=== PATIENT | male | born 1950 | race African-American/Black ===

== ENCOUNTER 2019-01-12 20:07 | Inpatient (IN) | payer OTHER ==
[~2019-01-12 20:07] MED LIST: ROCURONIUM BROMIDE 50 MG/5 ML VIAL IVPUSH ONE
[2019-01-12] MEDS ORDERED: EPINEPHrine 1:10,000 (P-F SYR) 1 MG/10 ML DISP.SYRIN ONE (20:30)
[2019-01-12] MEDS ORDERED: MIDAZOLAM HCL 2 MG/2 ML SINGLE DOSE VIAL ONE ×2 (20:56→22:11)
--- NOTE | 2019-01-12 21:19 | PDOC ---
History of Present Illness - General Chief Complaint: Cardiac Arrest Stated Complaint: CARDIAC ARREST - History of Present Illness Initial Comments: 01/12/19 23:06 68 year old man with a history of HTN, DM and CHF presents after v-fib cardiac arrest after being found down by family. The patient was intubated, defib 4 times, was given 5 of epi, bicarb, calcium, amio, atropine and lido prior to arrival. En route the patient lost pulses, but ROSC was obtained. In ER the lost pulses again, after compressions and epi the patient obtained ROSC. Patient was hypotensive to 40/50s 2L normal saline bolused through peripheral acess Crash femoral central line was placed Patient responded to fluids and with pressures 110s/ 80s Patient began gagging on tube 2 versed pushed repeat 2 versed dosed required after CT versed drip started Small ET tube of 6.5 was initially placed by EMS due to inability to pass a larger tube Tube was exchanged with 8 ET tube in the ER - significant findings for aspiration of food in the airway and through removed tube Patient lost pulses a total of 4 times since being found down. Patient has an 8ET tube, 24cm at the lip ROS - unable to obtain PE GENERAL: sedated, intubated HEAD: No signs of trauma, normocephalic, atraumatic EYES: dilated, fixed EOMI, sclera anicteric, conjunctiva clear ENT: intubated NECK: Normal ROM, supple LUNGS: clear to auscultation bilaterally HEART: Regular rate and rhythm, normal S1 and S2, no murmurs, rubs or gallops, peripheral pulses normal and equal bilaterally. ABDOMEN: Soft, nontender, No guarding, no rebound. No masses EXTREMITIES : Normal inspection, no edema. No clubbing or cyanosis. NEUROLOGICAL: unable to obtain 2/2 sedation/intubation SKIN: Warm, Dry, normal turgor, no rashes or lesions noted MDM ED Course: case discussed with ICU resident Dr. Cadena ekg: nsr 90bpm, incomplete lbbb, nonsepcific st and t wave changes central line placed in L femoral ET tube replaced with 8.0 CT head, cspine, c/a/p CTAP: atelectasis/infiltrate at R base CT head and C spine - negative labs with lactic acidosis and tropinemia case discussed with inpatient medicine who agrees to icu admission Elizabet Koppula, PGY2 Emergency Medicine Past History - Past Medical History Allergies/Adverse Reactions: Allergies Allergy/AdvReac Type Severity Reaction Status Date / Time No Known Allergies Allergy Verified 01/12/19 20:15 Home Medications: Ambulatory Orders Aspirin 81 mg PO DAILY 01/13/19 Atorvastatin Ca [Lipitor] 40 mg PO DAILY 01/13/19 Carvedilol [Coreg -] 25 mg PO BID 01/13/19 Losartan/Hydrochlorothiazide [Losartan-Hctz 100-25 mg Tab] 1 each PO DAILY 01/13 Mirabegron [Myrbetriq] 25 mg PO DAILY 01/13/19 Telmisartan/Hydrochlorothiazid [Telmisartan-Hctz 80-25 mg Tab] 1 tab PO DAILY COPD: No Diabetes: Yes HTN: Yes Thyroid Disease: No - Surgical History Abdominal Surgery: No GI Surgery: No Orthopedic Surgery: No - Immunization History Td Vaccination: Yes (11/17/11) Immunization Up to Date: No - Suicide/Smoking/Psychosocial Hx Smoking Status: Yes Smoking History: Unknown if ever smoked Have you smoked in the past 12 months: Yes Number of Cigarettes Smoked Daily: 2 'Breaking Loose' booklet given: 05/14/15 Hx Alcohol Use: No Drug/Substance Use Hx: No *Physical Exam - Vital Signs Last Vital Signs Temp Pulse Resp BP Pulse Ox 65 95/61 83 L 01/12/19 20:15 01/12/19 20:15 01/12/19 20:15 ED Treatment Course - LABORATORY CBC & Chemistry Diagram: 01/21/19 09:00 01/21/19 09:00 - ADDITIONAL ORDERS Additional order review: Laboratory Results 01/12/19 20:38 POC Glucometer 159 01/12/19 20:38 POC Glucometer 159 Medical Decision Making - Critical Care Time Total Critical Care Time (minutes): 90 Critical Care Statement: The care of this patient involved high complexity decision making to prevent further life threatening deterioration of the patient 's condition and/or to evaluate & treat vital organ system(s) failure or risk of failure. *DC/Admit/Observation/Transfer Diagnosis at time of Disposition: Cardiac arrest with successful resuscitation - Discharge Dispostion Condition at time of disposition: Stable - Referrals - Patient Instructions - Post Discharge Activity
--- NOTE | 2019-01-12 21:27 | PDOC ---
Attending Attestation - Resident Resident Name: Elizabet Chan - ED Attending Attestation I have performed the following: I have examined & evaluated the patient, The case was reviewed & discussed with the resident, I agree w/resident's findings & plan - HPI HPI: 01/12/19 22:12 see resident hpi - Physicial Exam PE: 01/12/19 22:13 agree with resident exam - Critical Care Time Total Critical Care Time: 90 Critical Care Statement: The care of this patient involved high complexity decision making to prevent further life threatening deterioration of the patient 's condition and/or to evaluate & treat vital organ system(s) failure or risk of failure. - Medical Decision Making 01/12/19 22:34 68-year-old male status post cardiac arrest Patient had return of pulses after ACLS protocol by paramedics in route Initial rhythm was V. fib Patient again lost pulses in route and returned spontaneous circulation just prior to arrival Patient was intubated in the field Central line access was obtained with a left femoral Patient's ET tube placement field became occluded with thick mucus secretions, line was changed to an 8.[address] scans obtained of the head cervical spine chest abdomen and pelvis Plan for admission to the ICU
[2019-01-12] MEDS ORDERED: ROCURONIUM BROMIDE 50 MG/5 ML VIAL IVPUSH ONE (22:00)
[2019-01-12] MEDS ORDERED: MIDAZOLAM IN 0.9 % SOD.CHLORID 1 MG/1 ML PLAST..BAG ONE (22:18)
[2019-01-12] MEDS ORDERED: RAPID SEQUENCE INTUBATION KIT NR ONE (22:24)
[2019-01-12] MEDS: MIDAZOLAM 100 MG in SODIUM CHLORIDE 100 ML IVPB SCH (22:33)
[2019-01-12] MEDS ORDERED: MIDAZOLAM HCL 2 MG/2 ML SINGLE DOSE VIAL IVPUSH ONE ×2 (22:37→22:38)
[2019-01-12] MEDS ORDERED: SODIUM CHLORIDE 2,000 ML IV SCH ×2 (22:45→23:07)
[2019-01-12 22:46] LABS: INR 1.08 (0.83-1.09); PROTHROMBIN TIME (PATIENT) 12.7 SEC (9.7-13.0)
[2019-01-12] MEDS ORDERED: VANCOMYCIN 1,000 MG in DEXTROSE 5%-WATER - 250 ML IVPB ONE (23:05)
[2019-01-12] MEDS ORDERED: PIPERACILLIN/TAZOB 3.375 GM 3.375 GM in DEXTROSE 5%-WATER - 50 ML IVPB ONE (23:05)
[2019-01-12 23:08] LABS: ALBUMIN 2.7 g/dl (3.4-5.0); BILIRUBIN,TOTAL 0.4 mg/dL (0.2-1); BLOOD UREA NITROGEN 14.3 mg/dL (7-18); CALCIUM 10.4 mg/dL (8.5-10.1); CREATININE 1.6 mg/dL (0.55-1.3); MAGNESIUM 3.7 mg/dL (1.8-2.4); N-TERMINAL BNP 1451.1 pg/ml (5-125); POTASSIUM 3.4 mmol/L (3.5-5.1); TOT PROT 5.8 g/dl (6.4-8.2)
[2019-01-12] MEDS ORDERED: SODIUM CHLORIDE 1,000 ML IV SCH (23:15)
--- NOTE | 2019-01-12 23:17 | CONSULT ---
Consultation: REQUESTING PROVIDER: CONSULT REQUEST: We have been asked to medically evaluate this patient for ICU care. HISTORY OF PRESENT ILLNESS: Patient is a 68M with history of HTN and CHF who presented in the field in cardiac arrest. Family reports that he visited his PCP and was in his usual state of health today. EMS reports they were called into the field for a possible stroke. After arrival pulses were lost. ACLS was initiated. Patient was shocked 4 times for vfib, given amiodarone 300 and 150. Pulses lost three times. Estimated down time 45 minutes in field. Patient had another episode of cardiac arrest in ED lasting 2 minutes. Post-ROSC EKG showed no STEMI. Large amount of vomitus reported in initial 6.5 tube that was exchanged for an 8.0 tube. Chart review notes that patient had CHF with severely reduced EF before being transferred to [facility]. Later echo report states mild to moderate CHF. Cardiomegaly noted on REVIEW OF SYSTEMS: Unable to obtain 2/2 intubation and clinical condition PHYSICAL EXAMINATION Vital Signs - 24 hr 01/12/19 01/12/19 01/12/19 20:15 20:21 20:25 Pulse Rate 65 Pulse Rate [ 57 L 89 Radial] Respiratory 14 21 H 21 H Rate Blood Pressure 95/61 Blood Pressure 58/25 L 69/44 L [Right Arm] O2 Sat by Pulse 83 L 95 100 Oximetry (%) 01/12/19 01/12/19 01/12/19 20:29 20:35 20:40 Pulse Rate Pulse Rate [ 126 H 90 90 Radial] Respiratory 21 H 17 14 Rate Blood Pressure Blood Pressure 41/30 L 189/111 H 129/92 [Right Arm] O2 Sat by Pulse 93 L 100 Oximetry (%) 01/12/19 01/12/19 01/12/19 20:45 20:50 22:44 Pulse Rate Pulse Rate [ 90 90 100 H Radial] Respiratory 14 Rate Blood Pressure Blood Pressure 133/88 137/66 122/78 [Right Arm] O2 Sat by Pulse 100 100 100 Oximetry (%) 01/12/19 23:10 Pulse Rate Pulse Rate [ 100 H Radial] Respiratory Rate Blood Pressure Blood Pressure 104/66 [Right Arm] O2 Sat by Pulse 100 Oximetry (%) GENERAL: Intubated, non-responsive HEAD: Normal with no signs of trauma. EYES: Pupils fixed and dilated, no response to challenge EARS, NOSE, THROAT: Ears normal, nares patent, oropharynx clear without exudates. Moist mucous membranes. NECK: Normal range of motion, supple without lymphadenopathy, JVD, or masses. LUNGS: Breath sounds equal, clear to auscultation bilaterally. HEART: Regular rate and rhythm, normal S1 and S2 without murmur, rub or gallop. ABDOMEN: Soft, nontender, not distended, no guarding, no rebound, no masses. MUSCULOSKELETAL: Normal range of motion at all joints. No bony deformities or tenderness. No CVA tenderness. UPPER EXTREMITIES: 2+ pulses, warm, well-perfused. No cyanosis. No clubbing. Cap refill <2 seconds. No peripheral edema. LOWER EXTREMITIES: 2+ pulses, warm, well-perfused. No calf tenderness. No peripheral edema. NEUROLOGICAL: Pupils fixed and dilated, no withdrawal to pain, no response to sternal rub SKIN: Warm, dry, normal turgor, no rashes or lesions noted. Laboratory Results - last 24 hr 01/12/19 01/12/19 01/12/19 20:38 20:48 20:48 PT with INR INR Carboxyhemoglobin Methemoglobin Sodium 146 H Potassium 3.4 L Chloride 104 Carbon Dioxide 24 Anion Gap 18 H BUN 14.3 Creatinine 1.6 H Est GFR (CKD-EPI)AfAm 51.27 Est GFR (CKD-EPI)NonAf 44.24 POC Glucometer 159 Random Glucose 236 H Lactic Acid 8.3 H* Calcium 10.4 H Magnesium 3.7 H Total Bilirubin 0.4 AST 123 H ALT 111 H Alkaline Phosphatase 101 Creatine Kinase 148 Troponin I 0.66 H* B-Natriuretic Peptide 1451.1 H Total Protein 5.8 L Albumin 2.7 L Lipase 123 TSH 9.52 H 01/12/19 01/12/19 20:48 21:10 PT with INR 12.70 INR 1.08 Carboxyhemoglobin Cancelled Methemoglobin Cancelled Sodium Potassium Chloride Carbon Dioxide Anion Gap BUN Creatinine Est GFR (CKD-EPI)AfAm Est GFR (CKD-EPI)NonAf POC Glucometer Random Glucose Lactic Acid Calcium Magnesium Total Bilirubin AST ALT Alkaline Phosphatase Creatine Kinase Troponin I B-Natriuretic Peptide Total Protein Albumin Lipase TSH Active Medications Generic Name Dose Route Start Last Admin Trade Name Freq PRN Reason Stop Dose Admin Midazolam HCl 100 mg/ Sodium 100 mls @ 1 mls/hr 01/12/19 21:30 01/12/19 22:33 Chloride IVPB 1 mg/hr TITR HALEIGH 1 mls/hr Administration Protocol 1 MG/HR Vancomycin HCl 1,000 mg/ 250 mls @ 166.667 mls/hr 01/12/19 23:05 Dextrose IVPB 01/13/19 00:34 ONCE ONE Piperacillin Sod/Tazobactam 50 mls @ 100 mls/hr 01/12/19 23:05 Sod 3.375 gm/ Dextrose IVPB 01/12/19 23:34 ONCE ONE Protocol Sodium Chloride 1,000 mls @ 125 mls/hr 01/12/19 23:15 Normal Saline - IV ASDIR HALEIGH Sodium Chloride 2,000 mls @ 0 mls/hr 01/12/19 23:07 01/12/19 23:14 Normal Saline - IV 2,000 mls/hr ASDIR HALEIGH Administration Wide Open ASSESSMENT/PLAN: Assessment: Patient is 68M with history of HTN and CHF here today s/p cardiac arrest. Suspect primary cause as cardiac arrhythmia 2/2 cardiomegaly due to vfib , CHF history and cardiomegaly on imaging. Neuro: - Currently on versed for sedation, hypothermic initially in ED to 35.2 C. Temp 101F upon arrival in ICU. - Tylenol for fever PRN - Cooling protocol with goal of 32 to 34 C - Versed for sedation, add vecuronium if needed for shivering. - Cooling blanket, ice packs as needed to reach goal - Patient likely to have poor outcome given prolonged down time in field - Head CT negative for bleed, shows ill defined hypodensity in bilateral temporal lobes - Upon arrival to ICU, has rhythmic movements around mouth concerning for possible seizure CV: - s/p vfib arrest, ~45 minutes down time, amio 300/150, multiple shocks - Post rosc EKG shows no STEMI - BPs now stable, HR stable. Maintaining BPs after 2L of fluid. - Will monitor for arrhythmias - Trop 0.66, will trend Resp: - s/p intubation in field during cardiac arrest, complicated by aspirate in small bore tube - 8.0 tube placed - Initially on 100% FiO2, RR 12, TV 500, PEEP 5. Titrating O2 down maintaining spO2 >92% - Bilateral rib fractures on CT consistent with CPR - Infiltrate vs atelectasis in RLL Endocrine: - TSH elevated in ED, thyroid labs sent, will follow. Low concern for myxedema coma given lack of refractory hypotension and vfib arrest ID: - Concern for aspiration given CT findings - Given vanc/zosyn in ED. Will continue zosyn. - Febrile now in ICU GI: - Air distention in stomach likely secondary to bagging in field - NPO Lines: - Crash TLC femoral line placed in ED Dispo: ICU care Visit type - Emergency Visit Emergency Visit: Yes ED Registration Date: 01/12/19 Care time: The patient presented to the Emergency Department on the above date and was hospitalized for further evaluation of their emergent condition. - New Patient This patient is new to me today: Yes Date on this admission: 01/13/19 - Critical Care Critical Care patient: Yes Total Critical Care Time (in minutes): 55 Critical Care Statement: The care of this patient involved high complexity decision making to prevent further life threatening deterioration of the patient 's condition and/or to evaluate & treat vital organ system(s) failure or risk of failure. ATTENDING PHYSICIAN STATEMENT I saw and evaluated the patient. I reviewed the resident's note and discussed the case with the resident. I agree with the resident's findings and plan as documented. SUBJECTIVE: OBJECTIVE: ASSESSMENT AND PLAN:
[2019-01-12 23:44] LABS: BASO % 0.3 % (0-2.0); EOS % 1.1 % (0-4.5); HEMATOCRIT 37.8 % (35.4-49); LYMPH % 43.7 % (8-40); MCH 29.5 pg (25.7-33.7); MCHC 31.7 g/dl (32.0-35.9); MEAN PLT VOLUME 9.2 fl (7.5-11.1); MONO % 5.7 % (3.8-10.2); NEUT % 49.2 % (42.8-82.8); RBC 4.07 M/mm3 (4.00-5.60); RDW 15.1 % (11.9-15.9); WHITE BLOOD COUNT 9.7 K/mm3 (4.0-10.0)
[2019-01-13] MEDS ORDERED: VANCOMYCIN 1 GRAM (PRE-DOCKED) 1,000 MG/250 ML BAG IVPB ONE (00:04)
--- NOTE | 2019-01-13 00:05 | PN ---
Teaching Attending Note Name of Resident: Myriam Penn ATTENDING PHYSICIAN STATEMENT I saw and evaluated the patient. I reviewed the resident's note and discussed the case with the resident. I agree with the resident's findings and plan as documented. SUBJECTIVE: Patient is a 68 year old man with a PMH of HTN, DM and CHF brought by EMS after V-fib cardiac arrest found down by family. En route, patient was intubated, shocked 4 times, was given 5 of epi, bicarb, calcium, amiodarone, atropine and lidocaine prior to arrival. En route the patient lost pulses, but ROSC was achieved. In the ER he lost pulses again, after compressions and epi the patient achieved ROSC. Patient was hypotensive to 40/50 systolic but responded to fluids and with pressures jessica to 110s/ 80s. Estimated down time 45 minutes in the field. Patient had another episode of cardiac arrest in ER lasting 2 minutes. Post-ROSC EKG showed no STEMI. Large amount of vomitus reported in initial 6.5 tube that was exchanged for an 8.0 tube. He got IV Versed in the ER after "seizure-like" movements were observed. Patient being admitted to the ICU and is getting hypothermia therapy. OBJECTIVE: Intubated and sedated Vital Signs Period Temp Pulse Resp BP Sys/Estrada Pulse Ox Last 24 Hr 95.4 F 57-126 14-21 41-189/25-111 83-100 HEENT: No Jaundice, eye redness or discharge, Dilated pupils. Normocephalic, atraumatic. External ears are normal; No nasal discharge. Neck: Supple, nontender. No palpable adenopathy or thyromegaly. No JVD Chest: Good effort. Clear to auscultation and percussion. Heart: Regular. No S3, rub or murmur Abdomen: Not distended, soft, nontender and no HSM. No rebound or guarding. Normal bowel sounds. Ext: Peripheral pulses intact. No leg edema. Skin: Warm and dry. No petechiae, rash or ecchymosis. Neuro: Sedated on the ventilator. No withdrawal to noxious stimuli. Psych: Unable to assess. Sedated and intubated. Current Medications Generic Name Dose Route Start Last Admin Trade Name Freq PRN Reason Stop Dose Admin Artificial Tears 1 applic 01/13/19 22:00 Artificial Tears Ointment - OU HS HALEIGH Artificial Tears 1 drop 01/13/19 10:00 Artificial Tears OU BID HALEIGH Chlorhexidine Gluconate 1 applic 01/13/19 22:00 Hibiclens For Decolonization - TP HS HALEIGH Midazolam HCl 100 mg/ Sodium 100 mls @ 1 mls/hr 01/12/19 21:30 01/12/19 22:33 Chloride IVPB 1 mg/hr TITR HALEIGH 1 mls/hr Administration Protocol 1 MG/HR Sodium Chloride 1,000 mls @ 125 mls/hr 01/12/19 23:15 01/12/19 23:37 Normal Saline - IV 125 mls/hr ASDIR HALEIGH Administration Sodium Chloride 2,000 mls @ 0 mls/hr 01/12/19 23:07 01/12/19 23:14 Normal Saline - IV 2,000 mls/hr ASDIR HALEIGH Administration Wide Open Piperacillin Sod/Tazobactam 100 mls @ 200 mls/hr 01/13/19 07:00 Sod 4.5 gm/ Dextrose IVPB Q8H-IV HALEIGH Protocol Fentanyl 500 mcg/ Dextrose 100 mls @ 5 mls/hr 01/13/19 01:45 IVPB TITR HALEIGH Protocol 25 MCG/HR Lactated Ringer's 1,000 ml in 1,000 mls @ 100 mls/hr 01/13/19 01:45 Lactated Ringers Solution IV ASDIR HALEIGH Mupirocin 1 applic 01/13/19 10:00 Bactroban Ointment (For Decolonization) - NS 01/18/19 09:59 BID [facility] Home Medications Medication Instructions Recorded Acetaminophen [Tylenol .Regular 650 mg PO Q4H PRN #0 tablet 09/03/13 Strength -] Cholecalciferol (Vitamin D3) 1,000 unit PO DAILY #0 tab 09/03/13 [Vitamin D3 -] Lisinopril [Prinivil] 2.5 mg PO DAILY #0 tablet 09/03/13 Cyclobenzaprine HCl [Flexeril -] 10 mg PO TID 05/13/15 Abnormal Lab Results 01/12/19 01/12/19 01/12/19 20:48 20:48 20:48 MCHC 31.7 L Lymphocytes % 43.7 H D ABG pH ABG pO2 at Pt Temp ABG HCO3 ABG O2 Sat (Measured) ABG Base Excess Sodium 146 H Potassium 3.4 L Anion Gap 18 H Creatinine 1.6 H Random Glucose 236 H Lactic Acid 8.3 H* Calcium 10.4 H Magnesium 3.7 H AST 123 H ALT 111 H Troponin I 0.66 H* B-Natriuretic Peptide 1451.1 H Total Protein 5.8 L Albumin 2.7 L TSH 9.52 H 01/13/19 00:23 MCHC Lymphocytes % ABG pH 7.33 L ABG pO2 at Pt Temp 227 H ABG HCO3 21.0 L ABG O2 Sat (Measured) 99.4 H ABG Base Excess -4.2 L Sodium Potassium Anion Gap Creatinine Random Glucose Lactic Acid Calcium Magnesium AST ALT Troponin I B-Natriuretic Peptide Total Protein Albumin TSH ASSESSMENT AND PLAN: 1. Cardiac arrest/Post ROSC - Sepsis workup done and patient being treated with IV vancomycin and zosyn. CT scan of head showed multiple hypodense lesions and post ROSC EKG showed NSR, incomplete LBBB, 1O AV block and nonspecific ST-T wave changes. No significant acute abnormality on C-spine, chest, abdomen/ pelvis CT. Will continue critical care according to post-ROSC protocol. Will correct electrolyte derangements, trend troponin to rule out ACS, repeat TSH ( high TSH unexplained) and trend lactic acid. Continue IV fluid support, monitor urine output, cooling protocol, pulmonary toilet and get ECHO. Will continue comprehensive care of all his comorbid conditions. 2. PRACHI - Likely a consequence of the cardiac arrest. Continue IVF and monitor urine output. Will consult nephrology and avoid nephrotoxic agents such as NSAIDS, aminoglycosides, contrast dyes and certain Alternative medicine products. 3. Obesity When patient clinically improves, will elder counselor on the risks associated with obesity. Will provide patient all the necessary assistance, counseling and positive reinforcement to facilitate weight loss. Consult ops manager. 4. DVT prophylaxis - Heparin 5000u sq tid. 5. Advance directives - Full code
[2019-01-13 00:37] LABS: ARTERIAL BLD GAS O2 SATURATION 99.4 % (95-98); ARTERIAL BLOOD GAS BASE EXCESS -4.2 meq/l (-2-2); ARTERIAL BLOOD GAS PCO2 41.2 mmHg (35-45); ARTERIAL BLOOD GAS pH 7.33 (7.35-7.45)
[2019-01-13 00:42] LABS: ALLENS TEST POSITIVE; ARTERIAL BLOOD GAS PO2 227 mmHg (80-100)
[2019-01-13] MEDS ORDERED: ACETAMINOPHEN 1000 MG/100 ML VIAL (NON FORMULARY) IVPB ONE (01:13)
--- NOTE | 2019-01-13 01:37 | HP ---
CHIEF COMPLAINT: cardiac arrest PCP: Dr. Walter Ivy HISTORY OF PRESENT ILLNESS: Lee Black is 68 year old male with a past medical history of hypertension , diabetes, congestive heart failure (EF 37% in 2016, noted improvement in 2018 ) who presented to the ED after having cardiac arrest in the field. The patient was at his regularly scheduled well-visit appointment with his primary care doctor with no acute complaints. The patient did not have any recent acute complaints as noted by the family before or after the appointment. After the appointment, at home, the family heard a gurgling noise and then found the patient down. EMS was called, arrived, and patient was found in ventricular fibrillation. ACLS protocol was initiated. Patient was defibrillated 4 times, given epinephrine, bicarbonate, calcium gluconate, amiodarone, lidocaine. ROSC achieved and lost again in transit, and the achieved again. In the ED, patient was found to be hypotensive in the 40/50s systolic, given fluids, and responded appropriately. A femoral line was placed. Patient was gagging on tube and given Versed and started on Versed drip. ET tube was exchanged for larger tube. ICU admitted patient for continued monitoring. No other history was obtained. ER course was notable for: As above. (1) lactic 8.9, CRE 1.6 (basleine 1.1), AST 123, ALT 111, Mg 3.7, trop 0.66, TSH 9.52 (2) head CT with hypodensities in the bilateral frontal lobes more extensive on the L with additional hypodensities in the left cerebellar hemispheres, no acute hemorrhage (3) CT chest/abd/pelvis with patch airspace opacities, tracheobroncomegaly, ET tube in place, ribs 3-7 fractures secondary to CPR, moderate stool in the colon (4) CT cervical spine with no acute trauma PAST MEDICAL HISTORY: as above PAST SURGICAL HISTORY: makoplasty Social History: Smoking: remote smoking history Alcohol: unknown Drugs: unknown Family History: Unable to obtain secondary to patient's condition Allergies No Known Allergies Allergy (Verified 01/12/19 20:15) HOME MEDICATIONS: Home Medications Medication Instructions Recorded Acetaminophen [Tylenol .Regular 650 mg PO Q4H PRN #0 tablet 09/03/13 Strength -] Cholecalciferol (Vitamin D3) 1,000 unit PO DAILY #0 tab 09/03/13 [Vitamin D3 -] Lisinopril [Prinivil] 2.5 mg PO DAILY #0 tablet 09/03/13 Cyclobenzaprine HCl [Flexeril -] 10 mg PO TID 05/13/15 REVIEW OF SYSTEMS Unable to obtain review of systems secondary to patient's condition. History as above PHYSICAL EXAMINATION Vital Signs - 24 hr 01/12/19 01/12/19 01/12/19 20:15 20:21 20:25 Temperature Pulse Rate 65 Pulse Rate [ 57 L 89 Radial] Respiratory 14 21 H 21 H Rate Blood Pressure 95/61 Blood Pressure 58/25 L 69/44 L [Right Arm] O2 Sat by Pulse 83 L 95 100 Oximetry (%) 01/12/19 01/12/19 01/12/19 20:29 20:30 20:35 Temperature Pulse Rate Pulse Rate [ 126 H 90 Radial] Respiratory 21 H 19 17 Rate Blood Pressure Blood Pressure 41/30 L 189/111 H [Right Arm] O2 Sat by Pulse 93 L Oximetry (%) 01/12/19 01/12/19 01/12/19 20:40 20:45 20:50 Temperature 95.4 F L Pulse Rate 100 H Pulse Rate [ 90 90 90 Radial] Respiratory 14 21 H Rate Blood Pressure Blood Pressure 129/92 133/88 137/66 [Right Arm] O2 Sat by Pulse 100 100 100 Oximetry (%) 01/12/19 01/12/19 01/13/19 22:44 23:10 00:42 Temperature Pulse Rate Pulse Rate [ 100 H 100 H Radial] Respiratory 15 Rate Blood Pressure Blood Pressure 122/78 104/66 [Right Arm] O2 Sat by Pulse 100 100 Oximetry (%) GENERAL: Intubated and sedated. HEAD: Normal with no signs of trauma. EYES: Pupils dilated 7mm and sluggish to light with mild corneal opacity, significant conjunctival injection, upward deviation. EARS, NOSE, THROAT: ET tube in place at 24cm, moist mucus membranes. LUNGS: Mechanical breath sounds, no coarse breath sounds, crackles, wheezes appreciated HEART: Regular rate and rhythm with occasional extra beats, normal S1 and S2 without murmur, rub. ABDOMEN: Soft, nontender, not distended, normoactive bowel sounds, no guarding, no rebound, no masses. MUSCULOSKELETAL: Normal range of motion at all joints. No bony deformities or tenderness. UPPER EXTREMITIES: 1+ pulses, cool, well-perfused. No cyanosis. No clubbing. No peripheral edema. LOWER EXTREMITIES: 1+ pulses, cool, well-perfused. No calf tenderness. No peripheral edema. NEUROLOGICAL: Pupils dilated and sluggish to light, positive oculocephalic reflex, no withdrawal to painful stimuli, 2+ reflexes on upper extremity, 1+/ minimal LE reflexes, Babinski non-reactive, sedated. Myclonic movements SKIN: Cool extremities, dry, no rashes or lesions noted, normal capillary refill. Laboratory Results - last 24 hr 01/12/19 01/12/19 01/12/19 20:38 20:48 20:48 WBC 9.7 RBC 4.07 Hgb 12.0 Hct 37.8 MCV 93.0 MCH 29.5 MCHC 31.7 L RDW 15.1 Plt Count No Result Required. MPV 9.2 Absolute Neuts (auto) 4.8 Neutrophils % 49.2 D Neutrophils % (Manual) 50.0 Band Neutrophils % 3.0 Lymphocytes % 43.7 H D Lymphocytes % (Manual) 40.0 Monocytes % 5.7 Monocytes % (Manual) 6 Eosinophils % 1.1 Basophils % 0.3 Nucleated RBC % 0 Platelet Comment Mod plt clumping PT with INR INR Anticoagulation Therapy Puncture Site ABG pH ABG pCO2 at Pt Temp ABG pO2 at Pt Temp ABG HCO3 ABG O2 Sat (Measured) ABG O2 Content ABG Base Excess Emory Test Carboxyhemoglobin Methemoglobin O2 Delivery Device Oxygen Flow Rate Vent Mode Vent Rate Mechanical Rate PEEP Pressure Support Vent Sodium 146 H Potassium 3.4 L Chloride 104 Carbon Dioxide 24 Anion Gap 18 H BUN 14.3 Creatinine 1.6 H Est GFR (CKD-EPI)AfAm 51.27 Est GFR (CKD-EPI)NonAf 44.24 POC Glucometer 159 Random Glucose 236 H Lactic Acid Calcium 10.4 H Magnesium 3.7 H Total Bilirubin 0.4 AST 123 H ALT 111 H Alkaline Phosphatase 101 Creatine Kinase 148 Troponin I 0.66 H* B-Natriuretic Peptide 1451.1 H Total Protein 5.8 L Albumin 2.7 L Lipase 123 TSH 9.52 H 01/12/19 01/12/19 01/12/19 20:48 20:48 21:10 WBC RBC Hgb Hct MCV MCH MCHC RDW Plt Count MPV Absolute Neuts (auto) Neutrophils % Neutrophils % (Manual) Band Neutrophils % Lymphocytes % Lymphocytes % (Manual) Monocytes % Monocytes % (Manual) Eosinophils % Basophils % Nucleated RBC % Platelet Comment PT with INR 12.70 INR 1.08 Anticoagulation Therapy Puncture Site ABG pH ABG pCO2 at Pt Temp ABG pO2 at Pt Temp ABG HCO3 ABG O2 Sat (Measured) ABG O2 Content ABG Base Excess Emory Test Carboxyhemoglobin Cancelled Methemoglobin Cancelled O2 Delivery Device Oxygen Flow Rate Vent Mode Vent Rate Mechanical Rate PEEP Pressure Support Vent Sodium Potassium Chloride Carbon Dioxide Anion Gap BUN Creatinine Est GFR (CKD-EPI)AfAm Est GFR (CKD-EPI)NonAf POC Glucometer Random Glucose Lactic Acid 8.3 H* Calcium Magnesium Total Bilirubin AST ALT Alkaline Phosphatase Creatine Kinase Troponin I B-Natriuretic Peptide Total Protein Albumin Lipase TSH 01/13/19 00:23 WBC RBC Hgb Hct MCV MCH MCHC RDW Plt Count MPV Absolute Neuts (auto) Neutrophils % Neutrophils % (Manual) Band Neutrophils % Lymphocytes % Lymphocytes % (Manual) Monocytes % Monocytes % (Manual) Eosinophils % Basophils % Nucleated RBC % Platelet Comment PT with INR INR Anticoagulation Therapy No Result Required. Puncture Site Right radial ABG pH 7.33 L ABG pCO2 at Pt Temp 41.2 ABG pO2 at Pt Temp 227 H ABG HCO3 21.0 L ABG O2 Sat (Measured) 99.4 H ABG O2 Content 99.4 ABG Base Excess -4.2 L Emory Test Positive Carboxyhemoglobin Methemoglobin O2 Delivery Device Mech vent Oxygen Flow Rate 100 Vent Mode No Result Required. Vent Rate 14 Mechanical Rate No Result Required. PEEP 5.0 Pressure Support Vent 500 Sodium Potassium Chloride Carbon Dioxide Anion Gap BUN Creatinine Est GFR (CKD-EPI)AfAm Est GFR (CKD-EPI)NonAf POC Glucometer Random Glucose Lactic Acid Calcium Magnesium Total Bilirubin AST ALT Alkaline Phosphatase Creatine Kinase Troponin I B-Natriuretic Peptide Total Protein Albumin Lipase TSH EKG--> 1st degree AV block, occasional premature complexes, non-specific T wave inversion in V6, Qtc 455 ASSESSMENT/PLAN: Lee Black is 68 year old male with a past medical history of hypertension , diabetes, congestive heart failure who is admitted after ROSC s/p cardiac arrest after V-fib. S/p cardiac arrest Elevated lactic acid PRACHI Elevated LFTs Elevated TSH S/P cardiac arrest - continuous cardiac monitoring - cooling protocol initiated - continue to trend troponin - repeat EKG - continue antibiotics in setting of elevated temperature for possible infectious cause - monitor and correct any electrolytes disturbances - cardiology consultation - on sedation with Versed and fentanyl - monitor for anoxic brain injury, CT suggestive of brain injury, exhibiting potential signs of post-hypoxic myoclonus Elevated lactic acid - likely in setting of hypoperfusion during cardiac arrest - continue IV fluids - repeat labs and trend PRACHI - likely in setting of hypoperfusion during cardiac arrest - baseline CRE 1.1 - continue IV fluids - repeat labs Elevated LFTs - likely in setting of hypoperfusion during cardiac arrest - continue IV fluids - repeat labs Elevated TSH - no history of thyroid disease - T3, T4 - repeat TSH FEN - LR at 100cc/hr, bolus as necessary - continue to monitor electrolytes and replete as necessary - NPO Prophylaxis - SCDs Code - full code, needs discussion of goals of care ADAM TSANG DO - PGY-1 Visit type - Emergency Visit Emergency Visit: Yes ED Registration Date: 01/12/19 Care time: The patient presented to the Emergency Department on the above date and was hospitalized for further evaluation of their emergent condition. - New Patient This patient is new to me today: Yes Date on this admission: 01/13/19 - Critical Care Critical Care patient: No
[2019-01-13] MEDS ORDERED: FENTANYL INJECTION 500 MCG in DEXTROSE 5%-WATER - 90 ML IVPB SCH (01:45)
[2019-01-13] MEDS: LACTATED RINGERS SOLUTION 1,000 ML/1,000 ML INFUS.BAG IV SCH (02:13)
[2019-01-13] MEDS ORDERED: DEXTROSE 5%-WATER 100 ML IVPB ONE ×2 (02:16→11:01)
[2019-01-13] MEDS ORDERED: PIPERACILLIN/TAZOBACTAM 4.5 GM VIAL IVPB ONE ×3 (02:16→11:01)
[2019-01-13] MEDS: PIPERACILLIN/TAZOB 4.5 GM 4.5 GM in DEXTROSE 5%-WATER 100 ML IVPB SCH ×2 (02:36→11:10)
[2019-01-13] MEDS ORDERED: levETIRAcetam 500 MG/5 ML INJECTION VIAL IVPB ONE (02:41)
[2019-01-13] MEDS: FENTANYL INJECTION 500 MCG in DEXTROSE 5%-WATER - 90 ML IVPB SCH (03:04)
[2019-01-13] MEDS ORDERED: NOREPINEPHRINE BITARTRATE 4 MG/4 ML ML IV ONE (04:00)
[2019-01-13] MEDS: NOREPINEPHRINE BITARTRATE 8,000 MCG in DEXTROSE 5%-WATER - 492 ML IV SCH ×2 (04:02→21:01)
[2019-01-13 05:11] LABS: EPI CELLS 10.6 /HPF (0-5/HPF); HYALINE CASTS 61 /lpf (0-8); URINE APPEARANCE TURBID; URINE BILIRUBIN NEGATIVE (NEGATIVE); URINE COLOR YELLOW; URINE GLUCOSE (UA) TRACE (NEGATIVE); URINE KETONE NEGATIVE (NEGATIVE); URINE LEUK ESTERASE TRACE (NEGATIVE); URINE NITRITE NEGATIVE (NEGATIVE); URINE PROTEIN 2+ (NEGATIVE); URINE UROBILINOGEN 0.2 mg/dL (0.2-1.0); URINE WBC 163 /hpf (0-5)
[2019-01-13 05:22] LABS: URINE RBC 40.9 /hpf (0-4)
[2019-01-13 05:23] LABS: URINE BACTERIA 4.9 /hpf (NEGATIVE)
[2019-01-13 06:00] LABS: BASO % 0.2 % (0-2.0); HEMATOCRIT 38.9 % (35.4-49); HEMOGLOBIN 12.8 GM/dL (11.7-16.9); LYMPH % 5.4 % (8-40); MCH 29.7 pg (25.7-33.7); MCHC 32.8 g/dl (32.0-35.9); MEAN CELL VOLUME 90.6 fl (80-96); MEAN PLT VOLUME 8.2 fl (7.5-11.1); MONO % 6.3 % (3.8-10.2); NEUT % 88.1 % (42.8-82.8); PLATELET COUNT 186 K/MM3 (134-434); RDW 15.4 % (11.9-15.9); WHITE BLOOD COUNT 14.5 K/mm3 (4.0-10.0)
[2019-01-13 06:15] LABS: INR 1.08 (0.83-1.09); PROTHROMBIN TIME (PATIENT) 12.8 SEC (9.7-13.0)
[2019-01-13 06:17] LABS: ACTIVATED PTT 29.7 SECONDS (25.2-36.5)
[2019-01-13 07:00] LABS: ALBUMIN 2.9 g/dl (3.4-5.0); CREATININE 2.4 mg/dL (0.55-1.3); MAGNESIUM 2.4 mg/dL (1.8-2.4); PHOSPHOROUS 2.8 mg/dL (2.5-4.9); POTASSIUM 4.3 mmol/L (3.5-5.1); TOT PROT 5.7 g/dl (6.4-8.2)
[2019-01-13] MEDS ORDERED: PIPERACILLIN/TAZOB 4.5 GM 4.5 GM in DEXTROSE 5%-WATER 100 ML IVPB SCH (07:00)
[2019-01-13] MEDS ORDERED: LEVOTHYROXINE SODIUM 100 MCG VIAL IVPUSH SCH (10:00)
[2019-01-13 10:59] LABS: ARTERIAL BLD GAS O2 SATURATION 99.1 % (95-98); ARTERIAL BLOOD GAS BASE EXCESS -3.5 meq/l (-2-2); ARTERIAL BLOOD GAS PCO2 34.8 mmHg (35-45); ARTERIAL BLOOD GAS PO2 150 mmHg (80-100); ARTERIAL BLOOD GAS pH 7.38 (7.35-7.45)
[2019-01-13] MEDS ORDERED: PT OWN MED DRAWER 7, Y5N ONE ×2 (11:00→21:20)
[2019-01-13] MEDS: ARTIFICIAL TEARS (POLYVINYL ALCOHOL) OPTH DROPS OU SCH ×2 (11:00→21:24)
[2019-01-13] MEDS: MUPIROCIN 2% TOPICAL OINTMENT FOR DECOLONIZATION NS SCH ×2 (11:00→21:25)
[2019-01-13 11:01] LABS: ALLENS TEST POSITIVE
[2019-01-13] MEDS ORDERED: LACTATED RINGERS SOLUTION 1000 ML INFUS.BAG IV ONE (11:09)
[2019-01-13] MEDS ORDERED: LACTATED RINGERS SOLUTION 1,000 ML IV ONE (11:15)
--- NOTE | 2019-01-13 11:17 | PN ---
Physical Exam: SUBJECTIVE: Patient seen and examined at bedside. Pt intubated and unresponsive on cooling protocol post arrest. Spoke with pt's mother (with whom he lives) at bedside. She states pt had a stroke and an MO (and received a stent) around 2013 and was back to his baseline apart from slightly slurred speech. She states that after rehab, he has been able to walk without difficulty and carry out his ADLs including driving with no problems. He did not complain to her of any chest discomfort or shortness of breath when walking or carrying groceries up stairs. He did not have any recent illness including fever, chills, cough, nausea, vomiting, diarrhea. Last night, she was in the kitchen making dinner, and the patient took his food into the living room. The pt's mother heard him making gurgling sounds and she describes something kelvin to gasping, though she is not sure he was gasping for air. He collapsed shortly thereafter, and the mother called ems who intiated cpr on arrival and gave bag mask ventilation. They apparently got ROSC and lost pulses several times at the house and en route to [facility]. Pt may have had VF per report. OBJECTIVE: Vital Signs Period Temp Pulse Resp BP Sys/Estrada Pulse Ox Last 24 Hr 95.4 F-102.0 F 57-126 14-25 41-189/25-111 83-100 Gen: Intubated unresponsive HEENT: NCAT Neck: no jvd Cardio: rrr, normal s1s2, no mrg noted Pulm: limited exam. clear b/l Abd: soft, nondistended Laboratory Results - last 24 hr 01/12/19 01/12/19 01/12/19 20:38 20:48 20:48 WBC 9.7 RBC 4.07 Hgb 12.0 Hct 37.8 MCV 93.0 MCH 29.5 MCHC 31.7 L RDW 15.1 Plt Count No Result Required. MPV 9.2 Absolute Neuts (auto) 4.8 Neutrophils % 49.2 D Neutrophils % (Manual) 50.0 Band Neutrophils % 3.0 Lymphocytes % 43.7 H D Lymphocytes % (Manual) 40.0 Monocytes % 5.7 Monocytes % (Manual) 6 Eosinophils % 1.1 Basophils % 0.3 Nucleated RBC % 0 Platelet Comment Mod plt clumping PT with INR INR PTT (Actin FS) Anticoagulation Therapy Puncture Site ABG pH ABG pCO2 at Pt Temp ABG pO2 at Pt Temp ABG HCO3 ABG O2 Sat (Measured) ABG O2 Content ABG Base Excess Emory Test Carboxyhemoglobin Methemoglobin O2 Delivery Device Oxygen Flow Rate Vent Mode Vent Rate Mechanical Rate PEEP Pressure Support Vent Sodium 146 H Potassium 3.4 L Chloride 104 Carbon Dioxide 24 Anion Gap 18 H BUN 14.3 Creatinine 1.6 H Est GFR (CKD-EPI)AfAm 51.27 Est GFR (CKD-EPI)NonAf 44.24 POC Glucometer 159 Random Glucose 236 H Lactic Acid Calcium 10.4 H Phosphorus Magnesium 3.7 H Total Bilirubin 0.4 AST 123 H ALT 111 H Alkaline Phosphatase 101 Creatine Kinase 148 Creatine Kinase Index CK-MB (CK-2) Troponin I 0.66 H* B-Natriuretic Peptide 1451.1 H Total Protein 5.8 L Albumin 2.7 L Lipase 123 TSH 9.52 H Free T4 Resin T3 Uptake Urine Color Urine Appearance Urine pH Ur Specific Caldwell Urine Protein Urine Glucose (UA) Urine Ketones Urine Blood Urine Nitrite Urine Bilirubin Urine Urobilinogen Ur Leukocyte Esterase Urine WBC (Auto) Urine RBC (Auto) Urine Casts (Auto) U Pathogenic Cast Auto U Epithel Cells (Auto) Urine Bacteria (Auto) Urine Yeast (Auto) 01/12/19 01/12/19 01/12/19 20:48 20:48 21:10 WBC RBC Hgb Hct MCV MCH MCHC RDW Plt Count MPV Absolute Neuts (auto) Neutrophils % Neutrophils % (Manual) Band Neutrophils % Lymphocytes % Lymphocytes % (Manual) Monocytes % Monocytes % (Manual) Eosinophils % Basophils % Nucleated RBC % Platelet Comment PT with INR 12.70 INR 1.08 PTT (Actin FS) Anticoagulation Therapy Puncture Site ABG pH ABG pCO2 at Pt Temp ABG pO2 at Pt Temp ABG HCO3 ABG O2 Sat (Measured) ABG O2 Content ABG Base Excess Emory Test Carboxyhemoglobin Cancelled Methemoglobin Cancelled O2 Delivery Device Oxygen Flow Rate Vent Mode Vent Rate Mechanical Rate PEEP Pressure Support Vent Sodium Potassium Chloride Carbon Dioxide Anion Gap BUN Creatinine Est GFR (CKD-EPI)AfAm Est GFR (CKD-EPI)NonAf POC Glucometer Random Glucose Lactic Acid 8.3 H* Calcium Phosphorus Magnesium Total Bilirubin AST ALT Alkaline Phosphatase Creatine Kinase Creatine Kinase Index CK-MB (CK-2) Troponin I B-Natriuretic Peptide Total Protein Albumin Lipase TSH Free T4 Resin T3 Uptake Urine Color Urine Appearance Urine pH Ur Specific Caldwell Urine Protein Urine Glucose (UA) Urine Ketones Urine Blood Urine Nitrite Urine Bilirubin Urine Urobilinogen Ur Leukocyte Esterase Urine WBC (Auto) Urine RBC (Auto) Urine Casts (Auto) U Pathogenic Cast Auto U Epithel Cells (Auto) Urine Bacteria (Auto) Urine Yeast (Auto) 01/13/19 01/13/19 01/13/19 00:23 01:50 01:50 WBC RBC Hgb Hct MCV MCH MCHC RDW Plt Count MPV Absolute Neuts (auto) Neutrophils % Neutrophils % (Manual) Band Neutrophils % Lymphocytes % Lymphocytes % (Manual) Monocytes % Monocytes % (Manual) Eosinophils % Basophils % Nucleated RBC % Platelet Comment PT with INR INR PTT (Actin FS) Anticoagulation Therapy No Result Required. Puncture Site Right radial ABG pH 7.33 L ABG pCO2 at Pt Temp 41.2 ABG pO2 at Pt Temp 227 H ABG HCO3 21.0 L ABG O2 Sat (Measured) 99.4 H ABG O2 Content 99.4 ABG Base Excess -4.2 L Emory Test Positive Carboxyhemoglobin Methemoglobin O2 Delivery Device Mech vent Oxygen Flow Rate 100 Vent Mode No Result Required. Vent Rate 14 Mechanical Rate No Result Required. PEEP 5.0 Pressure Support Vent 500 Sodium Potassium Chloride Carbon Dioxide Anion Gap BUN Creatinine Est GFR (CKD-EPI)AfAm Est GFR (CKD-EPI)NonAf POC Glucometer Random Glucose Lactic Acid 2.1 H Calcium Phosphorus Magnesium Total Bilirubin AST ALT Alkaline Phosphatase Creatine Kinase Creatine Kinase Index CK-MB (CK-2) Troponin I 22.70 H* B-Natriuretic Peptide Total Protein Albumin Lipase TSH Free T4 1.01 Resin T3 Uptake 38.7 Urine Color Urine Appearance Urine pH Ur Specific Caldwell Urine Protein Urine Glucose (UA) Urine Ketones Urine Blood Urine Nitrite Urine Bilirubin Urine Urobilinogen Ur Leukocyte Esterase Urine WBC (Auto) Urine RBC (Auto) Urine Casts (Auto) U Pathogenic Cast Auto U Epithel Cells (Auto) Urine Bacteria (Auto) Urine Yeast (Auto) 01/13/19 01/13/19 01/13/19 04:50 05:15 05:15 WBC 14.5 H RBC 4.30 Hgb 12.8 Hct 38.9 MCV 90.6 MCH 29.7 MCHC 32.8 RDW 15.4 Plt Count 186 MPV 8.2 D Absolute Neuts (auto) 12.7 H Neutrophils % 88.1 H D Neutrophils % (Manual) Band Neutrophils % Lymphocytes % 5.4 L D Lymphocytes % (Manual) Monocytes % 6.3 Monocytes % (Manual) Eosinophils % 0.0 D Basophils % 0.2 Nucleated RBC % 0 Platelet Comment PT with INR 12.80 INR 1.08 PTT (Actin FS) 29.7 Anticoagulation Therapy Puncture Site ABG pH ABG pCO2 at Pt Temp ABG pO2 at Pt Temp ABG HCO3 ABG O2 Sat (Measured) ABG O2 Content ABG Base Excess Emory Test Carboxyhemoglobin Methemoglobin O2 Delivery Device Oxygen Flow Rate Vent Mode Vent Rate Mechanical Rate PEEP Pressure Support Vent Sodium Potassium Chloride Carbon Dioxide Anion Gap BUN Creatinine Est GFR (CKD-EPI)AfAm Est GFR (CKD-EPI)NonAf POC Glucometer Random Glucose Lactic Acid Calcium Phosphorus Magnesium Total Bilirubin AST ALT Alkaline Phosphatase Creatine Kinase Creatine Kinase Index CK-MB (CK-2) Troponin I B-Natriuretic Peptide Total Protein Albumin Lipase TSH Free T4 Resin T3 Uptake Urine Color Yellow Urine Appearance Turbid Urine pH 5.0 D Ur Specific Caldwell 1.032 Urine Protein 2+ H Urine Glucose (UA) Trace Urine Ketones Negative Urine Blood 3+ H Urine Nitrite Negative Urine Bilirubin Negative Urine Urobilinogen 0.2 Ur Leukocyte Esterase Trace Urine WBC (Auto) 163 Urine RBC (Auto) 40.9 Urine Casts (Auto) 61 U Pathogenic Cast Auto none seen U Epithel Cells (Auto) 10.6 Urine Bacteria (Auto) 4.9 Urine Yeast (Auto) none seen 01/13/19 05:15 WBC RBC Hgb Hct MCV MCH MCHC RDW Plt Count MPV Absolute Neuts (auto) Neutrophils % Neutrophils % (Manual) Band Neutrophils % Lymphocytes % Lymphocytes % (Manual) Monocytes % Monocytes % (Manual) Eosinophils % Basophils % Nucleated RBC % Platelet Comment PT with INR INR PTT (Actin FS) Anticoagulation Therapy Puncture Site ABG pH ABG pCO2 at Pt Temp ABG pO2 at Pt Temp ABG HCO3 ABG O2 Sat (Measured) ABG O2 Content ABG Base Excess Emory Test Carboxyhemoglobin Methemoglobin O2 Delivery Device Oxygen Flow Rate Vent Mode Vent Rate Mechanical Rate PEEP Pressure Support Vent Sodium 139 Potassium 4.3 Chloride 106 Carbon Dioxide 23 Anion Gap 10 BUN 27.0 H Creatinine 2.4 H Est GFR (CKD-EPI)AfAm 31.40 Est GFR (CKD-EPI)NonAf 27.09 POC Glucometer Random Glucose 158 H Lactic Acid Calcium 9.0 Phosphorus 2.8 Magnesium 2.4 Total Bilirubin 1.0 AST 181 H ALT 108 H Alkaline Phosphatase 93 Creatine Kinase 1511 H Creatine Kinase Index 3.5 CK-MB (CK-2) 54.3 H Troponin I 32.20 H* B-Natriuretic Peptide Total Protein 5.7 L Albumin 2.9 L Lipase TSH 1.88 D Free T4 Resin T3 Uptake Urine Color Urine Appearance Urine pH Ur Specific Caldwell Urine Protein Urine Glucose (UA) Urine Ketones Urine Blood Urine Nitrite Urine Bilirubin Urine Urobilinogen Ur Leukocyte Esterase Urine WBC (Auto) Urine RBC (Auto) Urine Casts (Auto) U Pathogenic Cast Auto U Epithel Cells (Auto) Urine Bacteria (Auto) Urine Yeast (Auto) Active Medications Generic Name Dose Route Start Last Admin Trade Name Freq PRN Reason Stop Dose Admin Artificial Tears 1 applic 01/13/19 22:00 Artificial Tears Ointment - OU HS [facility] Artificial Tears 1 drop 01/13/19 10:00 Artificial Tears OU BID [facility] Chlorhexidine Gluconate 1 applic 01/13/19 22:00 Hibiclens For Decolonization - TP HS [facility] Midazolam HCl 100 mg/ Sodium 100 mls @ 1 mls/hr 01/12/19 21:30 01/13/19 01:04 Chloride IVPB 3 mg/hr TITR [facility] 3 mls/hr Titration Protocol 1 MG/HR Sodium Chloride 1,000 mls @ 125 mls/hr 01/12/19 23:15 01/12/19 23:37 Normal Saline - IV 125 mls/hr ASDIR [facility] Administration Sodium Chloride 2,000 mls @ 0 mls/hr 01/12/19 23:07 01/12/19 23:14 Normal Saline - IV 2,000 mls/hr ASDIR [facility] Administration Wide Open Piperacillin Sod/Tazobactam 100 mls @ 200 mls/hr 01/13/19 07:00 Sod 4.5 gm/ Dextrose IVPB Q8H-IV [facility] Protocol Lactated Ringer's 1,000 ml in 1,000 mls @ 100 mls/hr 01/13/19 01:45 01/13/19 02:13 Lactated Ringers Solution IV 100 mls/hr ASDIR [place] Administration Piperacillin Sod/Tazobactam 100 mls @ 100 mls/hr 01/13/19 02:00 01/13/19 02: 36 Sod 4.5 gm/ Dextrose IVPB 01/13/19 18:59 100 mls/hr Q8H-IV [facility] Administration Fentanyl 500 mcg/ Dextrose 100 mls @ 5 mls/hr 01/13/19 02:14 01/13/19 03:04 IVPB 25 mcg/hr TITR [facility] 5 mls/hr Administration Protocol 25 MCG/HR Norepinephrine Bitartrate 8, 500 mls @ 18.75 mls/hr 01/13/19 04:00 01/13/19 06:19 000 mcg/ Dextrose IV 4 mcg/min TITR [facility] 15 mls/hr Titration Protocol 5 MCG/MIN Mupirocin 1 applic 01/13/19 10:00 Bactroban Ointment (For Decolonization) - NS 01/18/19 09:59 BID [facility] ASSESSMENT/PLAN: 68 year old male with a past medical history of hypertension, diabetes, congestive heart failure (EF 37% in 2016, noted improvement in 2018) who presented to the ED after having cardiac arrest in the field. Lee Black is 68 year old male with a past medical history of hypertension , diabetes, congestive heart failure who is admitted after ROSC s/p cardiac arrest after V-fib. S/P cardiac arrest - continuous cardiac monitoring - cooling protocol initiated - continue to trend troponin - repeat EKG - continue antibiotics in setting of elevated temperature for possible infectious cause - monitor and correct any electrolytes disturbances - cardiology consultation: plan to cath if/when return of brain function is established - on sedation with Versed and fentanyl - monitor for anoxic brain injury, CT suggestive of brain injury, exhibiting potential signs of post-hypoxic myoclonus - Elevated lactic acid - likely in setting of hypoperfusion during cardiac arrest - continue IV fluids - repeat labs and trend PRACHI - likely in setting of hypoperfusion during cardiac arrest - baseline CRE 1.1 - continue IV fluids - repeat labs Elevated LFTs - likely in setting of hypoperfusion during cardiac arrest - continue IV fluids - repeat labs Elevated TSH - no history of thyroid disease - T3, T4 - repeat TSH Visit type - Emergency Visit Emergency Visit: No - New Patient This patient is new to me today: Yes Date on this admission: 01/13/19 - Critical Care Critical Care patient: Yes Total Critical Care Time (in minutes): 30 Critical Care Statement: The care of this patient involved high complexity decision making to prevent further life threatening deterioration of the patient 's condition and/or to evaluate & treat vital organ system(s) failure or risk of failure. - Discharge Referral Referred to [facility] No ATTENDING PHYSICIAN STATEMENT I saw and evaluated the patient. I reviewed the resident's note and discussed the case with the resident. I agree with the resident's findings and plan as documented. SUBJECTIVE: OBJECTIVE: ASSESSMENT AND PLAN:
--- NOTE | 2019-01-13 12:17 | PN ---
Teaching Attending Note Name of Resident: Carlos Enrique Olsen ATTENDING PHYSICIAN STATEMENT I saw and evaluated the patient. I reviewed the resident's note and discussed the case with the resident. I agree with the resident's findings and plan as documented with exceptions below. SUBJECTIVE: patient seen and examined, intubated and sedated. Myoclonic movements noted, OBJECTIVE: Vital Signs Period Temp Pulse Resp BP Sys/Estrada Pulse Ox Last 24 Hr 95.4 F-102.0 F 57-126 14-25 41-189/25-111 83-100 Intake & Output 01/10/19 01/11/19 01/12/19 01/13/19 23:59 23:59 23:59 23:59 Intake Total 499 Output Total 100 250 Balance -100 249 Weight 250 lb 207 lb General: intubated sedated Chest: limited exam, poor effort, CVS:S1S2 regular Abdomen:soft, obese, pos bowel sounds, no voluntary or involuntary guarding or rigidity Extremites: trace pedal edema Neuro: intubated sedated, pupil sluggish, no withdrawal to pain, babinski non reactive, DTR 2+ UE, 1+ LE, myoclonic movements Home Medications Medication Instructions Recorded Atorvastatin Ca [Lipitor] 40 mg PO DAILY 01/13/19 Carvedilol [Coreg -] 25 mg PO BID 01/13/19 Losartan/Hydrochlorothiazide 1 each PO DAILY 01/13/19 [Losartan-Hctz 100-25 mg Tab] Active Medications Artificial Tears (Artificial Tears Ointment -) 1 applic OU HS [place] Artificial Tears (Artificial Tears) 1 drop OU BID [place] Chlorhexidine Gluconate (Hibiclens For Decolonization -) 1 applic TP HS [place] Midazolam HCl 100 mg/ Sodium (Chloride) 100 mls @ 1 mls/hr IVPB TITR [place]; Protocol Last Titration: 01/13/19 01:04 Dose: 3 mg/hr, 3 mls/hr Sodium Chloride (Normal Saline -) 1,000 mls @ 125 mls/hr IV ASDIR [place] Last Admin: 01/12/19 23:37 Dose: 125 mls/hr Sodium Chloride (Normal Saline -) 2,000 mls @ 0 mls/hr IV ASDIR [place] Last Admin: 01/12/19 23:14 Dose: 2,000 mls/hr Piperacillin Sod/Tazobactam (Sod 4.5 gm/ Dextrose) 100 mls @ 200 mls/hr IVPB Q8H-IV [place]; Protocol Lactated Ringer's (Lactated Ringers Solution) 1,000 ml in 1,000 mls @ 100 mls/ hr IV ASDIR [place] Last Admin: 01/13/19 02:13 Dose: 100 mls/hr Piperacillin Sod/Tazobactam (Sod 4.5 gm/ Dextrose) 100 mls @ 100 mls/hr IVPB Q8H-IV [place] Stop: 01/13/19 18:59 Last Admin: 01/13/19 11:10 Dose: 100 mls/hr Fentanyl 500 mcg/ Dextrose 100 mls @ 5 mls/hr IVPB TITR [place]; Protocol Last Admin: 01/13/19 03:04 Dose: 25 mcg/hr, 5 mls/hr Norepinephrine Bitartrate 8, (000 mcg/ Dextrose) 500 mls @ 18.75 mls/hr IV TITR [place]; Protocol Last Titration: 01/13/19 06:19 Dose: 4 mcg/min, 15 mls/hr Lactated Ringer's (Lactated Ringers Solution) 1,000 mls @ 1,000 mls/hr IV ONCE ONE Stop: 01/13/19 12:14 Mupirocin (Bactroban Ointment (For Decolonization) -) 1 applic NS BID [place] Stop: 01/18/19 09:59 Laboratory Results - last 24 hr 01/12/19 01/12/19 01/12/19 20:38 20:48 20:48 WBC 9.7 RBC 4.07 Hgb 12.0 Hct 37.8 MCV 93.0 MCH 29.5 MCHC 31.7 L RDW 15.1 Plt Count No Result Required. MPV 9.2 Absolute Neuts (auto) 4.8 Neutrophils % 49.2 D Neutrophils % (Manual) 50.0 Band Neutrophils % 3.0 Lymphocytes % 43.7 H D Lymphocytes % (Manual) 40.0 Monocytes % 5.7 Monocytes % (Manual) 6 Eosinophils % 1.1 Basophils % 0.3 Nucleated RBC % 0 Platelet Comment Mod plt clumping PT with INR INR PTT (Actin FS) Anticoagulation Therapy Puncture Site ABG pH ABG pCO2 at Pt Temp ABG pO2 at Pt Temp ABG HCO3 ABG O2 Sat (Measured) ABG O2 Content ABG Base Excess Em[place] Test Carboxyhemoglobin Methemoglobin O2 Delivery Device Oxygen Flow Rate Vent Mode Vent Rate Mechanical Rate PEEP Pressure Support Vent Sodium 146 H Potassium 3.4 L Chloride 104 Carbon Dioxide 24 Anion Gap 18 H BUN 14.3 Creatinine 1.6 H Est GFR (CKD-EPI)AfAm 51.27 Est GFR (CKD-EPI)NonAf 44.24 POC Glucometer 159 Random Glucose 236 H Lactic Acid Calcium 10.4 H Phosphorus Magnesium 3.7 H Total Bilirubin 0.4 AST 123 H ALT 111 H Alkaline Phosphatase 101 Creatine Kinase 148 Creatine Kinase Index CK-MB (CK-2) Troponin I 0.66 H* B-Natriuretic Peptide 1451.1 H Total Protein 5.8 L Albumin 2.7 L Lipase 123 TSH 9.52 H Free T4 Resin T3 Uptake Urine Color Urine Appearance Urine pH Ur Specific [place] Urine Protein Urine Glucose (UA) Urine Ketones Urine Blood Urine Nitrite Urine Bilirubin Urine Urobilinogen Ur Leukocyte Esterase Urine WBC (Auto) Urine RBC (Auto) Urine Casts (Auto) U Pathogenic Cast Auto U Epithel Cells (Auto) Urine Bacteria (Auto) Urine Yeast (Auto) 01/12/19 01/12/19 01/12/19 20:48 20:48 21:10 WBC RBC Hgb Hct MCV MCH MCHC RDW Plt Count MPV Absolute Neuts (auto) Neutrophils % Neutrophils % (Manual) Band Neutrophils % Lymphocytes % Lymphocytes % (Manual) Monocytes % Monocytes % (Manual) Eosinophils % Basophils % Nucleated RBC % Platelet Comment PT with INR 12.70 INR 1.08 PTT (Actin FS) Anticoagulation Therapy Puncture Site ABG pH ABG pCO2 at Pt Temp ABG pO2 at Pt Temp ABG HCO3 ABG O2 Sat (Measured) ABG O2 Content ABG Base Excess Emory Test Carboxyhemoglobin Cancelled Methemoglobin Cancelled O2 Delivery Device Oxygen Flow Rate Vent Mode Vent Rate Mechanical Rate PEEP Pressure Support Vent Sodium Potassium Chloride Carbon Dioxide Anion Gap BUN Creatinine Est GFR (CKD-EPI)AfAm Est GFR (CKD-EPI)NonAf POC Glucometer Random Glucose Lactic Acid 8.3 H* Calcium Phosphorus Magnesium Total Bilirubin AST ALT Alkaline Phosphatase Creatine Kinase Creatine Kinase Index CK-MB (CK-2) Troponin I B-Natriuretic Peptide Total Protein Albumin Lipase TSH Free T4 Resin T3 Uptake Urine Color Urine Appearance Urine pH Ur Specific [place] Urine Protein Urine Glucose (UA) Urine Ketones Urine Blood Urine Nitrite Urine Bilirubin Urine Urobilinogen Ur Leukocyte Esterase Urine WBC (Auto) Urine RBC (Auto) Urine Casts (Auto) U Pathogenic Cast Auto U Epithel Cells (Auto) Urine Bacteria (Auto) Urine Yeast (Auto) 01/13/19 01/13/19 01/13/19 00:23 01:50 01:50 WBC RBC Hgb Hct MCV MCH MCHC RDW Plt Count MPV Absolute Neuts (auto) Neutrophils % Neutrophils % (Manual) Band Neutrophils % Lymphocytes % Lymphocytes % (Manual) Monocytes % Monocytes % (Manual) Eosinophils % Basophils % Nucleated RBC % Platelet Comment PT with INR INR PTT (Actin FS) Anticoagulation Therapy No Result Required. Puncture Site Right radial ABG pH 7.33 L ABG pCO2 at Pt Temp 41.2 ABG pO2 at Pt Temp 227 H ABG HCO3 21.0 L ABG O2 Sat (Measured) 99.4 H ABG O2 Content 99.4 ABG Base Excess -4.2 L [place] Test Positive Carboxyhemoglobin Methemoglobin O2 Delivery Device Mech vent Oxygen Flow Rate 100 Vent Mode No Result Required. Vent Rate 14 Mechanical Rate No Result Required. PEEP 5.0 Pressure Support Vent 500 Sodium Potassium Chloride Carbon Dioxide Anion Gap BUN Creatinine Est GFR (CKD-EPI)AfAm Est GFR (CKD-EPI)NonAf POC Glucometer Random Glucose Lactic Acid 2.1 H Calcium Phosphorus Magnesium Total Bilirubin AST ALT Alkaline Phosphatase Creatine Kinase Creatine Kinase Index CK-MB (CK-2) Troponin I 22.70 H* B-Natriuretic Peptide Total Protein Albumin Lipase TSH Free T4 1.01 Resin T3 Uptake 38.7 Urine Color Urine Appearance Urine pH Ur Specific [place] Urine Protein Urine Glucose (UA) Urine Ketones Urine Blood Urine Nitrite Urine Bilirubin Urine Urobilinogen Ur Leukocyte Esterase Urine WBC (Auto) Urine RBC (Auto) Urine Casts (Auto) U Pathogenic Cast Auto U Epithel Cells (Auto) Urine Bacteria (Auto) Urine Yeast (Auto) 01/13/19 01/13/19 01/13/19 04:50 05:15 05:15 WBC 14.5 H RBC 4.30 Hgb 12.8 Hct 38.9 MCV 90.6 MCH 29.7 MCHC 32.8 RDW 15.4 Plt Count 186 MPV 8.2 D Absolute Neuts (auto) 12.7 H Neutrophils % 88.1 H D Neutrophils % (Manual) Band Neutrophils % Lymphocytes % 5.4 L D Lymphocytes % (Manual) Monocytes % 6.3 Monocytes % (Manual) Eosinophils % 0.0 D Basophils % 0.2 Nucleated RBC % 0 Platelet Comment PT with INR 12.80 INR 1.08 PTT (Actin FS) 29.7 Anticoagulation Therapy Puncture Site ABG pH ABG pCO2 at Pt Temp ABG pO2 at Pt Temp ABG HCO3 ABG O2 Sat (Measured) ABG O2 Content ABG Base Excess Emory Test Carboxyhemoglobin Methemoglobin O2 Delivery Device Oxygen Flow Rate Vent Mode Vent Rate Mechanical Rate PEEP Pressure Support Vent Sodium Potassium Chloride Carbon Dioxide Anion Gap BUN Creatinine Est GFR (CKD-EPI)AfAm Est GFR (CKD-EPI)NonAf POC Glucometer Random Glucose Lactic Acid Calcium Phosphorus Magnesium Total Bilirubin AST ALT Alkaline Phosphatase Creatine Kinase Creatine Kinase Index CK-MB (CK-2) Troponin I B-Natriuretic Peptide Total Protein Albumin Lipase TSH Free T4 Resin T3 Uptake Urine Color Yellow Urine Appearance Turbid Urine pH 5.0 D Ur Specific [place] 1.032 Urine Protein 2+ H Urine Glucose (UA) Trace Urine Ketones Negative Urine Blood 3+ H Urine Nitrite Negative Urine Bilirubin Negative Urine Urobilinogen 0.2 Ur Leukocyte Esterase Trace Urine WBC (Auto) 163 Urine RBC (Auto) 40.9 Urine Casts (Auto) 61 U Pathogenic Cast Auto none seen U Epithel Cells (Auto) 10.6 Urine Bacteria (Auto) 4.9 Urine Yeast (Auto) none seen 01/13/19 01/13/19 05:15 10:50 WBC RBC Hgb Hct MCV MCH MCHC RDW Plt Count MPV Absolute Neuts (auto) Neutrophils % Neutrophils % (Manual) Band Neutrophils % Lymphocytes % Lymphocytes % (Manual) Monocytes % Monocytes % (Manual) Eosinophils % Basophils % Nucleated RBC % Platelet Comment PT with INR INR PTT (Actin FS) Anticoagulation Therapy Puncture Site Right radial ABG pH 7.38 ABG pCO2 at Pt Temp 34.8 L ABG pO2 at Pt Temp 150 H ABG HCO3 20.3 L ABG O2 Sat (Measured) 99.1 H ABG O2 Content 19.0 ABG Base Excess -3.5 L [place] Test Positive Carboxyhemoglobin Methemoglobin O2 Delivery Device Oxygen Flow Rate 35 Vent Mode A/c Vent Rate 14 Mechanical Rate PEEP 5.0 Pressure Support Vent 500 Sodium 139 Potassium 4.3 Chloride 106 Carbon Dioxide 23 Anion Gap 10 BUN 27.0 H Creatinine 2.4 H Est GFR (CKD-EPI)AfAm 31.40 Est GFR (CKD-EPI)NonAf 27.09 POC Glucometer Random Glucose 158 H Lactic Acid Calcium 9.0 Phosphorus 2.8 Magnesium 2.4 Total Bilirubin 1.0 AST 181 H ALT 108 H Alkaline Phosphatase 93 Creatine Kinase 1511 H Creatine Kinase Index 3.5 CK-MB (CK-2) 54.3 H Troponin I 32.20 H* B-Natriuretic Peptide Total Protein 5.7 L Albumin 2.9 L Lipase TSH 1.88 D Free T4 Resin T3 Uptake Urine Color Urine Appearance Urine pH Ur Specific [place] Urine Protein Urine Glucose (UA) Urine Ketones Urine Blood Urine Nitrite Urine Bilirubin Urine Urobilinogen Ur Leukocyte Esterase Urine WBC (Auto) Urine RBC (Auto) Urine Casts (Auto) U Pathogenic Cast Auto U Epithel Cells (Auto) Urine Bacteria (Auto) Urine Yeast (Auto) Microbiology 01/12/19 20:30 Blood - Peripheral Venous Blood Culture - Preliminary Pending Organism CT head/C-spine/Chest/Abdomen/Pelvis prelim results noted. ASSESSMENT AND PLAN: 68 yom with PMHx of HTN, HLD, cardiomyopathy, ?ischemia with WMA (improved EF on 2D echo in 2018), suspected CAD (transferred for cath from [facility] in 2016, ? results), CVA with residual slurred speech, admitted with cardiac arrest. -Cardiac arrest -Shock, ?Cardiogenic from NSTEMI/Vfib, r/o septic shock/?RLL aspiration PNA -NSTEMI, ACS vs from CPR -PRACHI, suspect from hypoperfusion/shock -Abnormal LFTs, suspect from hypoperfusion/shock -Bilateral anterior 3-7 rib fractures, likely from CPR -?Anoxic brain injury -Hypodensities on CT head, likely old CVA -HLD -h/o HTN Plan: Vent management/Sedation/Pressors per ICU. Hypothermia protocol. Cardiology consult. (Recommend holding off on heparin per ICU discussion with Dr. Pineda).Sees Dr. Stevens, follow up recs. Monitor for anoxic brain injury. Blood cx noted, ?contaminant. Broad spectum abx, ID input. CT chest noted. Renal consult. No obstructive concerns on CT A/p . Overall prognosis guarded Continue ICU level of care Discussed with nursing, care co-ordinated with ICU team. Critical Care Total Critical Care Time (in minutes): 38 Critical Care Statement: The care of this patient involved high complexity decision making to prevent further life threatening deterioration of the patient 's condition and/or to evaluate & treat vital organ system(s) failure or risk of failure.
--- NOTE | 2019-01-13 12:45 | PROC ---
Procedure Note Procedure: Right I.J Central Line R I.J Central line inserted via seldinger technique. Pt was prepped and draped in usual sterile fashion. A time out was called to confirm correct patient. Chest XRAY confirms placement of line. No pneumothorax. Central line supervised by Dr Maegan Benoit, PGY-3.
--- NOTE | 2019-01-13 12:46 | PN ---
Teaching Attending Note Name of Resident: Walter Vicente ATTENDING PHYSICIAN STATEMENT I saw and evaluated the patient. I reviewed the resident's note and discussed the case with the resident. I agree with the resident's findings and plan as documented. SUBJECTIVE: Patient seen and examined in the ICU. Intubated on AC Mode of vent. NE @ 5 mcq for hemodynamic support. Sedated on Versed and Fentanyl. ECHO being performed at the bedside. Intake & Output 01/10/19 01/11/19 01/12/19 01/13/19 23:59 23:59 23:59 23:59 Intake Total 499 Output Total 100 250 Balance -100 249 Weight 250 lb 207 lb Last Vital Signs Temp Pulse Resp BP Pulse Ox 99 F 90 22 H 96/66 100 01/13/19 10:00 01/13/19 11:59 01/13/19 11:59 01/13/19 11:59 01/13/19 09:00 Active Medications Artificial Tears (Artificial Tears Ointment -) 1 applic OU HS [place] Artificial Tears (Artificial Tears) 1 drop OU BID [place] Chlorhexidine Gluconate (Hibiclens For Decolonization -) 1 applic TP HS [place] Midazolam HCl 100 mg/ Sodium (Chloride) 100 mls @ 1 mls/hr IVPB TITR [place]; Protocol Last Titration: 01/13/19 01:04 Dose: 3 mg/hr, 3 mls/hr Sodium Chloride (Normal Saline -) 1,000 mls @ 125 mls/hr IV ASDIR [place] Last Admin: 01/12/19 23:37 Dose: 125 mls/hr Sodium Chloride (Normal Saline -) 2,000 mls @ 0 mls/hr IV ASDIR [place] Last Admin: 01/12/19 23:14 Dose: 2,000 mls/hr Piperacillin Sod/Tazobactam (Sod 4.5 gm/ Dextrose) 100 mls @ 200 mls/hr IVPB Q8H-IV [place]; Protocol Lactated Ringer's (Lactated Ringers Solution) 1,000 ml in 1,000 mls @ 100 mls/ hr IV ASDIR [place] Last Admin: 01/13/19 02:13 Dose: 100 mls/hr Piperacillin Sod/Tazobactam (Sod 4.5 gm/ Dextrose) 100 mls @ 100 mls/hr IVPB Q8H-IV [place] Stop: 01/13/19 18:59 Last Admin: 01/13/19 11:10 Dose: 100 mls/hr Fentanyl 500 mcg/ Dextrose 100 mls @ 5 mls/hr IVPB TITR [place]; Protocol Last Admin: 01/13/19 03:04 Dose: 25 mcg/hr, 5 mls/hr Norepinephrine Bitartrate 8, (000 mcg/ Dextrose) 500 mls @ 18.75 mls/hr IV TITR [place]; Protocol Last Titration: 01/13/19 06:19 Dose: 4 mcg/min, 15 mls/hr Lactated Ringer's (Lactated Ringers Solution) 1,000 mls @ 1,000 mls/hr IV ONCE ONE Stop: 01/13/19 12:14 Mupirocin (Bactroban Ointment (For Decolonization) -) 1 applic NS BID [place] Stop: 01/18/19 09:59 GENERAL: Intubated and sedated. HEAD: Normal with no signs of trauma. EYES: Pupils sluggish to light, corneal opacity, significant conjunctival injection. EARS, NOSE, THROAT: ET tube in place at 24cm, moist mucus membranes. LUNGS: Mechanical breath sounds, no coarse breath sounds, crackles, wheezes appreciated HEART: Regular rate and rhythm with occasional extra beats, normal S1 and S2 without murmur, rub. ABDOMEN: Soft, nontender, not distended, normoactive bowel sounds, no guarding, no rebound, no masses. MUSCULOSKELETAL: Normal range of motion at all joints. No bony deformities or tenderness. UPPER EXTREMITIES: 1+ pulses, cool, well-perfused. No cyanosis. No clubbing. No peripheral edema. LOWER EXTREMITIES: 1+ pulses, cool, well-perfused. No calf tenderness. No peripheral edema. NEUROLOGICAL: Pupils dilated and sluggish to light, no withdrawal to painful stimuli, (+) intermittent myclonic movements SKIN: Cool extremities, dry, no rashes or lesions noted, normal capillary refill. Laboratory Results - last 24 hr 01/12/19 01/12/19 01/12/19 20:38 20:48 20:48 WBC 9.7 RBC 4.07 Hgb 12.0 Hct 37.8 MCV 93.0 MCH 29.5 MCHC 31.7 L RDW 15.1 Plt Count No Result Required. MPV 9.2 Absolute Neuts (auto) 4.8 Neutrophils % 49.2 D Neutrophils % (Manual) 50.0 Band Neutrophils % 3.0 Lymphocytes % 43.7 H D Lymphocytes % (Manual) 40.0 Monocytes % 5.7 Monocytes % (Manual) 6 Eosinophils % 1.1 Basophils % 0.3 Nucleated RBC % 0 Platelet Comment Mod plt clumping PT with INR INR PTT (Actin FS) Anticoagulation Therapy Puncture Site ABG pH ABG pCO2 at Pt Temp ABG pO2 at Pt Temp ABG HCO3 ABG O2 Sat (Measured) ABG O2 Content ABG Base Excess Emory Test Carboxyhemoglobin Methemoglobin O2 Delivery Device Oxygen Flow Rate Vent Mode Vent Rate Mechanical Rate PEEP Pressure Support Vent Sodium 146 H Potassium 3.4 L Chloride 104 Carbon Dioxide 24 Anion Gap 18 H BUN 14.3 Creatinine 1.6 H Est GFR (CKD-EPI)AfAm 51.27 Est GFR (CKD-EPI)NonAf 44.24 POC Glucometer 159 Random Glucose 236 H Lactic Acid Calcium 10.4 H Phosphorus Magnesium 3.7 H Total Bilirubin 0.4 AST 123 H ALT 111 H Alkaline Phosphatase 101 Creatine Kinase 148 Creatine Kinase Index CK-MB (CK-2) Troponin I 0.66 H* B-Natriuretic Peptide 1451.1 H Total Protein 5.8 L Albumin 2.7 L Lipase 123 TSH 9.52 H Free T4 Resin T3 Uptake Urine Color Urine Appearance Urine pH Ur Specific [place] Urine Protein Urine Glucose (UA) Urine Ketones Urine Blood Urine Nitrite Urine Bilirubin Urine Urobilinogen Ur Leukocyte Esterase Urine WBC (Auto) Urine RBC (Auto) Urine Casts (Auto) U Pathogenic Cast Auto U Epithel Cells (Auto) Urine Bacteria (Auto) Urine Yeast (Auto) 01/12/19 01/12/19 01/12/19 20:48 20:48 21:10 WBC RBC Hgb Hct MCV MCH MCHC RDW Plt Count MPV Absolute Neuts (auto) Neutrophils % Neutrophils % (Manual) Band Neutrophils % Lymphocytes % Lymphocytes % (Manual) Monocytes % Monocytes % (Manual) Eosinophils % Basophils % Nucleated RBC % Platelet Comment PT with INR 12.70 INR 1.08 PTT (Actin FS) Anticoagulation Therapy Puncture Site ABG pH ABG pCO2 at Pt Temp ABG pO2 at Pt Temp ABG HCO3 ABG O2 Sat (Measured) ABG O2 Content ABG Base Excess Em[place] Test Carboxyhemoglobin Cancelled Methemoglobin Cancelled O2 Delivery Device Oxygen Flow Rate Vent Mode Vent Rate Mechanical Rate PEEP Pressure Support Vent Sodium Potassium Chloride Carbon Dioxide Anion Gap BUN Creatinine Est GFR (CKD-EPI)AfAm Est GFR (CKD-EPI)NonAf POC Glucometer Random Glucose Lactic Acid 8.3 H* Calcium Phosphorus Magnesium Total Bilirubin AST ALT Alkaline Phosphatase Creatine Kinase Creatine Kinase Index CK-MB (CK-2) Troponin I B-Natriuretic Peptide Total Protein Albumin Lipase TSH Free T4 Resin T3 Uptake Urine Color Urine Appearance Urine pH Ur Specific [place] Urine Protein Urine Glucose (UA) Urine Ketones Urine Blood Urine Nitrite Urine Bilirubin Urine Urobilinogen Ur Leukocyte Esterase Urine WBC (Auto) Urine RBC (Auto) Urine Casts (Auto) U Pathogenic Cast Auto U Epithel Cells (Auto) Urine Bacteria (Auto) Urine Yeast (Auto) 01/13/19 01/13/19 01/13/19 00:23 01:50 01:50 WBC RBC Hgb Hct MCV MCH MCHC RDW Plt Count MPV Absolute Neuts (auto) Neutrophils % Neutrophils % (Manual) Band Neutrophils % Lymphocytes % Lymphocytes % (Manual) Monocytes % Monocytes % (Manual) Eosinophils % Basophils % Nucleated RBC % Platelet Comment PT with INR INR PTT (Actin FS) Anticoagulation Therapy No Result Required. Puncture Site Right radial ABG pH 7.33 L ABG pCO2 at Pt Temp 41.2 ABG pO2 at Pt Temp 227 H ABG HCO3 21.0 L ABG O2 Sat (Measured) 99.4 H ABG O2 Content 99.4 ABG Base Excess -4.2 L [place] Test Positive Carboxyhemoglobin Methemoglobin O2 Delivery Device Mech vent Oxygen Flow Rate 100 Vent Mode No Result Required. Vent Rate 14 Mechanical Rate No Result Required. PEEP 5.0 Pressure Support Vent 500 Sodium Potassium Chloride Carbon Dioxide Anion Gap BUN Creatinine Est GFR (CKD-EPI)AfAm Est GFR (CKD-EPI)NonAf POC Glucometer Random Glucose Lactic Acid 2.1 H Calcium Phosphorus Magnesium Total Bilirubin AST ALT Alkaline Phosphatase Creatine Kinase Creatine Kinase Index CK-MB (CK-2) Troponin I 22.70 H* B-Natriuretic Peptide Total Protein Albumin Lipase TSH Free T4 1.01 Resin T3 Uptake 38.7 Urine Color Urine Appearance Urine pH Ur Specific [place] Urine Protein Urine Glucose (UA) Urine Ketones Urine Blood Urine Nitrite Urine Bilirubin Urine Urobilinogen Ur Leukocyte Esterase Urine WBC (Auto) Urine RBC (Auto) Urine Casts (Auto) U Pathogenic Cast Auto U Epithel Cells (Auto) Urine Bacteria (Auto) Urine Yeast (Auto) 01/13/19 01/13/19 01/13/19 04:50 05:15 05:15 WBC 14.5 H RBC 4.30 Hgb 12.8 Hct 38.9 MCV 90.6 MCH 29.7 MCHC 32.8 RDW 15.4 Plt Count 186 MPV 8.2 D Absolute Neuts (auto) 12.7 H Neutrophils % 88.1 H D Neutrophils % (Manual) Band Neutrophils % Lymphocytes % 5.4 L D Lymphocytes % (Manual) Monocytes % 6.3 Monocytes % (Manual) Eosinophils % 0.0 D Basophils % 0.2 Nucleated RBC % 0 Platelet Comment PT with INR 12.80 INR 1.08 PTT (Actin FS) 29.7 Anticoagulation Therapy Puncture Site ABG pH ABG pCO2 at Pt Temp ABG pO2 at Pt Temp ABG HCO3 ABG O2 Sat (Measured) ABG O2 Content ABG Base Excess Emory Test Carboxyhemoglobin Methemoglobin O2 Delivery Device Oxygen Flow Rate Vent Mode Vent Rate Mechanical Rate PEEP Pressure Support Vent Sodium Potassium Chloride Carbon Dioxide Anion Gap BUN Creatinine Est GFR (CKD-EPI)AfAm Est GFR (CKD-EPI)NonAf POC Glucometer Random Glucose Lactic Acid Calcium Phosphorus Magnesium Total Bilirubin AST ALT Alkaline Phosphatase Creatine Kinase Creatine Kinase Index CK-MB (CK-2) Troponin I B-Natriuretic Peptide Total Protein Albumin Lipase TSH Free T4 Resin T3 Uptake Urine Color Yellow Urine Appearance Turbid Urine pH 5.0 D Ur Specific [place] 1.032 Urine Protein 2+ H Urine Glucose (UA) Trace Urine Ketones Negative Urine Blood 3+ H Urine Nitrite Negative Urine Bilirubin Negative Urine Urobilinogen 0.2 Ur Leukocyte Esterase Trace Urine WBC (Auto) 163 Urine RBC (Auto) 40.9 Urine Casts (Auto) 61 U Pathogenic Cast Auto none seen U Epithel Cells (Auto) 10.6 Urine Bacteria (Auto) 4.9 Urine Yeast (Auto) none seen 01/13/19 01/13/19 05:15 10:50 WBC RBC Hgb Hct MCV MCH MCHC RDW Plt Count MPV Absolute Neuts (auto) Neutrophils % Neutrophils % (Manual) Band Neutrophils % Lymphocytes % Lymphocytes % (Manual) Monocytes % Monocytes % (Manual) Eosinophils % Basophils % Nucleated RBC % Platelet Comment PT with INR INR PTT (Actin FS) Anticoagulation Therapy Puncture Site Right radial ABG pH 7.38 ABG pCO2 at Pt Temp 34.8 L ABG pO2 at Pt Temp 150 H ABG HCO3 20.3 L ABG O2 Sat (Measured) 99.1 H ABG O2 Content 19.0 ABG Base Excess -3.5 L [place] Test Positive Carboxyhemoglobin Methemoglobin O2 Delivery Device Oxygen Flow Rate 35 Vent Mode A/c Vent Rate 14 Mechanical Rate PEEP 5.0 Pressure Support Vent 500 Sodium 139 Potassium 4.3 Chloride 106 Carbon Dioxide 23 Anion Gap 10 BUN 27.0 H Creatinine 2.4 H Est GFR (CKD-EPI)AfAm 31.40 Est GFR (CKD-EPI)NonAf 27.09 POC Glucometer Random Glucose 158 H Lactic Acid Calcium 9.0 Phosphorus 2.8 Magnesium 2.4 Total Bilirubin 1.0 AST 181 H ALT 108 H Alkaline Phosphatase 93 Creatine Kinase 1511 H Creatine Kinase Index 3.5 CK-MB (CK-2) 54.3 H Troponin I 32.20 H* B-Natriuretic Peptide Total Protein 5.7 L Albumin 2.9 L Lipase TSH 1.88 D Free T4 Resin T3 Uptake Urine Color Urine Appearance Urine pH Ur Specific [place] Urine Protein Urine Glucose (UA) Urine Ketones Urine Blood Urine Nitrite Urine Bilirubin Urine Urobilinogen Ur Leukocyte Esterase Urine WBC (Auto) Urine RBC (Auto) Urine Casts (Auto) U Pathogenic Cast Auto U Epithel Cells (Auto) Urine Bacteria (Auto) Urine Yeast (Auto) ASSESSMENT/PLAN: Lee Black is 68 year old male with a past medical history of hypertension , diabetes, congestive heart failure who is admitted after ROSC s/p cardiac arrest after V-fib. S/p cardiac arrest with Anoxic Brain Injury CHF CAD HTN DM Suspected Myoclonus Elevated lactic acid PRACHI Elevated LFTs Elevated TSH Suspected Asphyxiation Aspiration PNA AC Mode of vent ABX coverage DC sedation to assess mental status IVF boluses Strict I & O ECHO Change TLC position to IJ Wean pressors; maintain MAP > 65 TTM has been initiated, although the goal temperature has not been achieved ICU monitoring Dr Menjivar Critical care time spent in reviewing chart, evaluating patient and formulating plan - 36 minutes.
[2019-01-13] MEDS ORDERED: SODIUM CHLORIDE 0.9% 500 ML INFUS.BAG IV ONE (12:51)
--- NOTE | 2019-01-13 12:55 | PN ---
"Physical Exam: SUBJECTIVE: Patient seen and examined at bedside. Intubated, sedated, unable to participate in assessment. Pt admitted overnight. OBJECTIVE: GEN: intubated, sedated HEENT: NC/AT. Fixed, dilated pupils, eyes upwardly deviated b/l. Spontaneous opening and closing of eyes but not on command. CV: S1/S2, RRR, no mrg LUNG: mechanically ventilated. CTAB, no wheezes, crackles, rales, rhonchi. GI: soft, nd, +BS. EXTREMITIES: No LE edema. No obvious deformities of all extremities. SKIN: cool, dry, intact Vital Signs Period Temp Pulse Resp BP Sys/Estrada Pulse Ox Last 24 Hr 95.4 F-102.0 F 57-126 14-25 41-189/25-111 83-100 Laboratory Results - last 24 hr 01/12/19 01/12/19 01/12/19 20:38 20:48 20:48 WBC 9.7 RBC 4.07 Hgb 12.0 Hct 37.8 MCV 93.0 MCH 29.5 MCHC 31.7 L RDW 15.1 Plt Count No Result Required. MPV 9.2 Absolute Neuts (auto) 4.8 Neutrophils % 49.2 D Neutrophils % (Manual) 50.0 Band Neutrophils % 3.0 Lymphocytes % 43.7 H D Lymphocytes % (Manual) 40.0 Monocytes % 5.7 Monocytes % (Manual) 6 Eosinophils % 1.1 Basophils % 0.3 Nucleated RBC % 0 Platelet Comment Mod plt clumping PT with INR INR PTT (Actin FS) Anticoagulation Therapy Puncture Site ABG pH ABG pCO2 at Pt Temp ABG pO2 at Pt Temp ABG HCO3 ABG O2 Sat (Measured) ABG O2 Content ABG Base Excess [facility] Test Carboxyhemoglobin Methemoglobin O2 Delivery Device Oxygen Flow Rate Vent Mode Vent Rate Mechanical Rate PEEP Pressure Support Vent Sodium 146 H Potassium 3.4 L Chloride 104 Carbon Dioxide 24 Anion Gap 18 H BUN 14.3 Creatinine 1.6 H Est GFR (CKD-EPI)AfAm 51.27 Est GFR (CKD-EPI)NonAf 44.24 POC Glucometer 159 Random Glucose 236 H Lactic Acid Calcium 10.4 H Phosphorus Magnesium 3.7 H Total Bilirubin 0.4 AST 123 H ALT 111 H Alkaline Phosphatase 101 Creatine Kinase 148 Creatine Kinase Index CK-MB (CK-2) Troponin I 0.66 H* B-Natriuretic Peptide 1451.1 H Total Protein 5.8 L Albumin 2.7 L Lipase 123 TSH 9.52 H Free T4 Resin T3 Uptake Urine Color Urine Appearance Urine pH Ur Specific [place] Urine Protein Urine Glucose (UA) Urine Ketones Urine Blood Urine Nitrite Urine Bilirubin Urine Urobilinogen Ur Leukocyte Esterase Urine WBC (Auto) Urine RBC (Auto) Urine Casts (Auto) U Pathogenic Cast Auto U Epithel Cells (Auto) Urine Bacteria (Auto) Urine Yeast (Auto) 01/12/19 01/12/19 01/12/19 20:48 20:48 21:10 WBC RBC Hgb Hct MCV MCH MCHC RDW Plt Count MPV Absolute Neuts (auto) Neutrophils % Neutrophils % (Manual) Band Neutrophils % Lymphocytes % Lymphocytes % (Manual) Monocytes % Monocytes % (Manual) Eosinophils % Basophils % Nucleated RBC % Platelet Comment PT with INR 12.70 INR 1.08 PTT (Actin FS) Anticoagulation Therapy Puncture Site ABG pH ABG pCO2 at Pt Temp ABG pO2 at Pt Temp ABG HCO3 ABG O2 Sat (Measured) ABG O2 Content ABG Base Excess [facility] Test Carboxyhemoglobin Cancelled Methemoglobin Cancelled O2 Delivery Device Oxygen Flow Rate Vent Mode Vent Rate Mechanical Rate PEEP Pressure Support Vent Sodium Potassium Chloride Carbon Dioxide Anion Gap BUN Creatinine Est GFR (CKD-EPI)AfAm Est GFR (CKD-EPI)NonAf POC Glucometer Random Glucose Lactic Acid 8.3 H* Calcium Phosphorus Magnesium Total Bilirubin AST ALT Alkaline Phosphatase Creatine Kinase Creatine Kinase Index CK-MB (CK-2) Troponin I B-Natriuretic Peptide Total Protein Albumin Lipase TSH Free T4 Resin T3 Uptake Urine Color Urine Appearance Urine pH Ur Specific [place] Urine Protein Urine Glucose (UA) Urine Ketones Urine Blood Urine Nitrite Urine Bilirubin Urine Urobilinogen Ur Leukocyte Esterase Urine WBC (Auto) Urine RBC (Auto) Urine Casts (Auto) U Pathogenic Cast Auto U Epithel Cells (Auto) Urine Bacteria (Auto) Urine Yeast (Auto) 01/13/19 01/13/19 01/13/19 00:23 01:50 01:50 WBC RBC Hgb Hct MCV MCH MCHC RDW Plt Count MPV Absolute Neuts (auto) Neutrophils % Neutrophils % (Manual) Band Neutrophils % Lymphocytes % Lymphocytes % (Manual) Monocytes % Monocytes % (Manual) Eosinophils % Basophils % Nucleated RBC % Platelet Comment PT with INR INR PTT (Actin FS) Anticoagulation Therapy No Result Required. Puncture Site Right radial ABG pH 7.33 L ABG pCO2 at Pt Temp 41.2 ABG pO2 at Pt Temp 227 H ABG HCO3 21.0 L ABG O2 Sat (Measured) 99.4 H ABG O2 Content 99.4 ABG Base Excess -4.2 L [facility] Test Positive Carboxyhemoglobin Methemoglobin O2 Delivery Device Mech vent Oxygen Flow Rate 100 Vent Mode No Result Required. Vent Rate 14 Mechanical Rate No Result Required. PEEP 5.0 Pressure Support Vent 500 Sodium Potassium Chloride Carbon Dioxide Anion Gap BUN Creatinine Est GFR (CKD-EPI)AfAm Est GFR (CKD-EPI)NonAf POC Glucometer Random Glucose Lactic Acid 2.1 H Calcium Phosphorus Magnesium Total Bilirubin AST ALT Alkaline Phosphatase Creatine Kinase Creatine Kinase Index CK-MB (CK-2) Troponin I 22.70 H* B-Natriuretic Peptide Total Protein Albumin Lipase TSH Free T4 1.01 Resin T3 Uptake 38.7 Urine Color Urine Appearance Urine pH Ur Specific [place] Urine Protein Urine Glucose (UA) Urine Ketones Urine Blood Urine Nitrite Urine Bilirubin Urine Urobilinogen Ur Leukocyte Esterase Urine WBC (Auto) Urine RBC (Auto) Urine Casts (Auto) U Pathogenic Cast Auto U Epithel Cells (Auto) Urine Bacteria (Auto) Urine Yeast (Auto) 01/13/19 01/13/19 01/13/19 04:50 05:15 05:15 WBC 14.5 H RBC 4.30 Hgb 12.8 Hct 38.9 MCV 90.6 MCH 29.7 MCHC 32.8 RDW 15.4 Plt Count 186 MPV 8.2 D Absolute Neuts (auto) 12.7 H Neutrophils % 88.1 H D Neutrophils % (Manual) Band Neutrophils % Lymphocytes % 5.4 L D Lymphocytes % (Manual) Monocytes % 6.3 Monocytes % (Manual) Eosinophils % 0.0 D Basophils % 0.2 Nucleated RBC % 0 Platelet Comment PT with INR 12.80 INR 1.08 PTT (Actin FS) 29.7 Anticoagulation Therapy Puncture Site ABG pH ABG pCO2 at Pt Temp ABG pO2 at Pt Temp ABG HCO3 ABG O2 Sat (Measured) ABG O2 Content ABG Base Excess [facility] Test Carboxyhemoglobin Methemoglobin O2 Delivery Device Oxygen Flow Rate Vent Mode Vent Rate Mechanical Rate PEEP Pressure Support Vent Sodium Potassium Chloride Carbon Dioxide Anion Gap BUN Creatinine Est GFR (CKD-EPI)AfAm Est GFR (CKD-EPI)NonAf POC Glucometer Random Glucose Lactic Acid Calcium Phosphorus Magnesium Total Bilirubin AST ALT Alkaline Phosphatase Creatine Kinase Creatine Kinase Index CK-MB (CK-2) Troponin I B-Natriuretic Peptide Total Protein Albumin Lipase TSH Free T4 Resin T3 Uptake Urine Color Yellow Urine Appearance Turbid Urine pH 5.0 D Ur Specific [place] 1.032 Urine Protein 2+ H Urine Glucose (UA) Trace Urine Ketones Negative Urine Blood 3+ H Urine Nitrite Negative Urine Bilirubin Negative Urine Urobilinogen 0.2 Ur Leukocyte Esterase Trace Urine WBC (Auto) 163 Urine RBC (Auto) 40.9 Urine Casts (Auto) 61 U Pathogenic Cast Auto none seen U Epithel Cells (Auto) 10.6 Urine Bacteria (Auto) 4.9 Urine Yeast (Auto) none seen 01/13/19 01/13/19 01/13/19 05:15 10:50 11:20 WBC RBC Hgb Hct MCV MCH MCHC RDW Plt Count MPV Absolute Neuts (auto) Neutrophils % Neutrophils % (Manual) Band Neutrophils % Lymphocytes % Lymphocytes % (Manual) Monocytes % Monocytes % (Manual) Eosinophils % Basophils % Nucleated RBC % Platelet Comment PT with INR INR PTT (Actin FS) Anticoagulation Therapy Puncture Site Right radial ABG pH 7.38 ABG pCO2 at Pt Temp 34.8 L ABG pO2 at Pt Temp 150 H ABG HCO3 20.3 L ABG O2 Sat (Measured) 99.1 H ABG O2 Content 19.0 ABG Base Excess -3.5 L [facility] Test Positive Carboxyhemoglobin Methemoglobin O2 Delivery Device Oxygen Flow Rate 35 Vent Mode A/c Vent Rate 14 Mechanical Rate PEEP 5.0 Pressure Support Vent 500 Sodium 139 Potassium 4.3 Chloride 106 Carbon Dioxide 23 Anion Gap 10 BUN 27.0 H Creatinine 2.4 H Est GFR (CKD-EPI)AfAm 31.40 Est GFR (CKD-EPI)NonAf 27.09 POC Glucometer Random Glucose 158 H Lactic Acid Calcium 9.0 Phosphorus 2.8 Magnesium 2.4 Total Bilirubin 1.0 AST 181 H ALT 108 H Alkaline Phosphatase 93 Creatine Kinase 1511 H Creatine Kinase Index 3.5 CK-MB (CK-2) 54.3 H Troponin I 32.20 H* 22.00 H* B-Natriuretic Peptide Total Protein 5.7 L Albumin 2.9 L Lipase TSH 1.88 D Free T4 Resin T3 Uptake Urine Color Urine Appearance Urine pH Ur Specific [place] Urine Protein Urine Glucose (UA) Urine Ketones Urine Blood Urine Nitrite Urine Bilirubin Urine Urobilinogen Ur Leukocyte Esterase Urine WBC (Auto) Urine RBC (Auto) Urine Casts (Auto) U Pathogenic Cast Auto U Epithel Cells (Auto) Urine Bacteria (Auto) Urine Yeast (Auto) Active Medications Generic Name Dose Route Start Last Admin Trade Name Freq PRN Reason Stop Dose Admin Artificial Tears 1 applic 01/13/19 22:00 Artificial Tears Ointment - OU HS [facility] Artificial Tears 1 drop 01/13/19 10:00 01/13/19 11:00 Artificial Tears OU 1 drop BID [facility] Administration Chlorhexidine Gluconate 1 applic 01/13/19 22:00 Hibiclens For Decolonization - TP HS [place] Midazolam HCl 100 mg/ Sodium 100 mls @ 1 mls/hr 01/12/19 21:30 01/13/19 01:04 Chloride IVPB 3 mg/hr TITR [place] 3 mls/hr Titration Protocol 1 MG/HR Sodium Chloride 1,000 mls @ 125 mls/hr 01/12/19 23:15 01/12/19 23:37 Normal Saline - IV 125 mls/hr ASDIR [place] Administration Sodium Chloride 2,000 mls @ 0 mls/hr 01/12/19 23:07 01/12/19 23:14 Normal Saline - IV 2,000 mls/hr ASDIR [place] Administration Wide Open Piperacillin Sod/Tazobactam 100 mls @ 200 mls/hr 01/13/19 07:00 Sod 4.5 gm/ Dextrose IVPB Q8H-IV [facility] Protocol Lactated Ringer's 1,000 ml in 1,000 mls @ 100 mls/hr 01/13/19 01:45 01/13/19 02:13 Lactated Ringers Solution IV 100 mls/hr ASDIR [place] Administration Piperacillin Sod/Tazobactam 100 mls @ 100 mls/hr 01/13/19 02:00 01/13/19 11: 10 Sod 4.5 gm/ Dextrose IVPB 01/13/19 18:59 100 mls/hr Q8H-IV [facility] Administration Fentanyl 500 mcg/ Dextrose 100 mls @ 5 mls/hr 01/13/19 02:14 01/13/19 03:04 IVPB 25 mcg/hr TITR [facility] 5 mls/hr Administration Protocol 25 MCG/HR Norepinephrine Bitartrate 8, 500 mls @ 18.75 mls/hr 01/13/19 04:00 01/13/19 06:19 000 mcg/ Dextrose IV 4 mcg/min TITR [facility] 15 mls/hr Titration Protocol 5 MCG/MIN Mupirocin 1 applic 01/13/19 10:00 01/13/19 11:00 Bactroban Ointment (For Decolonization) - NS 01/18/19 09:59 1 applic BID [facility] Administration Sodium Chloride 500 ml 01/13/19 12:51 Normal Saline - IV 01/13/19 12:52 ONCE ONE ASSESSMENT/PLAN: 68M PMH HTN, CHF, CVA 2013, [place] s/p stent admitted to ICU s/p cardiac arrest w/ cardiac arrhythmia 2/2 cardiomegaly or asphyxiation event as likely causative event. Neuro - Intubated, likely anoxic brain injury, ROSC w/ est. total time down 45mins - Currently on versed for sedation, hypothermic initially in ED to 35.2 C. Temp 101F upon arrival in ICU. - Tylenol for fever PRN - Patient likely to have poor outcome given prolonged down time in field - Head CT negative for bleed, shows ill defined hypodensity in bilateral temporal lobes - Upon arrival to ICU, has rhythmic movements around mouth concerning for possible seizure - Cooling protocol with goal of 32 to 34 C; Cooling blanket, ice packs as needed to reach goal - Versed for sedation, add vecuronium if needed for shivering. - Will wean off sedation to assess mental status CV - HTN, CHF, s/p cardiac arrest w/ ROSC, NSTEMI - ECHO 2015 demonstrated EF 37% - s/p vfib arrest, ~45 minutes down time, amio 300/150, multiple shocks - Post ROSC EKG shows no STEMI - BPs now stable, HR stable. Maintaining BPs after 2L of fluid. - Will monitor for arrhythmias - Trop 0.66 > 22.7 > 32.2 > 22 - Norepinephrine drip titrate to maintain MAP >65 - ABG 01/13/19 00:23 7.33 | 41.2 | 227 01/13/19 10:50 7.38 | 34.8 | 150 - Cardiology recs appreciated - Hold BB - tele - needs ICD if meaninful neurologic recovery - ASA 81 - Aggressive repletion of K/Mag (to > 4/2) - f/u repeat ECHO Resp - intubated - s/p intubation in field during cardiac arrest, complicated by aspirate in small bore tube - 8.0 tube placed in ED - Bilateral rib fractures on CT consistent with CPR - Infiltrate vs atelectasis in RLL Endocrine: - TSH elevated in ED, thyroid labs sent, will follow. Low concern for myxedema coma given lack of refractory hypotension and vfib arrest ID: - Concern for aspiration given CT findings - Given vanc/zosyn in ED. Will continue zosyn. - Febrile now in ICU - BCx positive pending organism - f/u BCx organism, sputum cx, UC, Ur Antigen - ID recs appreciated: - continue vancomycin by level - adjust zosyn dosing for PRACHI - f/u cultures - send sputum culture - send urinary antigen for pneumococcus GI: - Air distention in stomach likely secondary to bagging in field - NPO Lines: - Crash TLC femoral line placed in ED Dispo: ICU care CODE STATUS: FULL CODE per family ICU Team placed TLC R IJV, see Dr. Cortés procedure note, consent obtained by family CXR demonstrates no gross PTX and right jugular line with tip in SVC Will d/c crash femoral TLC. Femoral TLC dc'd Tylenol IV q6h for temp control Visit type - Emergency Visit Emergency Visit: No - New Patient This patient is new to me today: Yes Date on this admission: 01/13/19 - Critical Care Critical Care patient: Yes Total Critical Care Time (in minutes): 45 Critical Care Statement: The care of this patient involved high complexity decision making to prevent further life threatening deterioration of the patient 's condition and/or to evaluate & treat vital organ system(s) failure or risk of failure."
--- NOTE | 2019-01-13 13:09 | EKG ---
Test Reason : Blood Pressure : / mmHG Vent. Rate : 090 BPM Atrial Rate : 090 BPM P-R Int : 220 ms QRS Dur : 112 ms QT Int : 372 ms P-R-T Axes : 077 025 186 degrees QTc Int : 455 ms POOR DATA QUALITY, INTERPRETATION MAY BE ADVERSELY AFFECTED SINUS RHYTHM WITH SINUS ARRHYTHMIA WITH 1ST DEGREE A-V BLOCK INCOMPLETE LEFT BUNDLE BRANCH BLOCK NONSPECIFIC ST AND T WAVE ABNORMALITY ABNORMAL ECG WHEN COMPARED WITH ECG OF 15-MAY-2015 09:29, PREMATURE VENTRICULAR COMPLEXES ARE NO LONGER PRESENT ST NOW DEPRESSED IN LATERAL LEADS NONSPECIFIC T WAVE ABNORMALITY HAS REPLACED INVERTED T WAVES IN INFERIOR LEADS Confirmed by MARY WILHELM, DAYANA ([id number]) on 01/13/2019 1:09:00 PM Referred By: Confirmed By:DAYANA HERNANDEZ MD
[2019-01-13] MEDS ORDERED: fentaNYL CITRATE 250 MCG/5 ML VIAL ONE ×2 (13:12→23:40)
--- NOTE | 2019-01-13 13:24 | ECHO ---
Name: BREANNE HERNÁNDEZ Exam:Adult Echocardiogram Study Date: 01/13/2019 09:18 AM Age: 68 yrs Reason For Study: EVALUATE HEART FUNCTION S/P CARDIAC ARREST Height: 73 in Weight: 250 lb BSA: 2.4 m2 BP: 106/82 mmHg MMode/2D Measurements & Calculations IVSd: 0.97 cm Ao root diam: 3.7 cm LVIDd: 5.7 cm LA dimension: 4.2 cm LVIDs: 4.8 cm LVPWd: 1.00 cm EDV(Teich): 159.8 ml LVOT diam: 2.3 cm ESV(Teich): 105.5 ml Doppler Measurements & Calculations MV E max harshil: 64.2 cm/sec Ao V2 max: 102.6 cm/sec MV A max harshil: 42.9 cm/sec Ao max P.2 mmHg MV E/A: 1.5 Ao V2 mean: 66.1 cm/sec MV dec time: 0.12 sec Ao mean P.2 mmHg Ao V2 VTI: 16.1 cm TIGRE(I,D): 3.4 cm2 TIGRE(V,D): 3.1 cm2 LV V1 max P.2 mmHg MR max harshil: 463.4 cm/sec LV V1 mean P.2 mmHg MR max P.2 mmHg LV V1 max: 74.3 cm/sec LV V1 mean: 49.3 cm/sec LV V1 VTI: 12.7 cm SV(LVOT): 54.5 ml TR max harshil: 268.4 cm/sec TR max P.8 mmHg PI end-d harshil: 93.7 cm/sec Med Peak E' Harshil: 6.3 cm/sec Med E/e': 10.1 Lat Peak E' Harshil: 5.6 cm/sec Lat E/e': 11.5 Procedure A complete two-dimensional transthoracic echocardiogram was performed (2D, M-mode, Doppler and color flow Doppler). Left Ventricle The left ventricle is normal in size. Left ventricular systolic function is severely reduced. Ejectio n Fraction = 25-30%. There is severe global hypokinesis of the left ventricle. Right Ventricle The right ventricle is normal in size and function. Atria The left atrium is mildly dilated. Right atrial size is normal. Mitral Valve There is moderate mitral regurgitation. Tricuspid Valve There is mild tricuspid regurgitation. Right ventricular systolic pressure is normal. Aortic Valve The aortic valve is trileaflet. No hemodynamically significant valvular aortic stenosis. No aortic regurgitation is present. Pulmonic Valve There is no pulmonic valvular regurgitation. Great Vessels The aortic root is normal size. Pericardium/Pleura There is no pericardial effusion. Interpretation Summary Left ventricular systolic function is severely reduced. There is severe global hypokinesis of the left ventricle. The right ventricle is normal in size and function. The left atrium is mildly dilated. There is moderate mitral regurgitation. There is mild tricuspid regurgitation. MD Junaid Stevens 01/13/2019 01:23 PM
--- NOTE | 2019-01-13 13:46 | PN ---
Progress Note (short form) - Note Progress Note: ID consult dictated imp/reccd 67 yo man admitted s/p arrest- found in vfib, defibrillated by EMS, intubated by EMS- required defibrillation again in ED down time estimated at 45 minutes now intubated in ICU on pressors, sedated fevers overnight blood cultures 2 of 4 bottles GPC chains has a femoral line placed in ED- now switched to IJ ct scan with chronic brain infarcts and right basilar infiltrate s/p cardiac arrest sepsis with gram positive bacteremia-source- ?lung, ?urine anoxia shock liver prachi continue vancomycin by level adjust zosyn dosing for PRACHI f/u cultures send sputum culture send urinary antigen for pneumococcus overall prognosis is poor over 40 minutes spent in the care of this critically ill ICU patient d/w turkey cleaner Problem List - Problems (1) Cardiac arrest with successful resuscitation Code(s): I46.9 - CARDIAC ARREST, CAUSE UNSPECIFIED (2) Brain anoxic injury Code(s): G93.1 - ANOXIC BRAIN DAMAGE, NOT ELSEWHERE CLASSIFIED (3) Sepsis Code(s): A41.9 - SEPSIS, UNSPECIFIED ORGANISM (4) Shock liver Code(s): K72.00 - ACUTE AND SUBACUTE HEPATIC FAILURE WITHOUT COMA
[2019-01-13] MEDS ORDERED: MIDAZOLAM IN 0.9 % SOD.CHLORID 1 MG/1 ML PLAST..BAG ONE (13:53)
--- NOTE | 2019-01-13 15:24 | CON.CARD ---
Consult Consult Specialty:: cardio - History of Present Illness Chief Complaint: VF arrest History of Present Illness: 68 yo M brought by EMS after found down by family. reported EMS rhythm was v-fib-- intubated, defib 4 times, was given 5 of epi, bicarb, calcium, amio, atropine and lido prior to arrival. En route the patient lost pulses, but ROSC was obtained. In ER the lost pulses again, after compressions and epi the patient obtained ROSC. febrile to 102, gram pos bacteremia--being treated with abx by ID. CT head here with old infarct, one acute requiring norepi pressor support in ICU. LFTs hi. trop 0.6 up to 32-->trending down suspected anoxic brain injury and aspiration with PNA. pt saw dr barbosa in office yesterday, with no complaints and appeared stable at that time currently intubated, not communicative PMH: nonisch CMP/chf HTN hx CVA - Past Medical History Cardio/Vascular: Yes: HTN - Alcohol/Substance Use Hx Alcohol Use: No History of Substance Use: reports: None - Smoking History Smoking history: Unknown if ever smoked Have you smoked in the past 12 months: Yes Aproximately how many cigarettes per day: 2 - Social History ADL: Independent History of Recent Travel: No Home Medications - Allergies Allergies/Adverse Reactions: Allergies Allergy/AdvReac Type Severity Reaction Status Date / Time No Known Allergies Allergy Verified 01/12/19 20:15 - Home Medications Home Medications: Ambulatory Orders Aspirin 81 mg PO DAILY 01/13/19 Atorvastatin Ca [Lipitor] 40 mg PO DAILY 01/13/19 Carvedilol [Coreg -] 25 mg PO BID 01/13/19 Losartan/Hydrochlorothiazide [Losartan-Hctz 100-25 mg Tab] 1 each PO DAILY 01/13 Mirabegron [Myrbetriq] 25 mg PO DAILY 01/13/19 Telmisartan/Hydrochlorothiazid [Telmisartan-Hctz 80-25 mg Tab] 1 tab PO DAILY Family Disease History - Family Disease History Family Disease History: Diabetes: Father Review of Systems Unable to obtain ROS, reason: not responsive Vital Signs: Vital Signs Temperature 96.4 F L 01/13/19 13:42 Pulse Rate 89 01/13/19 13:42 Respiratory Rate 14 01/13/19 14:52 Blood Pressure 99/71 01/13/19 13:42 O2 Sat by Pulse Oximetry (%) 100 01/13/19 14:52 Constitutional: Yes: Well Nourished, No Distress Eyes: No: Sclera Icterus HENT: No: Nasal Congestion Neck: No: Decreased ROM Respiratory: Yes: CTA Bilaterally. No: Accessory Muscle Use, Rales, Wheezes Gastrointestinal: Yes: Normal Bowel Sounds. No: Distention, Hepatomegaly, Palpable Mass, Tenderness Cardiovascular: Yes: Regular Rate and Rhythm JVD: No Carotid Bruit: No PMI: Non-Displaced Heart Sounds: Yes: S1, S2. No: Gallop Murmur: No: Systolic Murmur, Diastolic Murmur Musculoskeletal: Yes: Other (No kyphosis) Extremities: Yes: Cool. No: Cyanosis Edema: No Peripheral Pulses: 2+ Left Carotid, 2+ Right Carotid, 2+ Left Doralis Pedis, 2+ Right Dorsalis Pedis Integumentary: No: Jaundice Neurological: No: Alert, Oriented (x3) Psychiatric: No: Agitated - Other Data Labs, Other Data: CBC, BMP 01/13/19 05:15 01/13/19 05:15 INR, PTT INR 1.08 (0.83-1.09) 01/13/19 05:15 Troponin, BNP 01/12/19 01/13/19 01/13/19 20:48 01:50 05:15 Troponin I 0.66 H* 22.70 H* 32.20 H* B-Natriuretic Peptide 1451.1 H 01/13/19 11:20 Troponin I 22.00 H* B-Natriuretic Peptide Troponin, BNP 01/12/19 01/13/19 01/13/19 20:48 01:50 05:15 Troponin I 0.66 H* 22.70 H* 32.20 H* B-Natriuretic Peptide 1451.1 H 01/13/19 11:20 Troponin I 22.00 H* B-Natriuretic Peptide Laboratory Tests 05/13/15 05/13/15 05/13/15 22:30 22:30 23:00 WBC 8.1 Hgb 14.3 D Plt Count 221 Sodium Potassium Carbon Dioxide BUN Creatinine AST ALT Creatine Kinase 121 Troponin I 0.08 B-Natriuretic Peptide 5486.94 H 05/14/15 01/13/19 01/13/19 06:30 05:15 11:20 WBC Hgb Plt Count Sodium 146 H 139 Potassium 3.6 4.3 Carbon Dioxide 27 23 BUN 18 27.0 H Creatinine 1.1 2.4 H AST 23 181 H ALT 47 108 H Creatine Kinase 102 Troponin I 0.10 32.20 H* 22.00 H* B-Natriuretic Peptide Assessment/Plan echo 08/2016: low nl lvef, nl rv, mild lae, mod mr, mild tr, ao root 4.1 cm echo 12/2017: mild lvh, mild-mod dec lvef, inf wall hk, lat hk, antlat hk, rv nl size, mild dec rv fcn, mild mr, ao root 4 cm echo 01/20: severe global LV hypo EF 25-30%. nl RV. mild LAE. mod MR. nl RVSP. cath 07/2015: lhc: normal cors; rhc: mild phtn, pvri mod elevated, pcw/lvedp nl. ECG 01/12: NSR, LVH with nonsp ST-Ts ? sec to LVH--not signif changed vs 2016 prior ECG 01/13: no signif change, prolonged QT (similar to 2016) tele: NSR, NSVT x 5b ASSESSMENT VF arrest: -EF only mild-mod decreased on prior echo 1 yr ago, currently severe/global 25- 30%. -? arrest triggered by bacteremia (2 of 2 initial cultures positive) -cont tele monitoring -hold bb given hypotensive and ? septic vs cardiogenic shock -if makes meaningful recovery (suspected anoxic brain injury at present), will need ICD -doubt acute ischemic etiology given normal cor.s 3 yrs ago--if makes meaningful recover will need repeat isch eval NSTEMI: -trop to 32, trending down -normal cor.s 2016 -suspect sec to sepsis vs prolonged hypotension from recurrent VF arrest (with contribution from mult electrical defibs) -if makes meaningful recovery will need ischemia eval again -aspirin 81 -hold BB (risks of hypotension in septic shock) septic shock, gram pos bacteremia: -abx per ID -echo no vegetation seen -pressor support norepi, aim for MAP > 60 (try to avoid dopamine or dobutamine given risks of ventricular arrhythmia) prolonged QT: -? related to CMP/LVH--was close to 500 on prior ecg 2016 -similar at present -aggressive repletion of K/Mag (to > 4/2) -tele monitoring -avoid QT prolonging meds Congestive heart failure, nonischemic CMP -EF severely reduced at time of initial dx 2015--improved signif with med management -present EF severely reduced again -rpt echo here PRACHI: -sec to hypoperfusion -IVF as doing Hypertension -septic shock currently -hold home meds est time in data review, pt exam, formulating plan of potentially life- threatening problems =- 38 min
--- NOTE | 2019-01-13 15:27 | EKG ---
Test Reason : Blood Pressure : / mmHG Vent. Rate : 084 BPM Atrial Rate : 084 BPM P-R Int : 238 ms QRS Dur : 118 ms QT Int : 430 ms P-R-T Axes : 058 -02 003 degrees QTc Int : 508 ms SINUS RHYTHM WITH 1ST DEGREE A-V BLOCK WITH PREMATURE ATRIAL COMPLEXES LEFT VENTRICULAR HYPERTROPHY WITH QRS WIDENING AND REPOLARIZATION ABNORMALITY PROLONGED QT ABNORMAL ECG WHEN COMPARED WITH ECG OF 12-JAN-2019 20:35, PREMATURE ATRIAL COMPLEXES ARE NOW PRESENT Confirmed by DAYANA HERNANDEZ MD ([id number]) on 01/13/2019 3:26:38 PM Referred By: KIRA TATE Confirmed By:DAYANA HERNANDEZ MD
[2019-01-13] MEDS ORDERED: VANCOMYCIN 500 MG in DEXTROSE 5%-WATER - 100 ML IVPB ONE (15:57)
[2019-01-13] MEDS: MIDAZOLAM 100 MG in SODIUM CHLORIDE 100 ML IVPB SCH (16:00)
[2019-01-13] MEDS: ASPIRIN 300 MG SUPP.RECT PR SCH (17:39)
[2019-01-13] MEDS ORDERED: DEXTROSE 5%-WATER - 50 ML IVPB ONE (17:42)
[2019-01-13] MEDS ORDERED: PIPERACILLIN/TAZOBACTAM 3.375 GM VIAL IVPB ONE (17:42)
--- NOTE | 2019-01-13 18:10 | CONSULT ---
Consult Consult Specialty:: Nephrology Reason for Consultation:: PRACHI - History of Present Illness Chief Complaint: cardiac arrest History of Present Illness: Pt is a 68 year old male with pmhx of HTN, DM, and CHF who presents to the ER after a cardiac arrest. He was found down by his family. He did have v-fib. He was defibrillated 4 times, received epi, bicarb, calcium, amio and atropine. His pulse was recovered. He is now in the ICU. He is intubated. I was called to evaluate him for PRACHI. He is also not making much urine. He is unable to give history. His family are bedside and did assist. - History Source History Provided By: Medical Record - Past Medical History Cardio/Vascular: Yes: CHF, HTN, Hyperlipdemia - Alcohol/Substance Use Hx Alcohol Use: No History of Substance Use: reports: None - Smoking History Smoking history: Unknown if ever smoked Have you smoked in the past 12 months: Yes Aproximately how many cigarettes per day: 2 - Social History ADL: Independent History of Recent Travel: No Home Medications - Allergies Allergies/Adverse Reactions: Allergies Allergy/AdvReac Type Severity Reaction Status Date / Time No Known Allergies Allergy Verified 01/12/19 20:15 - Home Medications Home Medications: Ambulatory Orders Aspirin 81 mg PO DAILY 01/13/19 Atorvastatin Ca [Lipitor] 40 mg PO DAILY 01/13/19 Carvedilol [Coreg -] 25 mg PO BID 01/13/19 Losartan/Hydrochlorothiazide [Losartan-Hctz 100-25 mg Tab] 1 each PO DAILY 01/13 Mirabegron [Myrbetriq] 25 mg PO DAILY 01/13/19 Telmisartan/Hydrochlorothiazid [Telmisartan-Hctz 80-25 mg Tab] 1 tab PO DAILY Family Disease History - Family Disease History Family Disease History: Diabetes: Father Review of Systems Unable to obtain ROS, reason: pt intuabed Physical Exam Vital Signs: Vital Signs Temperature 96.2 F L 01/13/19 17:00 Pulse Rate 98 H 01/13/19 17:00 Respiratory Rate 25 H 01/13/19 17:04 Blood Pressure 104/69 01/13/19 17:00 O2 Sat by Pulse Oximetry (%) 100 01/13/19 14:52 Constitutional: Yes: Calm Eyes: Yes: Conjunctiva Clear HENT: Yes: Atraumatic Cardiovascular: Yes: S1, S2 Respiratory: Yes: Intubated, Mechanically Ventilated Gastrointestinal: Yes: Soft Renal/: Yes: Nguyen Present, Oliguria Musculoskeletal: Yes: Muscle Weakness Edema: No Neurological: Yes: Lethargy Labs: CBC, BMP 01/13/19 05:15 01/13/19 05:15 Laboratory Tests 01/12/19 01/13/19 01/13/19 20:48 05:15 05:15 WBC 9.7 14.5 H Hgb 12.8 Plt Count 186 Sodium 139 Creatinine 2.4 H Imaging - Results Chest X-ray: Report Reviewed Problem List - Problems (1) PRACHI (acute kidney injury) Code(s): N17.9 - ACUTE KIDNEY FAILURE, UNSPECIFIED (2) CHF (congestive heart failure) Code(s): I50.9 - HEART FAILURE, UNSPECIFIED Qualifiers: Qualified Code(s): I50.9 - Heart failure, unspecified (3) HTN (hypertension) Code(s): I10 - ESSENTIAL (PRIMARY) HYPERTENSION Assessment/Plan Current Medications Generic Name Dose Route Start Last Admin Trade Name Freq PRN Reason Stop Dose Admin Acetaminophen 1,000 mg 01/13/19 17:23 Ofirmev Injection - IVPB Q6H PRN FEVER Artificial Tears 1 applic 01/13/19 22:00 Artificial Tears Ointment - OU HS [facility] Artificial Tears 1 drop 01/13/19 10:00 01/13/19 11:00 Artificial Tears OU 1 drop BID [facility] Administration Aspirin 300 mg 01/13/19 15:45 01/13/19 17:39 Asa - [place] Not Given DAILY [facility] Chlorhexidine Gluconate 1 applic 01/13/19 22:00 Hibiclens For Decolonization - TP HS [facility] Midazolam HCl 100 mg/ Sodium 100 mls @ 1 mls/hr 01/12/19 21:30 01/13/19 01:04 Chloride IVPB 3 mg/hr TITR [facility] 3 mls/hr Titration Protocol 1 MG/HR Sodium Chloride 2,000 mls @ 0 mls/hr 01/12/19 23:07 01/12/19 23:14 Normal Saline - IV 2,000 mls/hr ASDIR [facility] Administration Wide Open Lactated Ringer's 1,000 ml in 1,000 mls @ 100 mls/hr 01/13/19 01:45 01/13/19 02:13 Lactated Ringers Solution IV 100 mls/hr ASDIR [facility] Administration Fentanyl 500 mcg/ Dextrose 100 mls @ 5 mls/hr 01/13/19 02:14 01/13/19 03:04 IVPB 25 mcg/hr TITR [facility] 5 mls/hr Administration Protocol 25 MCG/HR Norepinephrine Bitartrate 8, 500 mls @ 18.75 mls/hr 01/13/19 04:00 01/13/19 06:19 000 mcg/ Dextrose IV 4 mcg/min TITR [facility] 15 mls/hr Titration Protocol 5 MCG/MIN Piperacillin Sod/Tazobactam 50 mls @ 100 mls/hr 01/13/19 18:00 Sod 3.375 gm/ Dextrose IVPB Q8H-IV [facility] Protocol Mupirocin 1 applic 01/13/19 10:00 01/13/19 11:00 Bactroban Ointment (For Decolonization) - NS 01/18/19 09:59 1 applic BID [facility] Administration Impression 1. PRACHI 2. cardiac arrest 3. hx chf 4. hx htn 5. resp failure requiring intubation Plan - cont supportive care - maintain nguyen - monitor output - maintain map of 65 - discussed with ICU team -
[2019-01-13] MEDS: ACETAMINOPHEN 1000 MG/100 ML VIAL (NON FORMULARY) IVPB PRN (18:30)
[2019-01-13] MEDS: PIPERACILLIN/TAZOB 3.375 GM 3.375 GM in DEXTROSE 5%-WATER - 50 ML IVPB SCH (19:00)
--- NOTE | 2019-01-13 20:06 | CONS ---
DATE OF CONSULTATION: DATE OF DICTATION: 01/13/2019 INFECTIOUS DISEASE CONSULTATION Patient was seen and examined in the ICU. Case was discussed with the geropsychologist. HISTORY OF PRESENT ILLNESS: A 68-year-old man who has a past medical history of hypertension, diabetes. 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 He was found on the ground by his mother. He was gurgling in the living room. EMS was called. When they arrived, he was in ventricular fibrillation. ACLS was initiated. He was defibrillated. He was given medications. He was intubated by EMS in the field. He was on the way to the emergency room. He again lost his pulse. He was coded again. In the ER, he was found to be hypotensive. He was given fluids, femoral line was placed. He was started on pressors and sedation and transferred to the ICU. Overnight he was noted to have fever, blood cultures were drawn. 2 of 4 bottles are growing gram-positive cocci in chains. I am asked to see him. He is currently unresponsive. His down time is estimated by the geropsychologist to be 45 minutes. Of note, he had an elevated lactic acid. His LFTs are elevated as well with AST of 123, ALT of 111. He had a head CT that revealed chronic infarcts, no acute process, and a CT of chest, abdomen and pelvis with right basilar infiltrate, several rib fractures, and the C-spine showed no acute trauma. PAST MEDICAL HISTORY: Notable for hypertension, diabetes, heart failure. He is status post CVA, OK in 2013. PAST SURGICAL HISTORY: Notable for Makoplasty. SOCIAL HISTORY: No substance use history. FAMILY HISTORY: Not obtainable. ALLERGIES: No known drug allergies. MEDICATION: Medications at home include Prinivil, Flexeril, vitamin D. REVIEW OF SYSTEMS: Apparently he was well and had gone to see his primary care doctor earlier that day. PHYSICAL EXAMINATION: General: He is sedated, intubated. He is intubated Vital Signs: His temperature is 96.2, pulse of 98, blood pressure 104/69, respiratory rate 21. He is on FiO2 of 30%. HEENT: Normocephalic. Lungs: Diminished breath sounds at the bases. Heart: Regular rate and rhythm. Abdomen: Soft, nontender. He has a femoral line. He just had an IJ placed, and the femoral line has not been removed yet. He has a Chambers intact with clear urine. Extremities: Without edema. LABORATORY: White count is 14.5, hemoglobin 12.8, platelets 186, his white count was 9.7 on arrival to the ER. INR is normal. His chemistries are notable for BUN and creatinine of 27 and 2.4. His CPK is 1511, troponins elevated at 22. AST 181, ALT 108. His lactic acid which on admission was 8.3 is 2.1. Urinalysis has 163 white cells. Cultures are pending. He just had a chest x-ray done with line placement that is notable for a large heart and ET tube and prominent beverly in the right IJ. IMPRESSION: In summary, this is a 67-year-old man admitted status post arrest who has sepsis =gram positive bacteremia of unclear source, possibly lung, possibly urine. As well they were drawn for a femoral line placed in the ED that could be of concern as well. He most likely has anoxia with shock liver and acute kidney injury. Would continue vancomycin by level, adjust Zosyn dosing for acute kidney injury, follow up his cultures and his sputum culture. I think pneumonia less likely, as it is very easy to oxygenate him at this time. Would send urinary antigens for pneumococcus. Overall prognosis is extremely poor. Over 40 minutes spent in reviewing the chart and examining the patient in the care of this critical ICU patient. Patient was discussed with the geropsychologist. JACINTO JACKSON M.D. [id number]
[2019-01-13] MEDS: CHLORHEXIDINE GLUCONATE 4% CLEANSER FOR DECOLONIZATION TP SCH (21:25)
[2019-01-14] MEDS ORDERED: DEXTROSE 5%-WATER - 50 ML IVPB ONE ×3 (01:28→17:46)
[2019-01-14] MEDS ORDERED: PIPERACILLIN/TAZOBACTAM 3.375 GM VIAL IVPB ONE ×3 (01:28→17:46)
[2019-01-14] MEDS: MIDAZOLAM 100 MG in SODIUM CHLORIDE 100 ML IVPB SCH ×2 (01:31→21:46)
[2019-01-14] MEDS: MINERAL OIL/PETROLATUM,WHITE 3.5 GM TUBE OU SCH ×2 (01:31→21:49)
[2019-01-14] MEDS: PIPERACILLIN/TAZOB 3.375 GM 3.375 GM in DEXTROSE 5%-WATER - 50 ML IVPB SCH ×3 (01:32→17:51)
[2019-01-14] MEDS: FENTANYL INJECTION 500 MCG in DEXTROSE 5%-WATER - 90 ML IVPB SCH (02:06)
[2019-01-14] MEDS: LACTATED RINGERS SOLUTION 1,000 ML/1,000 ML INFUS.BAG IV SCH (03:00)
[2019-01-14] MEDS: NOREPINEPHRINE BITARTRATE 8,000 MCG in DEXTROSE 5%-WATER - 492 ML IV SCH ×3 (03:40→16:23)
[2019-01-14 06:32] LABS: ARTERIAL BLD GAS O2 SATURATION 98.7 % (95-98); ARTERIAL BLOOD GAS BASE EXCESS -1.9 meq/l (-2-2); ARTERIAL BLOOD GAS PO2 120 mmHg (80-100); ARTERIAL BLOOD GAS pH 7.37 (7.35-7.45)
[2019-01-14 06:37] LABS: ALLENS TEST POSITIVE
[2019-01-14 06:59] LABS: ALBUMIN 2.4 g/dl (3.4-5.0); BILIRUBIN,TOTAL 0.7 mg/dL (0.2-1); CALCIUM 8.3 mg/dL (8.5-10.1); CREATININE 3.6 mg/dL (0.55-1.3); MAGNESIUM 2.1 mg/dL (1.8-2.4); PHOSPHOROUS 4.3 mg/dL (2.5-4.9); POTASSIUM 4.2 mmol/L (3.5-5.1); TOT PROT 5.1 g/dl (6.4-8.2)
[2019-01-14 07:04] LABS: BASO % 0.6 % (0-2.0); EOS % 0.4 % (0-4.5); HEMATOCRIT 35.6 % (35.4-49); LYMPH % 6.5 % (8-40); MCHC 33.6 g/dl (32.0-35.9); MEAN CELL VOLUME 89.3 fl (80-96); MEAN PLT VOLUME 8.2 fl (7.5-11.1); NEUT % 85.5 % (42.8-82.8); PLATELET COUNT 144 K/MM3 (134-434); RBC 3.98 M/mm3 (4.00-5.60); RDW 15.6 % (11.9-15.9)
--- NOTE | 2019-01-14 08:39 | PN ---
Progress Note, Physician Chief Complaint: intubated on fentanyl and versed Requiring Levo AC vent, 30% FIO2 AFeb History of Present Illness: TELE: NSR, NSST, 11 beats NSVT - Current Medication List Current Medications: Active Medications Acetaminophen (Ofirmev Injection -) 1,000 mg IVPB Q6H PRN PRN Reason: FEVER Last Admin: 01/13/19 18:30 Dose: 1,000 mg Artificial Tears (Artificial Tears Ointment -) 1 applic OU HS [facility] Last Admin: 01/14/19 01:31 Dose: 1 applic Artificial Tears (Artificial Tears) 1 drop OU BID [facility] Last Admin: 01/13/19 21:24 Dose: 1 drop Aspirin (Asa -) 300 mg [place] DAILY [facility] Last Admin: 01/13/19 17:39 Dose: Not Given Chlorhexidine Gluconate (Hibiclens For Decolonization -) 1 applic TP HS [facility] Last Admin: 01/13/19 21:25 Dose: 1 applic Midazolam HCl 100 mg/ Sodium (Chloride) 100 mls @ 1 mls/hr IVPB TITR [facility]; Protocol Last Admin: 01/14/19 01:31 Dose: Not Given Lactated Ringer's (Lactated Ringers Solution) 1,000 ml in 1,000 mls @ 100 mls/ hr IV ASDIR [facility] Last Admin: 01/14/19 03:00 Dose: 100 mls/hr Fentanyl 500 mcg/ Dextrose 100 mls @ 5 mls/hr IVPB TITR [facility]; Protocol Last Admin: 01/14/19 02:06 Dose: 50 mcg/hr, 10 mls/hr Norepinephrine Bitartrate 8, (000 mcg/ Dextrose) 500 mls @ 18.75 mls/hr IV TITR [facility]; Protocol Last Admin: 01/14/19 03:40 Dose: 5 mcg/min, 18.75 mls/hr Piperacillin Sod/Tazobactam (Sod 3.375 gm/ Dextrose) 50 mls @ 100 mls/hr IVPB Q8H-IV [facility]; Protocol Last Admin: 01/14/19 01:32 Dose: 100 mls/hr Mupirocin (Bactroban Ointment (For Decolonization) -) 1 applic NS BID [facility] Stop: 01/18/19 09:59 Last Admin: 01/13/19 21:25 Dose: 1 applic - Objective Vital Signs: Vital Signs Temperature 98.6 F 09/13/19 06:00 Pulse Rate 94 H 01/14/19 06:00 Respiratory Rate 15 01/14/19 06:00 Blood Pressure 106/65 01/14/19 06:00 O2 Sat by Pulse Oximetry (%) 100 01/13/19 22:57 Constitutional: Yes: Other (+ ETT) Cardiovascular: Yes: Regular Rate and Rhythm Respiratory: Yes: Other (= breath sounds b/l) Gastrointestinal: Yes: Soft Edema: No (warm) Peripheral Pulses WNL: Yes Neurological: Yes: Other (sedated on vent) Labs: CBC, BMP 01/14/19 05:00 01/14/19 05:00 INR, PTT INR 1.08 (0.83-1.09) 01/13/19 05:15 Microbiology 01/12/19 20:30 Blood - Peripheral Venous Blood Culture - Preliminary Pending Organism Pending Organism#2 01/12/19 20:30 Blood - Peripheral Venous Blood Culture - Preliminary Pending Organism Laboratory Tests 01/13/19 01/13/19 01/14/19 05:15 11:20 05:00 WBC 13.0 H Hgb 12.0 Plt Count 144 D ABG pH ABG pCO2 at Pt Temp ABG pO2 at Pt Temp Oxygen Flow Rate Sodium Potassium BUN Creatinine AST ALT Troponin I 32.20 H* 22.00 H* 01/14/19 01/14/19 05:00 06:00 WBC Hgb Plt Count ABG pH 7.37 ABG pCO2 at Pt Temp 40.0 ABG pO2 at Pt Temp 120 H Oxygen Flow Rate 30 Sodium 141 Potassium 4.2 BUN 41.0 H Creatinine 3.6 H AST 129 H ALT 75 H Troponin I - ....Imaging Chest X-ray: Report Reviewed, Image Reviewed MRI: Image Reviewed Assessment/Plan DATA: echo 01/20: severe global LV hypo EF 25-30%. nl RV. mild LAE. mod MR. nl RVSP. cath 07/2015: lhc: normal cors; rhc: mild phtn, pvri mod elevated, pcw/lvedp nl. ECG 01/12: NSR, LVH with nonsp ST-Ts ? sec to LVH--not signif changed vs 2016 prior ECG 01/13: no signif change, prolonged QT (similar to 2016) tele: NSR, NSVT x 11beats IMP/PLAN: VF arrest:in setting of gram + bacteremia and septic shock -EF only mild-mod decreased on prior echo 1 yr ago, currently severe/global 25- 30%. -? arrest triggered by bacteremia (2 of 2 initial cultures positive) -cont tele monitoring -hold bb given hypotensive and likely septic shock -if makes meaningful recovery (suspected anoxic brain injury at present), will need ICD -doubt acute ischemic etiology given normal cor.s 3 yrs ago--if makes meaningful recover will need repeat isch eval NSTEMI: -trop to 32, trending down -normal cors 2016 -suspect sec to sepsis vs prolonged hypotension from recurrent VF arrest (with contribution from mult electrical defibs) -if makes meaningful recovery will need ischemia eval again -aspirin daily -hold BB (risks of hypotension in septic shock) SEPTIC SHOCK, gram pos bacteremia: -abx per ID -echo no vegetation seen -pressor support norepi, aim for MAP > 60 (try to avoid dopamine or dobutamine given risks of ventricular arrhythmia and NSVT) Prolonged QT: -? related to CMP/LVH--was close to 500 on prior ecg 2016 -similar at present -aggressive repletion of K/Mag (08/03) -tele monitoring -avoid QT prolonging meds Congestive heart failure, nonischemic CMP -EF severely reduced at time of initial dx 2016--improved signif with med management -present EF severely reduced again, likely in setting sepsis PRACHI: -sec to hypoperfusion -IVF as doing Hypotension: -septic shock currently -hold home meds, levo for MAP 60mmHG e
[2019-01-14] MEDS ORDERED: LACTATED RINGERS SOLUTION 1,000 ML/1,000 ML INFUS.BAG IV SCH (10:42)
--- NOTE | 2019-01-14 11:35 | PN ---
Teaching Attending Note Name of Resident: Brooke Astudillo ATTENDING PHYSICIAN STATEMENT I saw and evaluated the patient. I reviewed the resident's note and discussed the case with the resident. I agree with the resident's findings and plan as documented. SUBJECTIVE: Patient seen and examined in the ICU. Remains intubated on AC Mode of vent. Remains on NE @ 5 mcq for hemodynamic support. Sedated on Versed and Fentanyl. Intake & Output 01/11/19 01/12/19 01/13/19 01/14/19 23:59 23:59 23:59 23:59 Intake Total 1848 1560 Output Total 100 600 300 Balance -100 1248 1260 Weight 250 lb 207 lb 207 lb Last Vital Signs Temp Pulse Resp BP Pulse Ox 98.6 F 94 H 16 106/65 100 01/14/19 06:00 01/14/19 06:00 01/14/19 09:00 01/14/19 06:00 01/13/19 22:57 Active Medications Acetaminophen (Ofirmev Injection -) 1,000 mg IVPB Q6H PRN PRN Reason: FEVER Last Admin: 01/13/19 18:30 Dose: 1,000 mg Artificial Tears (Artificial Tears Ointment -) 1 applic OU HS [facility] Last Admin: 01/14/19 01:31 Dose: 1 applic Artificial Tears (Artificial Tears) 1 drop OU BID [facility] Last Admin: 01/13/19 21:24 Dose: 1 drop Aspirin (Asa -) 300 mg [place] DAILY [facility] Last Admin: 01/13/19 17:39 Dose: Not Given Chlorhexidine Gluconate (Hibiclens For Decolonization -) 1 applic TP HS [facility] Last Admin: 01/13/19 21:25 Dose: 1 applic Midazolam HCl 100 mg/ Sodium (Chloride) 100 mls @ 1 mls/hr IVPB TITR [facility]; Protocol Last Titration: 01/14/19 10:45 Dose: 0 mg/hr, 0 mls/hr Fentanyl 500 mcg/ Dextrose 100 mls @ 5 mls/hr IVPB TITR [facility]; Protocol Last Titration: 01/14/19 10:45 Dose: 0 mcg/hr, 0 mls/hr Norepinephrine Bitartrate 8, (000 mcg/ Dextrose) 500 mls @ 18.75 mls/hr IV TITR [facility]; Protocol Last Admin: 01/14/19 11:10 Dose: Not Given Piperacillin Sod/Tazobactam (Sod 3.375 gm/ Dextrose) 50 mls @ 100 mls/hr IVPB Q8H-IV [facility]; Protocol Last Admin: 01/14/19 01:32 Dose: 100 mls/hr Lactated Ringer's (Lactated Ringers Solution) 1,000 ml in 1,000 mls @ 125 mls/ hr IV ASDIR [facility] Mupirocin (Bactroban Ointment (For Decolonization) -) 1 applic NS BID [facility] Stop: 01/18/19 09:59 Last Admin: 01/13/19 21:25 Dose: 1 applic GENERAL: Intubated and sedated. HEAD: Normal with no signs of trauma. EYES: Pupils sluggish to light, corneal opacity, significant conjunctival injection. EARS, NOSE, THROAT: ET tube in place at 24cm, moist mucus membranes. LUNGS: Mechanical breath sounds, no coarse breath sounds, crackles, wheezes appreciated HEART: Regular rate and rhythm with occasional extra beats, normal S1 and S2 without murmur, rub. ABDOMEN: Soft, nontender, not distended, normoactive bowel sounds, no guarding, no rebound, no masses. MUSCULOSKELETAL: Normal range of motion at all joints. No bony deformities or tenderness. UPPER EXTREMITIES: 1+ pulses, cool, well-perfused. No cyanosis. No clubbing. No peripheral edema. LOWER EXTREMITIES: 1+ pulses, cool, well-perfused. No calf tenderness. No peripheral edema. NEUROLOGICAL: Pupils dilated and sluggish to light, no withdrawal to painful stimuli, (+) intermittent myclonic movements SKIN: Cool extremities, dry, no rashes or lesions noted, normal capillary refill. Laboratory Results - last 24 hr 01/13/19 01/13/19 01/13/19 11:20 14:17 21:15 WBC RBC Hgb Hct MCV MCH MCHC RDW Plt Count MPV Absolute Neuts (auto) Neutrophils % Lymphocytes % Monocytes % Eosinophils % Basophils % Nucleated RBC % Anticoagulation Therapy Puncture Site ABG pH ABG pCO2 at Pt Temp ABG pO2 at Pt Temp ABG HCO3 ABG O2 Sat (Measured) ABG O2 Content ABG Base Excess Emory Test O2 Delivery Device Oxygen Flow Rate Vent Mode Vent Rate Mechanical Rate PEEP Pressure Support Vent Sodium Potassium Chloride Carbon Dioxide Anion Gap BUN Creatinine Est GFR (CKD-EPI)AfAm Est GFR (CKD-EPI)NonAf POC Glucometer 107 77 Random Glucose Calcium Phosphorus Magnesium Total Bilirubin AST ALT Alkaline Phosphatase Troponin I 22.00 H* Total Protein Albumin Random Vancomycin 01/14/19 01/14/19 01/14/19 01:15 05:00 05:00 WBC 13.0 H RBC 3.98 L Hgb 12.0 Hct 35.6 MCV 89.3 MCH 30.0 MCHC 33.6 RDW 15.6 Plt Count 144 D MPV 8.2 Absolute Neuts (auto) 11.1 H Neutrophils % 85.5 H Lymphocytes % 6.5 L D Monocytes % 7.0 Eosinophils % 0.4 D Basophils % 0.6 Nucleated RBC % 0 Anticoagulation Therapy Puncture Site ABG pH ABG pCO2 at Pt Temp ABG pO2 at Pt Temp ABG HCO3 ABG O2 Sat (Measured) ABG O2 Content ABG Base Excess Emory Test O2 Delivery Device Oxygen Flow Rate Vent Mode Vent Rate Mechanical Rate PEEP Pressure Support Vent Sodium Potassium Chloride Carbon Dioxide Anion Gap BUN Creatinine Est GFR (CKD-EPI)AfAm Est GFR (CKD-EPI)NonAf POC Glucometer 79 Random Glucose Calcium Phosphorus Magnesium Total Bilirubin AST ALT Alkaline Phosphatase Troponin I Total Protein Albumin Random Vancomycin 13.7 L 01/14/19 01/14/19 05:00 06:00 WBC RBC Hgb Hct MCV MCH MCHC RDW Plt Count MPV Absolute Neuts (auto) Neutrophils % Lymphocytes % Monocytes % Eosinophils % Basophils % Nucleated RBC % Anticoagulation Therapy No Result Required. Puncture Site Right radial ABG pH 7.37 ABG pCO2 at Pt Temp 40.0 ABG pO2 at Pt Temp 120 H ABG HCO3 22.6 ABG O2 Sat (Measured) 98.7 H ABG O2 Content 17.0 ABG Base Excess -1.9 Emory Test Positive O2 Delivery Device Vent Oxygen Flow Rate 30 Vent Mode No Result Required. Vent Rate 14 Mechanical Rate No Result Required. PEEP 5.0 Pressure Support Vent 500 Sodium 141 Potassium 4.2 Chloride 108 H Carbon Dioxide 26 Anion Gap 8 BUN 41.0 H Creatinine 3.6 H Est GFR (CKD-EPI)AfAm 19.23 Est GFR (CKD-EPI)NonAf 16.60 POC Glucometer Random Glucose 88 Calcium 8.3 L Phosphorus 4.3 Magnesium 2.1 Total Bilirubin 0.7 AST 129 H ALT 75 H Alkaline Phosphatase 80 Troponin I 7.63 H* Total Protein 5.1 L Albumin 2.4 L Random Vancomycin ASSESSMENT/PLAN: S/P cardiac arrest with Anoxic Brain Injury CHF CAD HTN DM Suspected Myoclonus Elevated lactic acid PRACHI Elevated LFTs Elevated TSH Suspected Asphyxiation Aspiration PNA AC Mode of vent ABX coverage DC sedation to assess mental status IVF boluses Strict I & O Wean pressors; maintain MAP > 65 TTM Requires ICU monitoring Dr Menjivar Critical care time spent in reviewing chart, evaluating patient and formulating plan - 36 minutes.
[2019-01-14] MEDS: MUPIROCIN 2% TOPICAL OINTMENT FOR DECOLONIZATION NS SCH ×2 (11:55→21:48)
[2019-01-14] MEDS: ASPIRIN 300 MG SUPP.RECT PR SCH (11:55)
[2019-01-14] MEDS: ARTIFICIAL TEARS (POLYVINYL ALCOHOL) OPTH DROPS OU SCH ×2 (11:56→21:48)
[2019-01-14] MEDS: ACETAMINOPHEN 1000 MG/100 ML VIAL (NON FORMULARY) IVPB PRN ×2 (12:02→20:01)
--- NOTE | 2019-01-14 13:06 | PN ---
Progress Note, Physician History of Present Illness: Pt seen and examined at bedside. He remains in the ICU intubated. - Current Medication List Current Medications: Active Medications Acetaminophen (Ofirmev Injection -) 1,000 mg IVPB Q6H PRN PRN Reason: FEVER Last Admin: 01/14/19 12:02 Dose: 1,000 mg Artificial Tears (Artificial Tears Ointment -) 1 applic OU HS [facility] Last Admin: 01/14/19 01:31 Dose: 1 applic Artificial Tears (Artificial Tears) 1 drop OU BID [facility] Last Admin: 01/14/19 11:56 Dose: 1 drop Aspirin (Asa -) 300 mg [place] DAILY [facility] Last Admin: 01/14/19 11:55 Dose: 300 mg Chlorhexidine Gluconate (Hibiclens For Decolonization -) 1 applic TP HS [facility] Last Admin: 01/13/19 21:25 Dose: 1 applic Midazolam HCl 100 mg/ Sodium (Chloride) 100 mls @ 1 mls/hr IVPB TITR [facility]; Protocol Last Titration: 01/14/19 10:45 Dose: 0 mg/hr, 0 mls/hr Fentanyl 500 mcg/ Dextrose 100 mls @ 5 mls/hr IVPB TITR [facility]; Protocol Last Titration: 01/14/19 10:45 Dose: 0 mcg/hr, 0 mls/hr Norepinephrine Bitartrate 8, (000 mcg/ Dextrose) 500 mls @ 18.75 mls/hr IV TITR [facility]; Protocol Last Admin: 01/14/19 11:10 Dose: Not Given Piperacillin Sod/Tazobactam (Sod 3.375 gm/ Dextrose) 50 mls @ 100 mls/hr IVPB Q8H-IV [facility]; Protocol Last Admin: 01/14/19 11:54 Dose: 100 mls/hr Lactated Ringer's (Lactated Ringers Solution) 1,000 ml in 1,000 mls @ 125 mls/ hr IV ASDIR [facility] Last Admin: 01/14/19 12:48 Dose: 125 mls/hr Mupirocin (Bactroban Ointment (For Decolonization) -) 1 applic NS BID [facility] Stop: 01/18/19 09:59 Last Admin: 01/14/19 11:55 Dose: 1 applic - Objective Vital Signs: Vital Signs Temperature 98.6 F 01/14/19 06:00 Pulse Rate 94 H 01/14/19 06:00 Respiratory Rate 17 01/14/19 12:22 Blood Pressure 106/65 01/14/19 06:00 O2 Sat by Pulse Oximetry (%) 100 01/13/19 22:57 Constitutional: Yes: Calm HENT: Yes: Atraumatic Neck: Yes: Supple Cardiovascular: Yes: S1, S2 Respiratory: Yes: Intubated, Mechanically Ventilated Gastrointestinal: Yes: Soft Genitourinary: Yes: Nguyen Present, Oliguria Musculoskeletal: Yes: Muscle Weakness Edema: Yes Edema: LLE: Trace, RLE: Trace Neurological: Yes: Lethargy Labs: CBC, BMP 01/14/19 05:00 01/14/19 05:00 INR, PTT INR 1.08 (0.83-1.09) 01/13/19 05:15 Problem List - Problems (1) PRACHI (acute kidney injury) Code(s): N17.9 - ACUTE KIDNEY FAILURE, UNSPECIFIED (2) CHF (congestive heart failure) Code(s): I50.9 - HEART FAILURE, UNSPECIFIED Qualifiers: Qualified Code(s): I50.9 - Heart failure, unspecified (3) HTN (hypertension) Code(s): I10 - ESSENTIAL (PRIMARY) HYPERTENSION Assessment/Plan Current Medications Generic Name Dose Route Start Last Admin Trade Name Freq PRN Reason Stop Dose Admin Acetaminophen 1,000 mg 01/13/19 17:23 01/14/19 12:02 Ofirmev Injection - IVPB 1,000 mg Q6H PRN Administration FEVER Artificial Tears 1 applic 01/13/19 22:00 01/14/19 01:31 Artificial Tears Ointment - OU 1 applic HS [facility] Administration Artificial Tears 1 drop 01/13/19 10:00 01/14/19 11:56 Artificial Tears OU 1 drop BID [facility] Administration Aspirin 300 mg 01/13/19 15:45 01/14/19 11:55 Asa - MT 300 mg DAILY [facility] Administration Chlorhexidine Gluconate 1 applic 01/13/19 22:00 01/13/19 21:25 Hibiclens For Decolonization - TP 1 applic HS [facility] Administration Midazolam HCl 100 mg/ Sodium 100 mls @ 1 mls/hr 01/12/19 21:30 01/14/19 10:45 Chloride IVPB 0 mg/hr TITR [facility] 0 mls/hr Titration Protocol 1 MG/HR Fentanyl 500 mcg/ Dextrose 100 mls @ 5 mls/hr 01/13/19 02:14 01/14/19 10:45 IVPB 0 mcg/hr TITR [facility] 0 mls/hr Titration Protocol 25 MCG/HR Norepinephrine Bitartrate 8, 500 mls @ 18.75 mls/hr 01/13/19 04:00 01/14/19 11:10 000 mcg/ Dextrose IV Not Given TITR [facility] Protocol 5 MCG/MIN Piperacillin Sod/Tazobactam 50 mls @ 100 mls/hr 01/13/19 18:00 01/14/19 11:54 Sod 3.375 gm/ Dextrose IVPB 100 mls/hr Q8H-IV [facility] Administration Protocol Lactated Ringer's 1,000 ml in 1,000 mls @ 125 mls/hr 01/14/19 10:42 01/14/19 12:48 Lactated Ringers Solution IV 125 mls/hr ASDIR [facility] Administration Mupirocin 1 applic 01/13/19 10:00 01/14/19 11:55 Bactroban Ointment (For Decolonization) - NS 01/18/19 09:59 1 applic BID [facility] Administration Impression 1. PRACHI 2. cardiac arrest 3. hx chf 4. hx htn 5. resp failure requiring intubation Plan - renal function worsening - likely atn from hypotension during arrest - monitor urine output - cont supportive care - maintain nguyen - maintain map of 65 - discussed with ICU team -
--- NOTE | 2019-01-14 14:07 | PN ---
Progress Note (short form) - Note Progress Note: off sedation unresponsive remains on levophed Vital Signs Period Temp Pulse Resp BP Sys/Estrada Pulse Ox Last 24 Hr 96.2 F-98.6 F 85-98 13-26 79-110/44-69 98-100 cor-rrr lungs decreased bs at bases abd soft,nt ext no edema CBC, BMP 01/14/19 05:00 01/14/19 05:00 Microbiology 01/12/19 20:30 Blood - Peripheral Venous Blood Culture - Preliminary Staphylococcus Coagulase Neg 01/12/19 20:30 Blood - Peripheral Venous Blood Culture - Preliminary Strep Agalactiae Group B Pending Organism Pending Organism#2 01/13/19 04:50 Urine - Urine Clean Catch Urine Culture - Final NO GROWTH OBTAINED vanco 13.7 a/p s/p cardiac arrest polymicrobial bacteremia- ?contaminant repeat blood cultures continue vanco by level and zosyn for now anoxia shock liver raffi overall prognosis is poor d/w mother at bedside
[2019-01-14] MEDS ORDERED: VANCOMYCIN 1 GRAM (PRE-DOCKED) 1,000 MG/250 ML BAG IVPB ONE (14:08)
--- NOTE | 2019-01-14 14:26 | PN ---
Physical Exam: SUBJECTIVE: Patient seen and examined at bedside. pt is sedated and intubated. OBJECTIVE: Vital Signs Period Temp Pulse Resp BP Sys/Estrada Pulse Ox Last 24 Hr 96.2 F-101 F 85-100 13-94 77-110/44-82 98-100 GENERAL: The patient is sedated and intubated HEAD: Normal with no signs of trauma. EYES: pupils dilated and no accommodation to light. upward deviation of eyes. LUNGS: vent sounds equal b/l HEART: Regular rate and rhythm, S1, S2 without murmur, rub or gallop. ABDOMEN: Soft, nondistended, normoactive bowel sounds EXTREMITIES: 2+ pulses, warm, well-perfused, no edema. SKIN: Warm, dry, normal turgor, no rashes or lesions noted Laboratory Last Values WBC 13.0 K/mm3 (4.0-10.0) H 01/14/19 05:00 RBC 3.98 M/mm3 (4.00-5.60) L 01/14/19 05:00 Hgb 12.0 GM/dL (11.7-16.9) 01/14/19 05:00 Hct 35.6 % (35.4-49) 01/14/19 05:00 MCV 89.3 fl (80-96) 01/14/19 05:00 MCH 30.0 pg (25.7-33.7) 01/14/19 05:00 MCHC 33.6 g/dl (32.0-35.9) 01/14/19 05:00 RDW 15.6 % (11.9-15.9) 01/14/19 05:00 Plt Count 144 K/MM3 (134-434) D 01/14/19 05:00 MPV 8.2 fl (7.5-11.1) 01/14/19 05:00 Absolute Neuts (auto) 11.1 K/mm3 (1.5-8.0) H 01/14/19 05:00 Neutrophils % 85.5 % (42.8-82.8) H 01/14/19 05:00 Neutrophils % (Manual) 50.0 % (42.8-82.8) 01/12/19 20:48 Band Neutrophils % 3.0 % 01/12/19 20:48 Lymphocytes % 6.5 % (8-40) L D 01/14/19 05:00 Lymphocytes % (Manual) 40.0 % (8-40) 01/12/19 20:48 Monocytes % 7.0 % (3.8-10.2) 01/14/19 05:00 Monocytes % (Manual) 6 % (3.8-10.2) 01/12/19 20:48 Eosinophils % 0.4 % (0-4.5) D 01/14/19 05:00 Basophils % 0.6 % (0-2.0) 01/14/19 05:00 Nucleated RBC % 0 % (0-0) 01/14/19 05:00 Platelet Comment Mod plt clumping 01/12/19 20:48 PT with INR 12.80 SEC (9.7-13.0) 01/13/19 05:15 INR 1.08 (0.83-1.09) 01/13/19 05:15 PTT (Actin FS) 29.7 SECONDS (25.2-36.5) 01/13/19 05:15 Anticoagulation Therapy No Result Required. 01/14/19 06:00 Puncture Site Right radial 01/14/19 06:00 ABG pH 7.37 (7.35-7.45) 01/14/19 06:00 ABG pCO2 at Pt Temp 40.0 mmHg (35-45) 01/14/19 06:00 ABG pO2 at Pt Temp 120 mmHg (80-100) H 01/14/19 06:00 ABG HCO3 22.6 mmol/L (22-27) 01/14/19 06:00 ABG O2 Sat (Measured) 98.7 % (95-98) H 01/14/19 06:00 ABG O2 Content 17.0 % vol 01/14/19 06:00 ABG Base Excess -1.9 meq/l (-2-2) 01/14/19 06:00 Emory Test Positive 01/14/19 06:00 Carboxyhemoglobin Cancelled 01/12/19 21:10 Methemoglobin Cancelled 01/12/19 21:10 O2 Delivery Device Vent 01/14/19 06:00 Oxygen Flow Rate 30 01/14/19 06:00 Vent Mode No Result Required. 01/14/19 06:00 Vent Rate 14 01/14/19 06:00 Mechanical Rate No Result Required. 01/14/19 06:00 PEEP 5.0 cmH2O 01/14/19 06:00 Pressure Support Vent 500 01/14/19 06:00 Sodium 141 mmol/L (136-145) 01/14/19 05:00 Potassium 4.2 mmol/L (3.5-5.1) 01/14/19 05:00 Chloride 108 mmol/L (98-107) H 01/14/19 05:00 Carbon Dioxide 26 mmol/L (21-32) 01/14/19 05:00 Anion Gap 8 MMOL/L (8-16) 01/14/19 05:00 BUN 41.0 mg/dL (7-18) H 01/14/19 05:00 Creatinine 3.6 mg/dL (0.55-1.3) H 01/14/19 05:00 Est GFR (CKD-EPI)AfAm 19.23 01/14/19 05:00 Est GFR (CKD-EPI)NonAf 16.60 01/14/19 05:00 POC Glucometer 79 UNITS (80-120) 01/14/19 01:15 Random Glucose 88 mg/dL (74-106) 01/14/19 05:00 Lactic Acid 2.1 mmol/L (0.4-2.0) H 01/13/19 01:50 Calcium 8.3 mg/dL (8.5-10.1) L 01/14/19 05:00 Phosphorus 4.3 mg/dL (2.5-4.9) 01/14/19 05:00 Magnesium 2.1 mg/dL (1.8-2.4) 01/14/19 05:00 Total Bilirubin 0.7 mg/dL (0.2-1) 01/14/19 05:00 AST 129 U/L (15-37) H 01/14/19 05:00 ALT 75 U/L (13-61) H 01/14/19 05:00 Alkaline Phosphatase 80 U/L (45-117) 01/14/19 05:00 Creatine Kinase 1511 U/L (26-308) H 01/13/19 05:15 Creatine Kinase Index 3.5 % (0.0-5.0) 01/13/19 05:15 CK-MB (CK-2) 54.3 ng/mL (0.5-3.6) H 01/13/19 05:15 Troponin I 7.63 ng/ml (0.00-0.05) H* 01/14/19 05:00 B-Natriuretic Peptide 1451.1 pg/ml (5-125) H 01/12/19 20:48 Total Protein 5.1 g/dl (6.4-8.2) L 01/14/19 05:00 Albumin 2.4 g/dl (3.4-5.0) L 01/14/19 05:00 Lipase 123 U/L (73-393) 01/12/19 20:48 TSH 1.88 uIU/ml (0.358-3.74) D 01/13/19 05:15 Free T4 1.01 ng/dl (0.76-1.16) 01/13/19 01:50 Resin T3 Uptake 38.7 % (33-40) 01/13/19 01:50 Urine Color Yellow 01/13/19 04:50 Urine Appearance Turbid 01/13/19 04:50 Urine pH 5.0 (5.0-8.0) D 01/13/19 04:50 Ur Specific [place] 1.032 (1.010-1.035) 01/13/19 04:50 Urine Protein 2+ (NEGATIVE) H 01/13/19 04:50 Urine Glucose (UA) Trace (NEGATIVE) 01/13/19 04:50 Urine Ketones Negative (NEGATIVE) 01/13/19 04:50 Urine Blood 3+ (NEGATIVE) H 01/13/19 04:50 Urine Nitrite Negative (NEGATIVE) 01/13/19 04:50 Urine Bilirubin Negative (NEGATIVE) 01/13/19 04:50 Urine Urobilinogen 0.2 mg/dL (0.2-1.0) 01/13/19 04:50 Ur Leukocyte Esterase Trace (NEGATIVE) 01/13/19 04:50 Urine WBC (Auto) 163 /hpf (0-5) 01/13/19 04:50 Urine RBC (Auto) 40.9 /hpf (0-4) 01/13/19 04:50 Urine Casts (Auto) 61 /lpf (0-8) 01/13/19 04:50 U Pathogenic Cast Auto none seen /lpf (NEGATIVE) 01/13/19 04:50 U Epithel Cells (Auto) 10.6 /HPF (0-5/HPF) 01/13/19 04:50 Urine Bacteria (Auto) 4.9 /hpf (NEGATIVE) 01/13/19 04:50 Urine Yeast (Auto) none seen (NEGATIVE) 01/13/19 04:50 Random Vancomycin 13.7 ug/ml (18-26) L 01/14/19 05:00 Current Medications Acetaminophen (Ofirmev Injection -) 1,000 mg IVPB Q6H PRN PRN Reason: FEVER Last Admin: 01/14/19 12:02 Dose: 1,000 mg Artificial Tears (Artificial Tears Ointment -) 1 applic OU HS [facility] Last Admin: 01/14/19 01:31 Dose: 1 applic Artificial Tears (Artificial Tears) 1 drop OU BID [facility] Last Admin: 01/14/19 11:56 Dose: 1 drop Aspirin (Asa -) 300 mg LA DAILY [facility] Last Admin: 01/14/19 11:55 Dose: 300 mg Chlorhexidine Gluconate (Hibiclens For Decolonization -) 1 applic TP HS [facility] Last Admin: 01/13/19 21:25 Dose: 1 applic Midazolam HCl 100 mg/ Sodium (Chloride) 100 mls @ 1 mls/hr IVPB TITR [facility]; Protocol Last Titration: 01/14/19 10:45 Dose: 0 mg/hr, 0 mls/hr Fentanyl 500 mcg/ Dextrose 100 mls @ 5 mls/hr IVPB TITR [facility]; Protocol Last Titration: 01/14/19 10:45 Dose: 0 mcg/hr, 0 mls/hr Norepinephrine Bitartrate 8, (000 mcg/ Dextrose) 500 mls @ 18.75 mls/hr IV TITR [facility]; Protocol Last Admin: 01/14/19 11:10 Dose: Not Given Piperacillin Sod/Tazobactam (Sod 3.375 gm/ Dextrose) 50 mls @ 100 mls/hr IVPB Q8H-IV [facility]; Protocol Last Admin: 01/14/19 11:54 Dose: 100 mls/hr Lactated Ringer's (Lactated Ringers Solution) 1,000 ml in 1,000 mls @ 125 mls/ hr IV ASDIR [facility] Last Admin: 01/14/19 12:48 Dose: 125 mls/hr Vancomycin HCl (Vancomycin (Pre-Docked)) 1,000 mg in 250 mls @ 166.667 mls/hr IVPB ONCE ONE; Protocol Stop: 01/14/19 15:37 Mupirocin (Bactroban Ointment (For Decolonization) -) 1 applic NS BID [facility] Stop: 01/18/19 09:59 Last Admin: 01/14/19 11:55 Dose: 1 applic ASSESSMENT/PLAN: 68M PMH HTN, CHF, CVA 2013, [place] s/p stent admitted to ICU s/p cardiac arrest w/ cardiac arrhythmia 2/2 cardiomegaly vs asphyxiation. Pt s/p targeted temp management. Neuro - Intubated, anoxic brain injury -hold sedation to asses neuro function. response is poor. - Tylenol for fever PRN - Patient likely to have poor outcome given prolonged down time in field - Head CT reviewed - Upon arrival to ICU, has rhythmic movements around mouth concerning for possible seizure vs shivering CV - HTN, CHF, s/p cardiac arrest w/ ROSC, NSTEMI - ECHO 2015 demonstrated EF 37%, EF only mild-mod decreased on prior echo 1 yr ago, currently severe/global 25-30%. - s/p vfib arrest, ~45 minutes down time, amio 300/150, multiple shocks - Post ROSC EKG shows no STEMI - c/w tele monitoring - Trop 0.66 > 22.7 > 32.2 > 22 - Norepinephrine drip titrate to maintain MAP >65. titrate down as tolerated - Cardiology recs appreciated -continue to hold BB - ASA 81 - Aggressive repletion of K/Mag (to > 4/2) Resp - intubated - s/p intubation in field during cardiac arrest, complicated by aspirate in small bore tube - Bilateral rib fractures on CT consistent with CPR - Infiltrate vs atelectasis in RLL Endocrine: - TSH elevated in ED, thyroid labs sent, will follow. Low concern for myxedema coma given lack of refractory hypotension and vfib arrest ID: - Concern for aspiration given CT findings - s/p vanc/zosyn in ED. -c/w vanc and zosyn ( renal adjustment) - Febrile - BCx positive pending organism - f/u BCx organism, sputum cx, UC, Ur Antigen - ID recs appreciated GI: - Air distention in stomach likely secondary to bagging in field F/E/N -D5LR @ 125 mls / hr -NPO Lines: -R IJ central line Dispo: continue ICU monitoring CODE STATUS: FULL CODE per family discussed case with family by bedside. family states they dont want to transfer pt. family still wants all measures for pt. Visit type - Emergency Visit Emergency Visit: No - New Patient This patient is new to me today: No - Critical Care Critical Care patient: Yes Total Critical Care Time (in minutes): 37 Critical Care Statement: The care of this patient involved high complexity decision making to prevent further life threatening deterioration of the patient 's condition and/or to evaluate & treat vital organ system(s) failure or risk of failure. ATTENDING PHYSICIAN STATEMENT I saw and evaluated the patient. I reviewed the resident's note and discussed the case with the resident. I agree with the resident's findings and plan as documented. SUBJECTIVE: OBJECTIVE: ASSESSMENT AND PLAN:
[2019-01-14] MEDS: DEXTROSE 5%-LACTATED RINGERS 1,000 ML IV SCH (15:06)
--- NOTE | 2019-01-14 16:21 | PN ---
Teaching Attending Note Name of Resident: Carlos Enrique Olsen ATTENDING PHYSICIAN STATEMENT I saw and evaluated the patient. I reviewed the resident's note and discussed the case with the resident. I agree with the resident's findings and plan as documented with exceptions below. SUBJECTIVE: patient seen and examined, intubated and sedated, Unable to do ROS. OBJECTIVE: Vital Signs Period Temp Pulse Resp BP Sys/Estrada Pulse Ox Last 24 Hr 96.2 F-101 F 85-100 13-94 75-110/42-82 98-100 Intake & Output 01/11/19 01/12/19 01/13/19 01/14/19 23:59 23:59 23:59 23:59 Intake Total 1848 1560 Output Total 100 600 900 Balance -100 1248 660 Weight 250 lb 207 lb 207 lb General: intubated sedated Chest: limited exam, poor effort, CVS:S1S2 regular Abdomen:soft, obese, pos bowel sounds, no voluntary or involuntary guarding or rigidity Extremites: trace pedal edema Neuro: intubated sedated, pupil sluggish, no withdrawal to pain, babinski non reactive, DTR 2+ UE, 1+ LE, myoclonic movements Home Medications Medication Instructions Recorded Aspirin 81 mg PO DAILY 01/13/19 Atorvastatin Ca [Lipitor] 40 mg PO DAILY 01/13/19 Carvedilol [Coreg -] 25 mg PO BID 01/13/19 Losartan/Hydrochlorothiazide 1 each PO DAILY 01/13/19 [Losartan-Hctz 100-25 mg Tab] Mirabegron [Myrbetriq] 25 mg PO DAILY 01/13/19 Telmisartan/Hydrochlorothiazid 1 tab PO DAILY 01/13/19 [Telmisartan-Hctz 80-25 mg Tab] Active Medications Acetaminophen (Ofirmev Injection -) 1,000 mg IVPB Q6H PRN PRN Reason: FEVER Last Admin: 01/14/19 12:02 Dose: 1,000 mg Artificial Tears (Artificial Tears Ointment -) 1 applic OU HS [facility] Last Admin: 01/14/19 01:31 Dose: 1 applic Artificial Tears (Artificial Tears) 1 drop OU BID [facility] Last Admin: 01/14/19 11:56 Dose: 1 drop Aspirin (Asa -) 300 mg [place] DAILY [facility] Last Admin: 01/14/19 11:55 Dose: 300 mg Chlorhexidine Gluconate (Hibiclens For Decolonization -) 1 applic TP HS [facility] Last Admin: 01/13/19 21:25 Dose: 1 applic Chlorhexidine Gluconate (Peridex -) 15 ml MM BID [facility] Midazolam HCl 100 mg/ Sodium (Chloride) 100 mls @ 1 mls/hr IVPB TITR [facility]; Protocol Last Titration: 01/14/19 10:45 Dose: 0 mg/hr, 0 mls/hr Fentanyl 500 mcg/ Dextrose 100 mls @ 5 mls/hr IVPB TITR [facility]; Protocol Last Titration: 01/14/19 10:45 Dose: 0 mcg/hr, 0 mls/hr Norepinephrine Bitartrate 8, (000 mcg/ Dextrose) 500 mls @ 18.75 mls/hr IV TITR [facility]; Protocol Last Titration: 01/14/19 13:20 Dose: 10 mcg/min, 37.5 mls/hr Piperacillin Sod/Tazobactam (Sod 3.375 gm/ Dextrose) 50 mls @ 100 mls/hr IVPB Q8H-IV [facility]; Protocol Last Admin: 01/14/19 11:54 Dose: 100 mls/hr Dextrose/Lactated Ringer's (D5-Lr -) 1,000 mls @ 125 mls/hr IV ASDIR [facility] Last Admin: 01/14/19 15:06 Dose: 125 mls/hr Mupirocin (Bactroban Ointment (For Decolonization) -) 1 applic NS BID [facility] Stop: 01/18/19 09:59 Last Admin: 01/14/19 11:55 Dose: 1 applic Laboratory Results - last 24 hr 01/13/19 01/14/19 01/14/19 21:15 01:15 05:00 WBC RBC Hgb Hct MCV MCH MCHC RDW Plt Count MPV Absolute Neuts (auto) Neutrophils % Lymphocytes % Monocytes % Eosinophils % Basophils % Nucleated RBC % Anticoagulation Therapy Puncture Site ABG pH ABG pCO2 at Pt Temp ABG pO2 at Pt Temp ABG HCO3 ABG O2 Sat (Measured) ABG O2 Content ABG Base Excess Emory Test O2 Delivery Device Oxygen Flow Rate Vent Mode Vent Rate Mechanical Rate PEEP Pressure Support Vent Sodium Potassium Chloride Carbon Dioxide Anion Gap BUN Creatinine Est GFR (CKD-EPI)AfAm Est GFR (CKD-EPI)NonAf POC Glucometer 77 79 Random Glucose Calcium Phosphorus Magnesium Total Bilirubin AST ALT Alkaline Phosphatase Troponin I Total Protein Albumin Random Vancomycin 13.7 L 01/14/19 01/14/19 01/14/19 05:00 05:00 06:00 WBC 13.0 H RBC 3.98 L Hgb 12.0 Hct 35.6 MCV 89.3 MCH 30.0 MCHC 33.6 RDW 15.6 Plt Count 144 D MPV 8.2 Absolute Neuts (auto) 11.1 H Neutrophils % 85.5 H Lymphocytes % 6.5 L D Monocytes % 7.0 Eosinophils % 0.4 D Basophils % 0.6 Nucleated RBC % 0 Anticoagulation Therapy No Result Required. Puncture Site Right radial ABG pH 7.37 ABG pCO2 at Pt Temp 40.0 ABG pO2 at Pt Temp 120 H ABG HCO3 22.6 ABG O2 Sat (Measured) 98.7 H ABG O2 Content 17.0 ABG Base Excess -1.9 Em[facility] Test Positive O2 Delivery Device Vent Oxygen Flow Rate 30 Vent Mode No Result Required. Vent Rate 14 Mechanical Rate No Result Required. PEEP 5.0 Pressure Support Vent 500 Sodium 141 Potassium 4.2 Chloride 108 H Carbon Dioxide 26 Anion Gap 8 BUN 41.0 H Creatinine 3.6 H Est GFR (CKD-EPI)AfAm 19.23 Est GFR (CKD-EPI)NonAf 16.60 POC Glucometer Random Glucose 88 Calcium 8.3 L Phosphorus 4.3 Magnesium 2.1 Total Bilirubin 0.7 AST 129 H ALT 75 H Alkaline Phosphatase 80 Troponin I 7.63 H* Total Protein 5.1 L Albumin 2.4 L Random Vancomycin Microbiology 01/13/19 09:00 Urine For Antigen Detection Legionella Antigen - Final 01/13/19 09:00 Urine For Antigen Detection Streptococcus pneumoniae Antigen (M - Final 01/12/19 20:30 Blood - Peripheral Venous Blood Culture - Preliminary Staphylococcus Coagulase Neg 01/12/19 20:30 Blood - Peripheral Venous Blood Culture - Preliminary Strep Agalactiae Group B Pending Organism Pending Organism#2 01/13/19 04:50 Urine - Urine Clean Catch Urine Culture - Final NO GROWTH OBTAINED ASSESSMENT AND PLAN: 68 yom with PMHx of HTN, HLD, cardiomyopathy, ?ischemia with WMA (improved EF on 2D echo in 2018), suspected CAD (transferred for cath from [facility] in 2016, ? results), CVA with residual slurred speech, admitted with cardiac arrest. 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 Plan to assess mental status off sedation. Hypothermia protocol. ID/renal/cardiology input noted. Monitor for anoxic brain injury. Blood cx noted, ?contaminant. Broad spectum abx,CT chest noted. Renal consult. No obstructive concerns on CT A/p. Continue nguyen. Overall prognosis guarded, continue to address goals of care. Continue ICU level of care Critical Care Total Critical Care Time (in minutes): 36 Critical Care Statement: The care of this patient involved high complexity decision making to prevent further life threatening deterioration of the patient 's condition and/or to evaluate & treat vital organ system(s) failure or risk of failure.
--- NOTE | 2019-01-14 17:37 | PN ---
Physical Exam: SUBJECTIVE: Patient seen and examined at bedside. OBJECTIVE: Vital Signs Period Temp Pulse Resp BP Sys/Estrada Pulse Ox Last 24 Hr 97 F-101 F 85-100 13-94 75-108/42-82 98-100 Gen: Intubated unresponsive HEENT: NCAT, pupils unreactive on my exam Neck: no jvd Cardio: rrr, normal s1s2, no mrg noted Pulm: limited exam. clear b/l. Overbreathing the vent Abd: soft, nondistended Laboratory Results - last 24 hr 01/13/19 01/14/19 01/14/19 21:15 01:15 05:00 WBC RBC Hgb Hct MCV MCH MCHC RDW Plt Count MPV Absolute Neuts (auto) Neutrophils % Lymphocytes % Monocytes % Eosinophils % Basophils % Nucleated RBC % Anticoagulation Therapy Puncture Site ABG pH ABG pCO2 at Pt Temp ABG pO2 at Pt Temp ABG HCO3 ABG O2 Sat (Measured) ABG O2 Content ABG Base Excess Emory Test O2 Delivery Device Oxygen Flow Rate Vent Mode Vent Rate Mechanical Rate PEEP Pressure Support Vent Sodium Potassium Chloride Carbon Dioxide Anion Gap BUN Creatinine Est GFR (CKD-EPI)AfAm Est GFR (CKD-EPI)NonAf POC Glucometer 77 79 Random Glucose Calcium Phosphorus Magnesium Total Bilirubin AST ALT Alkaline Phosphatase Troponin I Total Protein Albumin Random Vancomycin 13.7 L 01/14/19 01/14/19 01/14/19 05:00 05:00 06:00 WBC 13.0 H RBC 3.98 L Hgb 12.0 Hct 35.6 MCV 89.3 MCH 30.0 MCHC 33.6 RDW 15.6 Plt Count 144 D MPV 8.2 Absolute Neuts (auto) 11.1 H Neutrophils % 85.5 H Lymphocytes % 6.5 L D Monocytes % 7.0 Eosinophils % 0.4 D Basophils % 0.6 Nucleated RBC % 0 Anticoagulation Therapy No Result Required. Puncture Site Right radial ABG pH 7.37 ABG pCO2 at Pt Temp 40.0 ABG pO2 at Pt Temp 120 H ABG HCO3 22.6 ABG O2 Sat (Measured) 98.7 H ABG O2 Content 17.0 ABG Base Excess -1.9 Emory Test Positive O2 Delivery Device Vent Oxygen Flow Rate 30 Vent Mode No Result Required. Vent Rate 14 Mechanical Rate No Result Required. PEEP 5.0 Pressure Support Vent 500 Sodium 141 Potassium 4.2 Chloride 108 H Carbon Dioxide 26 Anion Gap 8 BUN 41.0 H Creatinine 3.6 H Est GFR (CKD-EPI)AfAm 19.23 Est GFR (CKD-EPI)NonAf 16.60 POC Glucometer Random Glucose 88 Calcium 8.3 L Phosphorus 4.3 Magnesium 2.1 Total Bilirubin 0.7 AST 129 H ALT 75 H Alkaline Phosphatase 80 Troponin I 7.63 H* Total Protein 5.1 L Albumin 2.4 L Random Vancomycin Active Medications Generic Name Dose Route Start Last Admin Trade Name Freq PRN Reason Stop Dose Admin Acetaminophen 1,000 mg 01/13/19 17:23 01/14/19 12:02 Ofirmev Injection - IVPB 1,000 mg Q6H PRN Administration FEVER Artificial Tears 1 applic 01/13/19 22:00 01/14/19 01:31 Artificial Tears Ointment - OU 1 applic HS [facility] Administration Artificial Tears 1 drop 01/13/19 10:00 01/14/19 11:56 Artificial Tears OU 1 drop BID [facility] Administration Aspirin 300 mg 01/13/19 15:45 01/14/19 11:55 Asa - [place] 300 mg DAILY [facility] Administration Chlorhexidine Gluconate 1 applic 01/13/19 22:00 01/13/19 21:25 Hibiclens For Decolonization - TP 1 applic HS [facility] Administration Chlorhexidine Gluconate 15 ml 01/14/19 22:00 Peridex - MM BID [facility] Midazolam HCl 100 mg/ Sodium 100 mls @ 1 mls/hr 01/12/19 21:30 01/14/19 10:45 Chloride IVPB 0 mg/hr TITR [facility] 0 mls/hr Titration Protocol 1 MG/HR Fentanyl 500 mcg/ Dextrose 100 mls @ 5 mls/hr 01/13/19 02:14 01/14/19 10:45 IVPB 0 mcg/hr TITR [facility] 0 mls/hr Titration Protocol 25 MCG/HR Norepinephrine Bitartrate 8, 500 mls @ 18.75 mls/hr 01/13/19 04:00 01/14/19 16:23 000 mcg/ Dextrose IV 10 mcg/min TITR [facility] 37.5 mls/hr Administration Protocol 5 MCG/MIN Piperacillin Sod/Tazobactam 50 mls @ 100 mls/hr 01/13/19 18:00 01/14/19 11:54 Sod 3.375 gm/ Dextrose IVPB 100 mls/hr Q8H-IV [facility] Administration Protocol Dextrose/Lactated Ringer's 1,000 mls @ 125 mls/hr 01/14/19 14:30 01/14/19 15: 06 D5-Lr - IV 125 mls/hr ASDIR [facility] Administration Mupirocin 1 applic 01/13/19 10:00 01/14/19 11:55 Bactroban Ointment (For Decolonization) - NS 01/18/19 09:59 1 applic BID [facility] Administration ASSESSMENT/PLAN: 68 year old male with a past medical history of hypertension, diabetes, congestive heart failure (EF 37% in 2016, noted improvement in 2018) who presented to the ED after having cardiac arrest in the field. Lee Black is 68 year old male with a past medical history of hypertension , diabetes, congestive heart failure who is admitted after ROSC s/p cardiac arrest after V-fib. S/P cardiac arrest - continuous cardiac monitoring - cooling protocol completed - troponin peaked - continue antibiotics in setting of elevated temperature for possible infectious cause - monitor and correct any electrolytes disturbances - cardiology consultation: plan to cath if/when return of brain function is established - hold sedation - monitor for anoxic brain injury, CT suggestive of brain injury, exhibiting potential signs of post-hypoxic myoclonus Elevated lactic acid - likely in setting of hypoperfusion during cardiac arrest - continue IV fluids - improved PRACHI - likely in setting of hypoperfusion during cardiac arrest - baseline CRE 1.1 - continue IV fluids - worsening Elevated LFTs - likely in setting of hypoperfusion during cardiac arrest - continue IV fluids - repeat still elevated Elevated TSH - no history of thyroid disease - TSH wnl Visit type - Emergency Visit Emergency Visit: No - New Patient This patient is new to me today: No - Critical Care Critical Care patient: Yes Total Critical Care Time (in minutes): 25 ATTENDING PHYSICIAN STATEMENT I saw and evaluated the patient. I reviewed the resident's note and discussed the case with the resident. I agree with the resident's findings and plan as documented. SUBJECTIVE: OBJECTIVE: ASSESSMENT AND PLAN:
[2019-01-14] MEDS: CHLORHEXIDINE GLUCONATE 0.12% 15ML CUP MM SCH (21:48)
[2019-01-14] MEDS: CHLORHEXIDINE GLUCONATE 4% CLEANSER FOR DECOLONIZATION TP SCH (21:49)
[2019-01-15] MEDS ORDERED: DEXTROSE 5%-WATER - 50 ML IVPB ONE ×3 (01:06→17:08)
[2019-01-15] MEDS ORDERED: PIPERACILLIN/TAZOBACTAM 3.375 GM VIAL IVPB ONE ×3 (01:06→17:08)
[2019-01-15] MEDS: PIPERACILLIN/TAZOB 3.375 GM 3.375 GM in DEXTROSE 5%-WATER - 50 ML IVPB SCH ×3 (01:18→17:42)
[2019-01-15] MEDS: DEXTROSE 5%-LACTATED RINGERS 1,000 ML IV SCH ×2 (01:22→15:53)
[2019-01-15] MEDS: ACETAMINOPHEN 1000 MG/100 ML VIAL (NON FORMULARY) IVPB PRN ×3 (02:58→21:41)
[2019-01-15] MEDS: FENTANYL INJECTION 500 MCG in DEXTROSE 5%-WATER - 90 ML IVPB SCH (02:58)
[2019-01-15] MEDS: NOREPINEPHRINE BITARTRATE 8,000 MCG in DEXTROSE 5%-WATER - 492 ML IV SCH (04:15)
--- NOTE | 2019-01-15 07:25 | PN ---
Progress Note, Physician Chief Complaint: remain on AC, 30% FIO2 On pressors TELE: sinus w. rare PVCs History of Present Illness: remains febrile - Current Medication List Current Medications: Active Medications Artificial Tears (Artificial Tears Ointment -) 1 applic OU HS [facility] Last Admin: 01/14/19 21:49 Dose: 1 applic Artificial Tears (Artificial Tears) 1 drop OU BID [facility] Last Admin: 01/14/19 21:48 Dose: 1 drop Aspirin (Asa -) 300 mg FL DAILY [facility] Last Admin: 01/14/19 11:55 Dose: 300 mg Chlorhexidine Gluconate (Hibiclens For Decolonization -) 1 applic TP HS [facility] Last Admin: 01/14/19 21:49 Dose: 1 applic Chlorhexidine Gluconate (Peridex -) 15 ml MM BID [facility] Last Admin: 01/14/19 21:48 Dose: 15 ml Midazolam HCl 100 mg/ Sodium (Chloride) 100 mls @ 1 mls/hr IVPB TITR [facility]; Protocol Last Admin: 01/14/19 21:46 Dose: Not Given Fentanyl 500 mcg/ Dextrose 100 mls @ 5 mls/hr IVPB TITR [facility]; Protocol Last Admin: 01/15/19 02:58 Dose: Not Given Norepinephrine Bitartrate 8, (000 mcg/ Dextrose) 500 mls @ 18.75 mls/hr IV TITR [facility]; Protocol Last Admin: 01/15/19 04:15 Dose: Not Given Piperacillin Sod/Tazobactam (Sod 3.375 gm/ Dextrose) 50 mls @ 100 mls/hr IVPB Q8H-IV [facility]; Protocol Last Admin: 01/15/19 01:18 Dose: 100 mls/hr Dextrose/Lactated Ringer's (D5-Lr -) 1,000 mls @ 125 mls/hr IV ASDIR [facility] Last Admin: 01/15/19 01:22 Dose: 125 mls/hr Mupirocin (Bactroban Ointment (For Decolonization) -) 1 applic NS BID [facility] Stop: 01/18/19 09:59 Last Admin: 01/14/19 21:48 Dose: 1 applic - Objective Vital Signs: Vital Signs Temperature 100.1 F H 01/15/19 06:00 Pulse Rate 86 01/15/19 06:00 Respiratory Rate 17 01/15/19 06:00 Blood Pressure 115/80 01/15/19 06:00 O2 Sat by Pulse Oximetry (%) 97 01/14/19 21:00 Constitutional: Yes: No Distress, Calm Eyes: Yes: Conjunctiva Clear Cardiovascular: Yes: Regular Rate and Rhythm Respiratory: Yes: Other (= breath sounds bilaterally) Gastrointestinal: Yes: Soft Edema: No Neurological: Yes: Other (sedated on vent) Labs: CBC, BMP 01/14/19 05:00 01/14/19 05:00 INR, PTT INR 1.08 (0.83-1.09) 01/13/19 05:15 - ....Imaging EKG: Image Reviewed Assessment/Plan Assessment/Plan DATA: echo 01/20: severe global LV hypo EF 25-30%. nl RV. mild LAE. mod MR. nl RVSP. cath 07/2015: lhc: normal cors; rhc: mild phtn, pvri mod elevated, pcw/lvedp nl. ECG 01/12: NSR, LVH with nonsp ST-Ts ? sec to LVH--not signif changed vs 2016 prior ECG 01/13: no signif change, prolonged QT (similar to 2016) tele: NSR, NSVT x 11beats IMP/PLAN: VF arrest:in setting of gram + bacteremia and septic shock -EF only mild-mod decreased on prior echo 1 yr ago, currently severe/global 25- 30%. -? arrest triggered by bacteremia (2 of 2 initial cultures positive)/sepsis -cont tele monitoring -hold bb given hypotensive and likely septic shock -if makes meaningful recovery (suspected anoxic brain injury at present), will need ICD -doubt acute ischemic etiology given normal cor.s 3 yrs ago--if makes meaningful recover will need repeat isch eval NSTEMI: -trop to 32, trending down -normal cors 2016 -suspect sec to sepsis vs prolonged hypotension from recurrent VF arrest (with contribution from mult electrical defibs) -aspirin daily -hold BB (risks of hypotension in septic shock) SEPTIC SHOCK, gram pos bacteremia: -abx per ID -echo no vegetation seen -pressor support norepi, aim for MAP > 60 (try to avoid dopamine or dobutamine given risks of ventricular arrhythmia and NSVT) Prolonged QT: -? related to CMP/LVH--was close to 500 on prior ecg 2016 -similar at present -aggressive repletion of K/Mag (4/2) -tele monitoring -avoid QT prolonging meds Congestive heart failure, nonischemic CMP -EF severely reduced at time of initial dx 2016--improved signif with med management -present EF severely reduced again, likely in setting sepsis PRACHI: -sec to hypoperfusion -IVF as doing Hypotension: -septic shock currently -hold home meds, levo for MAP 60mmHG Prognosis guarded
[2019-01-15 07:44] LABS: BASO % 0.4 % (0-2.0); EOS % 0.3 % (0-4.5); HEMATOCRIT 33.3 % (35.4-49); HEMOGLOBIN 11.1 GM/dL (11.7-16.9); LYMPH % 5.5 % (8-40); MCH 29.7 pg (25.7-33.7); MCHC 33.2 g/dl (32.0-35.9); MEAN CELL VOLUME 89.4 fl (80-96); MEAN PLT VOLUME 8.4 fl (7.5-11.1); MONO % 8.7 % (3.8-10.2); NEUT % 85.1 % (42.8-82.8); PLATELET COUNT 133 K/MM3 (134-434); RBC 3.72 M/mm3 (4.00-5.60); RDW 14.9 % (11.9-15.9)
[2019-01-15 08:31] LABS: ALBUMIN 2.1 g/dl (3.4-5.0); BILIRUBIN,TOTAL 0.6 mg/dL (0.2-1); BLOOD UREA NITROGEN 47.5 mg/dL (7-18); CALCIUM 8.1 mg/dL (8.5-10.1); CREATININE 4.5 mg/dL (0.55-1.3); PHOSPHOROUS 4.1 mg/dL (2.5-4.9); POTASSIUM 4.1 mmol/L (3.5-5.1); TOT PROT 4.8 g/dl (6.4-8.2)
--- NOTE | 2019-01-15 08:53 | PN ---
Progress Note (short form) - Note Progress Note: Renal coverage for Dr. Taylor Seen and examined in the ICU on vent via ET Tube not responsive + Fever FiO2 is 30% CXR shows some congestion Vital Signs Temperature 100.2 F H 01/15/19 07:50 Pulse Rate 99 H 01/15/19 07:50 Respiratory Rate 01/15/19 07:50 Blood Pressure 107/64 01/15/19 07:50 O2 Sat by Pulse Oximetry (%) 99 01/15/19 07:50 Intake & Output 01/12/19 01/13/19 01/14/19 01/15/19 23:59 23:59 23:59 23:59 Intake Total 1848 3538 1015 Output Total 673 867 0447 800 Balance -100 1248 2438 215 Weight 113.398 kg 93.894 kg 93.894 kg 102.648 kg not responsive on vent ET tube in place RRR Dec BS trace LE edema CBC, BMP 01/15/19 06:30 01/15/19 06:30 Laboratory Tests 01/15/19 06:30 Calcium 8.1 L Phosphorus 4.1 Albumin 2.1 L Current Medications Artificial Tears (Artificial Tears Ointment -) 1 applic OU HS [facility] Last Admin: 01/14/19 21:49 Dose: 1 applic Artificial Tears (Artificial Tears) 1 drop OU BID [facility] Last Admin: 01/14/19 21:48 Dose: 1 drop Aspirin (Asa -) 300 mg [place] DAILY [facility] Last Admin: 01/14/19 11:55 Dose: 300 mg Chlorhexidine Gluconate (Hibiclens For Decolonization -) 1 applic TP HS [facility] Last Admin: 01/14/19 21:49 Dose: 1 applic Chlorhexidine Gluconate (Peridex -) 15 ml MM BID [facility] Last Admin: 01/14/19 21:48 Dose: 15 ml Midazolam HCl 100 mg/ Sodium (Chloride) 100 mls @ 1 mls/hr IVPB TITR [facility]; Protocol Last Admin: 01/14/19 21:46 Dose: Not Given Fentanyl 500 mcg/ Dextrose 100 mls @ 5 mls/hr IVPB TITR [facility]; Protocol Last Admin: 01/15/19 02:58 Dose: Not Given Norepinephrine Bitartrate 8, (000 mcg/ Dextrose) 500 mls @ 18.75 mls/hr IV TITR [facility]; Protocol Last Admin: 01/15/19 04:15 Dose: Not Given Piperacillin Sod/Tazobactam (Sod 3.375 gm/ Dextrose) 50 mls @ 100 mls/hr IVPB Q8H-IV [facility]; Protocol Last Admin: 01/15/19 01:18 Dose: 100 mls/hr Dextrose/Lactated Ringer's (D5-Lr -) 1,000 mls @ 125 mls/hr IV ASDIR [facility] Last Admin: 01/15/19 01:22 Dose: 125 mls/hr Mupirocin (Bactroban Ointment (For Decolonization) -) 1 applic NS BID [facility] Stop: 01/18/19 09:59 Last Admin: 01/14/19 21:48 Dose: 1 applic Impression 1. PRACHI likely due to ATN 2. cardiac arrest 3. hx chf 4. hx htn 5. resp failure requiring intubation Renal function continues to gradually worsen however no acute indication for ULTRASOUND SPECIALIST at this time. Pt remains non-oliguric and no overt electrolyte or acid/base disturbance noted Maintain MAP > 65. Monitor urine output. continue LR at present rate. continue vent support overall prognosis is poor. Preston Vargas DO
[2019-01-15] MEDS: CHLORHEXIDINE GLUCONATE 0.12% 15ML CUP MM SCH ×2 (09:18→21:45)
[2019-01-15] MEDS: ASPIRIN 300 MG SUPP.RECT PR SCH (09:18)
[2019-01-15] MEDS: MUPIROCIN 2% TOPICAL OINTMENT FOR DECOLONIZATION NS SCH ×2 (09:19→22:00)
[2019-01-15] MEDS: ARTIFICIAL TEARS (POLYVINYL ALCOHOL) OPTH DROPS OU SCH ×2 (09:19→22:00)
--- NOTE | 2019-01-15 09:55 | PN ---
Physical Exam: SUBJECTIVE: Patient seen and examined at bedside. pt is intubated. pt is unarousable OBJECTIVE: Vital Signs Period Temp Pulse Resp BP Sys/Estrada Pulse Ox Last 24 Hr 99.7 F-101 F 84-100 14-94 75-144/42-101 97-100 GENERAL: The patient is unarousable to stimulation. pt is intubated. minimal gag reflex. HEAD: Normal with no signs of trauma. EYES: Pupilsare dilated and do not respond to light. upward deviation of eyes LUNGS: vent sounds b/l HEART: Regular rate and rhythm, S1, S2 ABDOMEN: Soft, nondistended, normoactive bowel sounds Laboratory Last Values WBC 12.0 K/mm3 (4.0-10.0) H 01/15/19 06:30 RBC 3.72 M/mm3 (4.00-5.60) L 01/15/19 06:30 Hgb 11.1 GM/dL (11.7-16.9) L 01/15/19 06:30 Hct 33.3 % (35.4-49) L 01/15/19 06:30 MCV 89.4 fl (80-96) 01/15/19 06:30 MCH 29.7 pg (25.7-33.7) 01/15/19 06:30 MCHC 33.2 g/dl (32.0-35.9) 01/15/19 06:30 RDW 14.9 % (11.9-15.9) 01/15/19 06:30 Plt Count 133 K/MM3 (134-434) L 01/15/19 06:30 MPV 8.4 fl (7.5-11.1) 01/15/19 06:30 Absolute Neuts (auto) 10.2 K/mm3 (1.5-8.0) H 01/15/19 06:30 Neutrophils % 85.1 % (42.8-82.8) H 01/15/19 06:30 Neutrophils % (Manual) 50.0 % (42.8-82.8) 01/12/19 20:48 Band Neutrophils % 3.0 % 01/12/19 20:48 Lymphocytes % 5.5 % (8-40) L 01/15/19 06:30 Lymphocytes % (Manual) 40.0 % (8-40) 01/12/19 20:48 Monocytes % 8.7 % (3.8-10.2) 01/15/19 06:30 Monocytes % (Manual) 6 % (3.8-10.2) 01/12/19 20:48 Eosinophils % 0.3 % (0-4.5) 01/15/19 06:30 Basophils % 0.4 % (0-2.0) 01/15/19 06:30 Nucleated RBC % 0 % (0-0) 01/15/19 06:30 Platelet Comment Mod plt clumping 01/12/19 20:48 PT with INR 12.80 SEC (9.7-13.0) 01/13/19 05:15 INR 1.08 (0.83-1.09) 01/13/19 05:15 PTT (Actin FS) 29.7 SECONDS (25.2-36.5) 01/13/19 05:15 Anticoagulation Therapy No Result Required. 01/14/19 06:00 Puncture Site Right radial 01/14/19 06:00 ABG pH 7.37 (7.35-7.45) 01/14/19 06:00 ABG pCO2 at Pt Temp 40.0 mmHg (35-45) 01/14/19 06:00 ABG pO2 at Pt Temp 120 mmHg (80-100) H 01/14/19 06:00 ABG HCO3 22.6 mmol/L (22-27) 01/14/19 06:00 ABG O2 Sat (Measured) 98.7 % (95-98) H 01/14/19 06:00 ABG O2 Content 17.0 % vol 01/14/19 06:00 ABG Base Excess -1.9 meq/l (-2-2) 01/14/19 06:00 [facility] Test Positive 01/14/19 06:00 Carboxyhemoglobin Cancelled 01/12/19 21:10 Methemoglobin Cancelled 01/12/19 21:10 O2 Delivery Device Vent 01/14/19 06:00 Oxygen Flow Rate 30 01/14/19 06:00 Vent Mode No Result Required. 01/14/19 06:00 Vent Rate 14 01/14/19 06:00 Mechanical Rate No Result Required. 01/14/19 06:00 PEEP 5.0 cmH2O 01/14/19 06:00 Pressure Support Vent 500 01/14/19 06:00 Sodium 138 mmol/L (136-145) 01/15/19 06:30 Potassium 4.1 mmol/L (3.5-5.1) 01/15/19 06:30 Chloride 105 mmol/L (98-107) 01/15/19 06:30 Carbon Dioxide 24 mmol/L (21-32) 01/15/19 06:30 Anion Gap 9 MMOL/L (8-16) 01/15/19 06:30 BUN 47.5 mg/dL (7-18) H 01/15/19 06:30 Creatinine 4.5 mg/dL (0.55-1.3) H 01/15/19 06:30 Est GFR (CKD-EPI)AfAm 14.69 01/15/19 06:30 Est GFR (CKD-EPI)NonAf 12.67 01/15/19 06:30 POC Glucometer 104 UNITS (80-120) 01/15/19 06:30 Random Glucose 142 mg/dL (74-106) H 01/15/19 06:30 Lactic Acid 2.1 mmol/L (0.4-2.0) H 01/13/19 01:50 Calcium 8.1 mg/dL (8.5-10.1) L 01/15/19 06:30 Phosphorus 4.1 mg/dL (2.5-4.9) 01/15/19 06:30 Magnesium 2.0 mg/dL (1.8-2.4) 01/15/19 06:30 Total Bilirubin 0.6 mg/dL (0.2-1) 01/15/19 06:30 AST 99 U/L (15-37) H 01/15/19 06:30 ALT 53 U/L (13-61) 01/15/19 06:30 Alkaline Phosphatase 70 U/L (45-117) 01/15/19 06:30 Creatine Kinase 1511 U/L (26-308) H 01/13/19 05:15 Creatine Kinase Index 3.5 % (0.0-5.0) 01/13/19 05:15 CK-MB (CK-2) 54.3 ng/mL (0.5-3.6) H 01/13/19 05:15 Troponin I 7.63 ng/ml (0.00-0.05) H* 01/14/19 05:00 B-Natriuretic Peptide 1451.1 pg/ml (5-125) H 01/12/19 20:48 Total Protein 4.8 g/dl (6.4-8.2) L 01/15/19 06:30 Albumin 2.1 g/dl (3.4-5.0) L 01/15/19 06:30 Lipase 123 U/L (73-393) 01/12/19 20:48 TSH 1.88 uIU/ml (0.358-3.74) D 01/13/19 05:15 Free T4 1.01 ng/dl (0.76-1.16) 01/13/19 01:50 Total T3 54.00 ng/dl (71-180) L 01/13/19 01:50 Resin T3 Uptake 38.7 % (33-40) 01/13/19 01:50 Urine Color Yellow 01/13/19 04:50 Urine Appearance Turbid 01/13/19 04:50 Urine pH 5.0 (5.0-8.0) D 01/13/19 04:50 Ur Specific [place] 1.032 (1.010-1.035) 01/13/19 04:50 Urine Protein 2+ (NEGATIVE) H 01/13/19 04:50 Urine Glucose (UA) Trace (NEGATIVE) 01/13/19 04:50 Urine Ketones Negative (NEGATIVE) 01/13/19 04:50 Urine Blood 3+ (NEGATIVE) H 01/13/19 04:50 Urine Nitrite Negative (NEGATIVE) 01/13/19 04:50 Urine Bilirubin Negative (NEGATIVE) 01/13/19 04:50 Urine Urobilinogen 0.2 mg/dL (0.2-1.0) 01/13/19 04:50 Ur Leukocyte Esterase Trace (NEGATIVE) 01/13/19 04:50 Urine WBC (Auto) 163 /hpf (0-5) 01/13/19 04:50 Urine RBC (Auto) 40.9 /hpf (0-4) 01/13/19 04:50 Urine Casts (Auto) 61 /lpf (0-8) 01/13/19 04:50 U Pathogenic Cast Auto none seen /lpf (NEGATIVE) 01/13/19 04:50 U Epithel Cells (Auto) 10.6 /HPF (0-5/HPF) 01/13/19 04:50 Urine Bacteria (Auto) 4.9 /hpf (NEGATIVE) 01/13/19 04:50 Urine Yeast (Auto) none seen (NEGATIVE) 01/13/19 04:50 Random Vancomycin 16.8 ug/ml (18-26) L 01/15/19 06:30 Microbiology 01/12/19 20:30 Blood - Peripheral Venous Blood Culture - Preliminary Strep Agalactiae Group B Staphylococcus Coagulase Neg Group D Strep Or Entero Coccus 01/12/19 20:30 Blood - Peripheral Venous Blood Culture - Preliminary Staphylococcus Coagulase Neg Current Medications Acetaminophen (Ofirmev Injection -) 1,000 mg IVPB Q6H PRN PRN Reason: FEVER Artificial Tears (Artificial Tears Ointment -) 1 applic OU HS [facility] Last Admin: 01/14/19 21:49 Dose: 1 applic Artificial Tears (Artificial Tears) 1 drop OU BID [facility] Last Admin: 01/15/19 09:19 Dose: 1 drop Aspirin (Asa -) 300 mg [place] DAILY [facility] Last Admin: 01/15/19 09:18 Dose: 300 mg Chlorhexidine Gluconate (Hibiclens For Decolonization -) 1 applic TP HS [facility] Last Admin: 01/14/19 21:49 Dose: 1 applic Chlorhexidine Gluconate (Peridex -) 15 ml MM BID [facility] Last Admin: 01/15/19 09:18 Dose: 15 ml Midazolam HCl 100 mg/ Sodium (Chloride) 100 mls @ 1 mls/hr IVPB TITR [facility]; Protocol Last Admin: 01/14/19 21:46 Dose: Not Given Fentanyl 500 mcg/ Dextrose 100 mls @ 5 mls/hr IVPB TITR [facility]; Protocol Last Admin: 01/15/19 02:58 Dose: Not Given Norepinephrine Bitartrate 8, (000 mcg/ Dextrose) 500 mls @ 18.75 mls/hr IV TITR [facility]; Protocol Last Admin: 01/15/19 04:15 Dose: Not Given Piperacillin Sod/Tazobactam (Sod 3.375 gm/ Dextrose) 50 mls @ 100 mls/hr IVPB Q8H-IV [facility]; Protocol Last Admin: 01/15/19 09:18 Dose: 100 mls/hr Dextrose/Lactated Ringer's (D5-Lr -) 1,000 mls @ 125 mls/hr IV ASDIR [facility] Last Admin: 01/15/19 01:22 Dose: 125 mls/hr Mupirocin (Bactroban Ointment (For Decolonization) -) 1 applic NS BID [facility] Stop: 01/18/19 09:59 Last Admin: 01/15/19 09:19 Dose: [address]: IMPRESSION: Bilateral anterior frontal low-attenuation density, left larger than right likely representing chronic infarcts /encephalomalacia. Please correlate clinically. Otherwise, there is no CT evidence of gross acute intracranial pathology is identified. Chest/Abdomen/Pelvis CT: IMPRESSION: Rib fractures as described above likely secondary to resuscitation. No pneumothorax seen. Emphysematous changes with atelectasis/infiltration at the right base. Underlying nodules not excluded in this region. A nodule in the posterior costophrenic angle on the right as discussed above. Short-term follow-up is recommended. Malignancy not excluded. Central venous catheter as discussed above. Questionable pneumatosis versus fecal material and air. There is no evidence to suggest bowel wall thickening. The latter is suspected. C Spine CT: IMPRESSION: Straightening of the cervical spine without evidence of a fracture, dislocation or jumped facets. Multilevel degenerative disc disease with anterior and mild posterior spur formation as well as bilateral uncovertebral hypertrophy, as described above moderately narrowing the foramina at C5-C6 level ASSESSMENT/PLAN: 68M PMH HTN, CHF, CVA 2013, SD s/p stent admitted to ICU s/p cardiac arrest w/ cardiac arrhythmia 2/2 cardiomegaly vs asphyxiation. Pt s/p targeted temp management. Neuro - Intubated, anoxic brain injury -pt is off sedation. poor neurologic function - Tylenol for fever PRN - Patient likely to have poor outcome given prolonged down time in field - Head CT reviewed - Upon arrival to ICU, has rhythmic movements around mouth concerning for possible seizure vs shivering CV - HTN, CHF, s/p cardiac arrest w/ ROSC, NSTEMI - ECHO 2015 demonstrated EF 37%, EF only mild-mod decreased on prior echo 1 yr ago, currently severe/global 25-30%. - s/p vfib arrest, ~45 minutes down time, amio 300/150, multiple shocks - Post ROSC EKG shows no STEMI - c/w tele monitoring - Trop 0.66 > 22.7 > 32.2 > 22 - Norepinephrine drip titrate to maintain MAP >65. titrate down as tolerated. currently off drip. will continue to monitor - Cardiology recs appreciated -continue to hold BB - ASA 81 - Aggressive repletion of K/Mag (to > 4/2) Resp - intubated - s/p intubation in field during cardiac arrest, complicated by aspirate in small bore tube - Bilateral rib fractures on CT consistent with CPR - Infiltrate vs atelectasis in RLL Endocrine: - TSH elevated in ED, thyroid labs sent, will follow. Low concern for myxedema coma given lack of refractory hypotension and vfib arrest ID: - Concern for aspiration given CT findings -c/w vanc and zosyn ( renal adjustment) - pt still Febrile - BCx positive growing strep agalactaie - ID recs appreciated GI: - Air distention in stomach likely secondary to bagging in field Nephro: PRACHI 2/2 ATN -continue to monitor -Cr: 1.6->4.5 -no acute indication for ALTERNATIVE EDUCATION TEACHER at this time. - non-oliguric F/E/N -D5LR @ 125 mls / hr -NPO Lines: -R IJ central line (01/13) Dispo: continue ICU monitoring CODE STATUS: FULL CODE per family discussed case with family by bedside. family states they dont want to transfer pt. family still wants all measures for pt. Visit type - Emergency Visit Emergency Visit: No - New Patient This patient is new to me today: No - Critical Care Critical Care patient: Yes Total Critical Care Time (in minutes): 36 Critical Care Statement: The care of this patient involved high complexity decision making to prevent further life threatening deterioration of the patient 's condition and/or to evaluate & treat vital organ system(s) failure or risk of failure. ATTENDING PHYSICIAN STATEMENT I saw and evaluated the patient. I reviewed the resident's note and discussed the case with the resident. I agree with the resident's findings and plan as documented. SUBJECTIVE: OBJECTIVE: ASSESSMENT AND PLAN:
--- NOTE | 2019-01-15 10:21 | PN ---
Progress Note, Physician History of Present Illness: UNRESPONSIVE ON VENTILATOR REMAINS FEBRILE WITH ELEVATED WBC RENAL FUNCTION WORSENING - Current Medication List Current Medications: Active Medications Acetaminophen (Ofirmev Injection -) 1,000 mg IVPB Q6H PRN PRN Reason: FEVER Last Admin: 01/15/19 09:57 Dose: 1,000 mg Artificial Tears (Artificial Tears Ointment -) 1 applic OU HS [facility] Last Admin: 01/14/19 21:49 Dose: 1 applic Artificial Tears (Artificial Tears) 1 drop OU BID [facility] Last Admin: 01/15/19 09:19 Dose: 1 drop Aspirin (Asa -) 300 mg SD DAILY [facility] Last Admin: 01/15/19 09:18 Dose: 300 mg Chlorhexidine Gluconate (Hibiclens For Decolonization -) 1 applic TP HS [facility] Last Admin: 01/14/19 21:49 Dose: 1 applic Chlorhexidine Gluconate (Peridex -) 15 ml MM BID [facility] Last Admin: 01/15/19 09:18 Dose: 15 ml Midazolam HCl 100 mg/ Sodium (Chloride) 100 mls @ 1 mls/hr IVPB TITR [facility]; Protocol Last Admin: 01/14/19 21:46 Dose: Not Given Fentanyl 500 mcg/ Dextrose 100 mls @ 5 mls/hr IVPB TITR [facility]; Protocol Last Admin: 01/15/19 02:58 Dose: Not Given Norepinephrine Bitartrate 8, (000 mcg/ Dextrose) 500 mls @ 18.75 mls/hr IV TITR [facility]; Protocol Last Admin: 01/15/19 04:15 Dose: Not Given Piperacillin Sod/Tazobactam (Sod 3.375 gm/ Dextrose) 50 mls @ 100 mls/hr IVPB Q8H-IV [facility]; Protocol Last Admin: 01/15/19 09:18 Dose: 100 mls/hr Dextrose/Lactated Ringer's (D5-Lr -) 1,000 mls @ 125 mls/hr IV ASDIR [facility] Last Admin: 01/15/19 01:22 Dose: 125 mls/hr Mupirocin (Bactroban Ointment (For Decolonization) -) 1 applic NS BID [facility] Stop: 01/18/19 09:59 Last Admin: 01/15/19 09:19 Dose: 1 applic - Objective Vital Signs: Vital Signs Temperature 100.6 F H 09/14/19 09:00 Pulse Rate 91 H 01/15/19 09:00 Respiratory Rate 17 01/15/19 09:00 Blood Pressure 133/73 01/15/19 09:00 O2 Sat by Pulse Oximetry (%) 99 01/15/19 07:50 Constitutional: Yes: No Distress Cardiovascular: Yes: Regular Rate and Rhythm, S1, S2 Respiratory: Yes: Mechanically Ventilated Gastrointestinal: Yes: Normal Bowel Sounds, Soft. No: Tenderness Labs: CBC, BMP 01/15/19 06:30 01/15/19 06:30 INR, PTT INR 1.08 (0.83-1.09) 01/13/19 05:15 Assessment/Plan S/P ARREST RESP FAILURE/ MECHANICAL VENTILATION MULTIORGAN FAILURE POLYMICROBIAL BACTEREMIA FEVER/ LEUKOCYTOSIS WORSENING AZOTEMIA CONTINUE ZOSYN VANCOMYCIN THERAPUTIC REPEAT LEVEL AM PROGNOSIS POOR
--- NOTE | 2019-01-15 11:07 | PN ---
Teaching Attending Note Name of Resident: Brooke Astudillo ATTENDING PHYSICIAN STATEMENT I saw and evaluated the patient. I reviewed the resident's note and discussed the case with the resident. I agree with the resident's findings and plan as documented. SUBJECTIVE: Patient seen and examined in the ICU. Remains intubated on AC Mode of vent. Off sedation but minimally responsive to noxious stimuli. Intake & Output 01/12/19 01/13/19 01/14/19 01/15/19 23:59 23:59 23:59 23:59 Intake Total 1848 3538 1015 Output Total 255 278 8411 800 Balance -100 1248 2438 215 Weight 250 lb 207 lb 207 lb 226 lb 4.8 oz Last Vital Signs Temp Pulse Resp BP Pulse Ox 100.6 F H 91 H 17 133/73 99 01/15/19 09:00 01/15/19 09:00 01/15/19 09:00 01/15/19 09:00 01/15/19 07:50 Active Medications Acetaminophen (Ofirmev Injection -) 1,000 mg IVPB Q6H PRN PRN Reason: FEVER Last Admin: 01/15/19 09:57 Dose: 1,000 mg Artificial Tears (Artificial Tears Ointment -) 1 applic OU HS [facility] Last Admin: 01/14/19 21:49 Dose: 1 applic Artificial Tears (Artificial Tears) 1 drop OU BID [facility] Last Admin: 01/15/19 09:19 Dose: 1 drop Aspirin (Asa -) 300 mg [place] DAILY [facility] Last Admin: 01/15/19 09:18 Dose: 300 mg Chlorhexidine Gluconate (Hibiclens For Decolonization -) 1 applic TP HS [facility] Last Admin: 01/14/19 21:49 Dose: 1 applic Chlorhexidine Gluconate (Peridex -) 15 ml MM BID [facility] Last Admin: 01/15/19 09:18 Dose: 15 ml Midazolam HCl 100 mg/ Sodium (Chloride) 100 mls @ 1 mls/hr IVPB TITR [facility]; Protocol Last Admin: 01/14/19 21:46 Dose: Not Given Fentanyl 500 mcg/ Dextrose 100 mls @ 5 mls/hr IVPB TITR [facility]; Protocol Last Admin: 01/15/19 02:58 Dose: Not Given Norepinephrine Bitartrate 8, (000 mcg/ Dextrose) 500 mls @ 18.75 mls/hr IV TITR [facility]; Protocol Last Admin: 01/15/19 04:15 Dose: Not Given Piperacillin Sod/Tazobactam (Sod 3.375 gm/ Dextrose) 50 mls @ 100 mls/hr IVPB Q8H-IV [facility]; Protocol Last Admin: 01/15/19 09:18 Dose: 100 mls/hr Dextrose/Lactated Ringer's (D5-Lr -) 1,000 mls @ 125 mls/hr IV ASDIR [facility] Last Admin: 01/15/19 01:22 Dose: 125 mls/hr Mupirocin (Bactroban Ointment (For Decolonization) -) 1 applic NS BID [facility] Stop: 01/18/19 09:59 Last Admin: 01/15/19 09:19 Dose: 1 applic GENERAL: Intubated, minimally responsive off sedation HEAD: Normal with no signs of trauma. EYES: Pupils sluggish to light, corneal opacity, significant conjunctival injection. EARS, NOSE, THROAT: ET tube in place at 24cm, moist mucus membranes. LUNGS: Mechanical breath sounds, no coarse breath sounds, crackles, wheezes appreciated HEART: Regular rate and rhythm with occasional extra beats, normal S1 and S2 without murmur, rub. ABDOMEN: Soft, nontender, not distended, normoactive bowel sounds, no guarding, no rebound, no masses. MUSCULOSKELETAL: Normal range of motion at all joints. No bony deformities or tenderness. UPPER EXTREMITIES: 1+ pulses, cool, well-perfused. No cyanosis. No clubbing. No peripheral edema. LOWER EXTREMITIES: 1+ pulses, cool, well-perfused. No calf tenderness. No peripheral edema. NEUROLOGICAL: Pupils dilated and sluggish to light, no withdrawal to painful stimuli SKIN: Cool extremities, dry, no rashes or lesions noted, normal capillary refill. Laboratory Results - last 24 hr 01/13/19 01/14/19 01/14/19 01:50 07:06 14:24 WBC RBC Hgb Hct MCV MCH MCHC RDW Plt Count MPV Absolute Neuts (auto) Neutrophils % Lymphocytes % Monocytes % Eosinophils % Basophils % Nucleated RBC % Sodium Potassium Chloride Carbon Dioxide Anion Gap BUN Creatinine Est GFR (CKD-EPI)AfAm Est GFR (CKD-EPI)NonAf POC Glucometer 70 87 Random Glucose Calcium Phosphorus Magnesium Total Bilirubin AST ALT Alkaline Phosphatase Total Protein Albumin Total T3 54.00 L Random Vancomycin 01/14/19 01/14/19 01/15/19 18:04 23:08 06:30 WBC RBC Hgb Hct MCV MCH MCHC RDW Plt Count MPV Absolute Neuts (auto) Neutrophils % Lymphocytes % Monocytes % Eosinophils % Basophils % Nucleated RBC % Sodium Potassium Chloride Carbon Dioxide Anion Gap BUN Creatinine Est GFR (CKD-EPI)AfAm Est GFR (CKD-EPI)NonAf POC Glucometer 122 131 Random Glucose Calcium Phosphorus Magnesium Total Bilirubin AST ALT Alkaline Phosphatase Total Protein Albumin Total T3 Random Vancomycin 16.8 L 01/15/19 01/15/19 01/15/19 06:30 06:30 06:30 WBC 12.0 H RBC 3.72 L Hgb 11.1 L Hct 33.3 L MCV 89.4 MCH 29.7 MCHC 33.2 RDW 14.9 Plt Count 133 L MPV 8.4 Absolute Neuts (auto) 10.2 H Neutrophils % 85.1 H Lymphocytes % 5.5 L Monocytes % 8.7 Eosinophils % 0.3 Basophils % 0.4 Nucleated RBC % 0 Sodium 138 Potassium 4.1 Chloride 105 Carbon Dioxide 24 Anion Gap 9 BUN 47.5 H Creatinine 4.5 H Est GFR (CKD-EPI)AfAm 14.69 Est GFR (CKD-EPI)NonAf 12.67 POC Glucometer 104 Random Glucose 142 H Calcium 8.1 L Phosphorus 4.1 Magnesium 2.0 Total Bilirubin 0.6 AST 99 H ALT 53 Alkaline Phosphatase 70 Total Protein 4.8 L Albumin 2.1 L Total T3 Random Vancomycin ASSESSMENT/PLAN: S/P cardiac arrest with Anoxic Brain Injury CHF CAD HTN DM Suspected Myoclonus Elevated lactic acid PRACHI Elevated LFTs Elevated TSH Suspected Asphyxiation Aspiration PNA AC Mode of vent ABX coverage Monitor off sedation to assess mental status IVF boluses as needed Strict I & O Maintain MAP > 65 S/P TTM Requires ICU monitoring Dr Menjivar Critical care time spent in reviewing chart, evaluating patient and formulating plan - 36 minutes.
--- NOTE | 2019-01-15 13:43 | PN ---
Physical Exam: SUBJECTIVE: Patient seen and examined, intubated, off sedation. OBJECTIVE: Vital Signs Period Temp Pulse Resp BP Sys/Estrada Pulse Ox Last 24 Hr 99.0 F-100.6 F 84-99 15-94 77-144/47-101 97-100 Intake & Output 01/12/19 01/13/19 01/14/19 01/15/19 23:59 23:59 23:59 23:59 Intake Total 1848 3538 1015 Output Total 743 539 9062 800 Balance -100 1248 2438 215 Weight 250 lb 207 lb 207 lb 226 lb 4.8 oz General: intubated sedated Chest: limited exam, poor effort, HEENT: Pupil sluggish, minimally reactive CVS:S1S2 regular Abdomen:soft, obese, pos bowel sounds, no voluntary or involuntary guarding or rigidity Extremites: trace pedal edema Neuro: intubated sedated, pupil sluggish, no withdrawal to pain, babinski non reactive, DTR 2+ UE, 1+ LE, myoclonic movements Laboratory Results - last 24 hr 01/13/19 01/14/19 01/14/19 01:50 07:06 14:24 WBC RBC Hgb Hct MCV MCH MCHC RDW Plt Count MPV Absolute Neuts (auto) Neutrophils % Lymphocytes % Monocytes % Eosinophils % Basophils % Nucleated RBC % Sodium Potassium Chloride Carbon Dioxide Anion Gap BUN Creatinine Est GFR (CKD-EPI)AfAm Est GFR (CKD-EPI)NonAf POC Glucometer 70 87 Random Glucose Calcium Phosphorus Magnesium Total Bilirubin AST ALT Alkaline Phosphatase Total Protein Albumin Total T3 54.00 L Random Vancomycin 01/14/19 01/14/19 01/15/19 18:04 23:08 06:30 WBC RBC Hgb Hct MCV MCH MCHC RDW Plt Count MPV Absolute Neuts (auto) Neutrophils % Lymphocytes % Monocytes % Eosinophils % Basophils % Nucleated RBC % Sodium Potassium Chloride Carbon Dioxide Anion Gap BUN Creatinine Est GFR (CKD-EPI)AfAm Est GFR (CKD-EPI)NonAf POC Glucometer 122 131 Random Glucose Calcium Phosphorus Magnesium Total Bilirubin AST ALT Alkaline Phosphatase Total Protein Albumin Total T3 Random Vancomycin 16.8 L 01/15/19 01/15/19 01/15/19 06:30 06:30 06:30 WBC 12.0 H RBC 3.72 L Hgb 11.1 L Hct 33.3 L MCV 89.4 MCH 29.7 MCHC 33.2 RDW 14.9 Plt Count 133 L MPV 8.4 Absolute Neuts (auto) 10.2 H Neutrophils % 85.1 H Lymphocytes % 5.5 L Monocytes % 8.7 Eosinophils % 0.3 Basophils % 0.4 Nucleated RBC % 0 Sodium 138 Potassium 4.1 Chloride 105 Carbon Dioxide 24 Anion Gap 9 BUN 47.5 H Creatinine 4.5 H Est GFR (CKD-EPI)AfAm 14.69 Est GFR (CKD-EPI)NonAf 12.67 POC Glucometer 104 Random Glucose 142 H Calcium 8.1 L Phosphorus 4.1 Magnesium 2.0 Total Bilirubin 0.6 AST 99 H ALT 53 Alkaline Phosphatase 70 Total Protein 4.8 L Albumin 2.1 L Total T3 Random Vancomycin 01/15/19 13:07 WBC RBC Hgb Hct MCV MCH MCHC RDW Plt Count MPV Absolute Neuts (auto) Neutrophils % Lymphocytes % Monocytes % Eosinophils % Basophils % Nucleated RBC % Sodium Potassium Chloride Carbon Dioxide Anion Gap BUN Creatinine Est GFR (CKD-EPI)AfAm Est GFR (CKD-EPI)NonAf POC Glucometer 120 Random Glucose Calcium Phosphorus Magnesium Total Bilirubin AST ALT Alkaline Phosphatase Total Protein Albumin Total T3 Random Vancomycin Active Medications Generic Name Dose Route Start Last Admin Trade Name Freq PRN Reason Stop Dose Admin Acetaminophen 1,000 mg 01/15/19 09:43 01/15/19 09:57 Ofirmev Injection - IVPB 1,000 mg Q6H PRN Administration FEVER Artificial Tears 1 applic 01/13/19 22:00 01/14/19 21:49 Artificial Tears Ointment - OU 1 applic HS [facility] Administration Artificial Tears 1 drop 01/13/19 10:00 01/15/19 09:19 Artificial Tears OU 1 drop BID [facility] Administration Aspirin 300 mg 01/13/19 15:45 01/15/19 09:18 Asa - UT 300 mg DAILY [facility] Administration Chlorhexidine Gluconate 1 applic 01/13/19 22:00 01/14/19 21:49 Hibiclens For Decolonization - TP 1 applic HS [place] Administration Chlorhexidine Gluconate 15 ml 01/14/19 22:00 01/15/19 09:18 Peridex - MM 15 ml BID [facility] Administration Midazolam HCl 100 mg/ Sodium 100 mls @ 1 mls/hr 01/12/19 21:30 01/14/19 21:46 Chloride IVPB Not Given TITR [facility] Protocol 1 MG/HR Fentanyl 500 mcg/ Dextrose 100 mls @ 5 mls/hr 01/13/19 02:14 01/15/19 02:58 IVPB Not Given TITR [facility] Protocol 25 MCG/HR Norepinephrine Bitartrate 8, 500 mls @ 18.75 mls/hr 01/13/19 04:00 01/15/19 04:15 000 mcg/ Dextrose IV Not Given TITR [facility] Protocol 5 MCG/MIN Piperacillin Sod/Tazobactam 50 mls @ 100 mls/hr 01/13/19 18:00 01/15/19 09:18 Sod 3.375 gm/ Dextrose IVPB 100 mls/hr Q8H-IV [facility] Administration Protocol Dextrose/Lactated Ringer's 1,000 mls @ 125 mls/hr 01/14/19 14:30 01/15/19 01: 22 D5-Lr - IV 125 mls/hr ASDIR [facility] Administration Mupirocin 1 applic 01/13/19 10:00 01/15/19 09:19 Bactroban Ointment (For Decolonization) - NS 01/18/19 09:59 1 applic BID [facility] Administration Microbiology 01/12/19 20:30 Blood - Peripheral Venous Blood Culture - Preliminary Strep Agalactiae Group B Staphylococcus Coagulase Neg Group D Strep Or Entero Coccus 01/13/19 09:00 Urine For Antigen Detection Legionella Antigen - Final 01/13/19 09:00 Urine For Antigen Detection Streptococcus pneumoniae Antigen (M - Final 01/12/19 20:30 Blood - Peripheral Venous Blood Culture - Preliminary Staphylococcus Coagulase Neg 01/13/19 04:50 Urine - Urine Clean Catch Urine Culture - Final NO GROWTH OBTAINED ASSESSMENT/PLAN: 68 yom with PMHx of HTN, HLD, cardiomyopathy, ?ischemia with WMA (improved EF on 2D echo in 2018), suspected CAD (transferred for cath from [facility] in 2016, ? results), CVA with residual slurred speech, admitted with cardiac arrest. 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 Plan to assess mental status off sedation. s/p Hypothermia protocol. ID/renal/cardiology input noted. Monitor for anoxic brain injury. Blood cx noted, ?contaminant. Broad spectum abx,CT chest noted. Renal input noted. No obstructive concerns on CT A/p. Continue nguyen. Family request neurology input, consult placed. Overall prognosis poor, continue to address goals of care. Continue ICU level of care Visit type - Emergency Visit Emergency Visit: Yes ED Registration Date: 01/12/19 Care time: The patient presented to the Emergency Department on the above date and was hospitalized for further evaluation of their emergent condition. - New Patient This patient is new to me today: No - Critical Care Critical Care patient: Yes Total Critical Care Time (in minutes): 36 Critical Care Statement: The care of this patient involved high complexity decision making to prevent further life threatening deterioration of the patient 's condition and/or to evaluate & treat vital organ system(s) failure or risk of failure.
--- NOTE | 2019-01-15 14:59 | CONSULT ---
Consult - text type - Consultation Consultation Note: NEUROLOGY CONSULTATION is greatly appreciated: This 68 yo man with ASHD is s/p UT and stent and CVA. S/P Cardiorespiratory arrest with 40 mins of downtime documented and Vfib. EXAM: Intubated with shallow spontaneous respirations. Opens eyes to sternal pressure but also has some spontaneous eye opening and closing. Min corneal on the left Flacid areflexic dtetraplegia. Plantars silent. No withdrawal to pain. IMP: Severe. B/L cerebral dysfunction with minimal brainstem function intact. 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 SUGGEST: Supportive care Prognosis grave. Thank you very much, Walter Spencer MD
[2019-01-15] MEDS: MINERAL OIL/PETROLATUM,WHITE 3.5 GM TUBE OU SCH (22:00)
[2019-01-16] MEDS ORDERED: PIPERACILLIN/TAZOBACTAM 3.375 GM VIAL IVPB ONE ×3 (00:38→17:18)
[2019-01-16] MEDS ORDERED: DEXTROSE 5%-WATER - 50 ML IVPB ONE ×3 (00:38→17:18)
[2019-01-16] MEDS: MIDAZOLAM 100 MG in SODIUM CHLORIDE 100 ML IVPB SCH (01:15)
[2019-01-16] MEDS: CHLORHEXIDINE GLUCONATE 4% CLEANSER FOR DECOLONIZATION TP SCH ×2 (01:18→22:32)
[2019-01-16] MEDS: PIPERACILLIN/TAZOB 3.375 GM 3.375 GM in DEXTROSE 5%-WATER - 50 ML IVPB SCH ×3 (01:20→17:40)
[2019-01-16] MEDS: DEXTROSE 5%-LACTATED RINGERS 1,000 ML IV SCH (01:21)
[2019-01-16] MEDS: FENTANYL INJECTION 500 MCG in DEXTROSE 5%-WATER - 90 ML IVPB SCH (02:16)
[2019-01-16] MEDS: NOREPINEPHRINE BITARTRATE 8,000 MCG in DEXTROSE 5%-WATER - 492 ML IV SCH (06:34)
[2019-01-16 07:38] LABS: BASO % 0.4 % (0-2.0); EOS % 1.3 % (0-4.5); HEMATOCRIT 33.3 % (35.4-49); HEMOGLOBIN 11.2 GM/dL (11.7-16.9); MCHC 33.6 g/dl (32.0-35.9); MEAN CELL VOLUME 89.3 fl (80-96); MEAN PLT VOLUME 8.6 fl (7.5-11.1); MONO % 9.3 % (3.8-10.2); PLATELET COUNT 124 K/MM3 (134-434); RBC 3.73 M/mm3 (4.00-5.60)
[2019-01-16 08:02] LABS: BILIRUBIN,TOTAL 1.3 mg/dL (0.2-1); BLOOD UREA NITROGEN 45.8 mg/dL (7-18); CALCIUM 8.2 mg/dL (8.5-10.1); CREATININE 4.6 mg/dL (0.55-1.3); MAGNESIUM 2.2 mg/dL (1.8-2.4); PHOSPHOROUS 3.6 mg/dL (2.5-4.9); TOT PROT 4.9 g/dl (6.4-8.2)
--- NOTE | 2019-01-16 08:27 | PN ---
Progress Note, Physician Chief Complaint: appreciate neuro input TELE: ST, APCs Remains intubated, off pressors - Current Medication List Current Medications: Active Medications Acetaminophen (Ofirmev Injection -) 1,000 mg IVPB Q6H PRN PRN Reason: FEVER Last Admin: 01/15/19 21:41 Dose: 1,000 mg Artificial Tears (Artificial Tears Ointment -) 1 applic OU HS [facility] Last Admin: 01/15/19 22:00 Dose: 1 applic Artificial Tears (Artificial Tears) 1 drop OU BID [facility] Last Admin: 01/15/19 22:00 Dose: 1 drop Aspirin (Asa -) 300 mg [place] DAILY [place] Last Admin: 01/15/19 09:18 Dose: 300 mg Chlorhexidine Gluconate (Hibiclens For Decolonization -) 1 applic TP HS [place] Last Admin: 01/16/19 01:18 Dose: 1 applic Chlorhexidine Gluconate (Peridex -) 15 ml MM BID [facility] Last Admin: 01/15/19 21:45 Dose: 15 ml Midazolam HCl 100 mg/ Sodium (Chloride) 100 mls @ 1 mls/hr IVPB TITR [facility]; Protocol Last Admin: 01/16/19 01:15 Dose: Not Given Fentanyl 500 mcg/ Dextrose 100 mls @ 5 mls/hr IVPB TITR [facility]; Protocol Last Admin: 01/16/19 02:16 Dose: Not Given Norepinephrine Bitartrate 8, (000 mcg/ Dextrose) 500 mls @ 18.75 mls/hr IV TITR [facility]; Protocol Last Admin: 01/16/19 06:34 Dose: Not Given Piperacillin Sod/Tazobactam (Sod 3.375 gm/ Dextrose) 50 mls @ 100 mls/hr IVPB Q8H-IV [facility]; Protocol Last Admin: 01/16/19 01:20 Dose: 100 mls/hr Dextrose/Lactated Ringer's (D5-Lr -) 1,000 mls @ 125 mls/hr IV ASDIR [facility] Last Admin: 01/16/19 01:21 Dose: 125 mls/hr Mupirocin (Bactroban Ointment (For Decolonization) -) 1 applic NS BID [place] Stop: 01/18/19 09:59 Last Admin: 01/15/19 22:00 Dose: 1 applic - Objective Vital Signs: Vital Signs Temperature 100.1 F H 01/16/19 07:00 Pulse Rate 86 01/16/19 07:00 Respiratory Rate 01/16/19 07:00 Blood Pressure 120/67 01/16/19 07:00 O2 Sat by Pulse Oximetry (%) 99 01/15/19 07:50 HENT: Yes: Other (+ ETT) Cardiovascular: Yes: Regular Rate and Rhythm Respiratory: Yes: Other (= breath sounds b /l) Gastrointestinal: Yes: Soft Edema: No Labs: CBC, BMP 01/16/19 06:00 01/16/19 06:00 INR, PTT INR 1.08 (0.83-1.09) 01/13/19 05:15 Microbiology 01/12/19 20:30 Blood - Peripheral Venous Blood Culture - Final Staphylococcus Haemolyticus 01/14/19 16:00 Blood - Peripheral Venous Blood Culture - Preliminary NO GROWTH OBTAINED AFTER 24 HOURS, INCUBATION TO CONTINUE FOR 4 DAYS. 01/14/19 14:30 Blood - Peripheral Venous Blood Culture - Preliminary NO GROWTH OBTAINED AFTER 24 HOURS, INCUBATION TO CONTINUE FOR 4 DAYS. 01/12/19 20:30 Blood - Peripheral Venous Blood Culture - Preliminary Strep Agalactiae Group B Staphylococcus Coagulase Neg Group D Strep Or Entero Coccus Selected Entries 01/15/19 06:00 Temperature 100.1 F H Laboratory Tests 01/16/19 01/16/19 06:00 06:00 WBC 11.0 H Hgb 11.2 L Plt Count 124 L Sodium 140 Potassium 4.0 Creatinine 4.6 H Assessment/Plan Assessment/Plan DATA: echo 01/20: severe global LV hypo EF 25-30%. nl RV. mild LAE. mod MR. nl RVSP. cath 07/2015: lhc: normal cors; rhc: mild phtn, pvri mod elevated, pcw/lvedp nl. ECG 01/12: NSR, LVH with nonsp ST-Ts ? sec to LVH--not signif changed vs 2016 prior ECG 01/13: no signif change, prolonged QT (similar to 2016) tele: NSR, NSVT x 11beats IMP/PLAN: VF arrest:in setting of gram + bacteremia and septic shock, anoxic encephalopathy -EF only mild-mod decreased on prior echo 1 yr ago, currently severe/global 25- 30%. -? arrest triggered by bacteremia (2 of 2 initial cultures positive)/sepsis -cont tele monitoring -hold bb given hypotensive and likely septic shock -doubt acute ischemic etiology given normal cor.s 3 yrs ago--if makes meaningful recover will need repeat isch eval NSTEMI: -trop to 32, trending down -normal cors 2016 -suspect sec to sepsis vs prolonged hypotension from recurrent VF arrest (with contribution from mult electrical defibs) -aspirin daily -hold BB (risks of hypotension in septic shock) SEPTIC SHOCK, gram pos bacteremia: -abx per ID -echo no vegetation seen -pressor support norepi, aim for MAP > 60 (try to avoid dopamine or dobutamine given risks of ventricular arrhythmia and NSVT) Prolonged QT: -? related to CMP/LVH--was close to 500 on prior ecg 2016 -similar at present -aggressive repletion of K/Mag (08/03) -tele monitoring -avoid QT prolonging meds Congestive heart failure, nonischemic CMP -EF severely reduced at time of initial dx 2016--improved signif with med management -present EF severely reduced again, likely in setting sepsis PRACHI: -sec to hypoperfusion -as per Critical Care Hypotension: -septic shock currently -hold home meds, off pressors Prognosis poor
--- NOTE | 2019-01-16 09:15 | PN ---
Progress Note (short form) - Note Progress Note: Renal coverage for Dr. Taylor Seen and examined in the ICU on vent via ET Tube not responsive has low grade fever FiO2 is 30% making urine via nguyen Vital Signs Temperature 100.1 F H 01/16/19 07:00 Pulse Rate 86 01/16/19 07:00 Respiratory Rate 01/16/19 08:00 Blood Pressure 120/67 01/16/19 07:00 O2 Sat by Pulse Oximetry (%) 100 01/16/19 08:00 Intake & Output 01/13/19 01/14/19 01/15/19 01/16/19 23:59 23:59 23:59 23:59 Intake Total 1848 3538 3090 875 Output Total 600 1100 1600 900 Balance 1248 2438 1490 -25 Weight 93.894 kg 93.894 kg 102.648 kg 103.192 kg not responsive on vent ET tube in place RRR Dec BS trace LE edema CBC, BMP 01/16/19 06:00 01/16/19 06:00 Current Medications Acetaminophen (Ofirmev Injection -) 1,000 mg IVPB Q6H PRN PRN Reason: FEVER Last Admin: 01/15/19 21:41 Dose: 1,000 mg Artificial Tears (Artificial Tears Ointment -) 1 applic OU HS [place] Last Admin: 01/15/19 22:00 Dose: 1 applic Artificial Tears (Artificial Tears) 1 drop OU BID [place] Last Admin: 01/15/19 22:00 Dose: 1 drop Aspirin (Asa -) 300 mg [place] DAILY [place] Last Admin: 01/15/19 09:18 Dose: 300 mg Chlorhexidine Gluconate (Hibiclens For Decolonization -) 1 applic TP HS [place] Last Admin: 01/16/19 01:18 Dose: 1 applic Chlorhexidine Gluconate (Peridex -) 15 ml MM BID [facility] Last Admin: 01/15/19 21:45 Dose: 15 ml Midazolam HCl 100 mg/ Sodium (Chloride) 100 mls @ 1 mls/hr IVPB TITR [facility]; Protocol Last Admin: 01/16/19 01:15 Dose: Not Given Fentanyl 500 mcg/ Dextrose 100 mls @ 5 mls/hr IVPB TITR [facility]; Protocol Last Admin: 01/16/19 02:16 Dose: Not Given Norepinephrine Bitartrate 8, (000 mcg/ Dextrose) 500 mls @ 18.75 mls/hr IV TITR [facility]; Protocol Last Admin: 01/16/19 06:34 Dose: Not Given Piperacillin Sod/Tazobactam (Sod 3.375 gm/ Dextrose) 50 mls @ 100 mls/hr IVPB Q8H-IV [facility]; Protocol Last Admin: 01/16/19 01:20 Dose: 100 mls/hr Dextrose/Lactated Ringer's (D5-Lr -) 1,000 mls @ 125 mls/hr IV ASDIR [facility] Last Admin: 01/16/19 01:21 Dose: 125 mls/hr Mupirocin (Bactroban Ointment (For Decolonization) -) 1 applic NS BID [facility] Stop: 01/18/19 09:59 Last Admin: 01/15/19 22:00 Dose: 1 applic Impression 1. PRACHI likely due to ATN 2. cardiac arrest 3. hx chf 4. hx htn 5. resp failure requiring intubation Cr stable over he past 24 hours and urine output is good no overt electrolyte or acid/base disturbance noted no emergent indication for dialysis at this time. Maintain MAP > 65. Monitor urine output. Continue isotonic saline, change to NS from LR continue vent support overall prognosis is poor. Preston Vargas DO
[2019-01-16] MEDS: DEXTROSE 5%-NORMAL SALINE 1,000 ML IV SCH ×2 (09:38→22:34)
[2019-01-16] MEDS: MUPIROCIN 2% TOPICAL OINTMENT FOR DECOLONIZATION NS SCH ×2 (09:40→22:33)
[2019-01-16] MEDS: ARTIFICIAL TEARS (POLYVINYL ALCOHOL) OPTH DROPS OU SCH ×2 (09:40→22:31)
--- NOTE | 2019-01-16 09:46 | PN ---
Physical Exam: SUBJECTIVE: Patient seen and examined at bedside. Temp 101.3 yesterday evening. Mother at bedside. OBJECTIVE: Vital Signs Period Temp Pulse Resp BP Sys/Estrada Pulse Ox Last 24 Hr 99 F-101.3 F 83-95 14-19 91-138/51-96 100-100 GENERAL: Intubated and Sedated HEAD: AT/NC EYES: Pupils sluggish to light LUNGS: Mechanical BS HEART: RRR S1S2 ABDOMEN: Soft, NDNT EXTREMITIES: 1+ edema lower extremities. NEUROLOGICAL: No withdrawal to painful stimuli. SKIN: Warm, dry, normal turgor, no rashes or lesions noted Laboratory Results - last 24 hr 01/15/19 01/15/19 01/15/19 13:07 22:17 22:23 WBC RBC Hgb Hct MCV MCH MCHC RDW Plt Count MPV Absolute Neuts (auto) Neutrophils % Lymphocytes % Monocytes % Eosinophils % Basophils % Nucleated RBC % Sodium Potassium Chloride Carbon Dioxide Anion Gap BUN Creatinine Est GFR (CKD-EPI)AfAm Est GFR (CKD-EPI)NonAf POC Glucometer 120 78 71 Random Glucose Calcium Phosphorus Magnesium Total Bilirubin AST ALT Alkaline Phosphatase Total Protein Albumin Random Vancomycin 01/16/19 01/16/19 01/16/19 02:43 06:00 06:00 WBC 11.0 H RBC 3.73 L Hgb 11.2 L Hct 33.3 L MCV 89.3 MCH 30.0 MCHC 33.6 RDW 15.0 Plt Count 124 L MPV 8.6 Absolute Neuts (auto) 9.0 H Neutrophils % 82.0 Lymphocytes % 7.0 L D Monocytes % 9.3 Eosinophils % 1.3 D Basophils % 0.4 Nucleated RBC % 0 Sodium Potassium Chloride Carbon Dioxide Anion Gap BUN Creatinine Est GFR (CKD-EPI)AfAm Est GFR (CKD-EPI)NonAf POC Glucometer 98 Random Glucose Calcium Phosphorus Magnesium Total Bilirubin AST ALT Alkaline Phosphatase Total Protein Albumin Random Vancomycin 13.4 L 01/16/19 01/16/19 06:00 06:38 WBC RBC Hgb Hct MCV MCH MCHC RDW Plt Count MPV Absolute Neuts (auto) Neutrophils % Lymphocytes % Monocytes % Eosinophils % Basophils % Nucleated RBC % Sodium 140 Potassium 4.0 Chloride 107 Carbon Dioxide 25 Anion Gap 8 BUN 45.8 H Creatinine 4.6 H Est GFR (CKD-EPI)AfAm 14.30 Est GFR (CKD-EPI)NonAf 12.34 POC Glucometer 101 Random Glucose 103 Calcium 8.2 L Phosphorus 3.6 Magnesium 2.2 Total Bilirubin 1.3 H AST 90 H ALT 40 Alkaline Phosphatase 66 Total Protein 4.9 L Albumin 2.0 L Random Vancomycin Active Medications Generic Name Dose Route Start Last Admin Trade Name Freq PRN Reason Stop Dose Admin Acetaminophen 1,000 mg 01/15/19 09:43 01/15/19 21:41 Ofirmev Injection - IVPB 1,000 mg Q6H PRN Administration FEVER Artificial Tears 1 applic 01/13/19 22:00 01/15/19 22:00 Artificial Tears Ointment - OU 1 applic HS [facility] Administration Artificial Tears 1 drop 01/13/19 10:00 01/16/19 09:40 Artificial Tears OU 1 drop BID [facility] Administration Aspirin 300 mg 01/13/19 15:45 01/15/19 09:18 Asa - ND 300 mg DAILY [facility] Administration Chlorhexidine Gluconate 1 applic 01/13/19 22:00 01/16/19 01:18 Hibiclens For Decolonization - TP 1 applic HS [facility] Administration Chlorhexidine Gluconate 15 ml 01/14/19 22:00 01/15/19 21:45 Peridex - MM 15 ml BID [facility] Administration Midazolam HCl 100 mg/ Sodium 100 mls @ 1 mls/hr 01/12/19 21:30 01/16/19 01:15 Chloride IVPB Not Given TITR [facility] Protocol 1 MG/HR Fentanyl 500 mcg/ Dextrose 100 mls @ 5 mls/hr 01/13/19 02:14 01/16/19 02:16 IVPB Not Given TITR [facility] Protocol 25 MCG/HR Norepinephrine Bitartrate 8, 500 mls @ 18.75 mls/hr 01/13/19 04:00 01/16/19 06:34 000 mcg/ Dextrose IV Not Given TITR [facility] Protocol 5 MCG/MIN Piperacillin Sod/Tazobactam 50 mls @ 100 mls/hr 01/13/19 18:00 01/16/19 01:20 Sod 3.375 gm/ Dextrose IVPB 100 mls/hr Q8H-IV [facility] Administration Protocol Dextrose/Sodium Chloride 1,000 mls @ 125 mls/hr 01/16/19 09:30 01/16/19 09:38 D5-Ns - IV 125 mls/hr ASDIR [facility] Administration Mupirocin 1 applic 01/13/19 10:00 01/16/19 09:40 Bactroban Ointment (For Decolonization) - NS 01/18/19 09:59 1 applic BID [facility] Administration ASSESSMENT/PLAN: 68 M PMH HTN, CHF, CVA 2013, [place] s/p stent admitted to ICU s/p cardiac arrest w/ cardiac arrhythmia 2/2 cardiomegaly vs asphyxiation. Pt s/p targeted temp management. Neuro - Intubated, anoxic brain injury -pt is off sedation. poor neurologic function - Tylenol for fever PRN - Patient likely to have poor outcome given prolonged down time in field - Head CT --> Chronic infarcts/Encephalomalacia. No acute intracranial pathology. - Upon arrival to ICU, has rhythmic movements around mouth concerning for possible seizure vs shivering -Neurology on board- Dr Spencer--> " Severe. B/L cerebral dysfunction with minimal brainstem function intact. This is c/w Severe anoxic encephalopathy and Persistent vegetative state. " CV - HTN, CHF, s/p cardiac arrest w/ ROSC, NSTEMI - ECHO 2016 demonstrated EF 37%, EF only mild-mod decreased on prior echo 1 yr ago, currently severe/global 25-30%. - s/p vfib arrest, ~45 minutes down time, amio 300/150, multiple shocks - Post ROSC EKG shows no STEMI - c/w tele monitoring - Trop 0.66 > 22.7 > 32.2 > 22--> 7.63 - Norepinephrine drip off. - Cardiology on board Dr Copeland---> -continue to hold BB - ASA 81 Resp - intubated - s/p intubation in field during cardiac arrest, complicated by aspirate in small bore tube - Bilateral rib fractures on CT consistent with CPR - Infiltrate vs atelectasis in RLL ID: - Concern for aspiration given CT findings -c/w vanc and zosyn ( renal adjustment) - BCx + - ID on board Nephro: PRACHI 2/2 ATN -continue to monitor -Cr: 1.6->4.6 (01/16/19) -no acute indication for PRODUCT DEVELOPMENT ENGINEER at this time. - non-oliguric F/E/N -D5LR @ 125 mls / hr -NPO Lines: -R IJ central line (01/13) placed by Coating Machine Operator Dispo: continue ICU monitoring CODE STATUS: FULL CODE. Plan to have family meeting tomorrow, 01/17/19, to discuss GOC. Visit type - Emergency Visit Emergency Visit: Yes ED Registration Date: 01/12/19 Care time: The patient presented to the Emergency Department on the above date and was hospitalized for further evaluation of their emergent condition. - New Patient This patient is new to me today: No - Critical Care Critical Care patient: Yes Total Critical Care Time (in minutes): 35 Critical Care Statement: The care of this patient involved high complexity decision making to prevent further life threatening deterioration of the patient 's condition and/or to evaluate & treat vital organ system(s) failure or risk of failure. - Discharge Referral Referred to [facility] No ATTENDING PHYSICIAN STATEMENT I saw and evaluated the patient. I reviewed the resident's note and discussed the case with the resident. I agree with the resident's findings and plan as documented. SUBJECTIVE: OBJECTIVE: ASSESSMENT AND PLAN:
[2019-01-16] MEDS: CHLORHEXIDINE GLUCONATE 0.12% 15ML CUP MM SCH ×2 (09:50→22:33)
[2019-01-16] MEDS: ASPIRIN 300 MG SUPP.RECT PR SCH (09:50)
--- NOTE | 2019-01-16 10:04 | PN ---
Progress Note, Physician History of Present Illness: UNRESPONSIVE ON VENTILATOR OFF SEDATION TWITCHING MOVEMENTS NOTED REMAINS FEBRILE WITH ELEVATED WBC VANCO T 13.4 - Current Medication List Current Medications: Active Medications Acetaminophen (Ofirmev Injection -) 1,000 mg IVPB Q6H PRN PRN Reason: FEVER Last Admin: 01/15/19 21:41 Dose: 1,000 mg Artificial Tears (Artificial Tears Ointment -) 1 applic OU HS [facility] Last Admin: 01/15/19 22:00 Dose: 1 applic Artificial Tears (Artificial Tears) 1 drop OU BID [facility] Last Admin: 01/16/19 09:40 Dose: 1 drop Aspirin (Asa -) 300 mg [place] DAILY [place] Last Admin: 01/16/19 09:50 Dose: 300 mg Chlorhexidine Gluconate (Hibiclens For Decolonization -) 1 applic TP HS [facility] Last Admin: 01/16/19 01:18 Dose: 1 applic Chlorhexidine Gluconate (Peridex -) 15 ml MM BID [facility] Last Admin: 01/16/19 09:50 Dose: 15 ml Midazolam HCl 100 mg/ Sodium (Chloride) 100 mls @ 1 mls/hr IVPB TITR [facility]; Protocol Last Admin: 01/16/19 01:15 Dose: Not Given Fentanyl 500 mcg/ Dextrose 100 mls @ 5 mls/hr IVPB TITR [facility]; Protocol Last Admin: 01/16/19 02:16 Dose: Not Given Norepinephrine Bitartrate 8, (000 mcg/ Dextrose) 500 mls @ 18.75 mls/hr IV TITR [facility]; Protocol Last Admin: 01/16/19 06:34 Dose: Not Given Piperacillin Sod/Tazobactam (Sod 3.375 gm/ Dextrose) 50 mls @ 100 mls/hr IVPB Q8H-IV [facility]; Protocol Last Admin: 01/16/19 09:50 Dose: 100 mls/hr Dextrose/Sodium Chloride (D5-Ns -) 1,000 mls @ 125 mls/hr IV ASDIR [facility] Last Admin: 01/16/19 09:38 Dose: 125 mls/hr Mupirocin (Bactroban Ointment (For Decolonization) -) 1 applic NS BID [facility] Stop: 01/18/19 09:59 Last Admin: 01/16/19 09:40 Dose: 1 applic - Objective Vital Signs: Vital Signs Temperature 100.1 F H 01/16/19 08:00 Pulse Rate 85 01/16/19 08:00 Respiratory Rate 19 01/16/19 08:00 Blood Pressure 134/67 01/16/19 08:00 O2 Sat by Pulse Oximetry (%) 100 01/16/19 08:00 Constitutional: Yes: No Distress Cardiovascular: Yes: Regular Rate and Rhythm, S1, S2 Respiratory: Yes: Mechanically Ventilated Gastrointestinal: Yes: Normal Bowel Sounds, Soft. No: Tenderness Edema: Yes Edema: LLE: 1+, RLE: 1+ Labs: CBC, BMP 01/16/19 06:00 01/16/19 06:00 INR, PTT INR 1.08 (0.83-1.09) 01/13/19 05:15 Assessment/Plan S/P ARREST RESP FAILURE/ MECHANICAL VENTILATION MULTIORGAN FAILURE POLYMICROBIAL BACTEREMIA FEVER/ LEUKOCYTOSIS AZOTEMIA CONTINUE ZOSYN VANCOMYCIN LEVEL NOTED REDOSE PROGNOSIS POOR
--- NOTE | 2019-01-16 10:18 | PN ---
Teaching Attending Note Name of Resident: Carlos Enrique Cortés ATTENDING PHYSICIAN STATEMENT I saw and evaluated the patient. I reviewed the resident's note and discussed the case with the resident. I agree with the resident's findings and plan as documented. SUBJECTIVE: Patient seen and examined in the ICU. Remains intubated on AC Mode of vent. Off sedation but remains minimally responsive to noxious stimuli. Intake & Output 01/13/19 01/14/19 01/15/19 01/16/19 23:59 23:59 23:59 23:59 Intake Total 1848 3538 3090 1237.5 Output Total 600 1100 1600 1450 Balance 1248 2438 1490 -212.5 Weight 207 lb 207 lb 226 lb 4.8 oz 227 lb 8 oz Last Vital Signs Temp Pulse Resp BP Pulse Ox 100.1 F H 86 15 125/78 100 01/16/19 10:00 01/16/19 10:00 01/16/19 10:00 01/16/19 10:00 01/16/19 08:00 Active Medications Acetaminophen (Ofirmev Injection -) 1,000 mg IVPB Q6H PRN PRN Reason: FEVER Last Admin: 01/15/19 21:41 Dose: 1,000 mg Artificial Tears (Artificial Tears Ointment -) 1 applic OU HS [facility] Last Admin: 01/15/19 22:00 Dose: 1 applic Artificial Tears (Artificial Tears) 1 drop OU BID [facility] Last Admin: 01/16/19 09:40 Dose: 1 drop Aspirin (Asa -) 300 mg [place] DAILY [facility] Last Admin: 01/16/19 09:50 Dose: 300 mg Chlorhexidine Gluconate (Hibiclens For Decolonization -) 1 applic TP HS [facility] Last Admin: 01/16/19 01:18 Dose: 1 applic Chlorhexidine Gluconate (Peridex -) 15 ml MM BID [facility] Last Admin: 01/16/19 09:50 Dose: 15 ml Midazolam HCl 100 mg/ Sodium (Chloride) 100 mls @ 1 mls/hr IVPB TITR [facility]; Protocol Last Admin: 01/16/19 01:15 Dose: Not Given Fentanyl 500 mcg/ Dextrose 100 mls @ 5 mls/hr IVPB TITR [facility]; Protocol Last Admin: 01/16/19 02:16 Dose: Not Given Norepinephrine Bitartrate 8, (000 mcg/ Dextrose) 500 mls @ 18.75 mls/hr IV TITR [facility]; Protocol Last Admin: 01/16/19 06:34 Dose: Not Given Piperacillin Sod/Tazobactam (Sod 3.375 gm/ Dextrose) 50 mls @ 100 mls/hr IVPB Q8H-IV [facility]; Protocol Last Admin: 01/16/19 09:50 Dose: 100 mls/hr Dextrose/Sodium Chloride (D5-Ns -) 1,000 mls @ 125 mls/hr IV ASDIR [facility] Last Admin: 01/16/19 09:38 Dose: 125 mls/hr Vancomycin HCl (Vancomycin (Pre-Docked)) 1,000 mg in 250 mls @ 166.667 mls/hr IVPB ONCE ONE; Protocol Stop: 01/16/19 12:14 Mupirocin (Bactroban Ointment (For Decolonization) -) 1 applic NS BID [facility] Stop: 01/18/19 09:59 Last Admin: 01/16/19 09:40 Dose: 1 applic GENERAL: Intubated, minimally responsive off sedation HEAD: Normal with no signs of trauma. EYES: Pupils sluggish to light, corneal opacity, significant conjunctival injection. EARS, NOSE, THROAT: ET tube in place at 24cm, moist mucus membranes. LUNGS: Mechanical breath sounds, no coarse breath sounds, crackles, wheezes appreciated HEART: Regular rate and rhythm with occasional extra beats, normal S1 and S2 without murmur, rub. ABDOMEN: Soft, nontender, not distended, normoactive bowel sounds, no guarding, no rebound, no masses. MUSCULOSKELETAL: Normal range of motion at all joints. No bony deformities or tenderness. UPPER EXTREMITIES: 1+ pulses, cool, well-perfused. No cyanosis. No clubbing. No peripheral edema. LOWER EXTREMITIES: 1+ pulses, cool, well-perfused. No calf tenderness. No peripheral edema. NEUROLOGICAL: Pupils dilated and sluggish to light, no withdrawal to painful stimuli SKIN: Cool extremities, dry, no rashes or lesions noted, normal capillary refill. Laboratory Results - last 24 hr 01/15/19 01/15/19 01/15/19 13:07 22:17 22:23 WBC RBC Hgb Hct MCV MCH MCHC RDW Plt Count MPV Absolute Neuts (auto) Neutrophils % Lymphocytes % Monocytes % Eosinophils % Basophils % Nucleated RBC % Sodium Potassium Chloride Carbon Dioxide Anion Gap BUN Creatinine Est GFR (CKD-EPI)AfAm Est GFR (CKD-EPI)NonAf POC Glucometer 120 78 71 Random Glucose Calcium Phosphorus Magnesium Total Bilirubin AST ALT Alkaline Phosphatase Total Protein Albumin Random Vancomycin 01/16/19 01/16/19 01/16/19 02:43 06:00 06:00 WBC 11.0 H RBC 3.73 L Hgb 11.2 L Hct 33.3 L MCV 89.3 MCH 30.0 MCHC 33.6 RDW 15.0 Plt Count 124 L MPV 8.6 Absolute Neuts (auto) 9.0 H Neutrophils % 82.0 Lymphocytes % 7.0 L D Monocytes % 9.3 Eosinophils % 1.3 D Basophils % 0.4 Nucleated RBC % 0 Sodium Potassium Chloride Carbon Dioxide Anion Gap BUN Creatinine Est GFR (CKD-EPI)AfAm Est GFR (CKD-EPI)NonAf POC Glucometer 98 Random Glucose Calcium Phosphorus Magnesium Total Bilirubin AST ALT Alkaline Phosphatase Total Protein Albumin Random Vancomycin 13.4 L 01/16/19 01/16/19 06:00 06:38 WBC RBC Hgb Hct MCV MCH MCHC RDW Plt Count MPV Absolute Neuts (auto) Neutrophils % Lymphocytes % Monocytes % Eosinophils % Basophils % Nucleated RBC % Sodium 140 Potassium 4.0 Chloride 107 Carbon Dioxide 25 Anion Gap 8 BUN 45.8 H Creatinine 4.6 H Est GFR (CKD-EPI)AfAm 14.30 Est GFR (CKD-EPI)NonAf 12.34 POC Glucometer 101 Random Glucose 103 Calcium 8.2 L Phosphorus 3.6 Magnesium 2.2 Total Bilirubin 1.3 H AST 90 H ALT 40 Alkaline Phosphatase 66 Total Protein 4.9 L Albumin 2.0 L Random Vancomycin ASSESSMENT/PLAN: S/P cardiac arrest with Anoxic Brain Injury CHF CAD HTN DM Suspected Myoclonus Elevated lactic acid PRACHI Elevated LFTs Elevated TSH Suspected Asphyxiation Aspiration PNA AC Mode of vent ABX coverage Monitor off sedation to assess mental status IVF boluses as needed Strict I & O Maintain MAP > 65 S/P TTM Will attempt to schedule family meeting tomorrow to discuss GOC Requires ICU monitoring Dr Menjivar Critical care time spent in reviewing chart, evaluating patient and formulating plan - 36 minutes.
[2019-01-16] MEDS ORDERED: VANCOMYCIN 1 GRAM (PRE-DOCKED) 1,000 MG/250 ML BAG IVPB ONE (10:45)
--- NOTE | 2019-01-16 16:21 | PN ---
Physical Exam: SUBJECTIVE: Patient seen and examined, intubated, off sedation, non responsive. OBJECTIVE: Vital Signs Period Temp Pulse Resp BP Sys/Estrada Pulse Ox Last 24 Hr 99.5 F-101.3 F 83-95 14- 105-138/67-96 100-100 Intake & Output 01/13/19 01/14/19 01/15/19 01/16/19 23:59 23:59 23:59 23:59 Intake Total 1848 3538 3090 1487.5 Output Total 600 1100 1600 1450 Balance 1248 2438 1490 37.5 Weight 207 lb 207 lb 226 lb 4.8 oz 227 lb 8 oz General: intubated sedated Chest: limited exam, poor effort, HEENT: Pupil sluggish, minimally reactive CVS:S1S2 regular Abdomen:soft, obese, pos bowel sounds, no voluntary or involuntary guarding or rigidity Extremites: trace pedal edema Neuro: intubated sedated, pupil sluggish, no withdrawal to pain, babinski non reactive, DTR 2+ UE, 1+ LE, myoclonic movements Laboratory Results - last 24 hr 01/15/19 01/15/19 01/16/19 22:17 22:23 02:43 WBC RBC Hgb Hct MCV MCH MCHC RDW Plt Count MPV Absolute Neuts (auto) Neutrophils % Lymphocytes % Monocytes % Eosinophils % Basophils % Nucleated RBC % Sodium Potassium Chloride Carbon Dioxide Anion Gap BUN Creatinine Est GFR (CKD-EPI)AfAm Est GFR (CKD-EPI)NonAf POC Glucometer 78 71 98 Random Glucose Calcium Phosphorus Magnesium Total Bilirubin AST ALT Alkaline Phosphatase Total Protein Albumin Random Vancomycin 01/16/19 01/16/19 01/16/19 06:00 06:00 06:00 WBC 11.0 H RBC 3.73 L Hgb 11.2 L Hct 33.3 L MCV 89.3 MCH 30.0 MCHC 33.6 RDW 15.0 Plt Count 124 L MPV 8.6 Absolute Neuts (auto) 9.0 H Neutrophils % 82.0 Lymphocytes % 7.0 L D Monocytes % 9.3 Eosinophils % 1.3 D Basophils % 0.4 Nucleated RBC % 0 Sodium 140 Potassium 4.0 Chloride 107 Carbon Dioxide 25 Anion Gap 8 BUN 45.8 H Creatinine 4.6 H Est GFR (CKD-EPI)AfAm 14.30 Est GFR (CKD-EPI)NonAf 12.34 POC Glucometer Random Glucose 103 Calcium 8.2 L Phosphorus 3.6 Magnesium 2.2 Total Bilirubin 1.3 H AST 90 H ALT 40 Alkaline Phosphatase 66 Total Protein 4.9 L Albumin 2.0 L Random Vancomycin 13.4 L 01/16/19 01/16/19 06:38 11:26 WBC RBC Hgb Hct MCV MCH MCHC RDW Plt Count MPV Absolute Neuts (auto) Neutrophils % Lymphocytes % Monocytes % Eosinophils % Basophils % Nucleated RBC % Sodium Potassium Chloride Carbon Dioxide Anion Gap BUN Creatinine Est GFR (CKD-EPI)AfAm Est GFR (CKD-EPI)NonAf POC Glucometer 101 101 Random Glucose Calcium Phosphorus Magnesium Total Bilirubin AST ALT Alkaline Phosphatase Total Protein Albumin Random Vancomycin Active Medications Generic Name Dose Route Start Last Admin Trade Name Freq PRN Reason Stop Dose Admin Acetaminophen 1,000 mg 01/15/19 09:43 01/15/19 21:41 Ofirmev Injection - IVPB 1,000 mg Q6H PRN Administration FEVER Artificial Tears 1 applic 01/13/19 22:00 01/15/19 22:00 Artificial Tears Ointment - OU 1 applic HS [facility] Administration Artificial Tears 1 drop 01/13/19 10:00 01/16/19 09:40 Artificial Tears OU 1 drop BID [facility] Administration Aspirin 300 mg 01/13/19 15:45 01/16/19 09:50 Asa - [place] 300 mg DAILY [facility] Administration Chlorhexidine Gluconate 1 applic 01/13/19 22:00 01/16/19 01:18 Hibiclens For Decolonization - TP 1 applic HS [facility] Administration Chlorhexidine Gluconate 15 ml 01/14/19 22:00 01/16/19 09:50 Peridex - MM 15 ml BID [facility] Administration Midazolam HCl 100 mg/ Sodium 100 mls @ 1 mls/hr 01/12/19 21:30 01/16/19 01:15 Chloride IVPB Not Given TITR [facility] Protocol 1 MG/HR Fentanyl 500 mcg/ Dextrose 100 mls @ 5 mls/hr 01/13/19 02:14 01/16/19 02:16 IVPB Not Given TITR [facility] Protocol 25 MCG/HR Norepinephrine Bitartrate 8, 500 mls @ 18.75 mls/hr 01/13/19 04:00 01/16/19 06:34 000 mcg/ Dextrose IV Not Given TITR [facility] Protocol 5 MCG/MIN Piperacillin Sod/Tazobactam 50 mls @ 100 mls/hr 01/13/19 18:00 01/16/19 09:50 Sod 3.375 gm/ Dextrose IVPB 100 mls/hr Q8H-IV [facility] Administration Protocol Dextrose/Sodium Chloride 1,000 mls @ 125 mls/hr 01/16/19 09:30 01/16/19 09:38 D5-Ns - IV 125 mls/hr ASDIR [facility] Administration Mupirocin 1 applic 01/13/19 10:00 01/16/19 09:40 Bactroban Ointment (For Decolonization) - NS 01/18/19 09:59 1 applic BID [facility] Administration ASSESSMENT/PLAN: 68 yom with PMHx of HTN, HLD, cardiomyopathy, ?ischemia with WMA (improved EF on 2D echo in 2018), suspected CAD (transferred for cath from [facility] in 2015, ? results), CVA with residual slurred speech, admitted with cardiac arrest. 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 Off sedation, unchanged mental status, Neurology input noted. s/p Hypothermia protocol. ID/renal/cardiology input noted. Monitor for anoxic brain injury. Blood cx noted, ?contaminant. Broad spectum abx,CT chest noted. Renal input noted. No obstructive concerns on CT A/p. Continue nguyen. Overall prognosis poor, continue to address goals of care. plan for family meeting tomorrow. Continue ICU level of care Visit type - Emergency Visit Emergency Visit: Yes ED Registration Date: 01/12/19 Care time: The patient presented to the Emergency Department on the above date and was hospitalized for further evaluation of their emergent condition. - New Patient This patient is new to me today: No - Critical Care Critical Care patient: Yes Total Critical Care Time (in minutes): 36 Critical Care Statement: The care of this patient involved high complexity decision making to prevent further life threatening deterioration of the patient 's condition and/or to evaluate & treat vital organ system(s) failure or risk of failure.
[2019-01-16] MEDS ORDERED: LORazepam 2 MG/ML SDV VIAL IVPUSH ONE (20:04)
[2019-01-16] MEDS: ACETAMINOPHEN 1000 MG/100 ML VIAL (NON FORMULARY) IVPB PRN (20:32)
[2019-01-16] MEDS: MINERAL OIL/PETROLATUM,WHITE 3.5 GM TUBE OU SCH (22:31)
[2019-01-17] MEDS ORDERED: PIPERACILLIN/TAZOBACTAM 3.375 GM VIAL IVPB ONE ×2 (03:01→11:14)
[2019-01-17] MEDS ORDERED: DEXTROSE 5%-WATER - 50 ML IVPB ONE ×3 (03:01→21:00)
[2019-01-17] MEDS: DEXTROSE 5%-NORMAL SALINE 1,000 ML IV SCH ×2 (03:09→11:21)
[2019-01-17] MEDS: PIPERACILLIN/TAZOB 3.375 GM 3.375 GM in DEXTROSE 5%-WATER - 50 ML IVPB SCH ×2 (03:12→11:19)
[2019-01-17 05:56] LABS: BASO % 0.3 % (0-2.0); EOS % 2.5 % (0-4.5); HEMATOCRIT 33.6 % (35.4-49); HEMOGLOBIN 11.4 GM/dL (11.7-16.9); LYMPH % 6.7 % (8-40); MCH 30.2 pg (25.7-33.7); MCHC 33.9 g/dl (32.0-35.9); MEAN CELL VOLUME 89.1 fl (80-96); MEAN PLT VOLUME 8.3 fl (7.5-11.1); MONO % 11.7 % (3.8-10.2); NEUT % 78.8 % (42.8-82.8); PLATELET COUNT 143 K/MM3 (134-434); RBC 3.77 M/mm3 (4.00-5.60); RDW 15.2 % (11.9-15.9); WHITE BLOOD COUNT 9.7 K/mm3 (4.0-10.0)
[2019-01-17 06:15] LABS: BLOOD UREA NITROGEN 47.1 mg/dL (7-18); CALCIUM 8.1 mg/dL (8.5-10.1); CREATININE 4.7 mg/dL (0.55-1.3); MAGNESIUM 2.1 mg/dL (1.8-2.4); PHOSPHOROUS 3.5 mg/dL (2.5-4.9)
[2019-01-17] MEDS: ACETAMINOPHEN 1000 MG/100 ML VIAL (NON FORMULARY) IVPB PRN ×2 (08:25→21:04)
[2019-01-17] MEDS ORDERED: BENZOIN/ALOE VERA/STORAX/TOLU 58 ML BOTTLE ONE (10:05)
--- NOTE | 2019-01-17 10:36 | PN ---
Physical Exam: SUBJECTIVE: Patient seen and examined at bedside. No acute events. OBJECTIVE: Vital Signs Period Temp Pulse Resp BP Sys/Estrada Pulse Ox Last 24 Hr 99.9 F-100.7 F 87-99 17-28 116-144/52-100 100 Gen: Intubated unresponsive. Twitching movements noted. some vent dyssynchrony HEENT: NCAT Neck: no jvd Cardio: rrr, normal s1s2, no mrg noted Pulm: limited exam. clear b/l Abd: soft, nondistended Laboratory Results - last 24 hr 01/16/19 01/16/19 01/17/19 11:26 18:40 02:55 WBC RBC Hgb Hct MCV MCH MCHC RDW Plt Count MPV Absolute Neuts (auto) Neutrophils % Lymphocytes % Monocytes % Eosinophils % Basophils % Nucleated RBC % Sodium Potassium Chloride Carbon Dioxide Anion Gap BUN Creatinine Est GFR (CKD-EPI)AfAm Est GFR (CKD-EPI)NonAf POC Glucometer 101 109 122 Random Glucose Calcium Phosphorus Magnesium Random Vancomycin 01/17/19 01/17/19 01/17/19 05:25 05:25 05:25 WBC 9.7 RBC 3.77 L Hgb 11.4 L Hct 33.6 L MCV 89.1 MCH 30.2 MCHC 33.9 RDW 15.2 Plt Count 143 MPV 8.3 Absolute Neuts (auto) 7.7 Neutrophils % 78.8 Lymphocytes % 6.7 L Monocytes % 11.7 H Eosinophils % 2.5 D Basophils % 0.3 Nucleated RBC % 0 Sodium 144 Potassium 4.0 Chloride 113 H Carbon Dioxide 25 Anion Gap 6 L BUN 47.1 H Creatinine 4.7 H Est GFR (CKD-EPI)AfAm 13.93 Est GFR (CKD-EPI)NonAf 12.02 POC Glucometer Random Glucose 113 H Calcium 8.1 L Phosphorus 3.5 Magnesium 2.1 Random Vancomycin 18.5 01/17/19 05:32 WBC RBC Hgb Hct MCV MCH MCHC RDW Plt Count MPV Absolute Neuts (auto) Neutrophils % Lymphocytes % Monocytes % Eosinophils % Basophils % Nucleated RBC % Sodium Potassium Chloride Carbon Dioxide Anion Gap BUN Creatinine Est GFR (CKD-EPI)AfAm Est GFR (CKD-EPI)NonAf POC Glucometer 112 Random Glucose Calcium Phosphorus Magnesium Random Vancomycin Active Medications Generic Name Dose Route Start Last Admin Trade Name Freq PRN Reason Stop Dose Admin Artificial Tears 1 applic 01/13/19 22:00 01/16/19 22:31 Artificial Tears Ointment - OU 1 applic HS [facility] Administration Artificial Tears 1 drop 01/13/19 10:00 01/16/19 22:31 Artificial Tears OU 1 drop BID [facility] Administration Aspirin 300 mg 01/13/19 15:45 01/16/19 09:50 Asa - NC 300 mg DAILY [facility] Administration Chlorhexidine Gluconate 1 applic 01/13/19 22:00 01/16/19 22:32 Hibiclens For Decolonization - TP 1 applic HS [facility] Administration Chlorhexidine Gluconate 15 ml 01/14/19 22:00 01/16/19 22:33 Peridex - MM 15 ml BID [facility] Administration Piperacillin Sod/Tazobactam 50 mls @ 100 mls/hr 01/13/19 18:00 01/17/19 03:12 Sod 3.375 gm/ Dextrose IVPB 100 mls/hr Q8H-IV [facility] Administration Protocol Dextrose/Sodium Chloride 1,000 mls @ 125 mls/hr 01/16/19 09:30 01/17/19 03:09 D5-Ns - IV 125 mls/hr ASDIR [facility] Administration Mupirocin 1 applic 01/13/19 10:00 01/16/19 22:33 Bactroban Ointment (For Decolonization) - NS 01/18/19 09:59 1 applic BID [facility] Administration ASSESSMENT/PLAN: 68 year old male with a past medical history of hypertension, diabetes, congestive heart failure (EF 37% in 2016, noted improvement in 2018) who presented to the ED after having cardiac arrest in the field. Lee Black is 68 year old male with a past medical history of hypertension , diabetes, congestive heart failure who is admitted after ROSC s/p cardiac arrest after V-fib. #S/P cardiac arrest - continuous cardiac monitoring - cooling protocol completed - troponin peaked - continue antibiotics in setting of elevated temperature for possible infectious cause: BCx and Sputum Cx positive multiple organisms - cardiology consultation: plan to cath if/when return of brain function is established - holding sedation: Pt does not appear to be waking up - monitor for anoxic brain injury, CT suggestive of brain injury, exhibiting potential signs of post-hypoxic myoclonus -Will need to discuss goals of care with family #Elevated lactic acid: resolved - likely in setting of hypoperfusion during cardiac arrest - continue IV fluids - improved #PRACHI - likely in setting of hypoperfusion during cardiac arrest - baseline CRE 1.1 - continue IV fluids - worsening. Continues to climb #Elevated LFTs - likely in setting of hypoperfusion during cardiac arrest - continue IV fluids - resolving at this time #Elevated TSH - no history of thyroid disease - TSH wnl at this time Visit type - Emergency Visit Emergency Visit: No - New Patient This patient is new to me today: No - Critical Care Critical Care patient: No ATTENDING PHYSICIAN STATEMENT I saw and evaluated the patient. I reviewed the resident's note and discussed the case with the resident. I agree with the resident's findings and plan as documented. SUBJECTIVE: OBJECTIVE: ASSESSMENT AND PLAN:
[2019-01-17] MEDS: ASPIRIN 300 MG SUPP.RECT PR SCH (11:21)
[2019-01-17] MEDS: CHLORHEXIDINE GLUCONATE 0.12% 15ML CUP MM SCH ×2 (11:21→21:05)
[2019-01-17] MEDS: ARTIFICIAL TEARS (POLYVINYL ALCOHOL) OPTH DROPS OU SCH ×2 (11:44→22:18)
[2019-01-17] MEDS: MUPIROCIN 2% TOPICAL OINTMENT FOR DECOLONIZATION NS SCH ×2 (11:44→22:19)
--- NOTE | 2019-01-17 12:54 | PN ---
Teaching Attending Note Name of Resident: Brooke Astudillo ATTENDING PHYSICIAN STATEMENT I saw and evaluated the patient. I reviewed the resident's note and discussed the case with the resident. I agree with the resident's findings and plan as documented. SUBJECTIVE: Pt seen and examined in the ICU. Remains intubated, unresponsive off sedation. + myoclonic jerks. OBJECTIVE: Vital Signs Period Temp Pulse Resp BP Sys/Estrada Pulse Ox Last 24 Hr 100.0 F-101.0 F 88-99 15-28 119-144/52-100 100 Intake & Output 01/14/19 01/15/19 01/16/19 01/17/19 23:59 23:59 23:59 23:59 Intake Total 3538 3090 3225.5 925 Output Total 1100 1600 1950 900 Balance 2438 1490 1275.5 25 Weight 93.894 kg 102.648 kg 103.192 kg 102.6 kg Gen: intubated, unresponsive Heart: RRR Lung: decreased breath sounds at the bases Abd: soft, nontender Ext: no edema CBC, BMP 01/17/19 05:25 01/17/19 05:25 Active Medications Artificial Tears (Artificial Tears Ointment -) 1 applic OU HS [facility] Last Admin: 01/16/19 22:31 Dose: 1 applic Artificial Tears (Artificial Tears) 1 drop OU BID [facility] Last Admin: 01/17/19 11:44 Dose: 1 drop Aspirin (Asa -) 300 mg [place] DAILY [facility] Last Admin: 01/17/19 11:21 Dose: 300 mg Chlorhexidine Gluconate (Hibiclens For Decolonization -) 1 applic TP HS [facility] Last Admin: 01/16/19 22:32 Dose: 1 applic Chlorhexidine Gluconate (Peridex -) 15 ml MM BID [facility] Last Admin: 01/17/19 11:21 Dose: 15 ml Piperacillin Sod/Tazobactam (Sod 3.375 gm/ Dextrose) 50 mls @ 100 mls/hr IVPB Q8H-IV [facility]; Protocol Last Admin: 01/17/19 11:19 Dose: 100 mls/hr Dextrose/Sodium Chloride (D5-Ns -) 1,000 mls @ 125 mls/hr IV ASDIR [facility] Last Admin: 01/17/19 11:21 Dose: 125 mls/hr Mupirocin (Bactroban Ointment (For Decolonization) -) 1 applic NS BID [facility] Stop: 01/18/19 09:59 Last Admin: 01/17/19 11:44 Dose: 1 applic ASSESSMENT AND PLAN: s/p Cardiopulmonary Arrest Ventricular Fibrillation Anoxic Brain Injury CAD/+Troponins/Acute NSTEMI LV Systolic Dysfunction Lactic Acidosis Acute Kidney Injury Elevated LFTs likely Ischemic Injury HTN Hyperlipidemia - continue empiric antibiotics - f/u cultures - IVF - monitor urine output, creatinine - hold sedatives to assess mental status - neuro checks - not a candidate for weaning at this time due to mental status - palliative care eval - continue discussions regarding goals of care, advanced directives - DVT/GI prophylaxis - poor overall prognosis for meaningful recovery critical care time spent in reviewing chart, evaluating patient and formulating plan 35 min
--- NOTE | 2019-01-17 13:00 | PN ---
Progress Note, Physician History of Present Illness: Pt seen and examined at bedside. He remains in the ICU. He remains intubated. - Current Medication List Current Medications: Active Medications Artificial Tears (Artificial Tears Ointment -) 1 applic OU HS [facility] Last Admin: 01/16/19 22:31 Dose: 1 applic Artificial Tears (Artificial Tears) 1 drop OU BID [facility] Last Admin: 01/17/19 11:44 Dose: 1 drop Aspirin (Asa -) 300 mg [place] DAILY [facility] Last Admin: 01/17/19 11:21 Dose: 300 mg Chlorhexidine Gluconate (Hibiclens For Decolonization -) 1 applic TP HS [facility] Last Admin: 01/16/19 22:32 Dose: 1 applic Chlorhexidine Gluconate (Peridex -) 15 ml MM BID [facility] Last Admin: 01/17/19 11:21 Dose: 15 ml Piperacillin Sod/Tazobactam (Sod 3.375 gm/ Dextrose) 50 mls @ 100 mls/hr IVPB Q8H-IV [facility]; Protocol Last Admin: 01/17/19 11:19 Dose: 100 mls/hr Dextrose/Sodium Chloride (D5-Ns -) 1,000 mls @ 125 mls/hr IV ASDIR [facility] Last Admin: 01/17/19 11:21 Dose: 125 mls/hr Mupirocin (Bactroban Ointment (For Decolonization) -) 1 applic NS BID [facility] Stop: 01/18/19 09:59 Last Admin: 01/17/19 11:44 Dose: 1 applic - Objective Vital Signs: Vital Signs Temperature 100.3 F H 01/17/19 12:00 Pulse Rate 90 01/17/19 12:00 Respiratory Rate 20 01/17/19 12:09 Blood Pressure 130/70 01/17/19 12:00 O2 Sat by Pulse Oximetry (%) 100 01/17/19 07:57 Constitutional: Yes: Calm Cardiovascular: Yes: S1, S2 Respiratory: Yes: CTA Bilaterally Gastrointestinal: Yes: Normal Bowel Sounds, Soft Genitourinary: Yes: Nguyen Present Musculoskeletal: Yes: Muscle Weakness Edema: Yes Edema: LUE: Trace, RUE: Trace, LLE: 1+, RLE: 1+ Integumentary: Yes: Venous Stasis Changes Neurological: Yes: Lethargy Labs: CBC, BMP 01/17/19 05:25 01/17/19 05:25 INR, PTT INR 1.08 (0.83-1.09) 01/13/19 05:15 - ....Imaging Chest X-ray: Report Reviewed Problem List - Problems (1) PRACHI (acute kidney injury) Code(s): N17.9 - ACUTE KIDNEY FAILURE, UNSPECIFIED (2) CHF (congestive heart failure) Code(s): I50.9 - HEART FAILURE, UNSPECIFIED Qualifiers: Qualified Code(s): I50.9 - Heart failure, unspecified (3) HTN (hypertension) Code(s): I10 - ESSENTIAL (PRIMARY) HYPERTENSION Assessment/Plan Current Medications Generic Name Dose Route Start Last Admin Trade Name Freq PRN Reason Stop Dose Admin Artificial Tears 1 applic 01/13/19 22:00 01/16/19 22:31 Artificial Tears Ointment - OU 1 applic HS [facility] Administration Artificial Tears 1 drop 01/13/19 10:00 01/17/19 11:44 Artificial Tears OU 1 drop BID [facility] Administration Aspirin 300 mg 01/13/19 15:45 01/17/19 11:21 Asa - [place] 300 mg DAILY [facility] Administration Chlorhexidine Gluconate 1 applic 01/13/19 22:00 01/16/19 22:32 Hibiclens For Decolonization - TP 1 applic HS [facility] Administration Chlorhexidine Gluconate 15 ml 01/14/19 22:00 01/17/19 11:21 Peridex - MM 15 ml BID [facility] Administration Piperacillin Sod/Tazobactam 50 mls @ 100 mls/hr 01/13/19 18:00 01/17/19 11:19 Sod 3.375 gm/ Dextrose IVPB 100 mls/hr Q8H-IV [facility] Administration Protocol Dextrose/Sodium Chloride 1,000 mls @ 125 mls/hr 01/16/19 09:30 01/17/19 11:21 D5-Ns - IV 125 mls/hr ASDIR [facility] Administration Mupirocin 1 applic 01/13/19 10:00 01/17/19 11:44 Bactroban Ointment (For Decolonization) - NS 01/18/19 09:59 1 applic BID [facility] Administration Impression 1. PRACHI 2. cardiac arrest 3. hx chf 4. hx htn 5. resp failure requiring intubation Plan - maintain map of 65 - monitor urine output - monitor lytes - consider decreasing rate of fluids and changing to 1/2 ns - renal function worsening - likely atn from hypotension during arrest - cont supportive care - maintain nguyen - discussed with ICU team -
--- NOTE | 2019-01-17 14:26 | PN ---
Teaching Attending Note Name of Resident: Carlos Enrique Olsen ATTENDING PHYSICIAN STATEMENT I saw and evaluated the patient. I reviewed the resident's note and discussed the case with the resident. I agree with the resident's findings and plan as documented with exceptions below. SUBJECTIVE: Patient seen and examined, intubated, off sedation, non responsive. OBJECTIVE: Vital Signs Period Temp Pulse Resp BP Sys/Estrada Pulse Ox Last 24 Hr 100.3 F-101.0 F 88-99 15-28 119-144/52-100 100 Intake & Output 01/14/19 01/15/19 01/16/19 01/17/19 23:59 23:59 23:59 23:59 Intake Total 3538 3090 3225.5 925 Output Total 1100 1600 1950 900 Balance 2438 1490 1275.5 25 Weight 207 lb 226 lb 4.8 oz 227 lb 8 oz 226 lb 3.108 oz General: intubated sedated Chest: limited exam, poor effort, HEENT: Pupil sluggish, minimally reactive CVS:S1S2 regular Abdomen:soft, obese, pos bowel sounds, no voluntary or involuntary guarding or rigidity Extremites: trace pedal edema Neuro: intubated sedated, pupil sluggish, no withdrawal to pain, babinski non reactive, DTR 2+ UE, 1+ LE, myoclonic movements Home Medications Medication Instructions Recorded Aspirin 81 mg PO DAILY 01/13/19 Atorvastatin Ca [Lipitor] 40 mg PO DAILY 01/13/19 Carvedilol [Coreg -] 25 mg PO BID 01/13/19 Losartan/Hydrochlorothiazide 1 each PO DAILY 01/13/19 [Losartan-Hctz 100-25 mg Tab] Mirabegron [Myrbetriq] 25 mg PO DAILY 01/13/19 Telmisartan/Hydrochlorothiazid 1 tab PO DAILY 01/13/19 [Telmisartan-Hctz 80-25 mg Tab] Active Medications Artificial Tears (Artificial Tears Ointment -) 1 applic OU HS [facility] Last Admin: 01/16/19 22:31 Dose: 1 applic Artificial Tears (Artificial Tears) 1 drop OU BID [facility] Last Admin: 01/17/19 11:44 Dose: 1 drop Aspirin (Asa -) 300 mg [place] DAILY [facility] Last Admin: 01/17/19 11:21 Dose: 300 mg Chlorhexidine Gluconate (Hibiclens For Decolonization -) 1 applic TP HS [facility] Last Admin: 01/16/19 22:32 Dose: 1 applic Chlorhexidine Gluconate (Peridex -) 15 ml MM BID [facility] Last Admin: 01/17/19 11:21 Dose: 15 ml Piperacillin Sod/Tazobactam (Sod 3.375 gm/ Dextrose) 50 mls @ 100 mls/hr IVPB Q8H-IV [facility]; Protocol Last Admin: 01/17/19 11:19 Dose: 100 mls/hr Dextrose/Sodium Chloride (D5-1/2ns -) 1,000 mls @ 75 mls/hr IV ASDIR [facility] Mupirocin (Bactroban Ointment (For Decolonization) -) 1 applic NS BID [facility] Stop: 01/18/19 09:59 Last Admin: 01/17/19 11:44 Dose: 1 applic Laboratory Results - last 24 hr 01/16/19 01/17/19 01/17/19 18:40 02:55 05:25 WBC RBC Hgb Hct MCV MCH MCHC RDW Plt Count MPV Absolute Neuts (auto) Neutrophils % Lymphocytes % Monocytes % Eosinophils % Basophils % Nucleated RBC % Sodium Potassium Chloride Carbon Dioxide Anion Gap BUN Creatinine Est GFR (CKD-EPI)AfAm Est GFR (CKD-EPI)NonAf POC Glucometer 109 122 Random Glucose Calcium Phosphorus Magnesium Random Vancomycin 18.5 01/17/19 01/17/19 01/17/19 05:25 05:25 05:32 WBC 9.7 RBC 3.77 L Hgb 11.4 L Hct 33.6 L MCV 89.1 MCH 30.2 MCHC 33.9 RDW 15.2 Plt Count 143 MPV 8.3 Absolute Neuts (auto) 7.7 Neutrophils % 78.8 Lymphocytes % 6.7 L Monocytes % 11.7 H Eosinophils % 2.5 D Basophils % 0.3 Nucleated RBC % 0 Sodium 144 Potassium 4.0 Chloride 113 H Carbon Dioxide 25 Anion Gap 6 L BUN 47.1 H Creatinine 4.7 H Est GFR (CKD-EPI)AfAm 13.93 Est GFR (CKD-EPI)NonAf 12.02 POC Glucometer 112 Random Glucose 113 H Calcium 8.1 L Phosphorus 3.5 Magnesium 2.1 Random Vancomycin Microbiology 01/14/19 14:30 Sputum - Endotrachea Suction/Ventilator Gram Stain - Final 01/14/19 14:30 Sputum - Endotrachea Suction/Ventilator Sputum Culture - Final Klebsiella Pneumoniae Stenotrophomon.(X.)Maltophilia 01/14/19 16:00 Blood - Peripheral Venous Blood Culture - Preliminary NO GROWTH OBTAINED AFTER 48 HOURS, INCUBATION TO CONTINUE FOR 3 DAYS. 01/12/19 20:30 Blood - Peripheral Venous Blood Culture - Final Strep Agalactiae Group B Staphylococcus Haemolyticus Enterococcus Faecalis 01/14/19 14:30 Blood - Peripheral Venous Blood Culture - Preliminary NO GROWTH OBTAINED AFTER 48 HOURS, INCUBATION TO CONTINUE FOR 3 DAYS. 01/12/19 20:30 Blood - Peripheral Venous Blood Culture - Final Staphylococcus Haemolyticus 01/13/19 09:00 Urine For Antigen Detection Legionella Antigen - Final 01/13/19 09:00 Urine For Antigen Detection Streptococcus pneumoniae Antigen (M - Final 01/13/19 04:50 Urine - Urine Clean Catch Urine Culture - Final NO GROWTH OBTAINED ASSESSMENT AND PLAN: 68 yom with PMHx of HTN, HLD, cardiomyopathy, ?ischemia with WMA (improved EF on 2D echo in 2018), suspected CAD (transferred for cath from [facility] in 2016, ? results), CVA with residual slurred speech, admitted with cardiac arrest. 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 Off sedation, unchanged mental status, Neurology input noted. s/p Hypothermia protocol. ID/renal/cardiology input noted. Monitor for anoxic brain injury. Blood cx noted, ?contaminant. Broad spectum abx,CT chest noted. Renal input noted. No obstructive concerns on CT A/P. Continue Chambers. Overall prognosis poor, continue to address goals of care. plan for family meeting today. Continue ICU level of care Total critical care time 36 min
--- NOTE | 2019-01-17 15:17 | PN ---
Progress Note (short form) - Note Progress Note: off sedation off levophed unresponsive Vital Signs Period Temp Pulse Resp BP Sys/Estrada Pulse Ox Last 24 Hr 100.3 F-101.0 F 88-99 15-28 119-144/52-100 100 trach to vent cor-rrr lungs decreased bs at bases abd soft,no distention ext no edema nguyen CBC, BMP 01/17/19 05:25 01/17/19 05:25 vanco 18.5 today Microbiology 01/14/19 14:30 Blood - Peripheral Venous Blood Culture - Preliminary NO GROWTH OBTAINED AFTER 72 HOURS, INCUBATION TO CONTINUE FOR 2 DAYS. 01/14/19 14:30 Sputum - Endotrachea Suction/Ventilator Gram Stain - Final 01/14/19 14:30 Sputum - Endotrachea Suction/Ventilator Sputum Culture - Final Klebsiella Pneumoniae Stenotrophomon.(X.)Maltophilia 01/14/19 16:00 Blood - Peripheral Venous Blood Culture - Preliminary NO GROWTH OBTAINED AFTER 48 HOURS, INCUBATION TO CONTINUE FOR 3 DAYS. 01/12/19 20:30 Blood - Peripheral Venous Blood Culture - Final Strep Agalactiae Group B Staphylococcus Haemolyticus Enterococcus Faecalis 01/12/19 20:30 Blood - Peripheral Venous Blood Culture - Final Staphylococcus Haemolyticus 01/13/19 09:00 Urine For Antigen Detection Legionella Antigen - Final 01/13/19 09:00 Urine For Antigen Detection Streptococcus pneumoniae Antigen (M - Final 01/13/19 04:50 Urine - Urine Clean Catch Urine Culture - Final NO GROWTH OBTAINED a/p s/p cardiac arrest persistent fevers- ?central polymicrobial bacteremia- ?contaminant repeat blood cultures are negative continue vanco by level and zosyn for now-dose adjsut for worsening renal function anoxia shock liver PRACHI overall prognosis is poor
--- NOTE | 2019-01-17 15:43 | PN ---
Physical Exam: SUBJECTIVE: Patient seen and examined OBJECTIVE: Vital Signs Period Temp Pulse Resp BP Sys/Estrada Pulse Ox Last 24 Hr 100.3 F-101.0 F 88-99 15-28 119-144/52-100 100 GENERAL: The patient is awake, alert, and fully oriented, in no acute distress. HEAD: Normal with no signs of trauma. EYES: PERRL, extraocular movements intact, sclera anicteric, conjunctiva clear. No ptosis. ENT: Ears normal, nares patent, oropharynx clear without exudates, moist mucous membranes. NECK: Trachea midline, full range of motion, supple. LUNGS: Breath sounds equal, clear to auscultation bilaterally, no wheezes, no crackles, no accessory muscle use. HEART: Regular rate and rhythm, S1, S2 without murmur, rub or gallop. ABDOMEN: Soft, nontender, nondistended, normoactive bowel sounds, no guarding, no rebound, no hepatosplenomegaly, no masses. EXTREMITIES: 2+ pulses, warm, well-perfused, no edema. NEUROLOGICAL: Cranial nerves II through XII grossly intact. Normal speech, gait not observed. PSYCH: Normal mood, normal affect. SKIN: Warm, dry, normal turgor, no rashes or lesions noted Laboratory Results - last 24 hr 01/17/19 01/17/19 01/17/19 05:25 05:25 05:32 WBC 9.7 RBC 3.77 L Hgb 11.4 L Hct 33.6 L MCV 89.1 MCH 30.2 MCHC 33.9 RDW 15.2 Plt Count 143 MPV 8.3 Absolute Neuts (auto) 7.7 Neutrophils % 78.8 Lymphocytes % 6.7 L Monocytes % 11.7 H Eosinophils % 2.5 D Basophils % 0.3 Nucleated RBC % 0 Sodium 144 Potassium 4.0 Chloride 113 H Carbon Dioxide 25 Anion Gap 6 L BUN 47.1 H Creatinine 4.7 H Est GFR (CKD-EPI)AfAm 13.93 Est GFR (CKD-EPI)NonAf 12.02 POC Glucometer 112 Random Glucose 113 H Calcium 8.1 L Phosphorus 3.5 Magnesium 2.1 Random Vancomycin Current Medications Artificial Tears (Artificial Tears Ointment -) 1 applic OU HS [facility] Last Admin: 01/16/19 22:31 Dose: 1 applic Artificial Tears (Artificial Tears) 1 drop OU BID [facility] Last Admin: 01/17/19 11:44 Dose: 1 drop Aspirin (Asa -) 300 mg [place] DAILY [facility] Last Admin: 01/17/19 11:21 Dose: 300 mg Chlorhexidine Gluconate (Hibiclens For Decolonization -) 1 applic TP HS [facility] Last Admin: 01/16/19 22:32 Dose: 1 applic Chlorhexidine Gluconate (Peridex -) 15 ml MM BID [facility] Last Admin: 01/17/19 11:21 Dose: 15 ml Dextrose/Sodium Chloride (D5-1/2ns -) 1,000 mls @ 75 mls/hr IV ASDIR [facility] Piperacillin Sod/Tazobactam (Sod 2.25 gm/ Dextrose) 50 mls @ 100 mls/hr IVPB Q6H-IV [facility]; Protocol Mupirocin (Bactroban Ointment (For Decolonization) -) 1 applic NS BID [facility] Stop: 01/18/19 09:59 Last Admin: 01/17/19 11:44 Dose: [address]: IMPRESSION: Bilateral anterior frontal low-attenuation density, left larger than right likely representing chronic infarcts /encephalomalacia. Please correlate clinically. Otherwise, there is no CT evidence of gross acute intracranial pathology is identified. Chest/Abdomen/Pelvis CT: IMPRESSION: Rib fractures as described above likely secondary to resuscitation. No pneumothorax seen. Emphysematous changes with atelectasis/infiltration at the right base. Underlying nodules not excluded in this region. A nodule in the posterior costophrenic angle on the right as discussed above. Short-term follow-up is recommended. Malignancy not excluded. Central venous catheter as discussed above. Questionable pneumatosis versus fecal material and air. There is no evidence to suggest bowel wall thickening. The latter is suspected. C Spine CT: IMPRESSION: Straightening of the cervical spine without evidence of a fracture, dislocation or jumped facets. Multilevel degenerative disc disease with anterior and mild posterior spur formation as well as bilateral uncovertebral hypertrophy, as described above moderately narrowing the foramina at C5-C6 level ASSESSMENT/PLAN: 68M PMH HTN, CHF, CVA 2013, [place] s/p stent admitted to ICU s/p cardiac arrest w/ cardiac arrhythmia 2/2 cardiomegaly vs asphyxiation. Pt s/p targeted temp management. Neuro - Intubated, anoxic brain injury, persistent vegatative state -pt is off sedation. poor neurologic function - Tylenol for fever PRN - Patient likely to have poor outcome given prolonged down time in field - Head CT reviewed - Upon arrival to ICU, has rhythmic movements around mouth concerning for possible seizure vs shivering -severe. B/L cerebral dysfunction with minimal brainstem function intact. 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 CV - HTN, CHF, s/p cardiac arrest w/ ROSC, NSTEMI - ECHO 2016 demonstrated EF 37%, EF only mild-mod decreased on prior echo 1 yr ago, currently severe/global 25-30%. - s/p vfib arrest, ~45 minutes down time, amio 300/150, multiple shocks - Post ROSC EKG shows no STEMI - c/w tele monitoring - Trop 0.66 > 22.7 > 32.2 > 22 - stable off pressors - Cardiology recs appreciated -continue to hold BB - ASA 81 - Aggressive repletion of K/Mag (to > 4/2) Resp - intubated - s/p intubation in field during cardiac arrest, complicated by aspirate in small bore tube - Bilateral rib fractures on CT consistent with CPR - Infiltrate vs atelectasis in RLL Endocrine: - TSH elevated in ED, thyroid labs sent, will follow. Low concern for myxedema coma given lack of refractory hypotension and vfib arrest ID: - Concern for aspiration given CT findings -c/w vanc and zosyn ( renal adjustment) - pt still Febrile - BCx positive growing strep agalactaie - ID recs appreciated GI: - Air distention in stomach likely secondary to bagging in field Nephro: PRACHI 2/2 ATN -continue to monitor -Cr: 1.6->4.5 -no acute indication for [employer]IANCES at this time. - non-oliguric F/E/N -D5LR @ 125 mls / hr -NPO Lines: -R IJ central line (01/13) Dispo: continue ICU monitoring CODE STATUS: FULL CODE per family discussed case with family by bedside. family states they want to transfer pt to [facility] if [facility]. family still wants all measures for pt. Visit type - Emergency Visit Emergency Visit: No - New Patient This patient is new to me today: No - Critical Care Critical Care patient: Yes Total Critical Care Time (in minutes): 36 Critical Care Statement: The care of this patient involved high complexity decision making to prevent further life threatening deterioration of the patient 's condition and/or to evaluate & treat vital organ system(s) failure or risk of failure. ATTENDING PHYSICIAN STATEMENT I saw and evaluated the patient. I reviewed the resident's note and discussed the case with the resident. I agree with the resident's findings and plan as documented. SUBJECTIVE: OBJECTIVE: ASSESSMENT AND PLAN:
--- NOTE | 2019-01-17 15:48 | PN ---
Progress Note (short form) - Note Progress Note: s: intubated, not on sedation, unresponsive Current Medications Artificial Tears (Artificial Tears Ointment -) 1 applic OU HS [facility] Last Admin: 01/16/19 22:31 Dose: 1 applic Artificial Tears (Artificial Tears) 1 drop OU BID [facility] Last Admin: 01/17/19 11:44 Dose: 1 drop Aspirin (Asa -) 300 mg [place] DAILY [facility] Last Admin: 01/17/19 11:21 Dose: 300 mg Chlorhexidine Gluconate (Hibiclens For Decolonization -) 1 applic TP HS [facility] Last Admin: 01/16/19 22:32 Dose: 1 applic Chlorhexidine Gluconate (Peridex -) 15 ml MM BID [facility] Last Admin: 01/17/19 11:21 Dose: 15 ml Dextrose/Sodium Chloride (D5-1/2ns -) 1,000 mls @ 75 mls/hr IV ASDIR [facility] Piperacillin Sod/Tazobactam (Sod 2.25 gm/ Dextrose) 50 mls @ 100 mls/hr IVPB Q6H-IV [facility]; Protocol Mupirocin (Bactroban Ointment (For Decolonization) -) 1 applic NS BID [facility] Stop: 01/18/19 09:59 Last Admin: 01/17/19 11:44 Dose: 1 applic Vital Signs Period Temp Pulse Resp BP Sys/Estrada Pulse Ox Last 24 Hr 100.3 F-101.0 F 88-99 15-28 119-144/52-100 100 HENT: Yes: Other (+ ETT) Cardiovascular: Yes: Regular Rate and Rhythm Respiratory: Yes: Other (= breath sounds b /l) Gastrointestinal: Yes: Soft Edema: No no jaundice, diaphoresis not agitated Assessment/Plan DATA: echo 01/20: severe global LV hypo EF 25-30%. nl RV. mild LAE. mod MR. nl RVSP. cath 07/2015: lhc: normal cors; rhc: mild phtn, pvri mod elevated, pcw/lvedp nl. ECG 01/12: NSR, LVH with nonsp ST-Ts ? sec to LVH--not signif changed vs 2016 prior ECG 01/13: no signif change, prolonged QT (similar to 2016) tele: sinus, PVCs IMP/PLAN: VF arrest:in setting of gram + bacteremia and septic shock, anoxic encephalopathy -EF only mild-mod decreased on prior echo 1 yr ago, currently severe/global 25- 30%. -? arrest triggered by bacteremia (2 of 2 initial cultures positive)/sepsis -cont tele monitoring -holding bb given hypotensive and likely septic shock -doubt acute ischemic etiology given normal cor.s 3 yrs ago--if makes meaningful recover will need repeat isch eval NSTEMI: -trop peaked at 32 -normal cors 2016 -suspect sec to sepsis vs prolonged hypotension from recurrent VF arrest (with contribution from mult electrical defibs) -aspirin daily -hold BB (risks of hypotension in septic shock) SEPTIC SHOCK, gram pos bacteremia: -abx per ID -echo no vegetation seen -now bp stable off pressors Prolonged QT: -? related to CMP/LVH--was close to 500 on prior ecg 2016 -similar at present -aggressive repletion of K/Mag (/) -tele monitoring -avoid QT prolonging meds Congestive heart failure, nonischemic CMP -EF severely reduced at time of initial dx 2016--improved signif with med management -present EF severely reduced again, likely in setting sepsis, post arrest PRACHI: -sec to hypoperfusion -as per Critical Care Hypotension: -septic shock currently -hold home meds, off pressors
[2019-01-17] MEDS: DEXTROSE 5%-0.45% SALINE 1,000 ML IV SCH (19:05)
[2019-01-17] MEDS ORDERED: PIPERACILLIN/TAZOBACTAM 2.25 GM VIAL IVPB ONE (21:00)
[2019-01-17] MEDS: PIPERACILLIN/TAZOB 2.25 GM 2.25 GM in DEXTROSE 5%-WATER - 50 ML IVPB SCH (21:05)
[2019-01-17] MEDS: MINERAL OIL/PETROLATUM,WHITE 3.5 GM TUBE OU SCH (22:19)
[2019-01-17] MEDS: CHLORHEXIDINE GLUCONATE 4% CLEANSER FOR DECOLONIZATION TP SCH (22:20)
[2019-01-18] MEDS ORDERED: DEXTROSE 5%-WATER - 50 ML IVPB ONE ×2 (02:22→09:47)
[2019-01-18] MEDS ORDERED: PIPERACILLIN/TAZOBACTAM 2.25 GM VIAL IVPB ONE ×2 (02:22→09:47)
[2019-01-18] MEDS: PIPERACILLIN/TAZOB 2.25 GM 2.25 GM in DEXTROSE 5%-WATER - 50 ML IVPB SCH ×2 (02:29→10:10)
[2019-01-18] MEDS: ACETAMINOPHEN 1000 MG/100 ML VIAL (NON FORMULARY) IVPB PRN ×2 (05:07→19:13)
[2019-01-18 06:47] LABS: BLOOD UREA NITROGEN 45.3 mg/dL (7-18); CALCIUM 8.1 mg/dL (8.5-10.1); CREATININE 4.6 mg/dL (0.55-1.3); MAGNESIUM 2.1 mg/dL (1.8-2.4); PHOSPHOROUS 3.8 mg/dL (2.5-4.9); POTASSIUM 3.9 mmol/L (3.5-5.1)
[2019-01-18 06:50] LABS: BASO % 0.3 % (0-2.0); EOS % 1.3 % (0-4.5); HEMATOCRIT 33.3 % (35.4-49); HEMOGLOBIN 11.2 GM/dL (11.7-16.9); LYMPH % 7.6 % (8-40); MCH 30.1 pg (25.7-33.7); MCHC 33.6 g/dl (32.0-35.9); MEAN CELL VOLUME 89.6 fl (80-96); MEAN PLT VOLUME 8.7 fl (7.5-11.1); MONO % 10.9 % (3.8-10.2); NEUT % 79.9 % (42.8-82.8); PLATELET COUNT 154 K/MM3 (134-434); RBC 3.71 M/mm3 (4.00-5.60); RDW 14.9 % (11.9-15.9); WHITE BLOOD COUNT 10.2 K/mm3 (4.0-10.0)
[2019-01-18] MEDS: CHLORHEXIDINE GLUCONATE 0.12% 15ML CUP MM SCH ×2 (10:12→22:00)
[2019-01-18] MEDS: ARTIFICIAL TEARS (POLYVINYL ALCOHOL) OPTH DROPS OU SCH ×2 (10:12→22:00)
[2019-01-18] MEDS: ASPIRIN 300 MG SUPP.RECT PR SCH (10:13)
[2019-01-18] MEDS: DEXTROSE 5%-0.45% SALINE 1,000 ML IV SCH ×2 (10:16→19:11)
--- NOTE | 2019-01-18 11:19 | PN ---
Progress Note (short form) - Note Progress Note: s: intubated, not on sedation, unresponsive Current Medications Acetaminophen (Ofirmev Injection -) 1,000 mg IVPB Q6H PRN PRN Reason: FEVER Last Admin: 01/18/19 05:07 Dose: 1,000 mg Artificial Tears (Artificial Tears Ointment -) 1 applic OU HS [facility] Last Admin: 01/17/19 22:19 Dose: 1 applic Artificial Tears (Artificial Tears) 1 drop OU BID [facility] Last Admin: 01/18/19 10:12 Dose: 1 drop Aspirin (Asa -) 300 mg [place] DAILY [facility] Last Admin: 01/18/19 10:13 Dose: 300 mg Chlorhexidine Gluconate (Hibiclens For Decolonization -) 1 applic TP HS [facility] Last Admin: 01/17/19 22:20 Dose: 1 applic Chlorhexidine Gluconate (Peridex -) 15 ml MM BID [facility] Last Admin: 01/18/19 10:12 Dose: 15 ml Dextrose/Sodium Chloride (D5-1/2ns -) 1,000 mls @ 75 mls/hr IV ASDIR [facility] Last Admin: 01/18/19 10:16 Dose: 75 mls/hr Piperacillin Sod/Tazobactam (Sod 2.25 gm/ Dextrose) 50 mls @ 100 mls/hr IVPB Q6H-IV [facility]; Protocol Last Admin: 01/18/19 10:10 Dose: 100 mls/hr Vital Signs Period Temp Pulse Resp BP Sys/Estrada Pulse Ox Last 24 Hr 99.6 F-110.4 F 78-95 14-29 130-164/68-119 95-98 HENT: Yes: Other (+ ETT) Cardiovascular: Yes: Regular Rate and Rhythm Respiratory: Yes: Other (= breath sounds b /l) Gastrointestinal: Yes: Soft Edema: No no jaundice, diaphoresis not agitated Assessment/Plan DATA: echo 01/20: severe global LV hypo EF 25-30%. nl RV. mild LAE. mod MR. nl RVSP. cath 07/2015: lhc: normal cors; rhc: mild phtn, pvri mod elevated, pcw/lvedp nl. ECG 01/12: NSR, LVH with nonsp ST-Ts ? sec to LVH--not signif changed vs 2016 prior ECG 01/13: no signif change, prolonged QT (similar to 2016) tele: sinus, PVCs IMP/PLAN: VF arrest:in setting of gram + bacteremia and septic shock, anoxic encephalopathy -EF only mild-mod decreased on prior echo 1 yr ago, currently severe/global 25- 30%. -? arrest triggered by bacteremia (2 of 2 initial cultures positive)/sepsis -cont tele monitoring -holding bb given hypotensive and likely septic shock -doubt acute ischemic etiology given normal cor.s 3 yrs ago--if makes meaningful recover will need repeat isch eval NSTEMI: -trop peaked at 32 -normal cors 2016 -suspect sec to sepsis vs prolonged hypotension from recurrent VF arrest (with contribution from mult electrical defibs) -aspirin daily -hold BB (risks of hypotension in septic shock) SEPTIC SHOCK, gram pos bacteremia: -abx per ID -echo no vegetation seen -now bp stable off pressors Prolonged QT: -? related to CMP/LVH--was close to 500 on prior ecg 2016 -similar at present -aggressive repletion of K/Mag (/) -tele monitoring -avoid QT prolonging meds Congestive heart failure, nonischemic CMP -EF severely reduced at time of initial dx 2016--improved signif with med management -present EF severely reduced again, likely in setting sepsis, post arrest PRACHI: -sec to hypoperfusion -as per Critical Care Hypotension: -septic shock currently -hold home meds, off pressors
--- NOTE | 2019-01-18 13:09 | PN ---
Teaching Attending Note Name of Resident: Brooke Astudillo ATTENDING PHYSICIAN STATEMENT I saw and evaluated the patient. I reviewed the resident's note and discussed the case with the resident. I agree with the resident's findings and plan as documented. SUBJECTIVE: Pt seen and examined in the ICU. Remains intubated, unresponsive off sedation. No change in neuro exam. +spontaneous breaths. OBJECTIVE: Vital Signs Period Temp Pulse Resp BP Sys/Estrada Pulse Ox Last 24 Hr 99.6 F-110.4 F 78-95 14-29 127-164/66-119 95-98 Intake & Output 01/15/19 01/16/19 01/17/19 01/18/19 23:59 23:59 23:59 23:59 Intake Total 3090 3225.5 3059 675 Output Total 1600 1950 2700 600 Balance 1490 1275.5 359 75 Weight 102.648 kg 103.192 kg 102.6 kg 101.741 kg Gen: intubated, unresponsive Heart: RRR Lung: scattered rhonchi Abd: soft, nontender Ext: no edema CBC, BMP 01/18/19 05:45 01/18/19 05:45 Active Medications Acetaminophen (Ofirmev Injection -) 1,000 mg IVPB Q6H PRN PRN Reason: FEVER Last Admin: 01/18/19 05:07 Dose: 1,000 mg Artificial Tears (Artificial Tears Ointment -) 1 applic OU HS [facility] Last Admin: 01/17/19 22:19 Dose: 1 applic Artificial Tears (Artificial Tears) 1 drop OU BID [facility] Last Admin: 01/18/19 10:12 Dose: 1 drop Aspirin (Asa -) 300 mg [place] DAILY [facility] Last Admin: 01/18/19 10:13 Dose: 300 mg Chlorhexidine Gluconate (Hibiclens For Decolonization -) 1 applic TP HS [facility] Last Admin: 01/17/19 22:20 Dose: 1 applic Chlorhexidine Gluconate (Peridex -) 15 ml MM BID [facility] Last Admin: 01/18/19 10:12 Dose: 15 ml Dextrose/Sodium Chloride (D5-1/2ns -) 1,000 mls @ 75 mls/hr IV ASDIR [facility] Last Admin: 01/18/19 10:16 Dose: 75 mls/hr Piperacillin Sod/Tazobactam (Sod 2.25 gm/ Dextrose) 50 mls @ 100 mls/hr IVPB Q6H-IV [facility]; Protocol Last Admin: 01/18/19 10:10 Dose: 100 mls/hr ASSESSMENT AND PLAN: s/p Cardiopulmonary Arrest Ventricular Fibrillation Anoxic Brain Injury CAD/+Troponins/Acute NSTEMI LV Systolic Dysfunction Lactic Acidosis Acute Kidney Injury Elevated LFTs likely Ischemic Injury HTN Hyperlipidemia - continue empiric antibiotics - f/u cultures - IVF - monitor urine output, creatinine - hold sedatives to assess mental status - neuro checks - not a candidate for weaning at this time due to mental status - palliative care f/u - continue discussions regarding goals of care, advanced directives - DVT/GI prophylaxis - poor overall prognosis for meaningful recovery critical care time spent in reviewing chart, evaluating patient and formulating plan 35 min
--- NOTE | 2019-01-18 14:18 | PN ---
Physical Exam: SUBJECTIVE: Patient seen and examined, intubated, non responsive. OBJECTIVE: Vital Signs Period Temp Pulse Resp BP Sys/Estrada Pulse Ox Last 24 Hr 100.1 F-110.4 F 78-95 14-29 127-164/66-119 95-98 Intake & Output 01/15/19 01/16/19 01/17/19 01/18/19 23:59 23:59 23:59 23:59 Intake Total 3090 3225.5 3059 675 Output Total 1600 1950 2700 600 Balance 1490 1275.5 359 75 Weight 226 lb 4.8 oz 227 lb 8 oz 226 lb 3.108 oz 224 lb 4.8 oz General: intubated sedated Chest: limited exam, poor effort, HEENT: Pupil sluggish, minimally reactive CVS:S1S2 regular Abdomen:soft, obese, pos bowel sounds, no voluntary or involuntary guarding or rigidity Extremites: trace pedal edema Neuro: intubated sedated, pupil sluggish, no withdrawal to pain, babinski non reactive, DTR 2+ UE, 1+ LE, myoclonic movements Laboratory Results - last 24 hr 01/17/19 01/18/19 01/18/19 17:29 05:45 05:45 WBC 10.2 H RBC 3.71 L Hgb 11.2 L Hct 33.3 L MCV 89.6 MCH 30.1 MCHC 33.6 RDW 14.9 Plt Count 154 MPV 8.7 Absolute Neuts (auto) 8.2 H Neutrophils % 79.9 Lymphocytes % 7.6 L Monocytes % 10.9 H Eosinophils % 1.3 Basophils % 0.3 Nucleated RBC % 0 Sodium 146 H Potassium 3.9 Chloride 115 H Carbon Dioxide 24 Anion Gap 7 L BUN 45.3 H Creatinine 4.6 H Est GFR (CKD-EPI)AfAm 14.30 Est GFR (CKD-EPI)NonAf 12.34 POC Glucometer 115 Random Glucose 111 H Calcium 8.1 L Phosphorus 3.8 Magnesium 2.1 01/18/19 05:49 WBC RBC Hgb Hct MCV MCH MCHC RDW Plt Count MPV Absolute Neuts (auto) Neutrophils % Lymphocytes % Monocytes % Eosinophils % Basophils % Nucleated RBC % Sodium Potassium Chloride Carbon Dioxide Anion Gap BUN Creatinine Est GFR (CKD-EPI)AfAm Est GFR (CKD-EPI)NonAf POC Glucometer 106 Random Glucose Calcium Phosphorus Magnesium Active Medications Generic Name Dose Route Start Last Admin Trade Name Freq PRN Reason Stop Dose Admin Acetaminophen 1,000 mg 01/17/19 20:49 01/18/19 05:07 Ofirmev Injection - IVPB 1,000 mg Q6H PRN Administration FEVER Artificial Tears 1 applic 01/13/19 22:00 01/17/19 22:19 Artificial Tears Ointment - OU 1 applic HS [facility] Administration Artificial Tears 1 drop 01/13/19 10:00 01/18/19 10:12 Artificial Tears OU 1 drop BID [facility] Administration Aspirin 300 mg 01/13/19 15:45 01/18/19 10:13 Asa - [place] 300 mg DAILY [facility] Administration Chlorhexidine Gluconate 1 applic 01/13/19 22:00 01/17/19 22:20 Hibiclens For Decolonization - TP 1 applic HS [facility] Administration Chlorhexidine Gluconate 15 ml 01/14/19 22:00 01/18/19 10:12 Peridex - MM 15 ml BID [facility] Administration Dextrose/Sodium Chloride 1,000 mls @ 75 mls/hr 01/17/19 13:00 01/18/19 10:16 D5-1/2ns - IV 75 mls/hr ASDIR [facility] Administration Piperacillin Sod/Tazobactam 50 mls @ 100 mls/hr 01/17/19 21:00 01/18/19 10:10 Sod 2.25 gm/ Dextrose IVPB 100 mls/hr Q6H-IV [facility] Administration Protocol ASSESSMENT/PLAN: 68 yom with PMHx of HTN, HLD, cardiomyopathy, ?ischemia with WMA (improved EF on 2D echo in 2018), suspected CAD (transferred for cath from [facility] in 2016, ? results), CVA with residual slurred speech, admitted with cardiac arrest. 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 Off sedation, unchanged mental status, Neurology input noted. s/p Hypothermia protocol. ID/renal/cardiology input noted. Monitor for anoxic brain injury. Blood cx noted, ?contaminant. Broad spectum abx,CT chest noted. Renal input noted. No obstructive concerns on CT A/P. Continue Chambers. Overall prognosis poor, continue to address goals of care. plan for family meeting Continue ICU level of care Total critical care time 36 min Visit type - Emergency Visit Emergency Visit: Yes ED Registration Date: 01/12/19 Care time: The patient presented to the Emergency Department on the above date and was hospitalized for further evaluation of their emergent condition. - New Patient This patient is new to me today: No - Critical Care Critical Care patient: Yes Total Critical Care Time (in minutes): 36 Critical Care Statement: The care of this patient involved high complexity decision making to prevent further life threatening deterioration of the patient 's condition and/or to evaluate & treat vital organ system(s) failure or risk of failure.
--- NOTE | 2019-01-18 14:48 | PN ---
Physical Exam: SUBJECTIVE: Patient seen and examined at bedside. pt is unarousable. pt is off sedation. OBJECTIVE: Vital Signs Period Temp Pulse Resp BP Sys/Estrada Pulse Ox Last 24 Hr 100.1 F-110.4 F 78-95 14-29 127-164/66-119 95-98 GENERAL: The patient is unarousable. EYES: Pupils fixed and non reactive to light LUNGS: vent sounds equal b/l HEART: Regular rate and rhythm, S1, S2 without murmur, rub or gallop. ABDOMEN: Soft, nondistended, normoactive bowel sounds EXTREMITIES: 2+ pulses, warm, well-perfused, no edema. SKIN: Warm, dry, normal turgor, no rashes or lesions noted Laboratory Results - last 24 hr 01/17/19 01/18/19 01/18/19 17:29 05:45 05:45 WBC 10.2 H RBC 3.71 L Hgb 11.2 L Hct 33.3 L MCV 89.6 MCH 30.1 MCHC 33.6 RDW 14.9 Plt Count 154 MPV 8.7 Absolute Neuts (auto) 8.2 H Neutrophils % 79.9 Lymphocytes % 7.6 L Monocytes % 10.9 H Eosinophils % 1.3 Basophils % 0.3 Nucleated RBC % 0 Sodium 146 H Potassium 3.9 Chloride 115 H Carbon Dioxide 24 Anion Gap 7 L BUN 45.3 H Creatinine 4.6 H Est GFR (CKD-EPI)AfAm 14.30 Est GFR (CKD-EPI)NonAf 12.34 POC Glucometer 115 Random Glucose 111 H Calcium 8.1 L Phosphorus 3.8 Magnesium 2.1 Current Medications Acetaminophen (Ofirmev Injection -) 1,000 mg IVPB Q6H PRN PRN Reason: FEVER Last Admin: 01/18/19 05:07 Dose: 1,000 mg Artificial Tears (Artificial Tears Ointment -) 1 applic OU HS [facility] Last Admin: 01/17/19 22:19 Dose: 1 applic Artificial Tears (Artificial Tears) 1 drop OU BID [facility] Last Admin: 01/18/19 10:12 Dose: 1 drop Aspirin (Asa -) 300 mg [place] DAILY [facility] Last Admin: 01/18/19 10:13 Dose: 300 mg Chlorhexidine Gluconate (Hibiclens For Decolonization -) 1 applic TP HS [facility] Last Admin: 09/16/19 22:20 Dose: 1 applic Chlorhexidine Gluconate (Peridex -) 15 ml MM BID [facility] Last Admin: 01/18/19 10:12 Dose: 15 ml Dextrose/Sodium Chloride (D5-1/2ns -) 1,000 mls @ 75 mls/hr IV ASDIR [facility] Last Admin: 01/18/19 10:16 Dose: 75 mls/hr Piperacillin Sod/Tazobactam (Sod 2.25 gm/ Dextrose) 50 mls @ 100 mls/hr IVPB Q6H-IV [facility]; Protocol Last Admin: 01/18/19 10:10 Dose: 100 mls/hr Head CT: IMPRESSION: Bilateral anterior frontal low-attenuation density, left larger than right likely representing chronic infarcts /encephalomalacia. Please correlate clinically. Otherwise, there is no CT evidence of gross acute intracranial pathology is identified. Chest/Abdomen/Pelvis CT: IMPRESSION: Rib fractures as described above likely secondary to resuscitation. No pneumothorax seen. Emphysematous changes with atelectasis/infiltration at the right base. Underlying nodules not excluded in this region. A nodule in the posterior costophrenic angle on the right as discussed above. Short-term follow-up is recommended. Malignancy not excluded. Central venous catheter as discussed above. Questionable pneumatosis versus fecal material and air. There is no evidence to suggest bowel wall thickening. The latter is suspected. C Spine CT: IMPRESSION: Straightening of the cervical spine without evidence of a fracture, dislocation or jumped facets. Multilevel degenerative disc disease with anterior and mild posterior spur formation as well as bilateral uncovertebral hypertrophy, as described above moderately narrowing the foramina at C5-C6 level ASSESSMENT/PLAN: 68M PMH HTN, CHF, CVA 2013, [place] s/p stent admitted to ICU s/p cardiac arrest w/ cardiac arrhythmia 2/2 cardiomegaly vs asphyxiation. Pt s/p targeted temp management. Neuro - Intubated, anoxic brain injury, persistent vegatative state -pt is off sedation. poor neurologic function - Tylenol for fever PRN - Patient likely to have poor outcome given prolonged down time in field - Head CT reviewed - Upon arrival to ICU, has rhythmic movements around mouth concerning for possible seizure vs shivering -severe B/L cerebral dysfunction with minimal brainstem function intact. CV - HTN, CHF, s/p cardiac arrest w/ ROSC, NSTEMI - ECHO 2016 demonstrated EF 37%, EF only mild-mod decreased on prior echo 1 yr ago, currently severe/global 25-30%. - s/p vfib arrest, ~45 minutes down time, amio 300/150, multiple shocks - Post ROSC EKG shows no STEMI - c/w tele monitoring - Trop 0.66 > 22.7 > 32.2 > 22 - stable off pressors - Cardiology recs appreciated -continue to hold BB - ASA 81 - Aggressive repletion of K/Mag (to > 4/2) Resp - intubated - s/p intubation in field during cardiac arrest, complicated by aspirate in small bore tube - Bilateral rib fractures on CT consistent with CPR - Infiltrate vs atelectasis in RLL Endocrine: - TSH elevated in ED, thyroid labs sent, will follow. Low concern for myxedema coma given lack of refractory hypotension and vfib arrest ID: - Concern for aspiration given CT findings -c/w vanc and zosyn ( renal adjustment) - pt still Febrile - BCx positive growing strep agalactaie - ID recs appreciated GI: - Air distention in stomach likely secondary to bagging in field Nephro: PRACHI 2/2 ATN -continue to monitor -Cr: 1.6->4.5 -no acute indication for LOG CHIPPER at this time. - non-oliguric F/E/N -tube feeds as per [facility] torch recs Lines: -R IJ central line (01/13) Dispo: continue ICU monitoring CODE STATUS: FULL CODE per family discussed case with family by bedside about extermination supervisor goals , Trach, and peg. Visit type - Emergency Visit Emergency Visit: No - New Patient This patient is new to me today: No - Critical Care Critical Care patient: Yes Total Critical Care Time (in minutes): 36 Critical Care Statement: The care of this patient involved high complexity decision making to prevent further life threatening deterioration of the patient 's condition and/or to evaluate & treat vital organ system(s) failure or risk of failure. ATTENDING PHYSICIAN STATEMENT I saw and evaluated the patient. I reviewed the resident's note and discussed the case with the resident. I agree with the resident's findings and plan as documented. SUBJECTIVE: OBJECTIVE: ASSESSMENT AND PLAN:
--- NOTE | 2019-01-18 16:58 | PN ---
Progress Note, Physician History of Present Illness: Pt seen and examined at bedside. He remains in the ICU. He remains intubated. - Current Medication List Current Medications: Active Medications Acetaminophen (Ofirmev Injection -) 1,000 mg IVPB Q6H PRN PRN Reason: FEVER Last Admin: 01/18/19 05:07 Dose: 1,000 mg Artificial Tears (Artificial Tears Ointment -) 1 applic OU HS [facility] Last Admin: 01/17/19 22:19 Dose: 1 applic Artificial Tears (Artificial Tears) 1 drop OU BID [facility] Last Admin: 01/18/19 10:12 Dose: 1 drop Aspirin (Asa -) 300 mg [place] DAILY [facility] Last Admin: 01/18/19 10:13 Dose: 300 mg Chlorhexidine Gluconate (Hibiclens For Decolonization -) 1 applic TP HS [facility] Last Admin: 01/17/19 22:20 Dose: 1 applic Chlorhexidine Gluconate (Peridex -) 15 ml MM BID [facility] Last Admin: 01/18/19 10:12 Dose: 15 ml Dextrose/Sodium Chloride (D5-1/2ns -) 1,000 mls @ 75 mls/hr IV ASDIR [facility] Last Admin: 01/18/19 10:16 Dose: 75 mls/hr Piperacillin Sod/Tazobactam (Sod 2.25 gm/ Dextrose) 50 mls @ 100 mls/hr IVPB Q6H-IV [facility]; Protocol Last Admin: 01/18/19 10:10 Dose: 100 mls/hr - Objective Vital Signs: Vital Signs Temperature 100.5 F H 01/18/19 14:00 Pulse Rate 98 H 01/18/19 14:00 Respiratory Rate 23 H 01/18/19 15:59 Blood Pressure 159/76 01/18/19 14:00 O2 Sat by Pulse Oximetry (%) 97 01/18/19 10:20 Constitutional: Yes: Calm HENT: Yes: Atraumatic Neck: Yes: Supple Cardiovascular: Yes: S1, S2 Respiratory: Yes: Intubated, Mechanically Ventilated Gastrointestinal: Yes: Soft Genitourinary: Yes: Nguyen Present Musculoskeletal: Yes: Muscle Weakness Edema: Yes Edema: LLE: Trace, RLE: Trace Integumentary: Yes: WNL Neurological: Yes: Lethargy Labs: CBC, BMP 01/18/19 05:45 01/18/19 05:45 INR, PTT INR 1.08 (0.83-1.09) 01/13/19 05:15 Problem List - Problems (1) PRACHI (acute kidney injury) Code(s): N17.9 - ACUTE KIDNEY FAILURE, UNSPECIFIED (2) CHF (congestive heart failure) Code(s): I50.9 - HEART FAILURE, UNSPECIFIED Qualifiers: Qualified Code(s): I50.9 - Heart failure, unspecified (3) HTN (hypertension) Code(s): I10 - ESSENTIAL (PRIMARY) HYPERTENSION Assessment/Plan Current Medications Generic Name Dose Route Start Last Admin Trade Name Freq PRN Reason Stop Dose Admin Acetaminophen 1,000 mg 01/17/19 20:49 01/18/19 05:07 Ofirmev Injection - IVPB 1,000 mg Q6H PRN Administration FEVER Artificial Tears 1 applic 01/13/19 22:00 01/17/19 22:19 Artificial Tears Ointment - OU 1 applic HS [facility] Administration Artificial Tears 1 drop 01/13/19 10:00 01/18/19 10:12 Artificial Tears OU 1 drop BID [facility] Administration Aspirin 300 mg 01/13/19 15:45 01/18/19 10:13 Asa - DC 300 mg DAILY [facility] Administration Chlorhexidine Gluconate 1 applic 01/13/19 22:00 01/17/19 22:20 Hibiclens For Decolonization - TP 1 applic HS [facility] Administration Chlorhexidine Gluconate 15 ml 01/14/19 22:00 01/18/19 10:12 Peridex - MM 15 ml BID [facility] Administration Dextrose/Sodium Chloride 1,000 mls @ 75 mls/hr 01/17/19 13:00 01/18/19 10:16 D5-1/2ns - IV 75 mls/hr ASDIR [facility] Administration Piperacillin Sod/Tazobactam 50 mls @ 100 mls/hr 01/17/19 21:00 01/18/19 10:10 Sod 2.25 gm/ Dextrose IVPB 100 mls/hr Q6H-IV [facility] Administration Protocol Impression 1. PRACHI 2. cardiac arrest 3. hx chf 4. hx htn 5. resp failure requiring intubation 6. hypernatremia Plan - monitor renal function - monitor urine output - no indication for [employer] - family meeting today to discuss GOC - avoid nephrotoxins - cont hypotonic fluids - cont supportive care - maintain nguyen -
--- NOTE | 2019-01-18 17:24 | PN ---
Progress Note (short form) - Note Progress Note: off sedation off levophed unresponsive continues to have fevers\ Vital Signs Period Temp Pulse Resp BP Sys/Estrada Pulse Ox Last 24 Hr 100.1 F-110.4 F 78-98 16-29 127-164/66-119 95-98 cor-rrr lungs decreased bs at bases abd soft +scrotal edema +nguyen ext no edema CBC, BMP 01/18/19 05:45 01/18/19 05:45 vanco 18.5 today Microbiology 01/14/19 16:00 Blood - Peripheral Venous Blood Culture - Preliminary NO GROWTH OBTAINED AFTER 96 HOURS, INCUBATION TO CONTINUE FOR 1 DAYS. 01/14/19 14:30 Blood - Peripheral Venous Blood Culture - Preliminary NO GROWTH OBTAINED AFTER 96 HOURS, INCUBATION TO CONTINUE FOR 1 DAYS. 01/14/19 14:30 Sputum - Endotrachea Suction/Ventilator Gram Stain - Final 01/14/19 14:30 Sputum - Endotrachea Suction/Ventilator Sputum Culture - Final Klebsiella Pneumoniae Stenotrophomon.(X.)Maltophilia 01/12/19 20:30 Blood - Peripheral Venous Blood Culture - Final Strep Agalactiae Group B Staphylococcus Haemolyticus Enterococcus Faecalis 01/12/19 20:30 Blood - Peripheral Venous Blood Culture - Final Staphylococcus Haemolyticus 01/13/19 09:00 Urine For Antigen Detection Legionella Antigen - Final 01/13/19 09:00 Urine For Antigen Detection Streptococcus pneumoniae Antigen (M - Final 01/13/19 04:50 Urine - Urine Clean Catch Urine Culture - Final NO GROWTH OBTAINED a/p s/p cardiac arrest persistent fevers- suspect central, had ct scan chest/abd/pelvis on admission polymicrobial bacteremia- ?contaminant repeat blood cultures are negative continue vanco by level and switch to unasyn for group b strep and enterococcus doubt pneumonia anoxia PRACHI-persists overall prognosis is poor
[2019-01-18] MEDS: AMPICILLIN NA/SULBACTAM NA 3 GM in SODIUM CHLORIDE 100 ML IVPB SCH (21:09)
[2019-01-18] MEDS: MINERAL OIL/PETROLATUM,WHITE 3.5 GM TUBE OU SCH (21:10)
[2019-01-19] MEDS: CHLORHEXIDINE GLUCONATE 4% CLEANSER FOR DECOLONIZATION TP SCH ×2 (01:55→21:29)
[2019-01-19 06:08] LABS: BASO % 0.2 % (0-2.0); MEAN CELL VOLUME 90.3 fl (80-96)
[2019-01-19 06:30] LABS: EOS % 0.3 % (0-4.5); HEMATOCRIT 33.3 % (35.4-49); HEMOGLOBIN 10.9 GM/dL (11.7-16.9); LYMPH % 5.9 % (8-40); MCH 29.7 pg (25.7-33.7); MCHC 32.9 g/dl (32.0-35.9); MEAN PLT VOLUME 8.6 fl (7.5-11.1); MONO % 9.4 % (3.8-10.2); NEUT % 84.2 % (42.8-82.8); PLATELET COUNT 185 K/MM3 (134-434); RBC 3.69 M/mm3 (4.00-5.60); RDW 15.5 % (11.9-15.9); WHITE BLOOD COUNT 12.3 K/mm3 (4.0-10.0)
[2019-01-19] MEDS: ACETAMINOPHEN 1000 MG/100 ML VIAL (NON FORMULARY) IVPB PRN ×3 (06:37→21:28)
[2019-01-19 06:43] LABS: ALBUMIN 2.1 g/dl (3.4-5.0); BILIRUBIN,TOTAL 0.5 mg/dL (0.2-1); BLOOD UREA NITROGEN 46.5 mg/dL (7-18); CALCIUM 8.6 mg/dL (8.5-10.1); CREATININE 4.5 mg/dL (0.55-1.3); MAGNESIUM 2.4 mg/dL (1.8-2.4); PHOSPHOROUS 3.3 mg/dL (2.5-4.9); POTASSIUM 3.9 mmol/L (3.5-5.1); TOT PROT 5.6 g/dl (6.4-8.2)
[2019-01-19] MEDS ORDERED: VANCOMYCIN 500 MG in DEXTROSE 5%-WATER 100 ML IVPB ONE (08:00)
[2019-01-19] MEDS ORDERED: PT OWN MED DRAWER 7, Y5N ONE ×2 (09:01→21:03)
[2019-01-19] MEDS: ASPIRIN 300 MG SUPP.RECT PR SCH (09:07)
[2019-01-19] MEDS: CHLORHEXIDINE GLUCONATE 0.12% 15ML CUP MM SCH ×2 (09:07→21:29)
[2019-01-19] MEDS: ARTIFICIAL TEARS (POLYVINYL ALCOHOL) OPTH DROPS OU SCH ×2 (09:07→21:29)
--- NOTE | 2019-01-19 10:13 | PN ---
Progress Note (short form) - Note Progress Note: off sedation off levophed unresponsive remains febrile Vital Signs Period Temp Pulse Resp BP Sys/Estrada Pulse Ox Last 24 Hr 100.5 F-101.2 F 78-116 17-26 91-178/52-105 96-99 right cvp no erythema or drainage cor-rrr lungs decreased bs at bases abd soft ext no edema +nguyen CBC, BMP 01/19/19 05:10 01/19/19 05:10 Microbiology 01/14/19 16:00 Blood - Peripheral Venous Blood Culture - Preliminary NO GROWTH OBTAINED AFTER 96 HOURS, INCUBATION TO CONTINUE FOR 1 DAYS. 01/14/19 14:30 Blood - Peripheral Venous Blood Culture - Preliminary NO GROWTH OBTAINED AFTER 96 HOURS, INCUBATION TO CONTINUE FOR 1 DAYS. 01/14/19 14:30 Sputum - Endotrachea Suction/Ventilator Gram Stain - Final 01/14/19 14:30 Sputum - Endotrachea Suction/Ventilator Sputum Culture - Final Klebsiella Pneumoniae Stenotrophomon.(X.)Maltophilia 01/12/19 20:30 Blood - Peripheral Venous Blood Culture - Final Strep Agalactiae Group B Staphylococcus Haemolyticus Enterococcus Faecalis 01/12/19 20:30 Blood - Peripheral Venous Blood Culture - Final Staphylococcus Haemolyticus 01/13/19 09:00 Urine For Antigen Detection Legionella Antigen - Final 01/13/19 09:00 Urine For Antigen Detection Streptococcus pneumoniae Antigen (M - Final 01/13/19 04:50 Urine - Urine Clean Catch Urine Culture - Final NO GROWTH OBTAINED cxray dense retrocardiac density vanco 11.4 today Microbiology 01/14/19 16:00 Blood - Peripheral Venous Blood Culture - Preliminary NO GROWTH OBTAINED AFTER 96 HOURS, INCUBATION TO CONTINUE FOR 1 DAYS. 01/14/19 14:30 Blood - Peripheral Venous Blood Culture - Preliminary NO GROWTH OBTAINED AFTER 96 HOURS, INCUBATION TO CONTINUE FOR 1 DAYS. 01/14/19 14:30 Sputum - Endotrachea Suction/Ventilator Gram Stain - Final 01/14/19 14:30 Sputum - Endotrachea Suction/Ventilator Sputum Culture - Final Klebsiella Pneumoniae Stenotrophomon.(X.)Maltophilia 01/12/19 20:30 Blood - Peripheral Venous Blood Culture - Final Strep Agalactiae Group B Staphylococcus Haemolyticus Enterococcus Faecalis 01/12/19 20:30 Blood - Peripheral Venous Blood Culture - Final Staphylococcus Haemolyticus 01/13/19 09:00 Urine For Antigen Detection Legionella Antigen - Final 01/13/19 09:00 Urine For Antigen Detection Streptococcus pneumoniae Antigen (M - Final 01/13/19 04:50 Urine - Urine Clean Catch Urine Culture - Final NO GROWTH OBTAINED a/p s/p cardiac arrest persistent fevers- suspect central, had ct scan chest/abd/pelvis on admission- will get duplex of the legs r/o dvt, consider US of chest r/o pleural effusion - left polymicrobial bacteremia- ?contaminant repeat blood cultures are negative continue vanco by level and unasyn repeat blood cultures anoxia PRACHI-persists overall prognosis is poor
[2019-01-19] MEDS ORDERED: VANCOMYCIN 1,000 MG in DEXTROSE 5%-WATER - 250 ML IVPB ONE (10:15)
[2019-01-19] MEDS: AMPICILLIN NA/SULBACTAM NA 3 GM in SODIUM CHLORIDE 100 ML IVPB SCH ×2 (11:00→21:29)
--- NOTE | 2019-01-19 11:48 | PN ---
Progress Note (short form) - Note Progress Note: s: intubated, not on sedation, unresponsive Current Medications Artificial Tears (Artificial Tears Ointment -) 1 applic OU HS [facility] Last Admin: 01/18/19 21:10 Dose: 1 applic Artificial Tears (Artificial Tears) 1 drop OU BID [facility] Last Admin: 01/19/19 09:07 Dose: 1 drop Aspirin (Asa -) [address] DAILY [facility] Last Admin: 01/19/19 09:07 Dose: 300 mg Chlorhexidine Gluconate (Hibiclens For Decolonization -) 1 applic TP HS [facility] Last Admin: 01/19/19 01:55 Dose: 1 applic Chlorhexidine Gluconate (Peridex -) 15 ml MM BID [facility] Last Admin: 01/19/19 09:07 Dose: 15 ml Dextrose/Sodium Chloride (D5-1/2ns -) 1,000 mls @ 75 mls/hr IV ASDIR [facility] Last Admin: 01/18/19 19:11 Dose: Not Given Ampicillin Sodium/Sulbactam (Sodium 3 gm/ Sodium Chloride) 100 mls @ 200 mls/ hr IVPB BID [facility] Last Admin: 01/19/19 11:00 Dose: 200 mls/hr Vital Signs Period Temp Pulse Resp BP Sys/Estrada Pulse Ox Last 24 Hr 100.5 F-101.2 F 78-116 17-26 91-178/52-105 96-99 HENT: Yes: Other (+ ETT) Cardiovascular: Yes: Regular Rate and Rhythm Respiratory: Yes: Other (= breath sounds b /l) Gastrointestinal: Yes: Soft Edema: No no jaundice, diaphoresis not agitated Assessment/Plan echo 01/20: severe global LV hypo EF 25-30%. nl RV. mild LAE. mod MR. nl RVSP. cath 07/2015: lhc: normal cors; rhc: mild phtn, pvri mod elevated, pcw/lvedp nl. ECG 01/12: NSR, LVH with nonsp ST-Ts ? sec to LVH--not signif changed vs 2016 prior ECG 01/13: no signif change, prolonged QT (similar to 2016) tele: sinus, PVCs IMP/PLAN: VF arrest:in setting of gram + bacteremia and septic shock, anoxic encephalopathy -EF only mild-mod decreased on prior echo 1 yr ago, currently severe/global 25- 30%. -? arrest triggered by bacteremia (2 of 2 initial cultures positive)/sepsis -cont tele monitoring -holding bb given hypotensive and likely septic shock -doubt acute ischemic etiology given normal cor.s 3 yrs ago--if makes meaningful recover will need repeat isch eval - goals of care discussions per critical care NSTEMI: -trop peaked at 32 -normal cors 2016 -suspect sec to sepsis vs prolonged hypotension from recurrent VF arrest (with contribution from mult electrical defibs) -aspirin daily -hold BB (risks of hypotension in septic shock) SEPTIC SHOCK, gram pos bacteremia: -abx per ID -echo no vegetation seen -now bp stable off pressors Prolonged QT: -? related to CMP/LVH--was close to 500 on prior ecg 2016 -similar at present -aggressive repletion of K/Mag (08/03) -tele monitoring -avoid QT prolonging meds Congestive heart failure, nonischemic CMP -EF severely reduced at time of initial dx 2016--improved signif with med management -present EF severely reduced again, likely in setting sepsis, post arrest PRACHI: -sec to hypoperfusion -as per Critical Care Hypotension: -septic shock currently -hold home meds, off pressors
--- NOTE | 2019-01-19 12:45 | PN ---
Progress Note, Physician History of Present Illness: Pt seen and examined at bedside. He remains in the ICU. He remain on vent. - Current Medication List Current Medications: Active Medications Artificial Tears (Artificial Tears Ointment -) 1 applic OU HS [facility] Last Admin: 01/18/19 21:10 Dose: 1 applic Artificial Tears (Artificial Tears) 1 drop OU BID [facility] Last Admin: 01/19/19 09:07 Dose: 1 drop Aspirin (Asa -) 300 mg [place] DAILY [facility] Last Admin: 01/19/19 09:07 Dose: 300 mg Chlorhexidine Gluconate (Hibiclens For Decolonization -) 1 applic TP HS [facility] Last Admin: 01/19/19 01:55 Dose: 1 applic Chlorhexidine Gluconate (Peridex -) 15 ml MM BID [facility] Last Admin: 01/19/19 09:07 Dose: 15 ml Dextrose/Sodium Chloride (D5-1/2ns -) 1,000 mls @ 75 mls/hr IV ASDIR [facility] Last Admin: 01/18/19 19:11 Dose: Not Given Ampicillin Sodium/Sulbactam (Sodium 3 gm/ Sodium Chloride) 100 mls @ 200 mls/ hr IVPB BID [facility] Last Admin: 01/19/19 11:00 Dose: 200 mls/hr Potassium Chloride (Potassium Chloride 20 Meq Premix Ivpb -) 20 meq IVPB Q60M [facility] Stop: 01/19/19 14:01 - Objective Vital Signs: Vital Signs Temperature 101.2 F H 01/19/19 11:00 Pulse Rate 105 H 01/19/19 11:00 Respiratory Rate 20 01/19/19 12:20 Blood Pressure 167/52 L 01/19/19 11:00 O2 Sat by Pulse Oximetry (%) 96 01/19/19 08:30 Constitutional: Yes: Calm HENT: Yes: Atraumatic Cardiovascular: Yes: S1, S2 Respiratory: Yes: Intubated, Mechanically Ventilated Gastrointestinal: Yes: Soft Genitourinary: Yes: Chambers Present Musculoskeletal: Yes: Muscle Weakness Edema: Yes Edema: LUE: Trace, RUE: Trace Neurological: Yes: Lethargy Labs: CBC, BMP 01/19/19 05:10 01/19/19 05:10 INR, PTT INR 1.08 (0.83-1.09) 01/13/19 05:15 - ....Imaging Chest X-ray: Report Reviewed Problem List - Problems (1) PRACHI (acute kidney injury) Code(s): N17.9 - ACUTE KIDNEY FAILURE, UNSPECIFIED (2) CHF (congestive heart failure) Code(s): I50.9 - HEART FAILURE, UNSPECIFIED Qualifiers: Qualified Code(s): I50.9 - Heart failure, unspecified (3) HTN (hypertension) Code(s): I10 - ESSENTIAL (PRIMARY) HYPERTENSION Assessment/Plan Current Medications Generic Name Dose Route Start Last Admin Trade Name Freq PRN Reason Stop Dose Admin Artificial Tears 1 applic 01/13/19 22:00 01/18/19 21:10 Artificial Tears Ointment - OU 1 applic HS [facility] Administration Artificial Tears 1 drop 01/13/19 10:00 01/19/19 09:07 Artificial Tears OU 1 drop BID [facility] Administration Aspirin 300 mg 01/13/19 15:45 01/19/19 09:07 Asa - AR 300 mg DAILY [facility] Administration Chlorhexidine Gluconate 1 applic 01/13/19 22:00 01/19/19 01:55 Hibiclens For Decolonization - TP 1 applic HS [facility] Administration Chlorhexidine Gluconate 15 ml 01/14/19 22:00 01/19/19 09:07 Peridex - MM 15 ml BID [facility] Administration Dextrose/Sodium Chloride 1,000 mls @ 75 mls/hr 01/17/19 13:00 01/18/19 19:11 D5-1/2ns - IV Not Given ASDIR [facility] Ampicillin Sodium/Sulbactam 100 mls @ 200 mls/hr 01/18/19 22:00 01/19/19 11: 00 Sodium 3 gm/ Sodium Chloride IVPB 200 mls/hr BID [facility] Administration Potassium Chloride 20 meq 01/19/19 13:00 Potassium Chloride 20 Meq Premix Ivpb - IVPB 01/19/19 14:01 Q60M [facility] Impression 1. PRACHI 2. cardiac arrest 3. hx chf 4. hx htn 5. resp failure requiring intubation 6. hypernatremia Plan - can stop fluids - add free water to feeds - monitor renal function and lytes - monitor urine output - behaviorist is starting to improve - PRACHI likely from ATN - cont supportive care -
--- NOTE | 2019-01-19 13:22 | PN ---
Teaching Attending Note Name of Resident: Walter Vicente ATTENDING PHYSICIAN STATEMENT I saw and evaluated the patient. I reviewed the resident's note and discussed the case with the resident. I agree with the resident's findings and plan as documented. SUBJECTIVE: Pt seen and examined in the ICU. Family wishes for extended care. No improvement in neuro exam. OBJECTIVE: Vital Signs Period Temp Pulse Resp BP Sys/Estrada Pulse Ox Last 24 Hr 100.5 F-101.2 F 78-116 17-26 91-178/52-105 96-99 Intake & Output 01/16/19 01/17/19 01/18/19 01/19/19 23:59 23:59 23:59 23:59 Intake Total 3225.5 3059 2360 625 Output Total 1950 2700 1400 400 Balance 1275.5 359 960 225 Weight 103.192 kg 102.6 kg 101.741 kg 100.924 kg Gen: intubated, unresponsive Heart: RRR Lung: scattered rhonchi Abd: soft, nontender Ext: no edema CBC, BMP 01/19/19 05:10 01/19/19 05:10 Active Medications Artificial Tears (Artificial Tears Ointment -) 1 applic OU HS [facility] Last Admin: 01/18/19 21:10 Dose: 1 applic Artificial Tears (Artificial Tears) 1 drop OU BID [facility] Last Admin: 01/19/19 09:07 Dose: 1 drop Aspirin (Asa -) 300 mg [place] DAILY [facility] Last Admin: 01/19/19 09:07 Dose: 300 mg Chlorhexidine Gluconate (Hibiclens For Decolonization -) 1 applic TP HS [facility] Last Admin: 01/19/19 01:55 Dose: 1 applic Chlorhexidine Gluconate (Peridex -) 15 ml MM BID [facility] Last Admin: 01/19/19 09:07 Dose: 15 ml Ampicillin Sodium/Sulbactam (Sodium 3 gm/ Sodium Chloride) 100 mls @ 200 mls/ hr IVPB BID [facility] Last Admin: 01/19/19 11:00 Dose: 200 mls/hr Potassium Chloride (Potassium Chloride 20 Meq Premix Ivpb -) 20 meq IVPB Q60M [facility] Stop: 01/19/19 14:01 ASSESSMENT AND PLAN: s/p Cardiopulmonary Arrest Ventricular Fibrillation Anoxic Brain Injury CAD/+Troponins/Acute NSTEMI LV Systolic Dysfunction Lactic Acidosis Acute Kidney Injury Elevated LFTs likely Ischemic Injury HTN Hyperlipidemia - continue antibiotics - f/u cultures - monitor urine output, creatinine - hold sedatives to assess mental status - neuro checks - not a candidate for weaning at this time due to mental status - for trach tomorrow - will need PEG placement - continue discussions regarding goals of care, advanced directives - DVT/GI prophylaxis - poor overall prognosis for meaningful recovery critical care time spent in reviewing chart, evaluating patient and formulating plan 35 min
[2019-01-19] MEDS: POTASSIUM CHLORIDE 20 MEQ PREMIX IVPB 100 ML IVPB SCH ×2 (13:42→14:56)
[2019-01-19] MEDS: HEPARIN NA (PORCINE) 5,000 UNITS/ML 1ML VIAL SQ SCH ×2 (13:43→21:29)
--- NOTE | 2019-01-19 14:21 | SPA.PREOP ---
- PRE-OP NOTE Dx: s/p Cardiopulmonary Arrest with Anoxic Brain Injury. Currently intubated on vent. Planned Procedure: Bedside tracheostomy Surgeon: Britta Last Vital Signs Temp Pulse Resp BP Pulse Ox 101.2 F H 105 H 20 167/52 L 96 01/19/19 11:00 01/19/19 11:00 01/19/19 12:20 01/19/19 11:00 01/19/19 08:30 Lab Results WBC 12.3 K/mm3 (4.0-10.0) H 01/19/19 05:10 RBC 3.69 M/mm3 (4.00-5.60) L 01/19/19 05:10 Hgb 10.9 GM/dL (11.7-16.9) L 01/19/19 05:10 Hct 33.3 % (35.4-49) L 01/19/19 05:10 MCV 90.3 fl (80-96) 01/19/19 05:10 MCHC 32.9 g/dl (32.0-35.9) 01/19/19 05:10 RDW 15.5 % (11.9-15.9) 01/19/19 05:10 Plt Count 185 K/MM3 (134-434) D 01/19/19 05:10 Sodium 147 mmol/L (136-145) H 01/19/19 05:10 Potassium 3.9 mmol/L (3.5-5.1) 01/19/19 05:10 Chloride 116 mmol/L (98-107) H 01/19/19 05:10 Carbon Dioxide 24 mmol/L (21-32) 01/19/19 05:10 Anion Gap 7 MMOL/L (8-16) L 01/19/19 05:10 BUN 46.5 mg/dL (7-18) H 01/19/19 05:10 Creatinine 4.5 mg/dL (0.55-1.3) H 01/19/19 05:10 Random Glucose 126 mg/dL (74-106) H 01/19/19 05:10 Calcium 8.6 mg/dL (8.5-10.1) 01/19/19 05:10 INR 1.08 (0.83-1.09) 01/13/19 05:15 Problem List - Problems (1) Brain anoxic injury Assessment/Plan: Evaluation and plan including snf patient goals were discussed with Dr Callejas and ICU attending. Plan for bedside trach tomorrow afternoon in ICU. 1. Make NPO after midnight 2. GI/DVT PPX 3. Medical optimization / clearance 4. Consent to be obtained by ICU attending after risks, benefits and alternatives discussed with patient and or Health Care Proxy. Code(s): G93.1 - ANOXIC BRAIN DAMAGE, NOT ELSEWHERE CLASSIFIED
--- NOTE | 2019-01-19 14:46 | PN ---
Physical Exam: SUBJECTIVE: Patient seen and examined at bedside. Patient intubated. OBJECTIVE: GEN: INTUBATED CARD: S1/S2, RRR, NO MRG RESP: CTAB ABD: SOFT Vital Signs Period Temp Pulse Resp BP Sys/Estrada Pulse Ox Last 24 Hr 100.6 F-101.2 F 78-116 18-26 91-178/52-105 96-99 Laboratory Results - last 24 hr 01/18/19 01/19/19 01/19/19 17:00 05:10 05:10 WBC 12.3 H RBC 3.69 L Hgb 10.9 L Hct 33.3 L MCV 90.3 MCH 29.7 MCHC 32.9 RDW 15.5 Plt Count 185 D MPV 8.6 Absolute Neuts (auto) 10.3 H Neutrophils % 84.2 H Lymphocytes % 5.9 L D Monocytes % 9.4 Eosinophils % 0.3 Basophils % 0.2 Nucleated RBC % 0 Sodium Potassium Chloride Carbon Dioxide Anion Gap BUN Creatinine Est GFR (CKD-EPI)AfAm Est GFR (CKD-EPI)NonAf POC Glucometer 107 Random Glucose Calcium Phosphorus Magnesium Total Bilirubin AST ALT Alkaline Phosphatase Total Protein Albumin Random Vancomycin 11.4 L 01/19/19 01/19/19 05:10 05:42 WBC RBC Hgb Hct MCV MCH MCHC RDW Plt Count MPV Absolute Neuts (auto) Neutrophils % Lymphocytes % Monocytes % Eosinophils % Basophils % Nucleated RBC % Sodium 147 H Potassium 3.9 Chloride 116 H Carbon Dioxide 24 Anion Gap 7 L BUN 46.5 H Creatinine 4.5 H Est GFR (CKD-EPI)AfAm 14.69 Est GFR (CKD-EPI)NonAf 12.67 POC Glucometer 123 Random Glucose 126 H Calcium 8.6 Phosphorus 3.3 Magnesium 2.4 Total Bilirubin 0.5 AST 72 H ALT 49 Alkaline Phosphatase 79 Total Protein 5.6 L Albumin 2.1 L Random Vancomycin Active Medications Generic Name Dose Route Start Last Admin Trade Name Freq PRN Reason Stop Dose Admin Artificial Tears 1 applic 01/13/19 22:00 01/18/19 21:10 Artificial Tears Ointment - OU 1 applic HS HALEIGH Administration Artificial Tears 1 drop 01/13/19 10:00 01/19/19 09:07 Artificial Tears OU 1 drop BID HALEIGH Administration Aspirin 300 mg 01/13/19 15:45 01/19/19 09:07 Asa - ID 300 mg DAILY HALEIGH Administration Chlorhexidine Gluconate 1 applic 01/13/19 22:00 01/19/19 01:55 Hibiclens For Decolonization - TP 1 applic HS HALEIGH Administration Chlorhexidine Gluconate 15 ml 01/14/19 22:00 01/19/19 09:07 Peridex - MM 15 ml BID HALEIGH Administration Heparin Sodium (Porcine) 5,000 unit 01/19/19 13:30 01/19/19 13:43 Heparin - SQ 5,000 unit BID HALEIGH Administration Ampicillin Sodium/Sulbactam 100 mls @ 200 mls/hr 01/18/19 22:00 01/19/19 11: 00 Sodium 3 gm/ Sodium Chloride IVPB 200 mls/hr BID HALEIGH Administration ASSESSMENT/PLAN: 68M PMH HTN, CHF, CVA 2013, [place] s/p stent admitted to ICU s/p cardiac arrest w/ cardiac arrhythmia 2/2 cardiomegaly vs asphyxiation. Pt s/p targeted temp management. Neuro - Intubated, anoxic brain injury, persistent vegatative state - pt is off sedation. poor neurologic function - Tylenol for fever PRN - Patient likely to have poor outcome given prolonged down time in field - Upon arrival to ICU, has rhythmic movements around mouth concerning for possible seizure vs shivering - severe B/L cerebral dysfunction with minimal brainstem function intact. CV - HTN, CHF, s/p cardiac arrest w/ ROSC, NSTEMI - ECHO 2016 demonstrated EF 37%, EF only mild-mod decreased on prior echo 1 yr ago, currently severe/global 25-30%. - s/p vfib arrest, ~45 minutes down time, amio 300/150, multiple shocks - Post ROSC EKG shows no STEMI - c/w tele monitoring - Trop 0.66 > 22.7 > 32.2 > 22 - stable off pressors - continue to hold BB - Aggressive repletion of K/Mag (to > 4/2) - card recs appreciated - avoid QT prolonging meds - HOLD ASA for 7 days for IR PEG Resp - intubated - s/p intubation in field during cardiac arrest, complicated by aspirate in small bore tube - Bilateral rib fractures on CT consistent with CPR - Infiltrate vs atelectasis in RLL - For bronchoscopy and tracheostomy in afternoon 01/20/19 - NPO after midnight - Hold AM heparin - consent obtained and in chart Endocrine: - TSH elevated in ED, thyroid labs sent, will follow. Low concern for myxedema coma given lack of refractory hypotension and vfib arrest ID: - Concern for aspiration given CT findings - c/w vanc and zosyn ( renal adjustment) - pt still Febrile - BCx positive growing strep agalactaie - ID recs appreciated polymicrobial bacteremia- ?contaminant repeat blood cultures are negative continue vanco by level and unasyn repeat blood cultures GI: - Air distention in stomach likely secondary to bagging in field Nephro: PRACHI 2/2 ATN -continue to monitor -Cr: 1.6->4.5 -no acute indication for TELEPHONE CLERK at this time. - non-oliguric - renal recs appreciated F/E/N - tube feeds as per enrollment services dean recs - free H2O to feeds - DC standing fluids - Monitor lytes, UrO, Cr Lines: -RIJ central line (01/13) Dispo: continue ICU monitoring. LTAC facility set up in progress per primary team. CODE STATUS: Primary team spoke w/ HCP and Family who decided on DNR. HCP would still like trach and peg. discussed case with family by bedside about terminal supervisor goals , Trach, and peg. Visit type - Emergency Visit Emergency Visit: Yes ED Registration Date: 01/12/19 Care time: The patient presented to the Emergency Department on the above date and was hospitalized for further evaluation of their emergent condition. - New Patient This patient is new to me today: No - Critical Care Critical Care patient: Yes Total Critical Care Time (in minutes): 35 Critical Care Statement: The care of this patient involved high complexity decision making to prevent further life threatening deterioration of the patient 's condition and/or to evaluate & treat vital organ system(s) failure or risk of failure.
--- NOTE | 2019-01-19 15:23 | PN ---
<Carlos Enrique Olsen - Last Filed: 01/19/19 15:16> Physical Exam: SUBJECTIVE: Patient seen and examined at bedside. No change. Family reports they have decided that they want the patient to be DNR. Requested paperwork to fill. OBJECTIVE: Vital Signs Period Temp Pulse Resp BP Sys/Estrada Pulse Ox Last 24 Hr 100.6 F-101.2 F 78-116 18-26 91-178/52-105 96-99 Gen: Intubated unresponsive. Twitching movements noted. some vent dyssynchrony HEENT: NCAT Neck: no jvd Cardio: rrr, normal s1s2, no mrg noted Pulm: limited exam. clear b/l Abd: soft, nondistended Laboratory Results - last 24 hr 01/18/19 01/19/19 01/19/19 17:00 05:10 05:10 WBC 12.3 H RBC 3.69 L Hgb 10.9 L Hct 33.3 L MCV 90.3 MCH 29.7 MCHC 32.9 RDW 15.5 Plt Count 185 D MPV 8.6 Absolute Neuts (auto) 10.3 H Neutrophils % 84.2 H Lymphocytes % 5.9 L D Monocytes % 9.4 Eosinophils % 0.3 Basophils % 0.2 Nucleated RBC % 0 Sodium Potassium Chloride Carbon Dioxide Anion Gap BUN Creatinine Est GFR (CKD-EPI)AfAm Est GFR (CKD-EPI)NonAf POC Glucometer 107 Random Glucose Calcium Phosphorus Magnesium Total Bilirubin AST ALT Alkaline Phosphatase Total Protein Albumin Random Vancomycin 11.4 L 01/19/19 01/19/19 05:10 05:42 WBC RBC Hgb Hct MCV MCH MCHC RDW Plt Count MPV Absolute Neuts (auto) Neutrophils % Lymphocytes % Monocytes % Eosinophils % Basophils % Nucleated RBC % Sodium 147 H Potassium 3.9 Chloride 116 H Carbon Dioxide 24 Anion Gap 7 L BUN 46.5 H Creatinine 4.5 H Est GFR (CKD-EPI)AfAm 14.69 Est GFR (CKD-EPI)NonAf 12.67 POC Glucometer 123 Random Glucose 126 H Calcium 8.6 Phosphorus 3.3 Magnesium 2.4 Total Bilirubin 0.5 AST 72 H ALT 49 Alkaline Phosphatase 79 Total Protein 5.6 L Albumin 2.1 L Random Vancomycin Active Medications Generic Name Dose Route Start Last Admin Trade Name Freq PRN Reason Stop Dose Admin Acetaminophen 1,000 mg 01/19/19 14:58 Ofirmev Injection - IVPB 01/21/19 23:59 Q6H PRN FEVER Artificial Tears 1 applic 01/13/19 22:00 01/18/19 21:10 Artificial Tears Ointment - OU 1 applic HS HALEIGH Administration Artificial Tears 1 drop 01/13/19 10:00 01/19/19 09:07 Artificial Tears OU 1 drop BID [facility]IGH Administration Aspirin 300 mg 01/13/19 15:45 01/19/19 09:07 Asa - [place] 300 mg DAILY HALEIGH Administration Chlorhexidine Gluconate 1 applic 01/13/19 22:00 01/19/19 01:55 Hibiclens For Decolonization - TP 1 applic HS HALEIGH Administration Chlorhexidine Gluconate 15 ml 01/14/19 22:00 01/19/19 09:07 Peridex - MM 15 ml BID HALEIGH Administration Heparin Sodium (Porcine) 5,000 unit 01/19/19 13:30 01/19/19 13:43 Heparin - SQ 5,000 unit BID HALEIGH Administration Ampicillin Sodium/Sulbactam 100 mls @ 200 mls/hr 01/18/19 22:00 01/19/19 11: 00 Sodium 3 gm/ Sodium Chloride IVPB 200 mls/hr BID HALEIGH Administration ASSESSMENT/PLAN: 68 year old male with a past medical history of hypertension, diabetes, congestive heart failure (EF 37% in 2016, noted improvement in 2018) who presented to the ED after having cardiac arrest in the field. #S/P cardiac arrest - continuous cardiac monitoring - cooling protocol completed - troponin peaked - continue antibiotics in setting of elevated temperature for possible infectious cause: BCx and Sputum Cx positive multiple organisms - cardiology consultation: no plan to cath at this time - holding sedation: Pt does not appear to be waking up - monitor for anoxic brain injury, CT suggestive of brain injury, exhibiting potential signs of post-hypoxic myoclonus -Will need to discuss goals of care with family: current plan is for DNR and transfer to LTAC with trach tube (for tomorrow) and PEG later this week -No indication for AC at this time -d/w ICU team and cario #Elevated lactic acid: resolved - likely in setting of hypoperfusion during cardiac arrest - continue IV fluids - improved #PRACHI - likely in setting of hypoperfusion during cardiac arrest - baseline CRE 1.1 - continue IV fluids - stabilized #Elevated LFTs - likely in setting of hypoperfusion during cardiac arrest - continue IV fluids - resolving at this time #Elevated TSH - no history of thyroid disease - TSH wnl at this time Visit type - Emergency Visit Emergency Visit: No - New Patient This patient is new to me today: No - Critical Care Critical Care patient: Yes Total Critical Care Time (in minutes): 30 Critical Care Statement: The care of this patient involved high complexity decision making to prevent further life threatening deterioration of the patient 's condition and/or to evaluate & treat vital organ system(s) failure or risk of failure. ATTENDING PHYSICIAN STATEMENT I saw and evaluated the patient. I reviewed the resident's note and discussed the case with the resident. I agree with the resident's findings and plan as documented. SUBJECTIVE: OBJECTIVE: ASSESSMENT AND PLAN: <Spencer Solano - Last Filed: 01/22/19 11:04> Physical Exam: Seen and examined; verified all mendez components of history and physical exam. Please see my documentation for further discussion of this case; agree with above aside from as supplemented by myself. ATTENDING PHYSICIAN STATEMENT I saw and evaluated the patient. I reviewed the resident's note and discussed the case with the resident. I agree with the resident's findings and plan as documented. SUBJECTIVE: OBJECTIVE: ASSESSMENT AND PLAN:
[2019-01-19] MEDS ORDERED: LORazepam 2 MG/ML SDV VIAL IVPUSH ONE (16:37)
[2019-01-19] MEDS ORDERED: LORazepam 2 MG/ML SDV VIAL ONE (16:38)
--- NOTE | 2019-01-19 17:24 | PN ---
Teaching Attending Note Name of Resident: Carlos Enrique Olsen ATTENDING PHYSICIAN STATEMENT I saw and evaluated the patient. I reviewed the resident's note and discussed the case with the resident. I agree with the resident's findings and plan as documented. Seen and examined; agree with resident note aside from as documented. Verified all mendez historical and exam features. OBJECTIVE: VS, labs, imaging reviewed NAD, no change in underlying anoxic features, resting in bed RRR s1/2 NT ND +BS NC AT EOMI Not moving ext meaningful, low tone No new ulcers, rashes, etc. Diagnostics reviewed ASSESSMENT AND PLAN: Reviewed problem list-agree with resident documentation. Plan to continue to monitor and elucidate PEG placement He will need his family to decide on the AC for the DVT (would at any rate now also apply to afib). I explained it was a reasonable therapy if there were plans to continue full support. Other option would be IVC filter; will discuss with family and ICU team. Discussed with consulting services Continue to monitor in ICU Defer additional care to pulmonary and critical care team; appreciate the wonderful management of this complex patient. Code status noted
[2019-01-19] MEDS: MINERAL OIL/PETROLATUM,WHITE 3.5 GM TUBE OU SCH (21:29)
[2019-01-19] MEDS: LORazepam 2 MG/ML SDV VIAL IVPUSH PRN (22:58)
[2019-01-19] MEDS ORDERED: LORazepam 2 MG/ML SDV VIAL IVPUSH PRN (23:00)
[2019-01-19] MEDS ORDERED: hydrALAZINE HCL 20 MG/ML VIAL IVPUSH PRN (23:09)
[2019-01-20] MEDS: ACETAMINOPHEN 1000 MG/100 ML VIAL (NON FORMULARY) IVPB PRN (03:23)
[2019-01-20] MEDS: LORazepam 2 MG/ML SDV VIAL IVPUSH PRN ×2 (04:46→10:56)
[2019-01-20] MEDS: ACETAMINOPHEN 1000 MG/100 ML VIAL (NON FORMULARY) IVPB SCH ×4 (05:46→20:54)
[2019-01-20] MEDS ORDERED: PT OWN MED DRAWER 7, Y5N ONE ×3 (09:04→20:45)
[2019-01-20 09:21] LABS: HEMATOCRIT 33.8 % (35.4-49); MCH 29.7 pg (25.7-33.7); MCHC 32.7 g/dl (32.0-35.9); MEAN CELL VOLUME 90.8 fl (80-96); MEAN PLT VOLUME 8.3 fl (7.5-11.1); PLATELET COUNT 240 K/MM3 (134-434); RBC 3.72 M/mm3 (4.00-5.60); RDW 15.8 % (11.9-15.9); WHITE BLOOD COUNT 13.6 K/mm3 (4.0-10.0)
[2019-01-20] MEDS: CHLORHEXIDINE GLUCONATE 0.12% 15ML CUP MM SCH ×2 (09:23→20:59)
[2019-01-20] MEDS: ARTIFICIAL TEARS (POLYVINYL ALCOHOL) OPTH DROPS OU SCH ×2 (09:23→20:59)
[2019-01-20] MEDS: AMPICILLIN NA/SULBACTAM NA 3 GM in SODIUM CHLORIDE 100 ML IVPB SCH ×3 (09:33→21:00)
[2019-01-20 09:52] LABS: CALCIUM 8.7 mg/dL (8.5-10.1); CREATININE 4.5 mg/dL (0.55-1.3); MAGNESIUM 2.5 mg/dL (1.8-2.4); PHOSPHOROUS 3.7 mg/dL (2.5-4.9); POTASSIUM 4.1 mmol/L (3.5-5.1)
[2019-01-20] MEDS ORDERED: DEXTROSE 5%-0.45% SALINE 1,000 ML IV SCH (11:15)
--- NOTE | 2019-01-20 11:38 | PN ---
Progress Note (short form) - Note Progress Note: s: intubated, not on sedation, unresponsive Current Medications Generic Name Dose Route Start Last Admin Trade Name Freq PRN Reason Stop Dose Admin Acetaminophen 1,000 mg 01/20/19 05:30 01/20/19 09:32 Ofirmev Injection - IVPB 01/21/19 05:29 1,000 mg Q6H-IV HALEIGH Administration Artificial Tears 1 applic 01/13/19 22:00 01/19/19 21:29 Artificial Tears Ointment - OU 1 applic HS HALEIGH Administration Artificial Tears 1 drop 01/13/19 10:00 01/20/19 09:23 Artificial Tears OU 1 drop BID H[facility]IGH Administration Aspirin 300 mg 01/13/19 15:45 01/19/19 09:07 Asa - [place] 300 mg DAILY HALEIGH Administration Chlorhexidine Gluconate 1 applic 01/13/19 22:00 01/19/19 21:29 Hibiclens For Decolonization - TP 1 applic HS HALEIGH Administration Chlorhexidine Gluconate 15 ml 01/14/19 22:00 01/20/19 09:23 Peridex - MM 15 ml BID HALEIGH Administration Heparin Sodium (Porcine) 5,000 unit 01/19/19 13:30 01/19/19 21:29 Heparin - SQ 5,000 unit BID HALEIGH Administration Hydralazine HCl 10 mg 01/19/19 23:09 01/19/19 23:15 Apresoline Injection - IVPUSH 10 mg Q6H PRN Administration HYPERTENSION Ampicillin Sodium/Sulbactam 100 mls @ 200 mls/hr 01/18/19 22:00 01/19/19 21: 29 Sodium 3 gm/ Sodium Chloride IVPB 200 mls/hr BID HALEIGH Administration Dextrose/Sodium Chloride 1,000 mls @ 75 mls/hr 01/20/19 11:15 D5-1/2ns - IV ASDIR HALEIGH Levetiracetam 500 mg 01/20/19 11:20 Keppra Injection - IVPB 01/20/19 11:21 ONCE ONE Lorazepam 2 mg 01/19/19 23:07 01/20/19 10:56 Ativan Injection - IVPUSH 2 mg Q6H PRN Administration ANXIETY Vital Signs Temp 99.9 F H 01/20/19 10:00 Pulse 115 H 01/20/19 10:00 Resp 16 01/20/19 10:00 BP 174/83 H 01/20/19 10:00 Pulse Ox 100 01/20/19 08:28 Intake & Output 01/19/19 01/19/19 01/20/19 11:59 23:59 11:59 Intake Total 1359 1350 120 Output Total 1400 1250 100 Balance -41 100 20 Weight 222 lb 8 oz 219 lb 6.4 oz Intake: IV 545 450 20 D5-1/2Ns - 1,000 ml @ 75 525 450 mls/hr IV ASDIR HALEIGH Rx#: [id number] SALINE LOCK 1 10 10 SALINE LOCK 2 10 10 IVPB 400 300 100 Oral 0 0 Tube Feeding 164 440 0 Tube Irrigant 250 160 0 Output: Urine 1400 1250 100 External Catheter 1000 100 Chambers 400 1250 Other: Voiding Method Indwelling Catheter Indwelling Catheter Indwelling Catheter Bowel Movement Yes Yes No # Bowel Movements 1 2 Weight Measurement Method Built in [facility] HENT: Yes: Other (+ ETT) Cardiovascular: Yes: Regular Rate and Rhythm Respiratory: Yes: Other (coarse breath sounds b /l) Gastrointestinal: Yes: Soft Edema: No no jaundice, diaphoresis not agitated Laboratory Last Values WBC 13.6 K/mm3 (4.0-10.0) H 01/20/19 08:58 RBC 3.72 M/mm3 (4.00-5.60) L 01/20/19 08:58 Hgb 11.0 GM/dL (11.7-16.9) L 01/20/19 08:58 Hct 33.8 % (35.4-49) L 01/20/19 08:58 MCV 90.8 fl (80-96) 01/20/19 08:58 MCH 29.7 pg (25.7-33.7) 01/20/19 08:58 MCHC 32.7 g/dl (32.0-35.9) 01/20/19 08:58 RDW 15.8 % (11.9-15.9) 01/20/19 08:58 Plt Count 240 K/MM3 (134-434) D 01/20/19 08:58 MPV 8.3 fl (7.5-11.1) 01/20/19 08:58 Absolute Neuts (auto) 10.3 K/mm3 (1.5-8.0) H 01/19/19 05:10 Neutrophils % 84.2 % (42.8-82.8) H 01/19/19 05:10 Neutrophils % (Manual) 50.0 % (42.8-82.8) 01/12/19 20:48 Band Neutrophils % 3.0 % 01/12/19 20:48 Lymphocytes % 5.9 % (8-40) L D 01/19/19 05:10 Lymphocytes % (Manual) 40.0 % (8-40) 01/12/19 20:48 Monocytes % 9.4 % (3.8-10.2) 01/19/19 05:10 Monocytes % (Manual) 6 % (3.8-10.2) 01/12/19 20:48 Eosinophils % 0.3 % (0-4.5) 01/19/19 05:10 Basophils % 0.2 % (0-2.0) 01/19/19 05:10 Nucleated RBC % 0 % (0-0) 01/19/19 05:10 Platelet Comment Mod plt clumping 01/12/19 20:48 PT with INR 12.80 SEC (9.7-13.0) 01/13/19 05:15 INR 1.08 (0.83-1.09) 01/13/19 05:15 PTT (Actin FS) 29.7 SECONDS (25.2-36.5) 01/13/19 05:15 Anticoagulation Therapy No Result Required. 01/14/19 06:00 Puncture Site Right radial 01/14/19 06:00 ABG pH 7.37 (7.35-7.45) 01/14/19 06:00 ABG pCO2 at Pt Temp 40.0 mmHg (35-45) 01/14/19 06:00 ABG pO2 at Pt Temp 120 mmHg (80-100) H 01/14/19 06:00 ABG HCO3 22.6 mmol/L (22-27) 01/14/19 06:00 ABG O2 Sat (Measured) 98.7 % (95-98) H 01/14/19 06:00 ABG O2 Content 17.0 % vol 01/14/19 06:00 ABG Base Excess -1.9 meq/l (-2-2) 01/14/19 06:00 [facility] Test Positive 01/14/19 06:00 Carboxyhemoglobin Cancelled 01/12/19 21:10 Methemoglobin Cancelled 01/12/19 21:10 O2 Delivery Device Vent 01/14/19 06:00 Oxygen Flow Rate 30 01/14/19 06:00 Vent Mode No Result Required. 01/14/19 06:00 Vent Rate 14 01/14/19 06:00 Mechanical Rate No Result Required. 01/14/19 06:00 PEEP 5.0 cmH2O 01/14/19 06:00 Pressure Support Vent 500 01/14/19 06:00 Sodium 150 mmol/L (136-145) H 01/20/19 08:58 Potassium 4.1 mmol/L (3.5-5.1) 01/20/19 08:58 Chloride 118 mmol/L (98-107) H 01/20/19 08:58 Carbon Dioxide 25 mmol/L (21-32) 01/20/19 08:58 Anion Gap 7 MMOL/L (8-16) L 01/20/19 08:58 BUN 57.0 mg/dL (7-18) H 01/20/19 08:58 Creatinine 4.5 mg/dL (0.55-1.3) H 01/20/19 08:58 Est GFR (CKD-EPI)AfAm 14.69 01/20/19 08:58 Est GFR (CKD-EPI)NonAf 12.67 01/20/19 08:58 POC Glucometer 119 UNITS (80-120) 01/19/19 18:18 Random Glucose 91 mg/dL (74-106) 01/20/19 08:58 Lactic Acid 2.1 mmol/L (0.4-2.0) H 01/13/19 01:50 Calcium 8.7 mg/dL (8.5-10.1) 01/20/19 08:58 Phosphorus 3.7 mg/dL (2.5-4.9) 01/20/19 08:58 Magnesium 2.5 mg/dL (1.8-2.4) H 01/20/19 08:58 Total Bilirubin 0.5 mg/dL (0.2-1) 01/19/19 05:10 AST 72 U/L (15-37) H 01/19/19 05:10 ALT 49 U/L (13-61) 01/19/19 05:10 Alkaline Phosphatase 79 U/L (45-117) 01/19/19 05:10 Creatine Kinase 1511 U/L (26-308) H 01/13/19 05:15 Creatine Kinase Index 3.5 % (0.0-5.0) 01/13/19 05:15 CK-MB (CK-2) 54.3 ng/mL (0.5-3.6) H 01/13/19 05:15 Troponin I 7.63 ng/ml (0.00-0.05) H* 01/14/19 05:00 C-Reactive Protein 7.5 MG/DL (0.00-0.3) H 01/20/19 08:58 B-Natriuretic Peptide 1451.1 pg/ml (5-125) H 01/12/19 20:48 Total Protein 5.6 g/dl (6.4-8.2) L 01/19/19 05:10 Albumin 2.1 g/dl (3.4-5.0) L 01/19/19 05:10 Lipase 123 U/L (73-393) 01/12/19 20:48 TSH 1.88 uIU/ml (0.358-3.74) D 01/13/19 05:15 Free T4 1.01 ng/dl (0.76-1.16) 01/13/19 01:50 Total T3 54.00 ng/dl (71-180) L 01/13/19 01:50 Resin T3 Uptake 38.7 % (33-40) 01/13/19 01:50 Urine Color Yellow 01/13/19 04:50 Urine Appearance Turbid 01/13/19 04:50 Urine pH 5.0 (5.0-8.0) D 01/13/19 04:50 Ur Specific [place] 1.032 (1.010-1.035) 01/13/19 04:50 Urine Protein 2+ (NEGATIVE) H 01/13/19 04:50 Urine Glucose (UA) Trace (NEGATIVE) 01/13/19 04:50 Urine Ketones Negative (NEGATIVE) 01/13/19 04:50 Urine Blood 3+ (NEGATIVE) H 01/13/19 04:50 Urine Nitrite Negative (NEGATIVE) 01/13/19 04:50 Urine Bilirubin Negative (NEGATIVE) 01/13/19 04:50 Urine Urobilinogen 0.2 mg/dL (0.2-1.0) 01/13/19 04:50 Ur Leukocyte Esterase Trace (NEGATIVE) 01/13/19 04:50 Urine WBC (Auto) 163 /hpf (0-5) 01/13/19 04:50 Urine RBC (Auto) 40.9 /hpf (0-4) 01/13/19 04:50 Urine Casts (Auto) 61 /lpf (0-8) 01/13/19 04:50 U Pathogenic Cast Auto none seen /lpf (NEGATIVE) 01/13/19 04:50 U Epithel Cells (Auto) 10.6 /HPF (0-5/HPF) 01/13/19 04:50 Urine Bacteria (Auto) 4.9 /hpf (NEGATIVE) 01/13/19 04:50 Urine Yeast (Auto) none seen (NEGATIVE) 01/13/19 04:50 Random Vancomycin 11.3 ug/ml (18-26) L 01/20/19 08:58 Blood Type A POSITIVE 01/20/19 06:30 Antibody Screen Negative 01/20/19 06:30 Assessment/Plan echo 01/20: severe global LV hypo EF 25-30%. nl RV. mild LAE. mod MR. nl RVSP. cath 07/2015: lhc: normal cors; rhc: mild phtn, pvri mod elevated, pcw/lvedp nl. ECG 01/12: NSR, LVH with nonsp ST-Ts ? sec to LVH--not signif changed vs 2016 prior ECG 01/13: no signif change, prolonged QT (similar to 2016) tele: sinus, PVCs, brief nsvt est cct 35 mins IMP/PLAN: VF arrest:in setting of gram + bacteremia and septic shock, anoxic encephalopathy -EF only mild-mod decreased on prior echo 1 yr ago, currently severe/global 25- 30%. -? arrest triggered by bacteremia (2 of 2 initial cultures positive)/sepsis -cont tele monitoring -holding bb given hypotensive and likely septic shock -doubt acute ischemic etiology given normal cor.s 3 yrs ago--if makes meaningful recover will need repeat isch eval -goals of care discussions per critical care NSTEMI: -trop peaked at 32 -normal cors 2016 -suspect sec to sepsis vs prolonged hypotension from recurrent VF arrest (with contribution from mult electrical defibs) -aspirin daily -hold BB (risks of hypotension in septic shock) SEPTIC SHOCK, gram pos bacteremia: -abx per ID -echo no vegetation seen -now bp remains stable off pressors Prolonged QT: -? related to CMP/LVH--was close to 500 on prior ecg 2016 -similar at present -aggressive repletion of K/Mag (/) -tele monitoring -avoid QT prolonging meds Congestive heart failure, nonischemic CMP -EF severely reduced at time of initial dx 2016--improved signif with med management -present EF severely reduced again, likely in setting sepsis, post arrest PRACHI: -sec to hypoperfusion -as per Critical Care Hypotension: -septic shock currently -hold home meds, off pressors
[2019-01-20] MEDS ORDERED: levETIRAcetam 500 MG/5 ML INJECTION VIAL IVPB ONE ×2 (11:44→11:45)
--- NOTE | 2019-01-20 12:39 | OPR ---
Patient Name: Lee Black MR#: [id number] Procedure Date: 01/20/2019 Preoperative Diagnosis: Respiratory failure. Postoperative Diagnosis: same. Procedure: 1. Bronchoscopy (performed by Dr. Menjivar); 2. Tracheostomy percutaneously placed (Eulalialey #8). Indication: Respiratory failure; Surgeon(s): Joon Callejas MD Cosurgeon: Dr. Menjivar. Director Of Pediatric Rehabilitation Surgeon: meli. Anesthesia: General endotracheal; Findings: Abundant secretions; Specimens Sent: 1. na; Complications: none Drains / Tubes / Catheters: na Hardware / Implants: na Blood / Fluid Losses: minimal Post-Operative Condition: Stable. Indications: This patient is a 68 year-old male s/p cardiac arrest with respiratory failure referred for tracheostomy by Dr. Henriquez and the ICU team. Consent was obtained from the family by the ICU team. Details of Procedure: The procedure was done at the bedside. We began with bronchoscopy to clear the airway for the procedure. This was done by Dr. Menjivar. After this, the neck was prepared and draped in standard fashion. We then made a transverse incision below the cricoid cartilage. We withdrew the endotracheal airway until we were close to the vocal cords. With the incision in place, we inserted the needle from the percutaneous bronchoscopy kit under direct bronchoscopic vision identifying approximately the 2nd to 3rd ring. We then passed a wire under vision. We then dilated up and inserted the tracheostomy. We put the cuff up and connected the ventilator. We placed the bronchoscope through the tracheostomy and then above. There was no active bleeding and the placement was good.
[2019-01-20] MEDS ORDERED: RAPID SEQUENCE INTUBATION KIT NR ONE (13:13)
[2019-01-20] MEDS ORDERED: MIDAZOLAM HCL 5 MG/1 ML Single Dose Vial ONE (13:14)
--- NOTE | 2019-01-20 13:29 | PN ---
Teaching Attending Note Name of Resident: Brooke Astudillo ATTENDING PHYSICIAN STATEMENT I saw and evaluated the patient. I reviewed the resident's note and discussed the case with the resident. I agree with the resident's findings and plan as documented. SUBJECTIVE: Pt seen and examined in the ICU. Remains intubated, unresponsive off sedation. + symmetric eye twitching on exam. OBJECTIVE: Vital Signs Period Temp Pulse Resp BP Sys/Estrada Pulse Ox Last 24 Hr 99.7 F-101.9 F 97-122 15-24 120-180/61-108 94-100 Intake & Output 01/17/19 01/18/19 01/19/19 01/20/19 23:59 23:59 23:59 23:59 Intake Total 3059 2360 2709 120 Output Total 2700 1400 2650 100 Balance 359 960 59 20 Weight 102.6 kg 101.741 kg 100.924 kg 99.518 kg Gen: intubated, unresponsive Heart: RRR Lung: decreased breath sounds at the bases Abd: soft, nontender Ext: no edema CBC, BMP 01/20/19 08:58 01/20/19 08:58 Active Medications Acetaminophen (Ofirmev Injection -) 1,000 mg IVPB Q6H-IV [facility] Stop: 01/21/19 05:29 Last Admin: 01/20/19 09:32 Dose: 1,000 mg Artificial Tears (Artificial Tears Ointment -) 1 applic OU HS [facility] Last Admin: 01/19/19 21:29 Dose: 1 applic Artificial Tears (Artificial Tears) 1 drop OU BID [facility] Last Admin: 01/20/19 09:23 Dose: 1 drop Aspirin (Asa -) 300 mg [place] DAILY [facility] Last Admin: 01/19/19 09:07 Dose: 300 mg Chlorhexidine Gluconate (Hibiclens For Decolonization -) 1 applic TP HS [facility] Last Admin: 01/19/19 21:29 Dose: 1 applic Chlorhexidine Gluconate (Peridex -) 15 ml MM BID [facility] Last Admin: 01/20/19 09:23 Dose: 15 ml Heparin Sodium (Porcine) (Heparin -) 5,000 unit SQ BID [facility] Last Admin: 01/19/19 21:29 Dose: 5,000 unit Hydralazine HCl (Apresoline Injection -) 10 mg IVPUSH Q6H PRN PRN Reason: HYPERTENSION Last Admin: 01/19/19 23:15 Dose: 10 mg Ampicillin Sodium/Sulbactam (Sodium 3 gm/ Sodium Chloride) 100 mls @ 200 mls/ hr IVPB BID [facility] Last Admin: 01/20/19 11:58 Dose: 200 mls/hr Dextrose/Sodium Chloride (D5-1/2ns -) 1,000 mls @ 75 mls/hr IV ASDIR [facility] Last Admin: 01/20/19 11:59 Dose: 75 mls/hr Levetiracetam (Keppra Injection -) 500 mg IVPB BID [facility] Lorazepam (Ativan Injection -) 2 mg IVPUSH Q6H PRN PRN Reason: ANXIETY Last Admin: 01/20/19 10:56 Dose: 2 mg ASSESSMENT AND PLAN: s/p Cardiopulmonary Arrest Ventricular Fibrillation Anoxic Brain Injury CAD/+Troponins/Acute NSTEMI LV Systolic Dysfunction Lactic Acidosis Acute Kidney Injury Elevated LFTs likely Ischemic Injury HTN Hyperlipidemia - continue antibiotics - monitor urine output, creatinine - hold sedatives to assess mental status - neuro checks - start antiepileptics - not a candidate for weaning at this time due to mental status - for trach today - will need PEG placement - continue discussions regarding goals of care, advanced directives - DVT/GI prophylaxis - poor overall prognosis for meaningful recovery critical care time spent in reviewing chart, evaluating patient and formulating plan 35 min
[2019-01-20] MEDS ORDERED: LIDOCAINE HCL 1%, 10 MG/ML (20ML VIAL) ONE (13:31)
[2019-01-20] MEDS ORDERED: LIDOCAINE HCL 1% EPINEPHRINE 1:200,000 30 ML VIAL (PF) ONE (13:31)
[2019-01-20] MEDS ORDERED: MIDAZOLAM HCL 5 MG/1 ML Single Dose Vial IVPUSH ONE (13:33)
[2019-01-20] MEDS ORDERED: ROCURONIUM BROMIDE 50 MG/5 ML VIAL IVPUSH ONE (13:34)
[2019-01-20] MEDS ORDERED: PROPOFOL 200 MG/20 ML VIAL IVPUSH ONE (13:45)
[2019-01-20] MEDS ORDERED: LIDOCAINE 1%/EPI 1:100000 (50 ML MULTI DOSE VIAL) INF ONE (14:49)
[2019-01-20] MEDS ORDERED: VANCOMYCIN 500 MG in DEXTROSE 5%-WATER - 100 ML IVPB ONE (14:57)
--- NOTE | 2019-01-20 14:57 | PROC ---
Procedure Note Procedure: Bronchoscopy Procedure Note Under informed consent and general anesthesia, a bilateral FOB was performed prior to a Percutaneous Trach placement. Bronchoscope inserted via ETT. Copious secretions were aspirated. The ivelisse appeared sharp. The airways were inspected. Copious secretions throughout. No endobronchial lesions or masses. Bronchoscope withdrawan into ETT and remained in position while a Perc Trach was inserted by CTS. No complications noted. Trach seated very well between tracheal rings 3 to 4. STAT CXR ordered. Dr Menjivar
--- NOTE | 2019-01-20 14:59 | PN ---
Progress Note (short form) - Note Progress Note: s/p trach unresponsive remains febrile Vital Signs Period Temp Pulse Resp BP Sys/Estrada Pulse Ox Last 24 Hr 99.7 F-101.9 F 97-115 16-24 120-180/61-96 94-100 cor-rrr lungs decreased bs at bases abd soft,nt +scrotal edema ext no edema CBC, BMP 01/20/19 08:58 01/20/19 08:58 Microbiology 01/19/19 13:00 Blood - Peripheral Venous Blood Culture - Preliminary NO GROWTH OBTAINED AFTER 24 HOURS, INCUBATION TO CONTINUE FOR 4 DAYS. 01/19/19 12:51 Blood - Peripheral Venous Blood Culture - Preliminary NO GROWTH OBTAINED AFTER 24 HOURS, INCUBATION TO CONTINUE FOR 4 DAYS. 01/14/19 16:00 Blood - Peripheral Venous Blood Culture - Final NO GROWTH AFTER 5 DAYS INCUBATION 01/14/19 14:30 Blood - Peripheral Venous Blood Culture - Final NO GROWTH AFTER 5 DAYS INCUBATION 01/14/19 14:30 Sputum - Endotrachea Suction/Ventilator Gram Stain - Final 01/14/19 14:30 Sputum - Endotrachea Suction/Ventilator Sputum Culture - Final Klebsiella Pneumoniae Stenotrophomon.(X.)Maltophilia 01/12/19 20:30 Blood - Peripheral Venous Blood Culture - Final Strep Agalactiae Group B Staphylococcus Haemolyticus Enterococcus Faecalis 01/12/19 20:30 Blood - Peripheral Venous Blood Culture - Final Staphylococcus Haemolyticus 01/13/19 09:00 Urine For Antigen Detection Legionella Antigen - Final 01/13/19 09:00 Urine For Antigen Detection Streptococcus pneumoniae Antigen (M - Final 01/13/19 04:50 Urine - Urine Clean Catch Urine Culture - Final NO GROWTH OBTAINED cxray dense retrocardiac density vanco 11.4 today Microbiology 01/14/19 16:00 Blood - Peripheral Venous Blood Culture - Preliminary NO GROWTH OBTAINED AFTER 96 HOURS, INCUBATION TO CONTINUE FOR 1 DAYS. 01/14/19 14:30 Blood - Peripheral Venous Blood Culture - Preliminary NO GROWTH OBTAINED AFTER 96 HOURS, INCUBATION TO CONTINUE FOR 1 DAYS. 01/14/19 14:30 Sputum - Endotrachea Suction/Ventilator Gram Stain - Final 01/14/19 14:30 Sputum - Endotrachea Suction/Ventilator Sputum Culture - Final Klebsiella Pneumoniae Stenotrophomon.(X.)Maltophilia 01/12/19 20:30 Blood - Peripheral Venous Blood Culture - Final Strep Agalactiae Group B Staphylococcus Haemolyticus Enterococcus Faecalis 01/12/19 20:30 Blood - Peripheral Venous Blood Culture - Final Staphylococcus Haemolyticus 01/13/19 09:00 Urine For Antigen Detection Legionella Antigen - Final 01/13/19 09:00 Urine For Antigen Detection Streptococcus pneumoniae Antigen (M - Final 01/13/19 04:50 Urine - Urine Clean Catch Urine Culture - Final NO GROWTH OBTAINED duplex LLE DVT a/p s/p cardiac arrest persistent fevers- LLE DVT-AC per primary team polymicrobial bacteremia- ?contaminant repeat blood cultures are negative continue vanco by level and unasyn repeat blood cultures anoxia PRACHI-persists overall prognosis is poor
--- NOTE | 2019-01-20 15:49 | PN ---
Physical Exam: SUBJECTIVE: Patient seen and examined at bedside. pt is on vent. pt is unresponsive OBJECTIVE: Vital Signs Period Temp Pulse Resp BP Sys/Estrada Pulse Ox Last 24 Hr 99.7 F-101.9 F 97-115 16-24 120-180/61-96 94-100 GENERAL: The patient is unresponsive LUNGS:vent sounds b/l HEART: Regular rate and rhythm, S1, S2 without murmur, rub or gallop. ABDOMEN: Soft, nontender, nondistended, normoactive bowel sounds, no guarding, no rebound, no hepatosplenomegaly, no masses. EXTREMITIES: 2+ pulses, warm, well-perfused, no edema. SKIN: Warm, dry, normal turgor, no rashes or lesions noted Laboratory Results 01/20/19 01/20/19 01/20/19 08:58 08:58 08:58 WBC 13.6 H RBC 3.72 L Hgb 11.0 L Hct 33.8 L MCV 90.8 MCH 29.7 MCHC 32.7 RDW 15.8 Plt Count 240 D MPV 8.3 ESR 81 H Sodium 150 H Potassium 4.1 Chloride 118 H Carbon Dioxide 25 Anion Gap 7 L BUN 57.0 H Creatinine 4.5 H Est GFR (CKD-EPI)AfAm 14.69 Est GFR (CKD-EPI)NonAf 12.67 POC Glucometer Random Glucose 91 Calcium 8.7 Phosphorus 3.7 Magnesium 2.5 H C-Reactive Protein 7.5 H Random Vancomycin Blood Type Antibody Screen Current Medications Acetaminophen (Ofirmev Injection -) 1,000 mg IVPB Q6H-IV [facility] Stop: 01/21/19 05:29 Last Admin: 01/20/19 15:22 Dose: 1,000 mg Artificial Tears (Artificial Tears Ointment -) 1 applic OU HS [facility] Last Admin: 01/19/19 21:29 Dose: 1 applic Artificial Tears (Artificial Tears) 1 drop OU BID [facility] Last Admin: 01/20/19 09:23 Dose: 1 drop Aspirin (Asa -) 300 mg [place] DAILY [facility] Last Admin: 01/19/19 09:07 Dose: 300 mg Chlorhexidine Gluconate (Hibiclens For Decolonization -) 1 applic TP HS [facility] Last Admin: 01/19/19 21:29 Dose: 1 applic Chlorhexidine Gluconate (Peridex -) 15 ml MM BID [facility] Last Admin: 01/20/19 09:23 Dose: 15 ml Heparin Sodium (Porcine) (Heparin -) 5,000 unit SQ BID [facility] Last Admin: 01/19/19 21:29 Dose: 5,000 unit Hydralazine HCl (Apresoline Injection -) 10 mg IVPUSH Q6H PRN PRN Reason: HYPERTENSION Last Admin: 01/19/19 23:15 Dose: 10 mg Ampicillin Sodium/Sulbactam (Sodium 3 gm/ Sodium Chloride) 100 mls @ 200 mls/ hr IVPB BID [facility] Last Admin: 01/20/19 11:58 Dose: 200 mls/hr Dextrose/Sodium Chloride (D5-1/2ns -) 1,000 mls @ 75 mls/hr IV ASDIR [facility] Last Admin: 01/20/19 11:59 Dose: 75 mls/hr Vancomycin HCl 500 mg/ (Dextrose) 100 mls @ 100 mls/hr IVPB ONCE ONE; Protocol Stop: 01/20/19 15:56 Levetiracetam (Keppra Injection -) 500 mg IVPB BID [facility] Lorazepam (Ativan Injection -) 2 mg IVPUSH Q6H PRN PRN Reason: ANXIETY Last Admin: 01/20/19 10:56 Dose: 2 mg ASSESSMENT/PLAN: 68M PMH HTN, CHF, CVA 2013, [place] s/p stent admitted to ICU s/p cardiac arrest w/ cardiac arrhythmia 2/2 cardiomegaly vs asphyxiation. Pt s/p targeted temp management. Neuro - Intubated, anoxic brain injury, persistent vegatative state - pt is off sedation. poor neurologic function - Tylenol for fever PRN - Patient likely to have poor outcome given prolonged down time in field - Upon arrival to ICU, has rhythmic movements around mouth concerning for possible seizure vs shivering - severe B/L cerebral dysfunction with minimal brainstem function intact. CV - HTN, CHF, s/p cardiac arrest w/ ROSC, NSTEMI - ECHO 2015 demonstrated EF 37%, EF only mild-mod decreased on prior echo 1 yr ago, currently severe/global 25-30%. - s/p vfib arrest, ~45 minutes down time, amio 300/150, multiple shocks - Post ROSC EKG shows no STEMI - c/w tele monitoring - Trop 0.66 > 22.7 > 32.2 > 22 - stable off pressors - continue to hold BB - Aggressive repletion of K/Mag (to > 4/2) - card recs appreciated - avoid QT prolonging meds - HOLD ASA for 7 days for IR PEG -LE Doppler:There is no evidence of deep venous on boluses in the right lower extremity. Left lower extremity deep venous thromboses involving the common femoral vein. There is also thromboses involving the left lesser saphenous vein. --risks and benefits of A/C discussed with family. Resp: trach to vent - Bilateral rib fractures on CT consistent with CPR - bronchoscopy and tracheostomy today. Endocrine: - TSH elevated in ED, thyroid labs sent, will follow. Low concern for myxedema coma given lack of refractory hypotension and vfib arrest ID: - Concern for aspiration given CT findings - pt still Febrile--> DVT is possible source - BCx positive growing strep agalactaie - ID recs appreciated -polymicrobial bacteremia- ?contaminant -repeat blood cultures are negative -continue vanco by level and unasyn Nephro: PRACHI 2/2 ATN -continue to monitor -Cr: 1.6->4.5 -no acute indication for CORPORATE RECEPTIONIST at this time. - non-oliguric - renal recs appreciated F/E/N - tube feeds as per inspector material disposition recs - free H2O to feeds - Monitor lytes, UrO, Cr Dispo: continue ICU monitoring. LTAC facility set up in progress per primary team. CODE STATUS: Primary team spoke w/ HCP and Family who decided on DNR. HCP would still like trach and peg. Visit type - Emergency Visit Emergency Visit: No - New Patient This patient is new to me today: No - Critical Care Critical Care patient: Yes Total Critical Care Time (in minutes): 36 Critical Care Statement: The care of this patient involved high complexity decision making to prevent further life threatening deterioration of the patient 's condition and/or to evaluate & treat vital organ system(s) failure or risk of failure. ATTENDING PHYSICIAN STATEMENT I saw and evaluated the patient. I reviewed the resident's note and discussed the case with the resident. I agree with the resident's findings and plan as documented. SUBJECTIVE: OBJECTIVE: ASSESSMENT AND PLAN:
--- NOTE | 2019-01-20 16:36 | PN ---
Progress Note, Physician History of Present Illness: Pt seen and examined at bedside. He had a tracheostomy today. - Current Medication List Current Medications: Active Medications Acetaminophen (Ofirmev Injection -) 1,000 mg IVPB Q6H-IV [facility] Stop: 01/21/19 05:29 Last Admin: 01/20/19 15:22 Dose: 1,000 mg Artificial Tears (Artificial Tears Ointment -) 1 applic OU HS [facility] Last Admin: 01/19/19 21:29 Dose: 1 applic Artificial Tears (Artificial Tears) 1 drop OU BID [facility] Last Admin: 01/20/19 09:23 Dose: 1 drop Aspirin (Asa -) 300 mg [place] DAILY [facility] Last Admin: 01/19/19 09:07 Dose: 300 mg Chlorhexidine Gluconate (Hibiclens For Decolonization -) 1 applic TP HS [facility] Last Admin: 01/19/19 21:29 Dose: 1 applic Chlorhexidine Gluconate (Peridex -) 15 ml MM BID [facility] Last Admin: 01/20/19 09:23 Dose: 15 ml Heparin Sodium (Porcine) (Heparin -) 5,000 unit SQ BID [facility] Last Admin: 01/19/19 21:29 Dose: 5,000 unit Hydralazine HCl (Apresoline Injection -) 10 mg IVPUSH Q6H PRN PRN Reason: HYPERTENSION Last Admin: 01/19/19 23:15 Dose: 10 mg Ampicillin Sodium/Sulbactam (Sodium 3 gm/ Sodium Chloride) 100 mls @ 200 mls/ hr IVPB BID [facility] Last Admin: 01/20/19 11:58 Dose: 200 mls/hr Dextrose/Sodium Chloride (D5-1/2ns -) 1,000 mls @ 75 mls/hr IV ASDIR [facility] Last Admin: 01/20/19 11:59 Dose: 75 mls/hr Levetiracetam (Keppra Injection -) 500 mg IVPB BID [facility] Lorazepam (Ativan Injection -) 2 mg IVPUSH Q6H PRN PRN Reason: ANXIETY Last Admin: 01/20/19 10:56 Dose: 2 mg - Objective Vital Signs: Vital Signs Temperature 100 F H 01/20/19 13:37 Pulse Rate 112 H 01/20/19 13:37 Respiratory Rate 17 01/20/19 12:17 Blood Pressure 151/70 01/20/19 13:37 O2 Sat by Pulse Oximetry (%) 100 01/20/19 08:28 Constitutional: Yes: Calm Eyes: Yes: Conjunctiva Clear HENT: Yes: Atraumatic Neck: Yes: Other (trache) Cardiovascular: Yes: S1, S2 Respiratory: Yes: Mechanically Ventilated Gastrointestinal: Yes: Soft Genitourinary: Yes: Chambers Present Musculoskeletal: Yes: Muscle Weakness Edema: Yes Edema: LUE: Trace, RUE: Trace Neurological: Yes: Lethargy Labs: CBC, BMP 01/20/19 08:58 01/20/19 08:58 INR, PTT INR 1.08 (0.83-1.09) 01/13/19 05:15 - ....Imaging Chest X-ray: Report Reviewed Problem List - Problems (1) PRACHI (acute kidney injury) Code(s): N17.9 - ACUTE KIDNEY FAILURE, UNSPECIFIED (2) CHF (congestive heart failure) Code(s): I50.9 - HEART FAILURE, UNSPECIFIED Qualifiers: Qualified Code(s): I50.9 - Heart failure, unspecified (3) HTN (hypertension) Code(s): I10 - ESSENTIAL (PRIMARY) HYPERTENSION Assessment/Plan Current Medications Generic Name Dose Route Start Last Admin Trade Name Freq PRN Reason Stop Dose Admin Acetaminophen 1,000 mg 01/20/19 05:30 01/20/19 15:22 Ofirmev Injection - IVPB 01/21/19 05:29 1,000 mg Q6H-IV [facility] Administration Artificial Tears 1 applic 01/13/19 22:00 01/19/19 21:29 Artificial Tears Ointment - OU 1 applic HS [facility] Administration Artificial Tears 1 drop 01/13/19 10:00 01/20/19 09:23 Artificial Tears OU 1 drop BID [facility] Administration Aspirin 300 mg 01/13/19 15:45 01/19/19 09:07 Asa - GA 300 mg DAILY [facility] Administration Chlorhexidine Gluconate 1 applic 01/13/19 22:00 01/19/19 21:29 Hibiclens For Decolonization - TP 1 applic HS [facility] Administration Chlorhexidine Gluconate 15 ml 01/14/19 22:00 01/20/19 09:23 Peridex - MM 15 ml BID [facility] Administration Heparin Sodium (Porcine) 5,000 unit 01/19/19 13:30 01/19/19 21:29 Heparin - SQ 5,000 unit BID [facility] Administration Hydralazine HCl 10 mg 01/19/19 23:09 01/19/19 23:15 Apresoline Injection - IVPUSH 10 mg Q6H PRN Administration HYPERTENSION Ampicillin Sodium/Sulbactam 100 mls @ 200 mls/hr 01/18/19 22:00 01/20/19 11: 58 Sodium 3 gm/ Sodium Chloride IVPB 200 mls/hr BID [facility] Administration Dextrose/Sodium Chloride 1,000 mls @ 75 mls/hr 01/20/19 11:15 01/20/19 11:59 D5-1/2ns - IV 75 mls/hr ASDIR [facility] Administration Levetiracetam 500 mg 01/20/19 22:00 Keppra Injection - IVPB BID [facility] Lorazepam 2 mg 01/19/19 23:07 01/20/19 10:56 Ativan Injection - IVPUSH 2 mg Q6H PRN Administration ANXIETY Impression 1. PRACHI 2. cardiac arrest 3. hx chf 4. hx htn 5. resp failure requiring intubation 6. 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
[2019-01-20] MEDS ORDERED: DEXTROSE 5%-WATER - 1,000 ML IV SCH (16:45)
[2019-01-20] MEDS ORDERED: HEPARIN NA (PORCINE) 5,000 UNITS/ML 1ML VIAL IVPUSH PRN ×2 (16:52→16:57)
--- NOTE | 2019-01-20 17:00 | PN ---
Teaching Attending Note Name of Resident: Carlos Enrique Olsen ATTENDING PHYSICIAN STATEMENT I saw and evaluated the patient. I reviewed the resident's note and discussed the case with the resident. I agree with the resident's findings and plan as documented. Seen and examined; spoke with ID regarding overall care. Reviewed LE US which shows a DVT of the femoral vein. He is getting trach today. Discussed with family and they are considering the risks vs. benefits of anticoagulation in such a circumstance given the upcoming procedures and overall clinical scenario. Yesterday per discussion with consulting services AC for the underlying afib was not indicated. He remains afebrile and hemodynaically stable. Pending PEG tube. As he was on ASA there is a delay with having the procedure done. Couldn't obtain ROS due to underlying clinical condition. VS, labs, imaging reviewed NAD, AAO, resting in bed on vent being prepped for tracheostomy Vent assoc. breath sounds NT ND +BS Trachea midline, no goiters, etc. ASSESSMENT AND PLAN: Plan to continue to monitor in ICU and elucidate PEG placement He will need his family to decide on the AC for the DVT (would at any rate now also apply to afib). I explained it was a reasonable therapy if there were plans to continue full support. Other option would be IVC filter; will discuss with family and ICU team. Discussed with consulting services Continue to monitor in ICU Defer additional care to pulmonary and critical care team; appreciate the wonderful management of this complex patient.
[2019-01-20] MEDS: HEPARIN INFUSION - 25,000 UNITS/500 ML INFUS.BAG IVPB SCH (18:00)
--- NOTE | 2019-01-20 18:20 | PN ---
<Carlos Enrique Olsen - Last Filed: 01/20/19 18:17> Physical Exam: SUBJECTIVE: Patient seen and examined at bedside. OBJECTIVE: Vital Signs Period Temp Pulse Resp BP Sys/Estrada Pulse Ox Last 24 Hr 99.7 F-101.9 F 97-115 14-24 120-180/61-96 94-100 Gen: Intubated unresponsive. Twitching movements noted. HEENT: NCAT Neck: no jvd Cardio: rrr, normal s1s2, no mrg noted Pulm: limited exam. clear b/l Abd: soft, nondistended Laboratory Results - last 24 hr 01/19/19 01/20/19 01/20/19 18:18 06:30 08:58 WBC RBC Hgb Hct MCV MCH MCHC RDW Plt Count MPV ESR Sodium Potassium Chloride Carbon Dioxide Anion Gap BUN Creatinine Est GFR (CKD-EPI)AfAm Est GFR (CKD-EPI)NonAf POC Glucometer 119 Random Glucose Calcium Phosphorus Magnesium C-Reactive Protein Random Vancomycin 11.3 L Blood Type A POSITIVE Antibody Screen Negative 01/20/19 01/20/19 01/20/19 08:58 08:58 08:58 WBC 13.6 H RBC 3.72 L Hgb 11.0 L Hct 33.8 L MCV 90.8 MCH 29.7 MCHC 32.7 RDW 15.8 Plt Count 240 D MPV 8.3 ESR 81 H Sodium 150 H Potassium 4.1 Chloride 118 H Carbon Dioxide 25 Anion Gap 7 L BUN 57.0 H Creatinine 4.5 H Est GFR (CKD-EPI)AfAm 14.69 Est GFR (CKD-EPI)NonAf 12.67 POC Glucometer Random Glucose 91 Calcium 8.7 Phosphorus 3.7 Magnesium 2.5 H C-Reactive Protein 7.5 H Random Vancomycin Blood Type Antibody Screen Active Medications Generic Name Dose Route Start Last Admin Trade Name Freq PRN Reason Stop Dose Admin Acetaminophen 1,000 mg 01/20/19 05:30 01/20/19 15:22 Ofirmev Injection - IVPB 01/21/19 05:29 1,000 mg Q6H-IV [facility] Administration Artificial Tears 1 applic 01/13/19 22:00 01/19/19 21:29 Artificial Tears Ointment - OU 1 applic HS [facility] Administration Artificial Tears 1 drop 01/13/19 10:00 09/19/19 09:23 Artificial Tears OU 1 drop BID [facility] Administration Aspirin 300 mg 01/13/19 15:45 01/19/19 09:07 Asa - SC 300 mg DAILY [facility] Administration Chlorhexidine Gluconate 1 applic 01/13/19 22:00 01/19/19 21:29 Hibiclens For Decolonization - TP 1 applic HS [facility] Administration Chlorhexidine Gluconate 15 ml 01/14/19 22:00 01/20/19 09:23 Peridex - MM 15 ml BID [facility] Administration Heparin Sodium (Porcine) 1,000 unit 01/20/19 16:52 Heparin - IVPUSH PRN PRN Heparin Heparin Sodium (Porcine) 5,000 unit 01/20/19 16:57 Heparin - IVPUSH PRN PRN Heparin Hydralazine HCl 10 mg 01/19/19 23:09 01/19/19 23:15 Apresoline Injection - IVPUSH 10 mg Q6H PRN Administration HYPERTENSION Ampicillin Sodium/Sulbactam 100 mls @ 200 mls/hr 01/18/19 22:00 01/20/19 11: 58 Sodium 3 gm/ Sodium Chloride IVPB 200 mls/hr BID [facility] Administration Dextrose 1,000 mls @ 83 mls/hr 01/20/19 16:45 01/20/19 17:27 D5w - IV 83 mls/hr ASDIR [facility] Administration Heparin Sodium/Dextrose 25,000 units in 500 mls @ 20 mls/hr 01/20/19 17:00 Heparin Infusion - IVPB TITR [facility] Protocol 1,000 UNITS/HR Levetiracetam 500 mg 01/20/19 22:00 Keppra Injection - IVPB BID [facility] Lorazepam 2 mg 01/19/19 23:07 01/20/19 10:56 Ativan Injection - IVPUSH 2 mg Q6H PRN Administration ANXIETY ASSESSMENT/PLAN: 68 year old male with a past medical history of hypertension, diabetes, congestive heart failure (EF 37% in 2016, noted improvement in 2018) who presented to the ED after having cardiac arrest in the field. #S/P cardiac arrest - continuous cardiac monitoring - cooling protocol completed - troponin peaked - continue antibiotics in setting of elevated temperature for possible infectious cause: BCx and Sputum Cx positive multiple organisms - cardiology consultation: no plan to cath at this time - holding sedation: Pt does not appear to be waking up - monitor for anoxic brain injury, CT suggestive of brain injury, exhibiting potential signs of post-hypoxic myoclonus -Will need to discuss goals of care with family: current plan is for DNR and transfer to LTAC with trach tube (for tomorrow) and PEG later this week -No indication for AC at this time -d/w ICU team and caro #DVT -noted on U/S -discussed possibility of AC with family at length. They deliberated and decided to proceed with AC. Will start Hep ggt and hold for GI procedure. #Elevated lactic acid: resolved - likely in setting of hypoperfusion during cardiac arrest - continue IV fluids - improved #PRACHI - likely in setting of hypoperfusion during cardiac arrest - baseline CRE 1.1 - continue IV fluids - stabilized #Elevated LFTs - likely in setting of hypoperfusion during cardiac arrest - continue IV fluids - resolving at this time #Elevated TSH - no history of thyroid disease - TSH wnl at this time Visit type - Emergency Visit Emergency Visit: No - New Patient This patient is new to me today: No - Critical Care Critical Care patient: No ATTENDING PHYSICIAN STATEMENT I saw and evaluated the patient. I reviewed the resident's note and discussed the case with the resident. I agree with the resident's findings and plan as documented. SUBJECTIVE: OBJECTIVE: ASSESSMENT AND PLAN: <Spencer Solano - Last Filed: 01/22/19 11:04> Physical Exam: Seen and examined; verified all mendez components of history and physical exam. Please see my documentation for further discussion of this case; agree with above aside from as supplemented by myself. ATTENDING PHYSICIAN STATEMENT I saw and evaluated the patient. I reviewed the resident's note and discussed the case with the resident. I agree with the resident's findings and plan as documented. SUBJECTIVE: OBJECTIVE: ASSESSMENT AND PLAN:
[2019-01-20] MEDS: MINERAL OIL/PETROLATUM,WHITE 3.5 GM TUBE OU SCH (20:59)
[2019-01-20] MEDS: CHLORHEXIDINE GLUCONATE 4% CLEANSER FOR DECOLONIZATION TP SCH (20:59)
[2019-01-20] MEDS: levETIRAcetam 500 MG/5 ML INJECTION VIAL IVPB SCH (20:59)
[2019-01-21] MEDS: HEPARIN NA (PORCINE) 5,000 UNITS/ML 1ML VIAL IVPUSH PRN ×2 (01:50→09:12)
[2019-01-21] MEDS: LORazepam 2 MG/ML SDV VIAL IVPUSH PRN ×2 (03:06→10:35)
[2019-01-21] MEDS: ACETAMINOPHEN 1000 MG/100 ML VIAL (NON FORMULARY) IVPB SCH (03:06)
[2019-01-21] MEDS: levETIRAcetam 500 MG/5 ML INJECTION VIAL IVPB SCH ×2 (09:09→22:43)
[2019-01-21] MEDS: AMPICILLIN NA/SULBACTAM NA 3 GM in SODIUM CHLORIDE 100 ML IVPB SCH (09:09)
[2019-01-21] MEDS: ARTIFICIAL TEARS (POLYVINYL ALCOHOL) OPTH DROPS OU SCH ×2 (09:09→22:43)
[2019-01-21] MEDS: CHLORHEXIDINE GLUCONATE 0.12% 15ML CUP MM SCH ×2 (09:09→22:46)
--- NOTE | 2019-01-21 09:16 | PN ---
Progress Note, Physician Chief Complaint: intubated History of Present Illness: TELE: NSR, PAF, NSVT (3 beat runs) - Current Medication List Current Medications: Active Medications Artificial Tears (Artificial Tears Ointment -) 1 applic OU HS [facility] Last Admin: 01/20/19 20:59 Dose: 1 applic Artificial Tears (Artificial Tears) 1 drop OU BID [facility] Last Admin: 01/21/19 09:09 Dose: 1 drop Aspirin (Asa -) 300 mg MS DAILY [facility] Last Admin: 01/19/19 09:07 Dose: 300 mg Chlorhexidine Gluconate (Hibiclens For Decolonization -) 1 applic TP HS [facility] Last Admin: 01/20/19 20:59 Dose: 1 applic Chlorhexidine Gluconate (Peridex -) 15 ml MM BID [facility] Last Admin: 01/21/19 09:09 Dose: 15 ml Heparin Sodium (Porcine) (Heparin -) 1,000 unit IVPUSH PRN PRN PRN Reason: Heparin Last Admin: 01/21/19 09:12 Dose: 1,000 unit Heparin Sodium (Porcine) (Heparin -) 5,000 unit IVPUSH PRN PRN PRN Reason: Heparin Hydralazine HCl (Apresoline Injection -) 10 mg IVPUSH Q6H PRN PRN Reason: HYPERTENSION Last Admin: 01/19/19 23:15 Dose: 10 mg Ampicillin Sodium/Sulbactam (Sodium 3 gm/ Sodium Chloride) 100 mls @ 200 mls/ hr IVPB BID [facility] Last Admin: 01/21/19 09:09 Dose: 200 mls/hr Heparin Sodium/Dextrose (Heparin Infusion -) 25,000 units in 500 mls @ 20 mls/ hr IVPB TITR [facility]; Protocol Last Titration: 01/21/19 09:10 Dose: 1,200 units/hr, 24 mls/hr Levetiracetam (Keppra Injection -) 500 mg IVPB BID [facility] Last Admin: 01/21/19 09:09 Dose: 500 mg Lorazepam (Ativan Injection -) 2 mg IVPUSH Q6H PRN PRN Reason: ANXIETY Last Admin: 01/21/19 03:06 Dose: 2 mg - Objective Vital Signs: Vital Signs Temperature 100.3 F H 01/21/19 08:26 Pulse Rate 99 H 01/21/19 08:26 Respiratory Rate 18 01/21/19 08:28 Blood Pressure 140/72 01/21/19 08:26 O2 Sat by Pulse Oximetry (%) 100 01/21/19 08:28 Constitutional: Yes: Other (+ ETT) Cardiovascular: Yes: Pulse Irregular Respiratory: Yes: Other (= breath sounds b/l) Gastrointestinal: Yes: Soft Edema: No Labs: CBC, BMP 01/20/19 08:58 01/20/19 08:58 INR, PTT INR 1.08 (0.83-1.09) 01/13/19 05:15 - ....Imaging EKG: Image Reviewed Assessment/Plan Assessment/Plan echo 01/20: severe global LV hypo EF 25-30%. nl RV. mild LAE. mod MR. nl RVSP. cath 07/2015: lhc: normal cors; rhc: mild phtn, pvri mod elevated, pcw/lvedp nl. ECG 01/12: NSR, LVH with nonsp ST-Ts ? sec to LVH--not signif changed vs 2016 prior ECG 01/13: no signif change, prolonged QT (similar to 2016) tele: sinus, PVCs, brief nsvt est cct 35 mins IMP/PLAN: VF arrest:in setting of gram + bacteremia and septic shock, anoxic encephalopathy -EF only mild-mod decreased on prior echo 1 yr ago, currently severe/global 25- 30%. -? arrest triggered by bacteremia (2 of 2 initial cultures positive)/sepsis -cont tele monitoring -holding bb given hypotensive and likely septic shock -doubt acute ischemic etiology given normal cor.s 3 yrs ago--if makes meaningful recover will need repeat isch eval -goals of care discussions per critical care NSTEMI: -trop peaked at 32 -normal cors 2016 -suspect sec to sepsis vs prolonged hypotension from recurrent VF arrest (with contribution from mult electrical defibs) -aspirin daily -hold BB (risks of hypotension in septic shock) SEPTIC SHOCK, gram pos bacteremia: -abx per ID -echo no vegetation seen -now bp remains stable off pressors Prolonged QT: -? related to CMP/LVH--was close to 500 on prior ecg 2016 -similar at present -aggressive repletion of K/Mag (4/2) -tele monitoring -avoid QT prolonging meds Congestive heart failure, nonischemic CMP -EF severely reduced at time of initial dx 2016--improved signif with med management -present EF severely reduced again, likely in setting sepsis, post arrest PRACHI: -sec to hypoperfusion -as per Critical Care PAF: -on heparin gtts
[2019-01-21 09:48] LABS: BASO % 0.3 % (0-2.0); EOS % 3.7 % (0-4.5); HEMATOCRIT 33.9 % (35.4-49); HEMOGLOBIN 11.1 GM/dL (11.7-16.9); LYMPH % 6.9 % (8-40); MCH 29.9 pg (25.7-33.7); MCHC 32.8 g/dl (32.0-35.9); MEAN CELL VOLUME 91.3 fl (80-96); MEAN PLT VOLUME 8.1 fl (7.5-11.1); MONO % 8.2 % (3.8-10.2); NEUT % 80.9 % (42.8-82.8); PLATELET COUNT 268 K/MM3 (134-434); RBC 3.72 M/mm3 (4.00-5.60); RDW 15.5 % (11.9-15.9); WHITE BLOOD COUNT 13.9 K/mm3 (4.0-10.0)
[2019-01-21 10:12] LABS: ALBUMIN 2.3 g/dl (3.4-5.0); BILIRUBIN,TOTAL 0.4 mg/dL (0.2-1); CALCIUM 9.1 mg/dL (8.5-10.1); CREATININE 4.3 mg/dL (0.55-1.3); MAGNESIUM 2.7 mg/dL (1.8-2.4); PHOSPHOROUS 4.1 mg/dL (2.5-4.9); POTASSIUM 3.9 mmol/L (3.5-5.1); TOT PROT 6.2 g/dl (6.4-8.2)
--- NOTE | 2019-01-21 11:47 | PN ---
Progress Note (short form) - Note Progress Note: s/p trach unresponsive remains febrile started on a/c for DVT s/p trach yesterday at bedside Vital Signs Period Temp Pulse Resp BP Sys/Estrada Pulse Ox Last 24 Hr 99.7 F-101.3 F 80-113 14-22 101-175/45-101 95-100 trach to vent cor-rrr lungs decreased bs at bases abd soft,nt ext no edema CBC, BMP 01/21/19 09:00 01/21/19 09:00 vanco 13.2 today duplex LLE DVT Microbiology 01/19/19 13:00 Blood - Peripheral Venous Blood Culture - Preliminary NO GROWTH OBTAINED AFTER 24 HOURS, INCUBATION TO CONTINUE FOR 4 DAYS. 01/19/19 12:51 Blood - Peripheral Venous Blood Culture - Preliminary NO GROWTH OBTAINED AFTER 24 HOURS, INCUBATION TO CONTINUE FOR 4 DAYS. 01/14/19 16:00 Blood - Peripheral Venous Blood Culture - Final NO GROWTH AFTER 5 DAYS INCUBATION 01/14/19 14:30 Blood - Peripheral Venous Blood Culture - Final NO GROWTH AFTER 5 DAYS INCUBATION 01/14/19 14:30 Sputum - Endotrachea Suction/Ventilator Gram Stain - Final 01/14/19 14:30 Sputum - Endotrachea Suction/Ventilator Sputum Culture - Final Klebsiella Pneumoniae Stenotrophomon.(X.)Maltophilia 01/12/19 20:30 Blood - Peripheral Venous Blood Culture - Final Strep Agalactiae Group B Staphylococcus Haemolyticus Enterococcus Faecalis 01/12/19 20:30 Blood - Peripheral Venous Blood Culture - Final Staphylococcus Haemolyticus 01/13/19 09:00 Urine For Antigen Detection Legionella Antigen - Final 01/13/19 09:00 Urine For Antigen Detection Streptococcus pneumoniae Antigen (M - Final 01/13/19 04:50 Urine - Urine Clean Catch Urine Culture - Final NO GROWTH OBTAINED Current Medications Artificial Tears (Artificial Tears Ointment -) 1 applic OU HS [facility] Last Admin: 01/20/19 20:59 Dose: 1 applic Artificial Tears (Artificial Tears) 1 drop OU BID [facility] Last Admin: 01/21/19 09:09 Dose: 1 drop Aspirin (Asa -) 300 mg ID DAILY [facility] Last Admin: 01/19/19 09:07 Dose: 300 mg Chlorhexidine Gluconate (Hibiclens For Decolonization -) 1 applic TP HS [facility] Last Admin: 01/20/19 20:59 Dose: 1 applic Chlorhexidine Gluconate (Peridex -) 15 ml MM BID [facility] Last Admin: 01/21/19 09:09 Dose: 15 ml Heparin Sodium (Porcine) (Heparin -) 1,000 unit IVPUSH PRN PRN PRN Reason: Heparin Last Admin: 01/21/19 09:12 Dose: 1,000 unit Heparin Sodium (Porcine) (Heparin -) 5,000 unit IVPUSH PRN PRN PRN Reason: Heparin Hydralazine HCl (Apresoline Injection -) 10 mg IVPUSH Q6H PRN PRN Reason: HYPERTENSION Last Admin: 01/19/19 23:15 Dose: 10 mg Ampicillin Sodium/Sulbactam (Sodium 3 gm/ Sodium Chloride) 100 mls @ 200 mls/ hr IVPB BID [facility] Last Admin: 01/21/19 09:09 Dose: 200 mls/hr Heparin Sodium/Dextrose (Heparin Infusion -) 25,000 units in 500 mls @ 20 mls/ hr IVPB TITR [facility]; Protocol Last Titration: 01/21/19 09:10 Dose: 1,200 units/hr, 24 mls/hr Levetiracetam (Keppra Injection -) 500 mg IVPB BID [facility] Last Admin: 01/21/19 09:09 Dose: 500 mg Lorazepam (Ativan Injection -) 2 mg IVPUSH Q6H PRN PRN Reason: ANXIETY Last Admin: 01/21/19 10:35 Dose: 2 mg a/p s/p cardiac arrest persistent fevers- LLE DVT-AC per primary team polymicrobial bacteremia- ?contaminant repeat blood cultures are negative continue vanco by level and unasyn-day #9 repeat blood cultures negative anoxia PRACHI-persists overall prognosis is poor
--- NOTE | 2019-01-21 11:58 | PN ---
Teaching Attending Note Name of Resident: Brooke Astudillo ATTENDING PHYSICIAN STATEMENT I saw and evaluated the patient. I reviewed the resident's note and discussed the case with the resident. I agree with the resident's findings and plan as documented. SUBJECTIVE: Patient seen and examined in the ICU. S/P Percutaneous surekha yesterday. AC Mode of vent. Remains poorly responsive. Intake & Output 01/18/19 01/19/19 01/20/19 01/21/19 23:59 23:59 23:59 23:59 Intake Total 2360 2709 1761 1832 Output Total 1400 2650 100 Balance 936 73 1318 1832 Weight 224 lb 4.8 oz 222 lb 8 oz 219 lb 6.4 oz 221 lb Last Vital Signs Temp Pulse Resp BP Pulse Ox 101.3 F H 99 H 18 158/96 100 01/21/19 10:00 01/21/19 10:00 01/21/19 10:00 01/21/19 10:00 01/21/19 08:28 Active Medications Artificial Tears (Artificial Tears Ointment -) 1 applic OU HS [facility] Last Admin: 01/20/19 20:59 Dose: 1 applic Artificial Tears (Artificial Tears) 1 drop OU BID [facility] Last Admin: 01/21/19 09:09 Dose: 1 drop Aspirin (Asa -) 300 mg MS DAILY [facility] Last Admin: 01/19/19 09:07 Dose: 300 mg Chlorhexidine Gluconate (Hibiclens For Decolonization -) 1 applic TP HS [facility] Last Admin: 01/20/19 20:59 Dose: 1 applic Chlorhexidine Gluconate (Peridex -) 15 ml MM BID [facility] Last Admin: 01/21/19 09:09 Dose: 15 ml Heparin Sodium (Porcine) (Heparin -) 1,000 unit IVPUSH PRN PRN PRN Reason: Heparin Last Admin: 01/21/19 09:12 Dose: 1,000 unit Heparin Sodium (Porcine) (Heparin -) 5,000 unit IVPUSH PRN PRN PRN Reason: Heparin Hydralazine HCl (Apresoline Injection -) 10 mg IVPUSH Q6H PRN PRN Reason: HYPERTENSION Last Admin: 01/19/19 23:15 Dose: 10 mg Ampicillin Sodium/Sulbactam (Sodium 3 gm/ Sodium Chloride) 100 mls @ 200 mls/ hr IVPB BID [facility] Last Admin: 01/21/19 09:09 Dose: 200 mls/hr Heparin Sodium/Dextrose (Heparin Infusion -) 25,000 units in 500 mls @ 20 mls/ hr IVPB TITR [facility]; Protocol Last Titration: 01/21/19 09:10 Dose: 1,200 units/hr, 24 mls/hr Vancomycin HCl 750 mg/ (Dextrose) 150 mls @ 150 mls/hr IVPB ONCE ONE; Protocol Stop: 01/21/19 12:48 Levetiracetam (Keppra Injection -) 500 mg IVPB BID [facility] Last Admin: 01/21/19 09:09 Dose: 500 mg Lorazepam (Ativan Injection -) 2 mg IVPUSH Q6H PRN PRN Reason: ANXIETY Last Admin: 01/21/19 10:35 Dose: 2 mg Gen: intubated, minimally responsive Heart: RRR Lung: decreased breath sounds at the bases Abd: soft, nontender Ext: no edema Laboratory Results - last 24 hr 01/21/19 01/21/19 01/21/19 01:00 09:00 09:00 WBC 13.9 H RBC 3.72 L Hgb 11.1 L Hct 33.9 L MCV 91.3 MCH 29.9 MCHC 32.8 RDW 15.5 Plt Count 268 MPV 8.1 Absolute Neuts (auto) 11.3 H Neutrophils % 80.9 Lymphocytes % 6.9 L Monocytes % 8.2 Eosinophils % 3.7 D Basophils % 0.3 Nucleated RBC % 0 PTT (Actin FS) 44.5 H Sodium Potassium Chloride Carbon Dioxide Anion Gap BUN Creatinine Est GFR (CKD-EPI)AfAm Est GFR (CKD-EPI)NonAf Random Glucose Calcium Phosphorus Magnesium Total Bilirubin AST ALT Alkaline Phosphatase Total Protein Albumin Random Vancomycin 13.2 L 01/21/19 01/21/19 09:00 09:00 WBC RBC Hgb Hct MCV MCH MCHC RDW Plt Count MPV Absolute Neuts (auto) Neutrophils % Lymphocytes % Monocytes % Eosinophils % Basophils % Nucleated RBC % PTT (Actin FS) 46.6 H Sodium 152 H Potassium 3.9 Chloride 118 H Carbon Dioxide 25 Anion Gap 9 BUN 53.0 H Creatinine 4.3 H Est GFR (CKD-EPI)AfAm 15.52 Est GFR (CKD-EPI)NonAf 13.39 Random Glucose 106 Calcium 9.1 Phosphorus 4.1 Magnesium 2.7 H Total Bilirubin 0.4 AST 82 H ALT 86 H Alkaline Phosphatase 95 Total Protein 6.2 L Albumin 2.3 L Random Vancomycin ASSESSMENT AND PLAN: S/P Cardiopulmonary Arrest KIAH Ventricular Fibrillation Anoxic Brain Injury CAD/+Troponins/Acute NSTEMI LV Systolic Dysfunction Lactic Acidosis Acute Kidney Injury Elevated LFTs likely Ischemic Injury HTN Hyperlipidemia Extensive DVT - AC - ABX per ID - monitor urine output, creatinine - hold sedatives to assess mental status - neuro checks - AEDs - not a candidate for weaning at this time due to mental status - will need PEG placement - continue discussions regarding goals of care, advanced directives - DVT prophylaxis - poor overall prognosis for meaningful recovery - Vent floor Dr Menjivar
[2019-01-21] MEDS ORDERED: VANCOMYCIN 750 MG in DEXTROSE 5%-WATER - 250 ML IVPB ONE (12:30)
[2019-01-21] MEDS ORDERED: PT OWN MED DRAWER 7, Y5N ONE ×2 (12:38→20:32)
[2019-01-21] MEDS: HEPARIN INFUSION - 25,000 UNITS/500 ML INFUS.BAG IVPB SCH ×4 (13:17→19:33)
[2019-01-21] MEDS: ACETAMINOPHEN 1000 MG/100 ML VIAL (NON FORMULARY) IVPB PRN (13:18)
[2019-01-21 13:41] VITALS: BMI 33.5
--- NOTE | 2019-01-21 14:18 | PN ---
Teaching Attending Note Name of Resident: Carlos Enrique Olsen ATTENDING PHYSICIAN STATEMENT I saw and evaluated the patient. I reviewed the resident's note and discussed the case with the resident. I agree with the resident's findings and plan as documented. Met with family today; they decided on heparin drip. Pending PEG tube; ASA on hold and discussing with IR. Stable to transfer to floor today from ICU. Pulmonary to continue to follow. ID and nephrology input appreciated. Remains unable to communicate 2/2 his underlying neuro condition. No neurological developments noted today. VS, labs, imaging reviewed NAD, vent to trach, in bed, cloth over eyes NC AT EOMI PERRLA RRR s1/2 No issues or bleeding around trach No spontaneous movement, occasional breath over vent, no change in CN exam ASSESSMENT AND PLAN: Patient is pending PEG tube for feeds; will then convert to PO eliquis Transferring to floor today Continue feeds, abx per ID. Monitor neuro status. Discussed and updated family Rest of plan per resident note
--- NOTE | 2019-01-21 14:29 | PN ---
Progress Note, Physician History of Present Illness: Pt seen and examined. He remains in the ICU. He remains intubated. - Current Medication List Current Medications: Active Medications Acetaminophen (Ofirmev Injection -) 1,000 mg IVPB Q6H PRN PRN Reason: FEVER Last Admin: 01/21/19 13:18 Dose: 1,000 mg Artificial Tears (Artificial Tears Ointment -) 1 applic OU HS [facility] Last Admin: 01/20/19 20:59 Dose: 1 applic Artificial Tears (Artificial Tears) 1 drop OU BID [facility] Last Admin: 01/21/19 09:09 Dose: 1 drop Aspirin (Asa -) 300 mg NC DAILY [facility] Last Admin: 01/19/19 09:07 Dose: 300 mg Chlorhexidine Gluconate (Hibiclens For Decolonization -) 1 applic TP HS [facility] Last Admin: 01/20/19 20:59 Dose: 1 applic Chlorhexidine Gluconate (Peridex -) 15 ml MM BID [facility] Last Admin: 01/21/19 09:09 Dose: 15 ml Heparin Sodium (Porcine) (Heparin -) 1,000 unit IVPUSH PRN PRN PRN Reason: Heparin Last Admin: 01/21/19 09:12 Dose: 1,000 unit Heparin Sodium (Porcine) (Heparin -) 5,000 unit IVPUSH PRN PRN PRN Reason: Heparin Hydralazine HCl (Apresoline Injection -) 10 mg IVPUSH Q6H PRN PRN Reason: HYPERTENSION Last Admin: 01/19/19 23:15 Dose: 10 mg Ampicillin Sodium/Sulbactam (Sodium 3 gm/ Sodium Chloride) 100 mls @ 200 mls/ hr IVPB BID [facility] Last Admin: 01/21/19 09:09 Dose: 200 mls/hr Heparin Sodium/Dextrose (Heparin Infusion -) 25,000 units in 500 mls @ 20 mls/ hr IVPB TITR [facility]; Protocol Last Admin: 01/21/19 13:17 Dose: 1,200 units/hr, 24 mls/hr Levetiracetam (Keppra Injection -) 500 mg IVPB BID [facility] Last Admin: 01/21/19 09:09 Dose: 500 mg Lorazepam (Ativan Injection -) 2 mg IVPUSH Q6H PRN PRN Reason: ANXIETY Last Admin: 01/21/19 10:35 Dose: 2 mg - Objective Vital Signs: Vital Signs Temperature 101.7 F H 01/21/19 12:00 Pulse Rate 99 H 01/21/19 12:00 Respiratory Rate 17 01/21/19 12:43 Blood Pressure 131/48 L 01/21/19 12:00 O2 Sat by Pulse Oximetry (%) 100 01/21/19 08:28 Constitutional: Yes: Calm Cardiovascular: Yes: S1, S2 Respiratory: Yes: Mechanically Ventilated Gastrointestinal: Yes: Soft Genitourinary: Yes: Chambers Present Musculoskeletal: Yes: Muscle Weakness Edema: No Integumentary: Yes: WNL Neurological: Yes: Lethargy Labs: CBC, BMP 01/21/19 09:00 01/21/19 09:00 INR, PTT INR 1.08 (0.83-1.09) 01/13/19 05:15 Problem List - Problems (1) PRACHI (acute kidney injury) Code(s): N17.9 - ACUTE KIDNEY FAILURE, UNSPECIFIED (2) CHF (congestive heart failure) Code(s): I50.9 - HEART FAILURE, UNSPECIFIED Qualifiers: Qualified Code(s): I50.9 - Heart failure, unspecified (3) HTN (hypertension) Code(s): I10 - ESSENTIAL (PRIMARY) HYPERTENSION Assessment/Plan Current Medications Generic Name Dose Route Start Last Admin Trade Name Riteshq PRN Reason Stop Dose Admin Acetaminophen 1,000 mg 01/21/19 12:34 01/21/19 13:18 Ofirmev Injection - IVPB 1,000 mg Q6H PRN Administration FEVER Artificial Tears 1 applic 01/13/19 22:00 01/20/19 20:59 Artificial Tears Ointment - OU 1 applic HS [facility] Administration Artificial Tears 1 drop 01/13/19 10:00 01/21/19 09:09 Artificial Tears OU 1 drop BID [facility] Administration Aspirin 300 mg 01/13/19 15:45 01/19/19 09:07 Asa - NC 300 mg DAILY [facility] Administration Chlorhexidine Gluconate 1 applic 01/13/19 22:00 01/20/19 20:59 Hibiclens For Decolonization - TP 1 applic HS [facility] Administration Chlorhexidine Gluconate 15 ml 01/14/19 22:00 01/21/19 09:09 Peridex - MM 15 ml BID [facility] Administration Heparin Sodium (Porcine) 1,000 unit 01/20/19 16:52 01/21/19 09:12 Heparin - IVPUSH 1,000 unit PRN PRN Administration Heparin Heparin Sodium (Porcine) 5,000 unit 01/20/19 16:57 Heparin - IVPUSH PRN PRN Heparin Hydralazine HCl 10 mg 01/19/19 23:09 01/19/19 23:15 Apresoline Injection - IVPUSH 10 mg Q6H PRN Administration HYPERTENSION Ampicillin Sodium/Sulbactam 100 mls @ 200 mls/hr 01/18/19 22:00 01/21/19 09: 09 Sodium 3 gm/ Sodium Chloride IVPB 200 mls/hr BID [facility] Administration Heparin Sodium/Dextrose 25,000 units in 500 mls @ 20 mls/hr 01/20/19 17:00 13:17 Heparin Infusion - IVPB 1,200 units/hr TITR [facility] 24 mls/hr Administration Protocol 1,000 UNITS/HR Levetiracetam 500 mg 01/20/19 22:00 01/21/19 09:09 Keppra Injection - IVPB 500 mg BID [facility] Administration Lorazepam 2 mg 01/19/19 23:07 01/21/19 10:35 Ativan Injection - IVPUSH 2 mg Q6H PRN Administration ANXIETY Impression 1. PRACHI 2. cardiac arrest 3. hx chf 4. hx htn 5. resp failure requiring intubation 6. hypernatremia Plan - cont with free water with feeds - monitor sodium - residential child care counselor is starting to improve - PRACHI likely from [facility] - cont supportive care -
--- NOTE | 2019-01-21 16:21 | PN ---
<Carlos Enrique Olsen - Last Filed: 01/21/19 16:18> Physical Exam: SUBJECTIVE: Patient seen and examined at bedside. Pt transferred to floor today. OBJECTIVE: Vital Signs Period Temp Pulse Resp BP Sys/Estrada Pulse Ox Last 24 Hr 99.7 F-101.7 F 86-113 14-22 101-175/47-101 95-100 Gen: Intubated unresponsive. Twitching movements noted. HEENT: NCAT Neck: no jvd Cardio: rrr, normal s1s2, no mrg noted Pulm: limited exam. clear b/l Abd: soft, nondistended Laboratory Results - last 24 hr 01/21/19 01/21/19 01/21/19 01:00 09:00 09:00 WBC 13.9 H RBC 3.72 L Hgb 11.1 L Hct 33.9 L MCV 91.3 MCH 29.9 MCHC 32.8 RDW 15.5 Plt Count 268 MPV 8.1 Absolute Neuts (auto) 11.3 H Neutrophils % 80.9 Lymphocytes % 6.9 L Monocytes % 8.2 Eosinophils % 3.7 D Basophils % 0.3 Nucleated RBC % 0 PTT (Actin FS) 44.5 H Sodium Potassium Chloride Carbon Dioxide Anion Gap BUN Creatinine Est GFR (CKD-EPI)AfAm Est GFR (CKD-EPI)NonAf Random Glucose Calcium Phosphorus Magnesium Total Bilirubin AST ALT Alkaline Phosphatase Total Protein Albumin Random Vancomycin 13.2 L 01/21/19 01/21/19 09:00 09:00 WBC RBC Hgb Hct MCV MCH MCHC RDW Plt Count MPV Absolute Neuts (auto) Neutrophils % Lymphocytes % Monocytes % Eosinophils % Basophils % Nucleated RBC % PTT (Actin FS) 46.6 H Sodium 152 H Potassium 3.9 Chloride 118 H Carbon Dioxide 25 Anion Gap 9 BUN 53.0 H Creatinine 4.3 H Est GFR (CKD-EPI)AfAm 15.52 Est GFR (CKD-EPI)NonAf 13.39 Random Glucose 106 Calcium 9.1 Phosphorus 4.1 Magnesium 2.7 H Total Bilirubin 0.4 AST 82 H ALT 86 H Alkaline Phosphatase 95 Total Protein 6.2 L Albumin 2.3 L Random Vancomycin Active Medications Generic Name Dose Route Start Last Admin Trade Name Freq PRN Reason Stop Dose Admin Acetaminophen 1,000 mg 01/21/19 12:34 01/21/19 13:18 Ofirmev Injection - IVPB 1,000 mg Q6H PRN Administration FEVER Artificial Tears 1 applic 01/13/19 22:00 01/20/19 20:59 Artificial Tears Ointment - OU 1 applic HS [facility] Administration Artificial Tears 1 drop 01/13/19 10:00 01/21/19 09:09 Artificial Tears OU 1 drop BID [facility] Administration Aspirin 300 mg 01/13/19 15:45 01/19/19 09:07 Asa - OR 300 mg DAILY [facility] Administration Chlorhexidine Gluconate 1 applic 01/13/19 22:00 01/20/19 20:59 Hibiclens For Decolonization - TP 1 applic HS [facility] Administration Chlorhexidine Gluconate 15 ml 01/14/19 22:00 01/21/19 09:09 Peridex - MM 15 ml BID [facility] Administration Heparin Sodium (Porcine) 1,000 unit 01/20/19 16:52 01/21/19 09:12 Heparin - IVPUSH 1,000 unit PRN PRN Administration Heparin Heparin Sodium (Porcine) 5,000 unit 01/20/19 16:57 Heparin - IVPUSH PRN PRN Heparin Hydralazine HCl 10 mg 01/19/19 23:09 01/19/19 23:15 Apresoline Injection - IVPUSH 10 mg Q6H PRN Administration HYPERTENSION Ampicillin Sodium/Sulbactam 100 mls @ 200 mls/hr 01/18/19 22:00 01/21/19 09: 09 Sodium 3 gm/ Sodium Chloride IVPB 200 mls/hr BID [facility] Administration Heparin Sodium/Dextrose 25,000 units in 500 mls @ 20 mls/hr 01/20/19 17:00 13:17 Heparin Infusion - IVPB 1,200 units/hr TITR [facility] 24 mls/hr Administration Protocol 1,000 UNITS/HR Levetiracetam 500 mg 01/20/19 22:00 01/21/19 09:09 Keppra Injection - IVPB 500 mg BID [facility] Administration Lorazepam 2 mg 01/19/19 23:07 01/21/19 10:35 Ativan Injection - IVPUSH 2 mg Q6H PRN Administration ANXIETY ASSESSMENT/PLAN: 68 year old male with a past medical history of hypertension, diabetes, congestive heart failure (EF 37% in 2016, noted improvement in 2018) who presented to the ED after having cardiac arrest in the field. #S/P cardiac arrest - continuous cardiac monitoring - cooling protocol completed - troponin peaked - continue antibiotics in setting of elevated temperature for possible infectious cause: BCx and Sputum Cx positive multiple organisms - cardiology consultation: no plan to cath at this time - holding sedation: Pt does not appear to be waking up - monitor for anoxic brain injury, CT suggestive of brain injury, exhibiting potential signs of post-hypoxic myoclonus -goals of care discussed with family: current plan is for DNR and transfer to LTAC with trach tube and PEG later this week #DVT -noted on U/S -discussed possibility of AC with family at length. They deliberated and decided to proceed with AC. -Hep ggt #Elevated lactic acid: resolved - likely in setting of hypoperfusion during cardiac arrest - continue IV fluids - improved #PRACHI - likely in setting of hypoperfusion during cardiac arrest - baseline CRE 1.1 - continue IV fluids - stabilized #Elevated LFTs - likely in setting of hypoperfusion during cardiac arrest - continue IV fluids - resolving at this time #Elevated TSH - no history of thyroid disease - TSH wnl at this time Visit type - Emergency Visit Emergency Visit: No - New Patient This patient is new to me today: No - Critical Care Critical Care patient: No ATTENDING PHYSICIAN STATEMENT I saw and evaluated the patient. I reviewed the resident's note and discussed the case with the resident. I agree with the resident's findings and plan as documented. SUBJECTIVE: OBJECTIVE: ASSESSMENT AND PLAN: <Spencer Solano - Last Filed: 01/22/19 11:03> Physical Exam: His problems include -Sepsis (resolved) -Multifocal PNA (Aspiration vs. CAP but was on CAP abx only with no anaerobic coverage. He is still requiring oxygen. Will consult ID to see if he would require additional anaerobic coverage. Could also be a component of aspiration pneumonitis. If the patient continues to have issues weaning from O2 can consider pulmonary consultation for additional recs). 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 I reviewed the resident's note and discussed the case with the resident. I agree with the resident's findings and plan as documented. SUBJECTIVE: OBJECTIVE: ASSESSMENT AND PLAN:
--- NOTE | 2019-01-21 17:03 | PN ---
Physical Exam: SUBJECTIVE: Patient seen and examined at bedside. pt is non responsive to stimuli OBJECTIVE: Vital Signs Period Temp Pulse Resp BP Sys/Estrada Pulse Ox Last 24 Hr 99.7 F-101.7 F 86-113 15-22 101-175/47-101 95-100 GENERAL: The patient is non responsive EYES: Pupils dilated and non reactive. NECK: Trached to vent LUNGS: vent sounds b/l. R> L rhonchi HEART: tachycardic, S1, S2 without murmur, rub or gallop. ABDOMEN: Soft, nondistended, normoactive bowel sounds EXTREMITIES: 2+ pulses, warm, well-perfused, b/l UE edema. CBC, BMP 01/21/19 09:00 01/21/19 09:00 Current Medications Acetaminophen (Ofirmev Injection -) 1,000 mg IVPB Q6H PRN PRN Reason: FEVER Last Admin: 01/21/19 13:18 Dose: 1,000 mg Artificial Tears (Artificial Tears Ointment -) 1 applic OU HS [facility] Last Admin: 01/20/19 20:59 Dose: 1 applic Artificial Tears (Artificial Tears) 1 drop OU BID [facility] Last Admin: 01/21/19 09:09 Dose: 1 drop Aspirin (Asa -) [address] DAILY [facility] Last Admin: 01/19/19 09:07 Dose: 300 mg Chlorhexidine Gluconate (Hibiclens For Decolonization -) 1 applic TP HS [facility] Last Admin: 01/20/19 20:59 Dose: 1 applic Chlorhexidine Gluconate (Peridex -) 15 ml MM BID [facility] Last Admin: 01/21/19 09:09 Dose: 15 ml Heparin Sodium (Porcine) (Heparin -) 1,000 unit IVPUSH PRN PRN PRN Reason: Heparin Last Admin: 01/21/19 09:12 Dose: 1,000 unit Heparin Sodium (Porcine) (Heparin -) 5,000 unit IVPUSH PRN PRN PRN Reason: Heparin Hydralazine HCl (Apresoline Injection -) 10 mg IVPUSH Q6H PRN PRN Reason: HYPERTENSION Last Admin: 01/19/19 23:15 Dose: 10 mg Ampicillin Sodium/Sulbactam (Sodium 3 gm/ Sodium Chloride) 100 mls @ 200 mls/ hr IVPB BID [facility] Last Admin: 01/21/19 09:09 Dose: 200 mls/hr Heparin Sodium/Dextrose (Heparin Infusion -) 25,000 units in 500 mls @ 20 mls/ hr IVPB TITR [facility]; Protocol Last Admin: 01/21/19 13:17 Dose: 1,200 units/hr, 24 mls/hr Levetiracetam (Keppra Injection -) 500 mg IVPB BID [facility] Last Admin: 01/21/19 09:09 Dose: 500 mg Lorazepam (Ativan Injection -) 2 mg IVPUSH Q6H PRN PRN Reason: ANXIETY Last Admin: 01/21/19 10:35 Dose: 2 mg ASSESSMENT/PLAN: 68M PMH HTN, CHF, CVA 2013, [facility] s/p stent admitted to ICU s/p cardiac arrest w/ cardiac arrhythmia 2/2 cardiomegaly vs asphyxiation. Pt s/p targeted temp management. Neuro - Intubated, anoxic brain injury, persistent vegatative state - pt is off sedation. poor neurologic function - Tylenol for fever PRN - Patient likely to have poor outcome given prolonged down time in field - Upon arrival to ICU, has rhythmic movements around mouth concerning for possible seizure vs shivering - severe B/L cerebral dysfunction with minimal brainstem function intact. CV - HTN, CHF, s/p cardiac arrest w/ ROSC, NSTEMI , new onset Afib - ECHO 2015 demonstrated EF 37%, EF only mild-mod decreased on prior echo 1 yr ago, currently severe/global 25-30%. - s/p vfib arrest, ~45 minutes down time, amio 300/150, multiple shocks - Post ROSC EKG shows no STEMI - c/w tele monitoring - Trop 0.66 > 22.7 > 32.2 > 22 - stable off pressors - continue to hold BB - Aggressive repletion of K/Mag (to > 4/2) - card recs appreciated - avoid QT prolonging meds - HOLD ASA for 7 days for IR PEG -LE Doppler:There is no evidence of deep venous on boluses in the right lower extremity. Left lower extremity deep venous thromboses involving the common femoral vein. There is also thromboses involving the left lesser saphenous vein. --risks and benefits of A/C discussed with family. Resp: trach to vent - Bilateral rib fractures on CT consistent with CPR - bronchoscopy and tracheostomy 01/20 Endocrine: - TSH elevated in ED, thyroid labs sent, will follow. Low concern for myxedema coma given lack of refractory hypotension and vfib arrest ID: - Concern for aspiration given CT findings - pt still Febrile--> DVT is possible source - BCx positive growing strep agalactaie - ID recs appreciated -polymicrobial bacteremia- ?contaminant -repeat blood cultures are negative -continue vanco by level and unasyn Nephro: PRACHI 2/2 ATN -continue to monitor -Cr: 1.6->4.5 -no acute indication for REHAB TRAINER at this time. - non-oliguric - renal recs appreciated F/E/N - tube feeds as per network architect recs - free H2O to feeds - Monitor lytes, UrO, Cr Dispo: continue ICU monitoring. LTAC facility set up in progress per primary team. Visit type - Emergency Visit Emergency Visit: No - New Patient This patient is new to me today: No - Critical Care Critical Care patient: Yes Total Critical Care Time (in minutes): 36 Critical Care Statement: The care of this patient involved high complexity decision making to prevent further life threatening deterioration of the patient 's condition and/or to evaluate & treat vital organ system(s) failure or risk of failure. ATTENDING PHYSICIAN STATEMENT I saw and evaluated the patient. I reviewed the resident's note and discussed the case with the resident. I agree with the resident's findings and plan as documented. SUBJECTIVE: OBJECTIVE: ASSESSMENT AND PLAN:
[2019-01-21] MEDS ORDERED: HEPARIN NA (PORCINE) 5,000 UNITS/ML 1ML VIAL IVPUSH PRN ×4 (19:17)
[2019-01-21] MEDS ORDERED: hydrALAZINE HCL 20 MG/ML VIAL IVPUSH PRN (19:17)
[2019-01-21] MEDS ORDERED: CHLORHEXIDINE GLUCONATE 4% CLEANSER FOR DECOLONIZATION TP SCH (22:00)
[2019-01-21] MEDS: MINERAL OIL/PETROLATUM,WHITE 3.5 GM TUBE OU SCH (22:43)
[2019-01-22] MEDS ORDERED: PT OWN MED DRAWER 7, Y5N ONE ×4 (00:30→21:28)
[2019-01-22] MEDS: AMPICILLIN NA/SULBACTAM NA 3 GM in SODIUM CHLORIDE 100 ML IVPB SCH ×3 (00:40→22:35)
[2019-01-22] MEDS: ACETAMINOPHEN 1000 MG/100 ML VIAL (NON FORMULARY) IVPB PRN ×2 (01:18→09:05)
[2019-01-22] MEDS: LORazepam 2 MG/ML SDV VIAL IVPUSH PRN (03:54)
--- NOTE | 2019-01-22 07:01 | PN ---
Progress Note, Physician History of Present Illness: PULMONARY REMAINS ON VENT SUPPORT AC MODE,POORLY RESPONSIVE. ASGB539.5 - Current Medication List Current Medications: Active Medications Acetaminophen (Ofirmev Injection -) 1,000 mg IVPB Q6H PRN PRN Reason: FEVER Last Admin: 01/22/19 01:18 Dose: 1,000 mg Artificial Tears (Artificial Tears Ointment -) 1 applic OU HS [facility] Last Admin: 01/21/19 22:43 Dose: 1 applic Artificial Tears (Artificial Tears) 1 drop OU BID [facility] Last Admin: 01/21/19 22:43 Dose: 1 drop Chlorhexidine Gluconate (Peridex -) 15 ml MM BID [facility] Last Admin: 01/21/19 22:46 Dose: Not Given Heparin Sodium (Porcine) (Heparin -) 5,000 unit IVPUSH PRN PRN PRN Reason: Heparin Heparin Sodium (Porcine) (Heparin -) 1,000 unit IVPUSH PRN PRN PRN Reason: Heparin Last Admin: 01/22/19 00:31 Dose: 1,000 unit Hydralazine HCl (Apresoline Injection -) 10 mg IVPUSH Q6H PRN PRN Reason: HYPERTENSION Ampicillin Sodium/Sulbactam (Sodium 3 gm/ Sodium Chloride) 100 mls @ 200 mls/ hr IVPB BID [facility] Last Admin: 01/22/19 00:40 Dose: 200 mls/hr Heparin Sodium/Dextrose (Heparin Infusion -) 25,000 units in 500 mls @ 20 mls/ hr IVPB TITR [facility]; Protocol Last Titration: 01/22/19 00:36 Dose: 1,300 units/hr, 26 mls/hr Levetiracetam (Keppra Injection -) 500 mg IVPB BID [facility] Last Admin: 01/21/19 22:43 Dose: 500 mg Lorazepam (Ativan Injection -) 2 mg IVPUSH Q6H PRN PRN Reason: ANXIETY Last Admin: 01/22/19 03:54 Dose: 2 mg - Objective Vital Signs: Vital Signs Temperature 100.5 F H 01/22/19 06:00 Pulse Rate 77 01/22/19 06:19 Respiratory Rate 18 01/22/19 06:00 Blood Pressure 122/66 01/22/19 06:00 O2 Sat by Pulse Oximetry (%) 100 01/22/19 06:19 Constitutional: Yes: Well Nourished, Calm Eyes: Yes: WNL HENT: Yes: WNL Neck: Yes: Supple (TRACH) Cardiovascular: Yes: Regular Rate and Rhythm, S1, S2 Respiratory: Yes: Rhonchi (SCATTERED BURAK RHONCHI) Gastrointestinal: Yes: Normal Bowel Sounds, Soft Extremities: Yes: WNL Edema: Yes Labs: CBC, BMP - ....Imaging Chest X-ray: Report Reviewed, Image Reviewed Problem List - Problems (1) PRACHI (acute kidney injury) Code(s): N17.9 - ACUTE KIDNEY FAILURE, UNSPECIFIED (2) Brain anoxic injury Code(s): G93.1 - ANOXIC BRAIN DAMAGE, NOT ELSEWHERE CLASSIFIED (3) Cardiac arrest with successful resuscitation Code(s): I46.9 - CARDIAC ARREST, CAUSE UNSPECIFIED (4) Sepsis Code(s): A41.9 - SEPSIS, UNSPECIFIED ORGANISM (5) CHF (congestive heart failure) Code(s): I50.9 - HEART FAILURE, UNSPECIFIED (6) HTN (hypertension) Code(s): I10 - ESSENTIAL (PRIMARY) HYPERTENSION (7) Tobacco abuse Code(s): Z72.0 - TOBACCO USE (8) History of sudden cardiac arrest Code(s): Z86.74 - PERSONAL HISTORY OF SUDDEN CARDIAC ARREST (9) Chronic respiratory failure Code(s): J96.10 - CHRONIC RESPIRATORY FAILURE, UNSP W HYPOXIA OR HYPERCAPNIA Assessment/Plan ASSESSMENT AND PLAN: S/P Cardiopulmonary Arrest KIA[facility] Ventricular Fibrillation Anoxic Brain Injury CAD/+Troponins/Acute NSTEMI LV Systolic Dysfunction Lactic Acidosis Acute Kidney Injury Elevated LFTs likely Ischemic Injury HTN Hyperlipidemia Extensive DVT - AC - ABX per ID - monitor urine output, creatinine - AEDs - not a candidate for weaning at this time due to mental status - continue discussions regarding goals of care, advanced directives - DVT prophylaxis - poor overall prognosis for meaningful recovery DR FORBES
[2019-01-22] MEDS: PIPERACILLIN/TAZOB 2.25 GM 2.25 GM in DEXTROSE 5%-WATER - 50 ML IVPB SCH (07:15)
[2019-01-22 07:37] LABS: HEMATOCRIT 31.2 % (35.4-49); HEMOGLOBIN 10.2 GM/dL (11.7-16.9); MCH 29.6 pg (25.7-33.7); MCHC 32.7 g/dl (32.0-35.9); MEAN CELL VOLUME 90.7 fl (80-96); MEAN PLT VOLUME 8.1 fl (7.5-11.1); PLATELET COUNT 292 K/MM3 (134-434); RBC 3.44 M/mm3 (4.00-5.60); RDW 15.7 % (11.9-15.9); WHITE BLOOD COUNT 14.8 K/mm3 (4.0-10.0)
--- NOTE | 2019-01-22 07:48 | PN ---
Physical Exam: SUBJECTIVE: Patient seen and examined; cannot participate in exam and history due to underlying neuro issues. Remains febrile; WBC trended up overnight. Na slightly improved. discussed with PCCM and ID. Tmax x24hrs is 102.8. Obtaining CT chest/abd/pelvis and will decide on further necessity of antibiotics. Pending PEG, no issues with trach POD#2. Couldn't obtain ROS due to underlying clinical issues. OBJECTIVE: Vital Signs Period Temp Pulse Resp BP Sys/Estrada Pulse Ox Last 24 Hr 99.5 F-102.8 F 77-106 15-22 114-158/48-96 95-100 VS, labs, imaging reviewed NAD, vent to trach, in bed, cloth over eyes NC AT EOMI PERRLA RRR s1/2 No issues or bleeding around trach No spontaneous movement, occasional breath over vent, no change in CN exam Lungs with vent associated breath sounds and coarse rales Doesn't appear tender, abdomen without any change in distention and reduced but +BS Couldn't do psych assessment Trachea midline with trach noted; no LN surrounding with no apparent goiter, etc. Skin without new breakdown, rashes, etc. Laboratory Results - last 24 hr 01/21/19 01/21/19 01/21/19 09:00 09:00 09:00 WBC 13.9 H RBC 3.72 L Hgb 11.1 L Hct 33.9 L MCV 91.3 MCH 29.9 MCHC 32.8 RDW 15.5 Plt Count 268 MPV 8.1 Absolute Neuts (auto) 11.3 H Neutrophils % 80.9 Lymphocytes % 6.9 L Monocytes % 8.2 Eosinophils % 3.7 D Basophils % 0.3 Nucleated RBC % 0 PTT (Actin FS) Sodium 152 H Potassium 3.9 Chloride 118 H Carbon Dioxide 25 Anion Gap 9 BUN 53.0 H Creatinine 4.3 H Est GFR (CKD-EPI)AfAm 15.52 Est GFR (CKD-EPI)NonAf 13.39 Random Glucose 106 Calcium 9.1 Phosphorus 4.1 Magnesium 2.7 H Total Bilirubin 0.4 AST 82 H ALT 86 H Alkaline Phosphatase 95 Total Protein 6.2 L Albumin 2.3 L Random Vancomycin 13.2 L 01/21/19 01/21/19 09:00 23:15 WBC RBC Hgb Hct MCV MCH MCHC RDW Plt Count MPV Absolute Neuts (auto) Neutrophils % Lymphocytes % Monocytes % Eosinophils % Basophils % Nucleated RBC % PTT (Actin FS) 46.6 H 45.3 H Sodium Potassium Chloride Carbon Dioxide Anion Gap BUN Creatinine Est GFR (CKD-EPI)AfAm Est GFR (CKD-EPI)NonAf Random Glucose Calcium Phosphorus Magnesium Total Bilirubin AST ALT Alkaline Phosphatase Total Protein Albumin Random Vancomycin Active Medications Generic Name Dose Route Start Last Admin Trade Name Freq PRN Reason Stop Dose Admin Acetaminophen 1,000 mg 01/21/19 12:34 01/22/19 01:18 Ofirmev Injection - IVPB 1,000 mg Q6H PRN Administration FEVER Artificial Tears 1 applic 01/21/19 22:00 01/21/19 22:43 Artificial Tears Ointment - OU 1 applic HS [facility] Administration Artificial Tears 1 drop 01/21/19 22:00 01/21/19 22:43 Artificial Tears OU 1 drop BID [facility] Administration Chlorhexidine Gluconate 15 ml 01/21/19 22:00 01/21/19 22:46 Peridex - MM Not Given BID [facility] Heparin Sodium (Porcine) 5,000 unit 01/21/19 19:17 Heparin - IVPUSH PRN PRN Heparin Heparin Sodium (Porcine) 1,000 unit 01/21/19 19:17 01/22/19 00:31 Heparin - IVPUSH 1,000 unit PRN PRN Administration Heparin Hydralazine HCl 10 mg 01/21/19 19:17 Apresoline Injection - IVPUSH Q6H PRN HYPERTENSION Ampicillin Sodium/Sulbactam 100 mls @ 200 mls/hr 01/21/19 22:00 01/22/19 00: 40 Sodium 3 gm/ Sodium Chloride IVPB 200 mls/hr BID [facility] Administration Heparin Sodium/Dextrose 25,000 units in 500 mls @ 20 mls/hr 01/21/19 19:17 00:36 Heparin Infusion - IVPB 1,300 units/hr TITR [facility] 26 mls/hr Titration Protocol 1,000 UNITS/HR Levetiracetam 500 mg 01/21/19 22:00 01/21/19 22:43 Keppra Injection - IVPB 500 mg BID [facility] Administration Lorazepam 2 mg 01/21/19 19:17 01/22/19 03:54 Ativan Injection - IVPUSH 2 mg Q6H PRN Administration ANXIETY Echo reviewed with LAE, 25% LVEF with hypokinesis (in the setting of negative C 2016 suggest NICM) CXR today with apparent retrocardiac density. Prior EKGs reviewed; can repeat in AM to reassess QTc. PTT being continuously monitored as on heparin drip ASSESSMENT/PLAN: Patient continues to be monitored on the medicine service; moved to the floor yesterday but still having persistent fevers with TMAX recorded above. No new issues per family, patient remains noncommunitive without any improvement noted in neurological exam. Per discussion of case with consulting services and with regards to the persisting fevers, etc. we will plan to get a CT Abdomen/Pelvis as well as the chest to examine for ongoing clues as to where the origin of the fevers would be from. If negative imaging to suggest no further fevers, with respect to FUO workup and given that the DVT is being treated, one would assume the possibility of central fevers at such a juncture. Will continue with PRN antipyretics and PRN cooling if indicated. If no source of fevers identified would choose to DC antibiotics. Problems include: -Persistent Fevers -VDRF -VFib Arrest likely 2/2 Septic Shock -Septic Shock, resolved -Severe systolic dysfunction (LVEF ~25%) 2/2 severe NICM, followed by CV. -PRACHI 2/2 ATN from hypotension/septic shock, plateaued and with very slight improvement today. -Hypernatremia, improving and followed by nephrology -Transaminitis is downtrending. Followup CT Abdomen/pelvis and will trend daily. If needed check RUQ US -P-Afib, on hep ggt -DVT, on hep ggt -NSTEMI, continuing to hold BB -Severe hypoalbuminemia -Anoxic encephalopathy -Hx mild pulmonary HTN (RHC 2016 per CV note with normal LVEDP/PCW noted) DNR status maintained Continue to monitor on the floor Very guarded prognosis. Visit type - Emergency Visit Emergency Visit: No - New Patient This patient is new to me today: No - Critical Care Critical Care patient: No
[2019-01-22 08:03] LABS: ALBUMIN 1.9 g/dl (3.4-5.0); BILIRUBIN,TOTAL 0.3 mg/dL (0.2-1); BLOOD UREA NITROGEN 60.4 mg/dL (7-18); CALCIUM 8.5 mg/dL (8.5-10.1); CREATININE 4.1 mg/dL (0.55-1.3); POTASSIUM 3.8 mmol/L (3.5-5.1); TOT PROT 5.3 g/dl (6.4-8.2)
[2019-01-22] MEDS: ARTIFICIAL TEARS (POLYVINYL ALCOHOL) OPTH DROPS OU SCH ×2 (09:06→22:36)
[2019-01-22] MEDS: CHLORHEXIDINE GLUCONATE 0.12% 15ML CUP MM SCH ×2 (09:06→22:37)
[2019-01-22] MEDS: levETIRAcetam 500 MG/5 ML INJECTION VIAL IVPB SCH ×2 (09:27→22:36)
--- NOTE | 2019-01-22 13:06 | PN ---
Progress Note (short form) - Note Progress Note: continues to have fevers unresponsive trach to vent ?myoclonic movements Vital Signs Period Temp Pulse Resp BP Sys/Estrada Pulse Ox Last 24 Hr 99.5 F-103.6 F 66-89 15-26 114-137/49-67 100-100 trach to vent cor-rrr lungs decresed bs at bases abd soft, ext no edema CBC, BMP 01/22/19 06:56 01/22/19 06:56 Microbiology 01/19/19 12:51 Blood - Peripheral Venous Blood Culture - Preliminary NO GROWTH OBTAINED AFTER 48 HOURS, INCUBATION TO CONTINUE FOR 3 DAYS. 01/19/19 13:00 Blood - Peripheral Venous Blood Culture - Preliminary NO GROWTH OBTAINED AFTER 48 HOURS, INCUBATION TO CONTINUE FOR 3 DAYS. 01/14/19 16:00 Blood - Peripheral Venous Blood Culture - Final NO GROWTH AFTER 5 DAYS INCUBATION 01/14/19 14:30 Blood - Peripheral Venous Blood Culture - Final NO GROWTH AFTER 5 DAYS INCUBATION 01/14/19 14:30 Sputum - Endotrachea Suction/Ventilator Gram Stain - Final 01/14/19 14:30 Sputum - Endotrachea Suction/Ventilator Sputum Culture - Final Klebsiella Pneumoniae Stenotrophomon.(X.)Maltophilia 01/12/19 20:30 Blood - Peripheral Venous Blood Culture - Final Strep Agalactiae Group B Staphylococcus Haemolyticus Enterococcus Faecalis 01/12/19 20:30 Blood - Peripheral Venous Blood Culture - Final Staphylococcus Haemolyticus 01/13/19 09:00 Urine For Antigen Detection Legionella Antigen - Final 01/13/19 09:00 Urine For Antigen Detection Streptococcus pneumoniae Antigen (M - Final 01/13/19 04:50 Urine - Urine Clean Catch Urine Culture - Final NO GROWTH OBTAINED Current Medications Acetaminophen (Ofirmev Injection -) 1,000 mg IVPB Q6H PRN PRN Reason: FEVER Last Admin: 01/22/19 09:05 Dose: 1,000 mg Artificial Tears (Artificial Tears Ointment -) 1 applic OU HS [facility] Last Admin: 01/21/19 22:43 Dose: 1 applic Artificial Tears (Artificial Tears) 1 drop OU BID [facility] Last Admin: 01/22/19 09:06 Dose: 1 drop Chlorhexidine Gluconate (Peridex -) 15 ml MM BID [facility] Last Admin: 01/22/19 09:06 Dose: 15 ml Heparin Sodium (Porcine) (Heparin -) 5,000 unit IVPUSH PRN PRN PRN Reason: Heparin Heparin Sodium (Porcine) (Heparin -) 1,000 unit IVPUSH PRN PRN PRN Reason: Heparin Last Admin: 01/22/19 00:31 Dose: 1,000 unit Hydralazine HCl (Apresoline Injection -) 10 mg IVPUSH Q6H PRN PRN Reason: HYPERTENSION Ampicillin Sodium/Sulbactam (Sodium 3 gm/ Sodium Chloride) 100 mls @ 200 mls/ hr IVPB BID [facility] Last Admin: 01/22/19 10:17 Dose: 200 mls/hr Heparin Sodium/Dextrose (Heparin Infusion -) 25,000 units in 500 mls @ 20 mls/ hr IVPB TITR [facility]; Protocol Last Titration: 01/22/19 00:36 Dose: 1,300 units/hr, 26 mls/hr Levetiracetam (Keppra Injection -) 500 mg IVPB BID [facility] Last Admin: 01/22/19 09:27 Dose: 500 mg Lorazepam (Ativan Injection -) 2 mg IVPUSH Q6H PRN PRN Reason: ANXIETY Last Admin: 01/22/19 03:54 Dose: 2 mg a/p persistent fevers-?central d/w hospitalist- for repeat imaging chest/abd/pelvis on a/c for dvt without improvement on day #10 for polymicrobial bacteremia- if imaging is negative can d/c antibiotics and re-evaluate off antibiotics s/p cardiac arrest with anoxia raffi- unchanged Problem List - Problems (1) Cardiac arrest with successful resuscitation Code(s): I46.9 - CARDIAC ARREST, CAUSE UNSPECIFIED (2) Brain anoxic injury Code(s): G93.1 - ANOXIC BRAIN DAMAGE, NOT ELSEWHERE CLASSIFIED (3) Sepsis Code(s): A41.9 - SEPSIS, UNSPECIFIED ORGANISM (4) Shock liver Code(s): K72.00 - ACUTE AND SUBACUTE HEPATIC FAILURE WITHOUT COMA
[2019-01-22] MEDS: HEPARIN INFUSION - 25,000 UNITS/500 ML INFUS.BAG IVPB SCH ×2 (14:20→20:13)
--- NOTE | 2019-01-22 16:50 | PN ---
Progress Note, Physician History of Present Illness: Pt seen and examined at bedside. No great change in status. He is now in the medical [facility]. - Current Medication List Current Medications: Active Medications Acetaminophen (Ofirmev Injection -) 1,000 mg IVPB Q6H PRN PRN Reason: FEVER Last Admin: 01/22/19 09:05 Dose: 1,000 mg Artificial Tears (Artificial Tears Ointment -) 1 applic OU HS [facility] Last Admin: 01/21/19 22:43 Dose: 1 applic Artificial Tears (Artificial Tears) 1 drop OU BID [facility] Last Admin: 01/22/19 09:06 Dose: 1 drop Chlorhexidine Gluconate (Peridex -) 15 ml MM BID [facility] Last Admin: 01/22/19 09:06 Dose: 15 ml Heparin Sodium (Porcine) (Heparin -) 5,000 unit IVPUSH PRN PRN PRN Reason: Heparin Heparin Sodium (Porcine) (Heparin -) 1,000 unit IVPUSH PRN PRN PRN Reason: Heparin Last Admin: 01/22/19 00:31 Dose: 1,000 unit Hydralazine HCl (Apresoline Injection -) 10 mg IVPUSH Q6H PRN PRN Reason: HYPERTENSION Ampicillin Sodium/Sulbactam (Sodium 3 gm/ Sodium Chloride) 100 mls @ 200 mls/ hr IVPB BID [facility] Last Admin: 01/22/19 10:17 Dose: 200 mls/hr Heparin Sodium/Dextrose (Heparin Infusion -) 25,000 units in 500 mls @ 20 mls/ hr IVPB TITR [facility]; Protocol Last Admin: 01/22/19 14:20 Dose: 1,300 units/hr, 26 mls/hr Levetiracetam (Keppra Injection -) 500 mg IVPB BID [facility] Last Admin: 01/22/19 09:27 Dose: 500 mg Lorazepam (Ativan Injection -) 2 mg IVPUSH Q6H PRN PRN Reason: ANXIETY Last Admin: 01/22/19 03:54 Dose: 2 mg - Objective Vital Signs: Vital Signs Temperature 102.3 F H 01/22/19 15:49 Pulse Rate 57 L 01/22/19 15:49 Respiratory Rate 14 01/22/19 15:49 Blood Pressure 123/42 L 01/22/19 15:49 O2 Sat by Pulse Oximetry (%) 100 01/22/19 09:22 Constitutional: Yes: Calm Eyes: Yes: Conjunctiva Clear HENT: Yes: Atraumatic Neck: Yes: Other (trache) Cardiovascular: Yes: S1, S2 Respiratory: Yes: Mechanically Ventilated Gastrointestinal: Yes: Normal Bowel Sounds, Soft Genitourinary: Yes: Chambers Present Musculoskeletal: Yes: Muscle Weakness Edema: Yes Neurological: Yes: Lethargy Labs: CBC, BMP 01/22/19 06:56 01/22/19 06:56 INR, PTT INR 1.08 (0.83-1.09) 01/13/19 05:15 - ....Imaging Chest X-ray: Report Reviewed Problem List - Problems (1) PRACHI (acute kidney injury) Code(s): N17.9 - ACUTE KIDNEY FAILURE, UNSPECIFIED (2) CHF (congestive heart failure) Code(s): I50.9 - HEART FAILURE, UNSPECIFIED (3) HTN (hypertension) Code(s): I10 - ESSENTIAL (PRIMARY) HYPERTENSION Assessment/Plan Current Medications Generic Name Dose Route Start Last Admin Trade Name Kush PRN Reason Stop Dose Admin Acetaminophen 1,000 mg 01/21/19 12:34 01/22/19 09:05 Ofirmev Injection - IVPB 1,000 mg Q6H PRN Administration FEVER Artificial Tears 1 applic 01/21/19 22:00 01/21/19 22:43 Artificial Tears Ointment - OU 1 applic HS [facility] Administration Artificial Tears 1 drop 01/21/19 22:00 01/22/19 09:06 Artificial Tears OU 1 drop BID [facility] Administration Chlorhexidine Gluconate 15 ml 01/21/19 22:00 01/22/19 09:06 Peridex - MM 15 ml BID [facility] Administration Heparin Sodium (Porcine) 5,000 unit 01/21/19 19:17 Heparin - IVPUSH PRN PRN Heparin Heparin Sodium (Porcine) 1,000 unit 01/21/19 19:17 01/22/19 00:31 Heparin - IVPUSH 1,000 unit PRN PRN Administration Heparin Hydralazine HCl 10 mg 01/21/19 19:17 Apresoline Injection - IVPUSH Q6H PRN HYPERTENSION Ampicillin Sodium/Sulbactam 100 mls @ 200 mls/hr 01/21/19 22:00 01/22/19 10: 17 Sodium 3 gm/ Sodium Chloride IVPB 200 mls/hr BID [facility] Administration Heparin Sodium/Dextrose 25,000 units in 500 mls @ 20 mls/hr 01/21/19 19:17 14:20 Heparin Infusion - IVPB 1,300 units/hr TITR [facility] 26 mls/hr Administration Protocol 1,000 UNITS/HR Levetiracetam 500 mg 01/21/19 22:00 01/22/19 09:27 Keppra Injection - IVPB 500 mg BID [facility] Administration Lorazepam 2 mg 01/21/19 19:17 01/22/19 03:54 Ativan Injection - IVPUSH 2 mg Q6H PRN Administration ANXIETY Impression 1. PRACHI 2. cardiac arrest 3. hx chf 4. hx htn 5. resp failure requiring intubation 6. hypernatremia Plan - renal function is starting to improve - cont feeds - cont free water - sodium is starting to improve - PRACHI likely from ATN - cont supportive care -
[2019-01-22] MEDS: MINERAL OIL/PETROLATUM,WHITE 3.5 GM TUBE OU SCH (22:36)
[2019-01-23] MEDS: ACETAMINOPHEN 1000 MG/100 ML VIAL (NON FORMULARY) IVPB PRN ×2 (06:45→18:20)
[2019-01-23 07:45] LABS: HEMATOCRIT 29.2 % (35.4-49); HEMOGLOBIN 9.7 GM/dL (11.7-16.9); MCH 30.1 pg (25.7-33.7); MCHC 33.4 g/dl (32.0-35.9); MEAN CELL VOLUME 90.1 fl (80-96); MEAN PLT VOLUME 8.4 fl (7.5-11.1); PLATELET COUNT 327 K/MM3 (134-434); RBC 3.24 M/mm3 (4.00-5.60); RDW 15.4 % (11.9-15.9)
--- NOTE | 2019-01-23 09:01 | PN ---
Physical Exam: SUBJECTIVE: Patient seen and examined; no acute events. Awaiting offical imaging read on imaging. Discussed CT head result with imaging saloon keeper last night; positive for anoxic brain injury which was expected. Mother requested to speak with me regarding results; restricted insight but I did my best to explain the current findings and explained we would be following up the official report when made available. He continues to have no meaningful movements, trach to vent with minimal reassuring neurologic function Spoke with CM; he is accepted to facility but will need PEG and fever investigation concluded Spoke with ID; will await the official read on the imaging and then decide on final abx course. Suspecting an element of central fevers He remains very guarded in terms of his overall prognosis. Could not obtain meaningful ROS due to underlying clinical status. OBJECTIVE: Vital Signs Period Temp Pulse Resp BP Sys/Estrada Pulse Ox Last 24 Hr 98.4 F-102.3 F 57-93 14-26 123-146/42-90 100-100 VS, labs, imaging reviewed NAD, vent to trach, in bed, cloth over eyes NC AT EOMI PERRLA RRR s1/2 No issues or bleeding around trach No spontaneous movement, occasional breath over vent, no change in CN exam Lungs with vent associated breath sounds and coarse rales Doesn't appear tender, abdomen without any change in distention and reduced but +BS Couldn't do psych assessment Trachea midline with trach noted; no LN surrounding with no apparent goiter, etc. Skin without new breakdown, rashes, etc. Laboratory Results - last 24 hr 01/22/19 01/23/19 01/23/19 06:56 06:50 06:50 WBC 16.0 H RBC 3.24 L Hgb 9.7 L Hct 29.2 L MCV 90.1 MCH 30.1 MCHC 33.4 RDW 15.4 Plt Count 327 MPV 8.4 ESR 83 H PTT (Actin FS) 54.9 H C-Reactive Protein 01/23/19 06:50 WBC RBC Hgb Hct MCV MCH MCHC RDW Plt Count MPV ESR PTT (Actin FS) C-Reactive Protein 12.5 H Active Medications Generic Name Dose Route Start Last Admin Trade Name Freq PRN Reason Stop Dose Admin Acetaminophen 1,000 mg 01/23/19 08:01 Ofirmev Injection - IVPB Q6H PRN FEVER Artificial Tears 1 applic 01/21/19 22:00 01/22/19 22:36 Artificial Tears Ointment - OU 1 applic HS [facility] Administration Artificial Tears 1 drop 01/21/19 22:00 01/22/19 22:36 Artificial Tears OU 1 drop BID [facility] Administration Chlorhexidine Gluconate 15 ml 01/21/19 22:00 01/22/19 22:37 Peridex - MM 15 ml BID [facility] Administration Heparin Sodium (Porcine) 5,000 unit 01/21/19 19:17 Heparin - IVPUSH PRN PRN Heparin Heparin Sodium (Porcine) 1,000 unit 01/21/19 19:17 01/22/19 00:31 Heparin - IVPUSH 1,000 unit PRN PRN Administration Heparin Hydralazine HCl 10 mg 01/21/19 19:17 Apresoline Injection - IVPUSH Q6H PRN HYPERTENSION Ampicillin Sodium/Sulbactam 100 mls @ 200 mls/hr 01/21/19 22:00 01/22/19 22: 35 Sodium 3 gm/ Sodium Chloride IVPB 200 mls/hr BID [facility] Administration Heparin Sodium/Dextrose 25,000 units in 500 mls @ 20 mls/hr 01/21/19 19:17 20:13 Heparin Infusion - IVPB Not Given TITR [facility] Protocol 1,000 UNITS/HR Levetiracetam 500 mg 01/21/19 22:00 01/22/19 22:36 Keppra Injection - IVPB 500 mg BID [facility] Administration Lorazepam 2 mg 01/21/19 19:17 01/22/19 03:54 Ativan Injection - IVPUSH 2 mg Q6H PRN Administration ANXIETY ASSESSMENT/PLAN: Patient continues to be monitored on the medicine service; moved to the floor yesterday but still having persistent fevers; remains noncommunitive without any improvement noted in neurological exam. Per discussion of case with consulting services and with regards to the persisting fevers, etc. Abnoxic brain injury seen on CT head with CT abdomen pelvis and chest pending but with chest showing likely pleural effusion. Will followup imaging report and cancel IR consult if somehow not effusion. We still are considering the possibility of central fevers at such a juncture. Will continue with PRN antipyretics and PRN cooling if indicated. Still pending PEG tube. In [facility], we need to determine the source of the fevers. If truly pneumonia with effusion will need to r/o empyema, etc. Discussed at length with subspecialty consults. Deferring vent management to pulmonary medicine. Problems include: -Persistent Fevers -VDRF -VFib Arrest likely 2/2 Septic Shock -Septic Shock, resolved -Severe systolic dysfunction (LVEF ~25%) 2/2 severe NICM, followed by CV. -PRACHI 2/2 ATN from hypotension/septic shock, plateaued and with very slight improvement today. -Hypernatremia, improving and followed by nephrology -Transaminitis is downtrending. Followup CT Abdomen/pelvis and will trend daily. If needed check RUQ US -P-Afib, on hep ggt -DVT, on hep ggt -NSTEMI, continuing to hold BB -Severe hypoalbuminemia -Anoxic encephalopathy -Hx mild pulmonary HTN (RHC 2016 per CV note with normal LVEDP/PCW noted) DNR status maintained Continue to monitor on the floor Very guarded prognosis. Visit type - Emergency Visit Emergency Visit: No - New Patient This patient is new to me today: No - Critical Care Critical Care patient: No
[2019-01-23] MEDS ORDERED: PT OWN MED DRAWER 7, Y5N ONE (09:25)
[2019-01-23] MEDS: AMPICILLIN NA/SULBACTAM NA 3 GM in SODIUM CHLORIDE 100 ML IVPB SCH (09:30)
[2019-01-23] MEDS: HEPARIN INFUSION - 25,000 UNITS/500 ML INFUS.BAG IVPB SCH ×2 (09:31→20:12)
[2019-01-23 09:41] LABS: ALBUMIN 1.8 g/dl (3.4-5.0); BLOOD UREA NITROGEN 62.7 mg/dL (7-18); CALCIUM 8.8 mg/dL (8.5-10.1); CREATININE 3.6 mg/dL (0.55-1.3); PHOSPHOROUS 4.4 mg/dL (2.5-4.9); POTASSIUM 3.7 mmol/L (3.5-5.1)
[2019-01-23] MEDS: CHLORHEXIDINE GLUCONATE 0.12% 15ML CUP MM SCH ×2 (10:27→22:25)
[2019-01-23] MEDS: levETIRAcetam 500 MG/5 ML INJECTION VIAL IVPB SCH ×2 (10:27→22:25)
[2019-01-23] MEDS: ARTIFICIAL TEARS (POLYVINYL ALCOHOL) OPTH DROPS OU SCH ×2 (10:28→22:26)
--- NOTE | 2019-01-23 10:50 | PN ---
Progress Note, Physician History of Present Illness: PULMONARY NO CHANGE,UNRESPONSIVE ON VENT SUPPORT AC MODE.FEBRILE - Current Medication List Current Medications: Active Medications Acetaminophen (Ofirmev Injection -) 1,000 mg IVPB Q6H PRN PRN Reason: FEVER Artificial Tears (Artificial Tears Ointment -) 1 applic OU HS [facility] Last Admin: 01/22/19 22:36 Dose: 1 applic Artificial Tears (Artificial Tears) 1 drop OU BID [facility] Last Admin: 01/23/19 10:28 Dose: 1 drop Chlorhexidine Gluconate (Peridex -) 15 ml MM BID [facility] Last Admin: 01/23/19 10:27 Dose: 15 ml Heparin Sodium (Porcine) (Heparin -) 5,000 unit IVPUSH PRN PRN PRN Reason: Heparin Stop: 01/24/19 02:00 Heparin Sodium (Porcine) (Heparin -) 1,000 unit IVPUSH PRN PRN PRN Reason: Heparin Stop: 01/24/19 02:00 Last Admin: 01/22/19 00:31 Dose: 1,000 unit Hydralazine HCl (Apresoline Injection -) 10 mg IVPUSH Q6H PRN PRN Reason: HYPERTENSION Ampicillin Sodium/Sulbactam (Sodium 3 gm/ Sodium Chloride) 100 mls @ 200 mls/ hr IVPB BID [facility] Last Admin: 01/23/19 09:30 Dose: 200 mls/hr Heparin Sodium/Dextrose (Heparin Infusion -) 25,000 units in 500 mls @ 20 mls/ hr IVPB TITR [facility]; Protocol Stop: 01/24/19 02:00 Last Admin: 01/23/19 09:31 Dose: 1,300 units/hr, 26 mls/hr Levetiracetam (Keppra Injection -) 500 mg IVPB BID [facility] Last Admin: 01/23/19 10:27 Dose: 500 mg Lorazepam (Ativan Injection -) 2 mg IVPUSH Q6H PRN PRN Reason: ANXIETY Last Admin: 01/22/19 03:54 Dose: 2 mg - Objective Vital Signs: Vital Signs Temperature 98.4 F 01/23/19 08:49 Pulse Rate 69 01/23/19 08:49 Respiratory Rate 14 01/23/19 08:49 Blood Pressure 131/68 01/23/19 08:49 O2 Sat by Pulse Oximetry (%) 100 01/23/19 05:05 Constitutional: Yes: Well Nourished, Other (UNRESPONSIVE) Eyes: Yes: WNL HENT: Yes: WNL Neck: Yes: Supple Cardiovascular: Yes: Regular Rate and Rhythm, S1, S2 Respiratory: Yes: Rhonchi (SCATTERED RHONCHI) Gastrointestinal: Yes: Normal Bowel Sounds, Soft Extremities: Yes: WNL Edema: No Labs: CBC, BMP 01/23/19 06:50 01/23/19 06:50 INR, PTT INR 1.08 (0.83-1.09) 01/13/19 05:15 - ....Imaging Cat Scan: Report Reviewed, Image Reviewed (NEW LEFT BASE CONSOLIDATION,SMALL EFFUSION) Problem List - Problems (1) PRACHI (acute kidney injury) Code(s): N17.9 - ACUTE KIDNEY FAILURE, UNSPECIFIED (2) Brain anoxic injury Code(s): G93.1 - ANOXIC BRAIN DAMAGE, NOT ELSEWHERE CLASSIFIED (3) Cardiac arrest with successful resuscitation Code(s): I46.9 - CARDIAC ARREST, CAUSE UNSPECIFIED (4) Sepsis Code(s): A41.9 - SEPSIS, UNSPECIFIED ORGANISM (5) CHF (congestive heart failure) Code(s): I50.9 - HEART FAILURE, UNSPECIFIED (6) HTN (hypertension) Code(s): I10 - ESSENTIAL (PRIMARY) HYPERTENSION (7) Tobacco abuse Code(s): Z72.0 - TOBACCO USE (8) History of sudden cardiac arrest Code(s): Z86.74 - PERSONAL HISTORY OF SUDDEN CARDIAC ARREST (9) Chronic respiratory failure Code(s): J96.10 - CHRONIC RESPIRATORY FAILURE, UNSP W HYPOXIA OR HYPERCAPNIA Assessment/Plan ASSESSMENT AND PLAN: S/P Cardiopulmonary Arrest KIAH Ventricular Fibrillation Anoxic Brain Injury CAD/+Troponins/Acute NSTEMI LV Systolic Dysfunction Lactic Acidosis Acute Kidney Injury Elevated LFTs likely Ischemic Injury HTN Hyperlipidemia Extensive DVT - AC - ABX per ID - monitor urine output, creatinine - not a candidate for weaning at this time due to mental status - continue discussions regarding goals of care, advanced directives - DVT prophylaxis - poor overall prognosis for meaningful recovery DR FORBES
--- NOTE | 2019-01-23 13:04 | PN ---
Progress Note (short form) - Note Progress Note: fevers persist unresponsive trach to vent Vital Signs Period Temp Pulse Resp BP Sys/Estrada Pulse Ox Last 24 Hr 98.4 F-102.3 F 57-93 14-25 123-146/42-90 100-100 cor-rrr lungs decreased bs at bases abd soft,nt ext no edema CBC, BMP 01/23/19 06:50 01/23/19 06:50 Microbiology 01/19/19 12:51 Blood - Peripheral Venous Blood Culture - Preliminary NO GROWTH OBTAINED AFTER 72 HOURS, INCUBATION TO CONTINUE FOR 2 DAYS. 01/19/19 13:00 Blood - Peripheral Venous Blood Culture - Preliminary NO GROWTH OBTAINED AFTER 72 HOURS, INCUBATION TO CONTINUE FOR 2 DAYS. 01/14/19 16:00 Blood - Peripheral Venous Blood Culture - Final NO GROWTH AFTER 5 DAYS INCUBATION 01/14/19 14:30 Blood - Peripheral Venous Blood Culture - Final NO GROWTH AFTER 5 DAYS INCUBATION 01/14/19 14:30 Sputum - Endotrachea Suction/Ventilator Gram Stain - Final 01/14/19 14:30 Sputum - Endotrachea Suction/Ventilator Sputum Culture - Final Klebsiella Pneumoniae Stenotrophomon.(X.)Maltophilia 01/12/19 20:30 Blood - Peripheral Venous Blood Culture - Final Strep Agalactiae Group B Staphylococcus Haemolyticus Enterococcus Faecalis 01/12/19 20:30 Blood - Peripheral Venous Blood Culture - Final Staphylococcus Haemolyticus 01/13/19 09:00 Urine For Antigen Detection Legionella Antigen - Final 01/13/19 09:00 Urine For Antigen Detection Streptococcus pneumoniae Antigen (M - Final 01/13/19 04:50 Urine - Urine Clean Catch Urine Culture - Final NO GROWTH OBTAINED a/p persistent fevers-?central d/w hospitalist- for repeat imaging chest/abd/pelvis-Pending on a/c for dvt without improvement on day #10 for polymicrobial bacteremia- will d/c unasyn s/p cardiac arrest with anoxia raffi- unchanged Problem List - Problems (1) Cardiac arrest with successful resuscitation Code(s): I46.9 - CARDIAC ARREST, CAUSE UNSPECIFIED (2) Brain anoxic injury Code(s): G93.1 - ANOXIC BRAIN DAMAGE, NOT ELSEWHERE CLASSIFIED (3) Sepsis Code(s): A41.9 - SEPSIS, UNSPECIFIED ORGANISM (4) Shock liver Code(s): K72.00 - ACUTE AND SUBACUTE HEPATIC FAILURE WITHOUT COMA
--- NOTE | 2019-01-23 18:10 | PN ---
Progress Note, Physician History of Present Illness: Pt seen and examined at bedside. No great change. - Current Medication List Current Medications: Active Medications Acetaminophen (Ofirmev Injection -) 1,000 mg IVPB Q6H PRN PRN Reason: FEVER Artificial Tears (Artificial Tears Ointment -) 1 applic OU HS [facility] Last Admin: 01/22/19 22:36 Dose: 1 applic Artificial Tears (Artificial Tears) 1 drop OU BID [facility] Last Admin: 01/23/19 10:28 Dose: 1 drop Chlorhexidine Gluconate (Peridex -) 15 ml MM BID [facility] Last Admin: 01/23/19 10:27 Dose: 15 ml Heparin Sodium (Porcine) (Heparin -) 5,000 unit IVPUSH PRN PRN PRN Reason: Heparin Stop: 01/24/19 02:00 Heparin Sodium (Porcine) (Heparin -) 1,000 unit IVPUSH PRN PRN PRN Reason: Heparin Stop: 01/24/19 02:00 Last Admin: 01/22/19 00:31 Dose: 1,000 unit Hydralazine HCl (Apresoline Injection -) 10 mg IVPUSH Q6H PRN PRN Reason: HYPERTENSION Heparin Sodium/Dextrose (Heparin Infusion -) 25,000 units in 500 mls @ 20 mls/ hr IVPB TITR [facility]; Protocol Stop: 01/24/19 02:00 Last Admin: 01/23/19 09:31 Dose: 1,300 units/hr, 26 mls/hr Levetiracetam (Keppra Injection -) 500 mg IVPB BID [facility] Last Admin: 01/23/19 10:27 Dose: 500 mg Lorazepam (Ativan Injection -) 2 mg IVPUSH Q6H PRN PRN Reason: ANXIETY Last Admin: 01/22/19 03:54 Dose: 2 mg - Objective Vital Signs: Vital Signs Temperature 100.3 F H 01/23/19 14:04 Pulse Rate 82 01/23/19 16:26 Respiratory Rate 23 H 01/23/19 16:24 Blood Pressure 111/58 L 01/23/19 14:04 O2 Sat by Pulse Oximetry (%) 100 01/23/19 16:26 Constitutional: Yes: Calm Eyes: Yes: Conjunctiva Clear HENT: Yes: Atraumatic Cardiovascular: Yes: S1, S2 Respiratory: Yes: Mechanically Ventilated Gastrointestinal: Yes: Soft Genitourinary: Yes: Chambers Present Musculoskeletal: Yes: Muscle Weakness Edema: No Neurological: Yes: Lethargy Labs: CBC, BMP 01/23/19 06:50 01/23/19 06:50 INR, PTT INR 1.08 (0.83-1.09) 01/13/19 05:15 Problem List - Problems (1) PRACHI (acute kidney injury) Code(s): N17.9 - ACUTE KIDNEY FAILURE, UNSPECIFIED (2) CHF (congestive heart failure) Code(s): I50.9 - HEART FAILURE, UNSPECIFIED (3) HTN (hypertension) Code(s): I10 - ESSENTIAL (PRIMARY) HYPERTENSION Assessment/Plan Current Medications Generic Name Dose Route Start Last Admin Trade Name Freq PRN Reason Stop Dose Admin Acetaminophen 1,000 mg 01/23/19 08:01 Ofirmev Injection - IVPB Q6H PRN FEVER Artificial Tears 1 applic 01/21/19 22:00 01/22/19 22:36 Artificial Tears Ointment - OU 1 applic HS [facility] Administration Artificial Tears 1 drop 01/21/19 22:00 01/23/19 10:28 Artificial Tears OU 1 drop BID [facility] Administration Chlorhexidine Gluconate 15 ml 01/21/19 22:00 01/23/19 10:27 Peridex - MM 15 ml BID [facility] Administration Heparin Sodium (Porcine) 5,000 unit 01/21/19 19:17 Heparin - IVPUSH 01/24/19 02:00 PRN PRN Heparin Heparin Sodium (Porcine) 1,000 unit 01/21/19 19:17 01/22/19 00:31 Heparin - IVPUSH 01/24/19 02:00 1,000 unit PRN PRN Administration Heparin Hydralazine HCl 10 mg 01/21/19 19:17 Apresoline Injection - IVPUSH Q6H PRN HYPERTENSION Heparin Sodium/Dextrose 25,000 units in 500 mls @ 20 mls/hr 01/21/19 19:17 09:31 Heparin Infusion - IVPB 01/24/19 02:00 1,300 units/hr TITR [facility] 26 mls/hr Administration Protocol 1,000 UNITS/HR Levetiracetam 500 mg 01/21/19 22:00 01/23/19 10:27 Keppra Injection - IVPB 500 mg BID [facility] Administration Lorazepam 2 mg 01/21/19 19:17 01/22/19 03:54 Ativan Injection - IVPUSH 2 mg Q6H PRN Administration ANXIETY Impression 1. PRACHI 2. cardiac arrest 3. hx chf 4. hx htn 5. resp failure requiring intubation 6. hypernatremia Plan - renal function improving - cont with free water supplements - repeat labs in am - vent support - PRACHI likely from ATN - cont supportive care
[2019-01-23] MEDS: MINERAL OIL/PETROLATUM,WHITE 3.5 GM TUBE OU SCH (22:26)
[2019-01-24] MEDS ORDERED: DEXTROSE 5%-WATER - 1,000 ML IV SCH (00:01)
[2019-01-24] MEDS: LORazepam 2 MG/ML SDV VIAL IVPUSH PRN ×2 (00:28→07:13)
[2019-01-24] MEDS: ACETAMINOPHEN 1000 MG/100 ML VIAL (NON FORMULARY) IVPB PRN ×4 (01:29→21:45)
[2019-01-24 07:52] LABS: BASO % 0.2 % (0-2.0); EOS % 2.3 % (0-4.5); HEMATOCRIT 29.3 % (35.4-49); HEMOGLOBIN 9.7 GM/dL (11.7-16.9); LYMPH % 7.3 % (8-40); MCH 29.8 pg (25.7-33.7); MCHC 33.1 g/dl (32.0-35.9); MEAN CELL VOLUME 90.2 fl (80-96); MEAN PLT VOLUME 8.6 fl (7.5-11.1); MONO % 7.8 % (3.8-10.2); NEUT % 82.4 % (42.8-82.8); PLATELET COUNT 347 K/MM3 (134-434); RBC 3.25 M/mm3 (4.00-5.60); RDW 15.5 % (11.9-15.9); WHITE BLOOD COUNT 14.1 K/mm3 (4.0-10.0)
[2019-01-24 07:54] LABS: ALBUMIN 1.9 g/dl (3.4-5.0); BLOOD UREA NITROGEN 61.6 mg/dL (7-18); CREATININE 3.5 mg/dL (0.55-1.3); PHOSPHOROUS 4.1 mg/dL (2.5-4.9); POTASSIUM 3.8 mmol/L (3.5-5.1)
[2019-01-24] MEDS: levETIRAcetam 500 MG/5 ML INJECTION VIAL IVPB SCH ×2 (09:29→21:44)
[2019-01-24] MEDS: CHLORHEXIDINE GLUCONATE 0.12% 15ML CUP MM SCH ×2 (09:30→21:45)
[2019-01-24] MEDS: ARTIFICIAL TEARS (POLYVINYL ALCOHOL) OPTH DROPS OU SCH ×2 (09:30→21:45)
--- NOTE | 2019-01-24 10:46 | PN ---
Progress Note, Physician - Current Medication List Current Medications: Active Medications Acetaminophen (Ofirmev Injection -) 1,000 mg IVPB Q6H PRN PRN Reason: FEVER Last Admin: 01/24/19 09:28 Dose: 1,000 mg Artificial Tears (Artificial Tears Ointment -) 1 applic OU HS [facility] Last Admin: 01/23/19 22:26 Dose: 1 applic Artificial Tears (Artificial Tears) 1 drop OU BID [facility] Last Admin: 01/24/19 09:30 Dose: 1 drop Chlorhexidine Gluconate (Peridex -) 15 ml MM BID [facility] Last Admin: 01/24/19 09:30 Dose: 15 ml Hydralazine HCl (Apresoline Injection -) 10 mg IVPUSH Q6H PRN PRN Reason: HYPERTENSION Dextrose (D5w -) 1,000 mls @ 100 mls/hr IV .Q10H [facility] Last Admin: 01/24/19 00:01 Dose: 100 mls/hr Levetiracetam (Keppra Injection -) 500 mg IVPB BID [facility] Last Admin: 01/24/19 09:29 Dose: 500 mg Lorazepam (Ativan Injection -) 2 mg IVPUSH Q6H PRN PRN Reason: ANXIETY Last Admin: 01/24/19 07:13 Dose: 2 mg - Objective Vital Signs: Vital Signs Temperature 100.3 F H 01/24/19 09:00 Pulse Rate 73 01/24/19 07:55 Respiratory Rate 16 01/24/19 09:00 Blood Pressure 125/71 01/24/19 09:00 O2 Sat by Pulse Oximetry (%) 100 01/24/19 09:00 Labs: CBC, BMP 01/24/19 06:50 01/24/19 06:50 INR, PTT INR 1.08 (0.83-1.09) 01/13/19 05:15 Assessment/Plan echo 01/20: severe global LV hypo EF 25-30%. nl RV. mild LAE. mod MR. nl RVSP. cath 07/2015: lhc: normal cors; rhc: mild phtn, pvri mod elevated, pcw/lvedp nl. ECG 01/12: NSR, LVH with nonsp ST-Ts ? sec to LVH--not signif changed vs 2016 prior ECG 01/13: no signif change, prolonged QT (similar to 2016) tele: sinus, PVCs, brief nsvt est cct 35 mins IMP/PLAN: VF arrest:in setting of gram + bacteremia and septic shock, anoxic encephalopathy -EF only mild-mod decreased on prior echo 1 yr ago, currently severe/global 25- 30%. -? arrest triggered by bacteremia (2 of 2 initial cultures positive)/sepsis -cont tele monitoring -holding bb given hypotensive and likely septic shock -doubt acute ischemic etiology given normal cor.s 3 yrs ago--if makes meaningful recovery (unlikely), will need repeat isch eval -goals of care discussions with family--per primary team NSTEMI: -trop peaked at 32 -normal cors 2016 -suspect sec to sepsis vs prolonged hypotension from recurrent VF arrest (with contribution from mult electrical defibs) -aspirin daily -hold BB (risks of hypotension in septic shock) SEPTIC SHOCK, polymicrobial bacteremia: -abx per ID, ongiong fevers ? central etiol -echo no vegetation seen -now bp remains stable off pressors Prolonged QT: -? related to CMP/LVH--was close to 500 on prior ecg 2016 -similar at present -aggressive repletion of K/Mag (08/03) -tele monitoring -avoid QT prolonging meds Congestive heart failure, nonischemic CMP -EF severely reduced at time of initial dx 2016--improved signif with med management -present EF severely reduced again, likely in setting sepsis, post arrest PRACHI: -sec to hypoperfusion -as per Critical Care DVT: -on AC PAF: -on heparin gtts
--- NOTE | 2019-01-24 12:46 | PN ---
Progress Note (short form) - Note Progress Note: PULMONARY Vented, unresponsive. For PEG placement today. Vital Signs Period Temp Pulse Resp BP Sys/Estrada Pulse Ox Last 24 Hr 100.3 F-101.9 F 66-91 14-24 105-154/56-88 97-106 Gen: vented, unresponsive Heart: RRR Lung: decreased breath sounds at the bases Abd: soft, nontender Ext: no edema CBC, BMP 01/24/19 06:50 01/24/19 06:50 Active Medications Acetaminophen (Ofirmev Injection -) 1,000 mg IVPB Q6H PRN PRN Reason: FEVER Last Admin: 01/24/19 09:28 Dose: 1,000 mg Artificial Tears (Artificial Tears Ointment -) 1 applic OU HS [facility] Last Admin: 01/23/19 22:26 Dose: 1 applic Artificial Tears (Artificial Tears) 1 drop OU BID [facility] Last Admin: 01/24/19 09:30 Dose: 1 drop Chlorhexidine Gluconate (Peridex -) 15 ml MM BID [facility] Last Admin: 01/24/19 09:30 Dose: 15 ml Hydralazine HCl (Apresoline Injection -) 10 mg IVPUSH Q6H PRN PRN Reason: HYPERTENSION Dextrose (D5w -) 1,000 mls @ 100 mls/hr IV .Q10H [facility] Last Admin: 01/24/19 00:01 Dose: 100 mls/hr Levetiracetam (Keppra Injection -) 500 mg IVPB BID [facility] Last Admin: 01/24/19 09:29 Dose: 500 mg Lorazepam (Ativan Injection -) 2 mg IVPUSH Q6H PRN PRN Reason: ANXIETY Last Admin: 01/24/19 07:13 Dose: 2 mg A/P S/P Cardiopulmonary Arrest Ventricular Fibrillation Anoxic Brain Injury CAD/+Troponins/Acute NSTEMI LV Systolic Dysfunction r/o Pneumonia Lactic Acidosis resolved Acute Kidney Injury Elevated LFTs likely Ischemic Injury HTN Hyperlipidemia Extensive DVT - for PEG placement - resume anticoagulation when ok with IR - completed antibiotics - monitor urine output, creatinine - not a candidate for weaning at this time due to mental status - continue discussions regarding goals of care, advanced directives - DVT prophylaxis - poor overall prognosis for meaningful recovery
--- NOTE | 2019-01-24 14:05 | PN ---
Progress Note (short form) - Note Progress Note: fevers persist unresponsive trach to vent IR GT placed today Vital Signs Period Temp Pulse Resp BP Sys/Estrada Pulse Ox Last 24 Hr 100.3 F-101.9 F 66-91 14-24 105-154/56-88 97-106 trach to vent gt cor-rrr lungs decreased bs at bases abd soft,nt +GT ext no edema ct scan chest reviewed with Dr Henriquez- consolidation left lung base- reviewed with radiologist- no a/f levls to suggest abscess probable small loculated effusion Microbiology 01/19/19 13:00 Blood - Peripheral Venous Blood Culture - Final NO GROWTH AFTER 5 DAYS INCUBATION 01/19/19 12:51 Blood - Peripheral Venous Blood Culture - Final NO GROWTH AFTER 5 DAYS INCUBATION 01/23/19 13:25 Sputum - Endotrachea Suction/Ventilator Gram Stain - Final 01/23/19 13:25 Sputum - Endotrachea Suction/Ventilator Sputum Culture - Preliminary Lactose Fermenting Neg Bacilli 01/23/19 13:25 Urine For Antigen Detection Legionella Antigen - Final 01/23/19 13:25 Urine For Antigen Detection Streptococcus pneumoniae Antigen (M - Final 01/14/19 16:00 Blood - Peripheral Venous Blood Culture - Final NO GROWTH AFTER 5 DAYS INCUBATION 01/14/19 14:30 Blood - Peripheral Venous Blood Culture - Final NO GROWTH AFTER 5 DAYS INCUBATION 01/14/19 14:30 Sputum - Endotrachea Suction/Ventilator Gram Stain - Final 01/14/19 14:30 Sputum - Endotrachea Suction/Ventilator Sputum Culture - Final Klebsiella Pneumoniae Stenotrophomon.(X.)Maltophilia 01/12/19 20:30 Blood - Peripheral Venous Blood Culture - Final Strep Agalactiae Group B Staphylococcus Haemolyticus Enterococcus Faecalis 01/12/19 20:30 Blood - Peripheral Venous Blood Culture - Final Staphylococcus Haemolyticus 01/13/19 09:00 Urine For Antigen Detection Legionella Antigen - Final 01/13/19 09:00 Urine For Antigen Detection Streptococcus pneumoniae Antigen (M - Final 01/13/19 04:50 Urine - Urine Clean Catch Urine Culture - Final NO GROWTH OBTAINED a/p persistent fevers- on a/c for dvt without improvement in fever curve pulmonary doesnt think bronch will help- d/w dr henriquez will get sonogram to r/o effusion/empyema cultures pending s/p cardiac arrest with anoxia raffi- improved Problem List - Problems (1) Cardiac arrest with successful resuscitation Code(s): I46.9 - CARDIAC ARREST, CAUSE UNSPECIFIED (2) Brain anoxic injury Code(s): G93.1 - ANOXIC BRAIN DAMAGE, NOT ELSEWHERE CLASSIFIED (3) Sepsis Code(s): A41.9 - SEPSIS, UNSPECIFIED ORGANISM (4) Shock liver Code(s): K72.00 - ACUTE AND SUBACUTE HEPATIC FAILURE WITHOUT COMA
--- NOTE | 2019-01-24 15:04 | PN ---
Progress Note, Physician History of Present Illness: Pt seen and examined. He remains lethargic. - Current Medication List Current Medications: Active Medications Acetaminophen (Ofirmev Injection -) 1,000 mg IVPB Q6H PRN PRN Reason: FEVER Last Admin: 01/24/19 09:28 Dose: 1,000 mg Artificial Tears (Artificial Tears Ointment -) 1 applic OU HS [facility] Last Admin: 01/23/19 22:26 Dose: 1 applic Artificial Tears (Artificial Tears) 1 drop OU BID [facility] Last Admin: 01/24/19 09:30 Dose: 1 drop Chlorhexidine Gluconate (Peridex -) 15 ml MM BID [facility] Last Admin: 01/24/19 09:30 Dose: 15 ml Hydralazine HCl (Apresoline Injection -) 10 mg IVPUSH Q6H PRN PRN Reason: HYPERTENSION Dextrose (D5w -) 1,000 mls @ 100 mls/hr IV .Q10H [facility] Last Admin: 01/24/19 00:01 Dose: 100 mls/hr Levetiracetam (Keppra Injection -) 500 mg IVPB BID [facility] Last Admin: 01/24/19 09:29 Dose: 500 mg Lorazepam (Ativan Injection -) 2 mg IVPUSH Q6H PRN PRN Reason: ANXIETY Last Admin: 01/24/19 07:13 Dose: 2 mg - Objective Vital Signs: Vital Signs Temperature 100.3 F H 01/24/19 09:00 Pulse Rate 66 01/24/19 12:43 Respiratory Rate 14 01/24/19 12:43 Blood Pressure 124/88 01/24/19 12:43 O2 Sat by Pulse Oximetry (%) 100 01/24/19 12:43 Constitutional: Yes: Calm Eyes: Yes: Conjunctiva Clear HENT: Yes: Atraumatic Neck: Yes: Other (trache) Respiratory: Yes: Mechanically Ventilated Gastrointestinal: Yes: Soft, Other (peg) Genitourinary: Yes: Chambers Present Musculoskeletal: Yes: Muscle Weakness Edema: No Integumentary: Yes: WNL Neurological: Yes: Lethargy Labs: CBC, BMP 01/24/19 06:50 01/24/19 06:50 INR, PTT INR 1.08 (0.83-1.09) 01/13/19 05:15 Problem List - Problems (1) PRACHI (acute kidney injury) Code(s): N17.9 - ACUTE KIDNEY FAILURE, UNSPECIFIED (2) CHF (congestive heart failure) Code(s): I50.9 - HEART FAILURE, UNSPECIFIED (3) HTN (hypertension) Code(s): I10 - ESSENTIAL (PRIMARY) HYPERTENSION Assessment/Plan Current Medications Generic Name Dose Route Start Last Admin Trade Name Freq PRN Reason Stop Dose Admin Acetaminophen 1,000 mg 01/23/19 08:01 01/24/19 09:28 Ofirmev Injection - IVPB 1,000 mg Q6H PRN Administration FEVER Artificial Tears 1 applic 01/21/19 22:00 01/23/19 22:26 Artificial Tears Ointment - OU 1 applic HS [facility] Administration Artificial Tears 1 drop 01/21/19 22:00 01/24/19 09:30 Artificial Tears OU 1 drop BID [facility] Administration Chlorhexidine Gluconate 15 ml 01/21/19 22:00 01/24/19 09:30 Peridex - MM 15 ml BID [facility] Administration Hydralazine HCl 10 mg 01/21/19 19:17 Apresoline Injection - IVPUSH Q6H PRN HYPERTENSION Dextrose 1,000 mls @ 100 mls/hr 01/24/19 00:01 01/24/19 00:01 D5w - IV 100 mls/hr .Q10H [facility] Administration Levetiracetam 500 mg 01/21/19 22:00 01/24/19 09:29 Keppra Injection - IVPB 500 mg BID [facility] Administration Lorazepam 2 mg 01/21/19 19:17 01/24/19 07:13 Ativan Injection - IVPUSH 2 mg Q6H PRN Administration ANXIETY Impression 1. PRACHI 2. cardiac arrest 3. hx chf 4. hx htn 5. resp failure requiring intubation 6. hypernatremia Plan - cont d5w - will increase rate - pt remains NPO - vent support - PRACHI likely from ATN - cont supportive care
--- NOTE | 2019-01-24 15:34 | PN ---
Progress Note (short form) - Note Progress Note: s: s/p trach, not responsive Current Medications Acetaminophen (Ofirmev Injection -) 1,000 mg IVPB Q6H PRN PRN Reason: FEVER Last Admin: 01/24/19 09:28 Dose: 1,000 mg Artificial Tears (Artificial Tears Ointment -) 1 applic OU HS [facility] Last Admin: 01/23/19 22:26 Dose: 1 applic Artificial Tears (Artificial Tears) 1 drop OU BID [facility] Last Admin: 01/24/19 09:30 Dose: 1 drop Chlorhexidine Gluconate (Peridex -) 15 ml MM BID [facility] Last Admin: 01/24/19 09:30 Dose: 15 ml Hydralazine HCl (Apresoline Injection -) 10 mg IVPUSH Q6H PRN PRN Reason: HYPERTENSION Dextrose (D5w -) 1,000 mls @ 110 mls/hr IV ASDIR [facility] Levetiracetam (Keppra Injection -) 500 mg IVPB BID [facility] Last Admin: 01/24/19 09:29 Dose: 500 mg Lorazepam (Ativan Injection -) 2 mg IVPUSH Q6H PRN PRN Reason: ANXIETY Last Admin: 01/24/19 07:13 Dose: 2 mg Vital Signs Period Temp Pulse Resp BP Sys/Estrada Pulse Ox Last 24 Hr 100.3 F-101.9 F 66-91 14-24 105-154/56-88 97-106 Constitutional: Yes: Other (+ ETT) Cardiovascular: Yes: Pulse Irregular Respiratory: Yes: Other (= breath sounds b/l), s/p trach Gastrointestinal: Yes: Soft Edema: No no jaundice, diaphoresis no edema - ....Imaging EKG: Image Reviewed Assessment/Plan Assessment/Plan echo 01/20: severe global LV hypo EF 25-30%. nl RV. mild LAE. mod MR. nl RVSP. cath 07/2015: lhc: normal cors; rhc: mild phtn, pvri mod elevated, pcw/lvedp nl. ECG 01/12: NSR, LVH with nonsp ST-Ts ? sec to LVH--not signif changed vs 2016 prior ECG 01/13: no signif change, prolonged QT (similar to 2016) tele: sinus, PVCs, brief nsvt IMP/PLAN: VF arrest:in setting of gram + bacteremia and septic shock, anoxic encephalopathy -EF only mild-mod decreased on prior echo 1 yr ago, currently severe/global 25- 30%. -? arrest triggered by bacteremia (2 of 2 initial cultures positive)/sepsis -holding bb given low BPs -doubt acute ischemic etiology given normal cors 3 yrs ago--if makes meaningful recover will need repeat isch eval -goals of care discussions per primary, s/p trach NSTEMI: -trop peaked at 32 -normal cors 2016 -suspect sec to sepsis vs prolonged hypotension from recurrent VF arrest (with contribution from mult electrical defibs) -aspirin daily -hold BB SEPTIC SHOCK, gram pos bacteremia: -abx per ID -echo no vegetation seen -bp stable -now with lung abscess - on abx per ID, pulm Prolonged QT: -? related to CMP/LVH--was close to 500 on prior ecg 2016 -aggressive repletion of K/Mag (08/03) -avoid QT prolonging meds Congestive heart failure, nonischemic CMP -EF severely reduced at time of initial dx 2015--improved signif with med management -present EF severely reduced again, likely in setting sepsis, post arrest PRACHI: -sec to ATN, renal following PAF, DVT -was on heparin gtt, held for procedures - restart AC when able per IR
[2019-01-24] MEDS ORDERED: PIPERACILLIN/TAZOB 3.375 GM 3.375 GM in DEXTROSE 5%-WATER - 50 ML IVPB SCH (18:00)
[2019-01-24] MEDS: DEXTROSE 5%-WATER - 1,000 ML IV SCH (18:33)
[2019-01-24] MEDS: MINERAL OIL/PETROLATUM,WHITE 3.5 GM TUBE OU SCH (21:45)
[2019-01-25] MEDS: DEXTROSE 5%-WATER - 1,000 ML IV SCH (00:28)
--- NOTE | 2019-01-25 06:20 | PN ---
Progress Note (short form) - Note Progress Note: HPI: Pt remains unresponsive to exam with family wanting continued treatment with DNR status on board. ROS limited due to clinical condition. Pt reported to have continued fevers throughout the night and given Ofirmev with minimal control. Pt received PEG yesterday and continues to have 300cc of bilious drainage while on low wall suction. Vital Signs Period Temp Pulse Resp BP Sys/Estrada Pulse Ox Last 24 Hr 100.2 F-101.8 F 66-111 14-23 100-169/43-88 97-106 Active Medications Acetaminophen (Ofirmev Injection -) 1,000 mg IVPB Q6H PRN PRN Reason: FEVER Last Admin: 01/24/19 21:45 Dose: 1,000 mg Artificial Tears (Artificial Tears Ointment -) 1 applic OU HS [facility] Last Admin: 01/24/19 21:45 Dose: 1 applic Artificial Tears (Artificial Tears) 1 drop OU BID [facility] Last Admin: 01/24/19 21:45 Dose: 1 drop Chlorhexidine Gluconate (Peridex -) 15 ml MM BID [facility] Last Admin: 01/24/19 21:45 Dose: 15 ml Hydralazine HCl (Apresoline Injection -) 10 mg IVPUSH Q6H PRN PRN Reason: HYPERTENSION Dextrose (D5w -) 1,000 mls @ 110 mls/hr IV [facility] Last Admin: 01/25/19 00:28 Dose: 110 mls/hr Levetiracetam (Keppra Injection -) 500 mg IVPB BID [facility] Last Admin: 01/24/19 21:44 Dose: 500 mg PE: Gen: Remains unresponsive even to painful stimuli. No acute distress HEENT: No pupillary reflex noted. MMM no secretions noted at time of exam Neck: Tracheostomy site sutured in place without any secretions around stoma LUNGS: Diminished breath sounds b/l at based, but upper lobes CTA anteriorly. AC mode of vent without overbreathing RR 14, TV 500, SpO2 30% CARD: RRR without any murmurs appreciated ABD: Hypoactive BS, PEG site intact with bandage and sterile dressing without any drainage noted. PEG to low-interm. suction with 300cc of bilious fluid noted EXT: Upper extremity dependent edema noted in hands, No edema of LE b/l. SKIN: No skin breakdown seen. Sacrum not examined today A/P S/p cardiac arrest S/p septic shock secondary to bacteremia Anoxic brain injury Fevers with suspicion of central fevers PRACHI 2/2 to ATN Hypernatremia Extensive DVT --Fevers likely central, but will make due diligence to r/o all sources of infection --Pt with notable loculated pleural consolidation --> thoracentesis with US guidance for r/o empyema given persistent fever --IF thoracentesis without suspicion for empyema likely fevers can be attributed to decreased thermal regulation from anoxic brain injury --Placement pending finishing w/u on fever --Ofirmev PRN to continue and will use cooling as needed --Appreciate all consultative recommendations --Continue hypotonic saline per nephrology for hyperNa; currently improving compared to yesterday --Continue Keppra 500mg BID for seizure ppx --Pt s/p tracheostomy site and PEG placement --Will discuss with IR regarding reinitiation of AC (previously on Heparin gtt given extensive DVT) --Restart AC as cleared by IR (heparin gtt given pt has ATN) FEN: Fluids: D5W @110cc/hr Electrolyte abnormalities: HyperNa (improving; continue hypotonic saline); FWD 3.9L to Na goal of 140 today Nutrition: PEG tube placed acutely; discuss with IR about timing for feeds PPX: DVT - Off AC due to acute procedure Dispo: Fever w/u ongoing; CM aware of family's request for SNF placement Case discussed with Dr. Xiomara Mark, DO - IM PGY-3
[2019-01-25 09:34] LABS: HEMOGLOBIN 8.3 GM/dL (11.7-16.9); MCH 30.6 pg (25.7-33.7); MCHC 33.1 g/dl (32.0-35.9); MEAN CELL VOLUME 92.5 fl (80-96); MEAN PLT VOLUME 8.5 fl (7.5-11.1); PLATELET COUNT 285 K/MM3 (134-434); RDW 15.6 % (11.9-15.9); WHITE BLOOD COUNT 10.1 K/mm3 (4.0-10.0)
[2019-01-25 10:17] LABS: ALBUMIN 1.5 g/dl (3.4-5.0); BILIRUBIN,TOTAL 0.3 mg/dL (0.2-1); BLOOD UREA NITROGEN 46.6 mg/dL (7-18); CREATININE 2.9 mg/dL (0.55-1.3); POTASSIUM 3.1 mmol/L (3.5-5.1); TOT PROT 4.8 g/dl (6.4-8.2)
[2019-01-25] MEDS: ACETAMINOPHEN 1000 MG/100 ML VIAL (NON FORMULARY) IVPB PRN (10:26)
[2019-01-25] MEDS ORDERED: PT OWN MED DRAWER 7, Y5N ONE ×2 (11:26→13:10)
--- NOTE | 2019-01-25 11:34 | PN ---
Progress Note (short form) - Note Progress Note: s: s/p trach, not responsive Current Medications Acetaminophen (Ofirmev Injection -) 1,000 mg IVPB Q6H PRN PRN Reason: FEVER Last Admin: 01/25/19 10:26 Dose: 1,000 mg Artificial Tears (Artificial Tears Ointment -) 1 applic OU HS [facility] Last Admin: 01/24/19 21:45 Dose: 1 applic Artificial Tears (Artificial Tears) 1 drop OU BID [facility] Last Admin: 01/24/19 21:45 Dose: 1 drop Chlorhexidine Gluconate (Peridex -) 15 ml MM BID [facility] Last Admin: 01/24/19 21:45 Dose: 15 ml Hydralazine HCl (Apresoline Injection -) 10 mg IVPUSH Q6H PRN PRN Reason: HYPERTENSION Levetiracetam (Keppra Injection -) 500 mg IVPB BID [facility] Last Admin: 01/24/19 21:44 Dose: 500 mg Vital Signs Period Temp Pulse Resp BP Sys/Estrada Pulse Ox Last 24 Hr 100.2 F-102 F 66-111 14-23 100-169/43-88 98-106 Constitutional: Yes: Other (+ ETT) Cardiovascular: Yes: Pulse Irregular Respiratory: Yes: Other (= breath sounds b/l), s/p trach Gastrointestinal: Yes: Soft, +PEG Edema: No no jaundice, diaphoresis no edema - ....Imaging EKG: Image Reviewed Assessment/Plan Assessment/Plan echo 01/20: severe global LV hypo EF 25-30%. nl RV. mild LAE. mod MR. nl RVSP. cath 07/2015: lhc: normal cors; rhc: mild phtn, pvri mod elevated, pcw/lvedp nl. ECG 01/12: NSR, LVH with nonsp ST-Ts ? sec to LVH--not signif changed vs 2016 prior ECG 01/13: no signif change, prolonged QT (similar to 2016) tele: sinus, PVCs, brief nsvt IMP/PLAN: VF arrest:in setting of gram + bacteremia and septic shock, anoxic encephalopathy -EF only mild-mod decreased on prior echo 1 yr ago, currently severe/global 25- 30%. -? arrest triggered by bacteremia (2 of 2 initial cultures positive)/sepsis -holding bb given low BPs -doubt acute ischemic etiology given normal cors 3 yrs ago--if makes meaningful recover will need repeat isch eval -goals of care discussions per primary, s/p trach, PEG NSTEMI: -trop peaked at 32 -normal cors 2016 -suspect sec to sepsis vs prolonged hypotension from recurrent VF arrest (with contribution from mult electrical defibs) -aspirin daily -hold BB SEPTIC SHOCK, gram pos bacteremia: -abx per ID -echo no vegetation seen -bp stable -lung abscess - on abx per ID, pulm Prolonged QT: -? related to CMP/LVH--was close to 500 on prior ecg 2016 -aggressive repletion of K/Mag (08/03) -avoid QT prolonging meds Congestive heart failure, nonischemic CMP -EF severely reduced at time of initial dx 2015--improved signif with med management -present EF severely reduced again, likely in setting sepsis, post arrest PRACHI: -sec to ATN, renal following PAF, DVT -was on heparin gtt, held for procedures - restart AC when able per IR
[2019-01-25] MEDS: levETIRAcetam 500 MG/5 ML INJECTION VIAL IVPB SCH ×2 (11:43→21:58)
[2019-01-25] MEDS: ARTIFICIAL TEARS (POLYVINYL ALCOHOL) OPTH DROPS OU SCH ×2 (11:44→21:59)
--- NOTE | 2019-01-25 11:52 | PN ---
Progress Note (short form) - Note Progress Note: PULMONARY Vented, unresponsive. Fevers persist. Vital Signs Period Temp Pulse Resp BP Sys/Estrada Pulse Ox Last 24 Hr 100.2 F-102 F 66-111 14-23 100-169/43-88 98-106 Gen: vented, unresponsive Heart: RRR Lung: decreased breath sounds at the bases Abd: soft, nontender Ext: no edema CBC, BMP 01/25/19 09:00 Active Medications Acetaminophen (Ofirmev Injection -) 1,000 mg IVPB Q6H PRN PRN Reason: FEVER Last Admin: 01/25/19 10:26 Dose: 1,000 mg Artificial Tears (Artificial Tears Ointment -) 1 applic OU HS [facility] Last Admin: 01/24/19 21:45 Dose: 1 applic Artificial Tears (Artificial Tears) 1 drop OU BID [facility] Last Admin: 01/25/19 11:44 Dose: 1 drop Chlorhexidine Gluconate (Peridex -) 15 ml MM BID [facility] Last Admin: 01/24/19 21:45 Dose: 15 ml Hydralazine HCl (Apresoline Injection -) 10 mg IVPUSH Q6H PRN PRN Reason: HYPERTENSION Levetiracetam (Keppra Injection -) 500 mg IVPB BID [facility] Last Admin: 01/25/19 11:43 Dose: 500 mg A/P S/P Cardiopulmonary Arrest Ventricular Fibrillation Anoxic Brain Injury CAD/+Troponins/Acute NSTEMI LV Systolic Dysfunction Pneumonia/Lung Abscess Lactic Acidosis resolved Acute Kidney Injury Elevated LFTs likely Ischemic Injury HTN Hyperlipidemia Extensive DVT - resume anticoagulation after PEG - antibiotics per ID - monitor urine output, creatinine - not a candidate for weaning at this time due to mental status - continue discussions regarding goals of care, advanced directives - DVT prophylaxis - poor overall prognosis for meaningful recovery
[2019-01-25 12:12] LABS: ALBUMIN 1.9 g/dl (3.4-5.0); BILIRUBIN,TOTAL 0.4 mg/dL (0.2-1); BLOOD UREA NITROGEN 55.1 mg/dL (7-18); CALCIUM 8.8 mg/dL (8.5-10.1); CREATININE 3.1 mg/dL (0.55-1.3); MAGNESIUM 2.4 mg/dL (1.8-2.4); POTASSIUM 3.7 mmol/L (3.5-5.1); TOT PROT 5.8 g/dl (6.4-8.2)
--- NOTE | 2019-01-25 12:44 | PN ---
Progress Note, Physician History of Present Illness: Pt seen and examined at bedside. He remains on vent. Pt remains lethargic. - Current Medication List Current Medications: Active Medications Acetaminophen (Ofirmev Injection -) 1,000 mg IVPB Q6H PRN PRN Reason: FEVER Last Admin: 01/25/19 10:26 Dose: 1,000 mg Artificial Tears (Artificial Tears Ointment -) 1 applic OU HS [facility] Last Admin: 01/24/19 21:45 Dose: 1 applic Artificial Tears (Artificial Tears) 1 drop OU BID [facility] Last Admin: 01/25/19 11:44 Dose: 1 drop Chlorhexidine Gluconate (Peridex -) 15 ml MM BID [facility] Last Admin: 01/24/19 21:45 Dose: 15 ml Hydralazine HCl (Apresoline Injection -) 10 mg IVPUSH Q6H PRN PRN Reason: HYPERTENSION Levetiracetam (Keppra Injection -) 500 mg IVPB BID [facility] Last Admin: 01/25/19 11:43 Dose: 500 mg - Objective Vital Signs: Vital Signs Temperature 102 F H 01/25/19 10:19 Pulse Rate 84 01/25/19 10:19 Respiratory Rate 14 01/25/19 12:18 Blood Pressure 145/71 01/25/19 10:19 O2 Sat by Pulse Oximetry (%) 100 01/24/19 21:00 Constitutional: Yes: Calm HENT: Yes: Atraumatic Neck: Yes: Other (trache) Cardiovascular: Yes: S1, S2 Respiratory: Yes: Intubated, Mechanically Ventilated Gastrointestinal: Yes: Soft, Other (peg to suction) Musculoskeletal: Yes: Muscle Weakness Edema: No Neurological: Yes: Lethargy Labs: CBC, BMP 01/25/19 09:00 01/25/19 11:20 INR, PTT INR 1.08 (0.83-1.09) 01/13/19 05:15 Problem List - Problems (1) PRACHI (acute kidney injury) Code(s): N17.9 - ACUTE KIDNEY FAILURE, UNSPECIFIED (2) CHF (congestive heart failure) Code(s): I50.9 - HEART FAILURE, UNSPECIFIED (3) HTN (hypertension) Code(s): I10 - ESSENTIAL (PRIMARY) HYPERTENSION Assessment/Plan Current Medications Generic Name Dose Route Start Last Admin Trade Name Freq PRN Reason Stop Dose Admin Acetaminophen 1,000 mg 01/23/19 08:01 01/25/19 10:26 Ofirmev Injection - IVPB 1,000 mg Q6H PRN Administration FEVER Artificial Tears 1 applic 01/21/19 22:00 01/24/19 21:45 Artificial Tears Ointment - OU 1 applic HS [facility] Administration Artificial Tears 1 drop 01/21/19 22:00 01/25/19 11:44 Artificial Tears OU 1 drop BID [facility] Administration Chlorhexidine Gluconate 15 ml 01/21/19 22:00 01/24/19 21:45 Peridex - MM 15 ml BID [facility] Administration Hydralazine HCl 10 mg 01/21/19 19:17 Apresoline Injection - IVPUSH Q6H PRN HYPERTENSION Levetiracetam 500 mg 01/21/19 22:00 01/25/19 11:43 Keppra Injection - IVPB 500 mg BID [facility] Administration Impression 1. PRACHI 2. cardiac arrest 3. hx chf 4. hx htn 5. resp failure requiring intubation 6. hypernatremia Plan - repeat labs reviewed, am labs were erroneous - restart d5w and clinimix - monitor renal function - pt remains NPO - vent support - PRACHI likely from ATN - cont supportive care
[2019-01-25] MEDS ORDERED: DEXTROSE 5%-WATER - 1,000 ML IV SCH (12:45)
[2019-01-25] MEDS: CHLORHEXIDINE GLUCONATE 0.12% 15ML CUP MM SCH ×2 (13:21→21:58)
[2019-01-25] MEDS: AMINO ACIDS 4.25%/D5W 1,000 ML IV SCH (13:32)
--- NOTE | 2019-01-25 16:59 | PN ---
Progress Note (short form) - Note Progress Note: fevers persist unresponsive trach to vent IR GT -in place Vital Signs Period Temp Pulse Resp BP Sys/Estrada Pulse Ox Last 24 Hr 99.1 F-102 F 73-84 14-22 117-145/50-71 100 trach to vent cor-rrr lungs clear abd soft,nt +GT ext no edema CBC, BMP 01/25/19 09:00 01/25/19 11:20 Microbiology 01/23/19 13:25 Sputum - Endotrachea Suction/Ventilator Gram Stain - Final 01/23/19 13:25 Sputum - Endotrachea Suction/Ventilator Sputum Culture - Final Klebsiella Pneumoniae 01/23/19 16:04 Blood - Peripheral Venous Blood Culture - Preliminary NO GROWTH OBTAINED AFTER 24 HOURS, INCUBATION TO CONTINUE FOR 4 DAYS. 01/23/19 15:55 Blood - Peripheral Venous Blood Culture - Preliminary NO GROWTH OBTAINED AFTER 24 HOURS, INCUBATION TO CONTINUE FOR 4 DAYS. 01/19/19 13:00 Blood - Peripheral Venous Blood Culture - Final NO GROWTH AFTER 5 DAYS INCUBATION 01/19/19 12:51 Blood - Peripheral Venous Blood Culture - Final NO GROWTH AFTER 5 DAYS INCUBATION 01/23/19 13:25 Urine For Antigen Detection Legionella Antigen - Final 01/23/19 13:25 Urine For Antigen Detection Streptococcus pneumoniae Antigen (M - Final 01/14/19 16:00 Blood - Peripheral Venous Blood Culture - Final NO GROWTH AFTER 5 DAYS INCUBATION 01/14/19 14:30 Blood - Peripheral Venous Blood Culture - Final NO GROWTH AFTER 5 DAYS INCUBATION 01/14/19 14:30 Sputum - Endotrachea Suction/Ventilator Gram Stain - Final 01/14/19 14:30 Sputum - Endotrachea Suction/Ventilator Sputum Culture - Final Klebsiella Pneumoniae Stenotrophomon.(X.)Maltophilia 01/12/19 20:30 Blood - Peripheral Venous Blood Culture - Final Strep Agalactiae Group B Staphylococcus Haemolyticus Enterococcus Faecalis 01/12/19 20:30 Blood - Peripheral Venous Blood Culture - Final Staphylococcus Haemolyticus 01/13/19 09:00 Urine For Antigen Detection Legionella Antigen - Final 01/13/19 09:00 Urine For Antigen Detection Streptococcus pneumoniae Antigen (M - Final 01/13/19 04:50 Urine - Urine Clean Catch Urine Culture - Final NO GROWTH OBTAINED cxray improved- can see behind the heart now a/p persistent fevers- on a/c for dvt without improvement in fever curve pulmonary doesnt think bronch will help- d/w dr srivastava will get sonogram to r/o effusion/empyema cxray appears improved wbc normal now s/p cardiac arrest with anoxia raffi- improved family at bedside Problem List - Problems (1) Cardiac arrest with successful resuscitation Code(s): I46.9 - CARDIAC ARREST, CAUSE UNSPECIFIED (2) Brain anoxic injury Code(s): G93.1 - ANOXIC BRAIN DAMAGE, NOT ELSEWHERE CLASSIFIED (3) Sepsis Code(s): A41.9 - SEPSIS, UNSPECIFIED ORGANISM (4) Shock liver Code(s): K72.00 - ACUTE AND SUBACUTE HEPATIC FAILURE WITHOUT COMA
--- NOTE | 2019-01-25 20:29 | PN ---
Teaching Attending Note Name of Resident: Nadir Mark ATTENDING PHYSICIAN STATEMENT I saw and evaluated the patient. I reviewed the resident's note and discussed the case with the resident. I agree with the resident's findings and plan as documented. Seen and examined; please see resident note for further information. Updated family No new neurological developmnents; discussed with IR and we may resume AC post thora. Followup US guided thora with fluid studies if tappable fluid 10 sys ROS done and negative aside from HPI VS, LABS, IMAGING REVIEWED NAD, VENT TO TRACH, RESTING IN BED NC AT EOMI TRACHEA MIDLINE, NO S/S INFECTION, NO LN NEURO EXAM UNCHANGED WITH STEREOTYPED RESULTS OF ANOXIC BRAIN INJURY NT ND +BS +GT IN PLACE NOT AGITATED, DOESN'T APPEAR UNCOMFORTABLE All diagnostics reviewed; pending thora ASSESSMENT AND PLAN: Patient continues to be monitored on the medicine service; moved to the floor yesterday but still having persistent fevers; remains noncommunitive without any improvement noted in neurological exam. Remains inpatient due to persistent fevers. follouwp if us guidred thora done; followup with ID regarding potential sources of infection. Still considering central fevers. Grim prognosis. Problems include: -Persistent Fevers -VDRF -VFib Arrest likely 2/2 Septic Shock -Septic Shock, resolved -Severe systolic dysfunction (LVEF ~25%) 2/2 severe NICM, followed by CV. -PRACHI 2/2 ATN from hypotension/septic shock, plateaued and with very slight improvement today. -Hypernatremia, improving and followed by nephrology -Transaminitis is downtrending. Followup CT Abdomen/pelvis and will trend daily. If needed check RUQ US -P-Afib, on hep ggt -DVT, on hep ggt -NSTEMI, continuing to hold BB -Severe hypoalbuminemia -Anoxic encephalopathy -Hx mild pulmonary HTN (RHC 2016 per CV note with normal LVEDP/PCW noted) DNR status maintained Continue to monitor on the floor Very guarded prognosis.
--- NOTE | 2019-01-25 20:32 | PN ---
Physical Exam: 01/24 note entered from laptop unsaved Please refer to this note for 01/24 encounter SUBJECTIVE: Patient seen and examined; no new issues. Neurologically unchanged from prior encounters Couldn't obtain reliable ROS OBJECTIVE: Vital Signs Period Temp Pulse Resp BP Sys/Estrada Pulse Ox Last 24 Hr 99.1 F-102 F 73-84 14-22 117-145/50-76 100 GENERAL: The patient is awake, alert, and fully oriented, in no acute distress. HEAD: Normal with no signs of trauma. EYES: PERRL, extraocular movements intact, sclera anicteric, conjunctiva clear. No ptosis. ENT: Ears normal, nares patent, oropharynx clear without exudates, moist mucous membranes. NECK: Trachea midline, full range of motion, supple. LUNGS: Breath sounds equal, clear to auscultation bilaterally, no wheezes, no crackles, no accessory muscle use. HEART: Regular rate and rhythm, S1, S2 without murmur, rub or gallop. ABDOMEN: Soft, nontender, nondistended, normoactive bowel sounds, no guarding, no rebound, no hepatosplenomegaly, no masses. EXTREMITIES: 2+ pulses, warm, well-perfused, no edema. NEUROLOGICAL: Cranial nerves II through XII grossly intact. Normal speech, gait not observed. PSYCH: Normal mood, normal affect. SKIN: Warm, dry, normal turgor, no rashes or lesions noted Laboratory Results - last 24 hr 01/25/19 01/25/19 01/25/19 09:00 09:00 09:00 WBC 10.1 H RBC 2.70 L Hgb 8.3 L Hct 25.0 L MCV 92.5 MCH 30.6 MCHC 33.1 RDW 15.6 Plt Count 285 MPV 8.5 PTT (Actin FS) 28.7 Sodium 123 L Potassium 3.1 L Chloride 90 L Carbon Dioxide 24 Anion Gap 10 BUN 46.6 H Creatinine 2.9 H Est GFR (CKD-EPI)AfAm 24.98 Est GFR (CKD-EPI)NonAf 21.55 POC Glucometer Random Glucose Calcium 7.0 L Magnesium Total Bilirubin 0.3 AST 48 H ALT 53 Alkaline Phosphatase 66 Total Protein 4.8 L Albumin 1.5 L 01/25/19 01/25/19 01/25/19 11:00 11:20 17:28 WBC RBC Hgb Hct MCV MCH MCHC RDW Plt Count MPV PTT (Actin FS) Sodium 149 H Potassium 3.7 Chloride 114 H Carbon Dioxide 26 Anion Gap 9 BUN 55.1 H Creatinine 3.1 H Est GFR (CKD-EPI)AfAm 23.04 Est GFR (CKD-EPI)NonAf 19.88 POC Glucometer 99 110 Random Glucose 102 Calcium 8.8 Magnesium 2.4 Total Bilirubin 0.4 AST 59 H ALT 68 H Alkaline Phosphatase 79 Total Protein 5.8 L Albumin 1.9 L Active Medications Generic Name Dose Route Start Last Admin Trade Name Freq PRN Reason Stop Dose Admin Acetaminophen 1,000 mg 01/23/19 08:01 01/25/19 10:26 Ofirmev Injection - IVPB 1,000 mg Q6H PRN Administration FEVER Artificial Tears 1 applic 01/21/19 22:00 01/24/19 21:45 Artificial Tears Ointment - OU 1 applic HS [facility] Administration Artificial Tears 1 drop 01/21/19 22:00 01/25/19 11:44 Artificial Tears OU 1 drop BID [facility] Administration Chlorhexidine Gluconate 15 ml 01/21/19 22:00 01/25/19 13:21 Peridex - MM 15 ml BID [facility] Administration Hydralazine HCl 10 mg 01/21/19 19:17 Apresoline Injection - IVPUSH Q6H PRN HYPERTENSION Amino Acids 1,000 mls @ 42 mls/hr 01/25/19 12:45 01/25/19 13:32 Clinimix - IV 42 mls/hr Q24H [facility] Administration Dextrose 1,000 mls @ 75 mls/hr 01/25/19 12:45 01/25/19 16:26 D5w - IV 75 mls/hr ASDIR [facility] Administration Levetiracetam 500 mg 01/21/19 22:00 01/25/19 11:43 Keppra Injection - IVPB 500 mg BID [facility] Administration ASSESSMENT/PLAN: Patient continues to be monitored on the medicine service; moved to the floor yesterday but still having persistent fevers; remains noncommunitive without any improvement noted in neurological exam. Working up persistent fevers; discussing bronch with ID/Pulmonary. Problems include: -Persistent Fevers -VDRF -VFib Arrest likely 2/2 Septic Shock -Septic Shock, resolved -Severe systolic dysfunction (LVEF ~25%) 2/2 severe NICM, followed by CV. -PRACHI 2/2 ATN from hypotension/septic shock, plateaued and with very slight improvement today. -Hypernatremia, improving and followed by nephrology -Transaminitis is downtrending. Followup CT Abdomen/pelvis and will trend daily. If needed check RUQ US -P-Afib, on hep ggt -DVT, on hep ggt -NSTEMI, continuing to hold BB -Severe hypoalbuminemia -Anoxic encephalopathy -Hx mild pulmonary HTN (RHC 2016 per CV note with normal LVEDP/PCW noted) DNR status maintained Continue to monitor on the floor Very guarded prognosis. Visit type - Emergency Visit Emergency Visit: No - New Patient This patient is new to me today: No - Critical Care Critical Care patient: No
[2019-01-25] MEDS: MINERAL OIL/PETROLATUM,WHITE 3.5 GM TUBE OU SCH (21:59)
[2019-01-25] MEDS ORDERED: HEPARIN - 25,000 UNIT in SODIUM CHLORIDE 495 ML IV SCH (23:00)
[2019-01-25] MEDS ORDERED: HEPARIN NA (PORCINE) 5,000 UNITS/ML 1ML VIAL IVPUSH PRN ×4 (23:00→23:21)
[2019-01-26] MEDS: HEPARIN INFUSION - 25,000 UNITS/500 ML INFUS.BAG IVPB SCH ×2 (00:24→23:47)
[2019-01-26] MEDS: ACETAMINOPHEN 1000 MG/100 ML VIAL (NON FORMULARY) IVPB PRN (06:12)
[2019-01-26 07:45] LABS: HEMATOCRIT 29.6 % (35.4-49); HEMOGLOBIN 9.9 GM/dL (11.7-16.9); MCH 30.5 pg (25.7-33.7); MCHC 33.5 g/dl (32.0-35.9); MEAN CELL VOLUME 91.1 fl (80-96); MEAN PLT VOLUME 8.8 fl (7.5-11.1); PLATELET COUNT 353 K/MM3 (134-434); RBC 3.25 M/mm3 (4.00-5.60); RDW 15.1 % (11.9-15.9); WHITE BLOOD COUNT 10.3 K/mm3 (4.0-10.0)
[2019-01-26 08:04] LABS: BILIRUBIN,TOTAL 0.4 mg/dL (0.2-1); BLOOD UREA NITROGEN 53.1 mg/dL (7-18); CALCIUM 8.9 mg/dL (8.5-10.1); CREATININE 2.7 mg/dL (0.55-1.3); POTASSIUM 4.4 mmol/L (3.5-5.1); TOT PROT 6.4 g/dl (6.4-8.2)
[2019-01-26] MEDS ORDERED: PT OWN MED DRAWER 7, Y5N ONE (11:08)
[2019-01-26] MEDS: levETIRAcetam 500 MG/5 ML INJECTION VIAL IVPB SCH (11:10)
[2019-01-26] MEDS: CHLORHEXIDINE GLUCONATE 0.12% 15ML CUP MM SCH ×2 (11:10→21:48)
[2019-01-26] MEDS: ARTIFICIAL TEARS (POLYVINYL ALCOHOL) OPTH DROPS OU SCH ×2 (11:10→21:49)
--- NOTE | 2019-01-26 11:48 | PN ---
Progress Note (short form) - Note Progress Note: s: s/p trach, not responsive Current Medications Acetaminophen (Ofirmev Injection -) 1,000 mg IVPB Q6H PRN PRN Reason: FEVER Last Admin: 01/25/19 10:26 Dose: 1,000 mg Artificial Tears (Artificial Tears Ointment -) 1 applic OU HS [facility] Last Admin: 01/24/19 21:45 Dose: 1 applic Artificial Tears (Artificial Tears) 1 drop OU BID [facility] Last Admin: 01/24/19 21:45 Dose: 1 drop Chlorhexidine Gluconate (Peridex -) 15 ml MM BID [facility] Last Admin: 01/24/19 21:45 Dose: 15 ml Hydralazine HCl (Apresoline Injection -) 10 mg IVPUSH Q6H PRN PRN Reason: HYPERTENSION Levetiracetam (Keppra Injection -) 500 mg IVPB BID [facility] Last Admin: 01/24/19 21:44 Dose: 500 mg Vital Signs Period Temp Pulse Resp BP Sys/Estrada Pulse Ox Last 24 Hr 99.1 F-100.8 F 76-92 14-23 117-156/59-84 100 Constitutional: Yes: Other (+ ETT) Cardiovascular: Yes: Pulse Irregular Respiratory: Yes: Other (= breath sounds b/l), s/p trach Gastrointestinal: Yes: Soft, +PEG Edema: No no jaundice, diaphoresis no edema - ....Imaging EKG: Image Reviewed Assessment/Plan echo 01/20: severe global LV hypo EF 25-30%. nl RV. mild LAE. mod MR. nl RVSP. cath 07/2015: lhc: normal cors; rhc: mild phtn, pvri mod elevated, pcw/lvedp nl. ECG 01/12: NSR, LVH with nonsp ST-Ts ? sec to LVH--not signif changed vs 2016 prior ECG 01/13: no signif change, prolonged QT (similar to 2016) IMP/PLAN: VF arrest:in setting of gram + bacteremia and septic shock, anoxic encephalopathy -EF only mild-mod decreased on prior echo 1 yr ago, currently severe/global 25- 30%. -? arrest triggered by bacteremia (2 of 2 initial cultures positive)/sepsis -holding bb given low BPs -doubt acute ischemic etiology given normal cors 3 yrs ago--if makes meaningful recover will need repeat isch eval - s/p trach, PEG NSTEMI: -trop peaked at 32 -normal cors 2016 -suspect sec to sepsis vs prolonged hypotension from recurrent VF arrest (with contribution from mult electrical defibs) -aspirin daily -hold BB SEPTIC SHOCK, gram pos bacteremia: -abx per ID -echo no vegetation seen -bp stable -lung abscess - per ID, pulm Prolonged QT: -? related to CMP/LVH--was close to 500 on prior ecg 2015 -aggressive repletion of K/Mag (08/03) -avoid QT prolonging meds Congestive heart failure, nonischemic CMP -EF severely reduced at time of initial dx 2015--improved signif with med management -present EF severely reduced again, likely in setting sepsis, post arrest PRACHI: -sec to ATN, renal following PAF, DVT - cont heparin gtt
--- NOTE | 2019-01-26 13:01 | PN ---
Progress Note, Physician History of Present Illness: PULMONARY NO CHANGE ,UNRESPONSIVE ON VENT SUPPORT AC MODE - Current Medication List Current Medications: Active Medications Acetaminophen (Ofirmev Injection -) 1,000 mg IVPB Q6H PRN PRN Reason: FEVER Last Admin: 01/26/19 06:12 Dose: 1,000 mg Artificial Tears (Artificial Tears Ointment -) 1 applic OU HS [facility] Last Admin: 01/25/19 21:59 Dose: 1 applic Artificial Tears (Artificial Tears) 1 drop OU BID [facility] Last Admin: 01/25/19 21:59 Dose: 1 drop Chlorhexidine Gluconate (Peridex -) 15 ml MM BID [facility] Last Admin: 01/26/19 11:10 Dose: 15 ml Heparin Sodium (Porcine) (Heparin -) 1,000 unit IVPUSH PRN PRN PRN Reason: Heparin Heparin Sodium (Porcine) (Heparin -) 5,000 unit IVPUSH PRN PRN PRN Reason: Heparin Hydralazine HCl (Apresoline Injection -) 10 mg IVPUSH Q6H PRN PRN Reason: HYPERTENSION Amino Acids (Clinimix -) 1,000 mls @ 42 mls/hr IV Q24H [facility] Last Admin: 01/25/19 13:32 Dose: 42 mls/hr Heparin Sodium/Dextrose (Heparin Infusion -) 25,000 units in 500 mls @ 20 mls/ hr IVPB TITR [facility]; Protocol Last Admin: 01/26/19 00:24 Dose: 1,000 units/hr, 20 mls/hr Levetiracetam (Keppra Injection -) 500 mg IVPB BID [facility] Last Admin: 01/26/19 11:10 Dose: 500 mg - Objective Vital Signs: Vital Signs Temperature 98.5 F 01/26/19 11:43 Pulse Rate 76 01/26/19 11:03 Respiratory Rate 20 01/26/19 12:21 Blood Pressure 133/73 01/26/19 11:03 O2 Sat by Pulse Oximetry (%) 100 01/26/19 08:03 Constitutional: Yes: Well Nourished, Other (UNRESPONSIVE) HENT: Yes: WNL Neck: Yes: Supple (TRACH) Cardiovascular: Yes: Regular Rate and Rhythm, S1, S2 Respiratory: Yes: Rhonchi (SCATTERED RHONCHI) Gastrointestinal: Yes: Normal Bowel Sounds, Soft, Other (+ GT) Extremities: Yes: WNL Edema: Yes Labs: CBC, BMP 01/26/19 06:55 01/26/19 06:55 INR, PTT INR 1.08 (0.83-1.09) 01/13/19 05:15 Problem List - Problems (1) PRACHI (acute kidney injury) Code(s): N17.9 - ACUTE KIDNEY FAILURE, UNSPECIFIED (2) Brain anoxic injury Code(s): G93.1 - ANOXIC BRAIN DAMAGE, NOT ELSEWHERE CLASSIFIED (3) Cardiac arrest with successful resuscitation Code(s): I46.9 - CARDIAC ARREST, CAUSE UNSPECIFIED (4) Sepsis Code(s): A41.9 - SEPSIS, UNSPECIFIED ORGANISM (5) CHF (congestive heart failure) Code(s): I50.9 - HEART FAILURE, UNSPECIFIED (6) HTN (hypertension) Code(s): I10 - ESSENTIAL (PRIMARY) HYPERTENSION (7) Tobacco abuse Code(s): Z72.0 - TOBACCO USE (8) History of sudden cardiac arrest Code(s): Z86.74 - PERSONAL HISTORY OF SUDDEN CARDIAC ARREST (9) Chronic respiratory failure Code(s): J96.10 - CHRONIC RESPIRATORY FAILURE, UNSP W HYPOXIA OR HYPERCAPNIA Assessment/Plan ASSESSMENT AND PLAN: S/P Cardiopulmonary Arrest [facility] Ventricular Fibrillation Anoxic Brain Injury CAD/+Troponins/Acute NSTEMI LV Systolic Dysfunction Lactic Acidosis Acute Kidney Injury Elevated LFTs likely Ischemic Injury HTN Hyperlipidemia Extensive DVT - AC - monitor urine output, creatinine - not a candidate for weaning at this time due to mental status - continue discussions regarding goals of care, advanced directives - DVT prophylaxis - poor overall prognosis for meaningful recovery DR FORBES
--- NOTE | 2019-01-26 13:03 | PN ---
Progress Note, Physician History of Present Illness: Pt seen and examined at bedside. He remains intuabed. He is lethargic. - Current Medication List Current Medications: Active Medications Acetaminophen (Ofirmev Injection -) 1,000 mg IVPB Q6H PRN PRN Reason: FEVER Last Admin: 01/26/19 06:12 Dose: 1,000 mg Artificial Tears (Artificial Tears Ointment -) 1 applic OU HS [facility] Last Admin: 01/25/19 21:59 Dose: 1 applic Artificial Tears (Artificial Tears) 1 drop OU BID [facility] Last Admin: 01/25/19 21:59 Dose: 1 drop Chlorhexidine Gluconate (Peridex -) 15 ml MM BID [facility] Last Admin: 01/26/19 11:10 Dose: 15 ml Heparin Sodium (Porcine) (Heparin -) 1,000 unit IVPUSH PRN PRN PRN Reason: Heparin Heparin Sodium (Porcine) (Heparin -) 5,000 unit IVPUSH PRN PRN PRN Reason: Heparin Hydralazine HCl (Apresoline Injection -) 10 mg IVPUSH Q6H PRN PRN Reason: HYPERTENSION Amino Acids (Clinimix -) 1,000 mls @ 42 mls/hr IV Q24H [facility] Last Admin: 01/25/19 13:32 Dose: 42 mls/hr Heparin Sodium/Dextrose (Heparin Infusion -) 25,000 units in 500 mls @ 20 mls/ hr IVPB TITR [facility]; Protocol Last Admin: 01/26/19 00:24 Dose: 1,000 units/hr, 20 mls/hr Levetiracetam (Keppra Injection -) 500 mg IVPB BID [facility] Last Admin: 01/26/19 11:10 Dose: 500 mg - Objective Vital Signs: Vital Signs Temperature 98.5 F 01/26/19 11:43 Pulse Rate 76 01/26/19 11:03 Respiratory Rate 20 01/26/19 12:21 Blood Pressure 133/73 01/26/19 11:03 O2 Sat by Pulse Oximetry (%) 100 01/26/19 08:03 Constitutional: Yes: Calm Eyes: Yes: Conjunctiva Clear HENT: Yes: Atraumatic Neck: Yes: Supple Cardiovascular: Yes: S1, S2 Respiratory: Yes: Mechanically Ventilated Gastrointestinal: Yes: Normal Bowel Sounds, Soft, Other (peg) Genitourinary: Yes: Chambers Present Musculoskeletal: Yes: Muscle Weakness Edema: Yes Edema: LUE: 1+, RUE: 1+, LLE: Trace, RLE: Trace Neurological: Yes: Lethargy Labs: CBC, BMP 01/26/19 06:55 01/26/19 06:55 INR, PTT INR 1.08 (0.83-1.09) 01/13/19 05:15 Problem List - Problems (1) PRACHI (acute kidney injury) Code(s): N17.9 - ACUTE KIDNEY FAILURE, UNSPECIFIED (2) CHF (congestive heart failure) Code(s): I50.9 - HEART FAILURE, UNSPECIFIED (3) HTN (hypertension) Code(s): I10 - ESSENTIAL (PRIMARY) HYPERTENSION Assessment/Plan Current Medications Generic Name Dose Route Start Last Admin Trade Name Freq PRN Reason Stop Dose Admin Acetaminophen 1,000 mg 01/23/19 08:01 01/26/19 06:12 Ofirmev Injection - IVPB 1,000 mg Q6H PRN Administration FEVER Artificial Tears 1 applic 01/21/19 22:00 01/25/19 21:59 Artificial Tears Ointment - OU 1 applic HS [facility] Administration Artificial Tears 1 drop 01/21/19 22:00 01/25/19 21:59 Artificial Tears OU 1 drop BID [facility] Administration Chlorhexidine Gluconate 15 ml 01/21/19 22:00 01/26/19 11:10 Peridex - MM 15 ml BID [facility] Administration Heparin Sodium (Porcine) 1,000 unit 01/25/19 23:21 Heparin - IVPUSH PRN PRN Heparin Heparin Sodium (Porcine) 5,000 unit 01/25/19 23:21 Heparin - IVPUSH PRN PRN Heparin Hydralazine HCl 10 mg 01/21/19 19:17 Apresoline Injection - IVPUSH Q6H PRN HYPERTENSION Amino Acids 1,000 mls @ 42 mls/hr 01/25/19 12:45 01/25/19 13:32 Clinimix - IV 42 mls/hr Q24H [facility] Administration Heparin Sodium/Dextrose 25,000 units in 500 mls @ 20 mls/hr 01/25/19 23:30 00:24 Heparin Infusion - IVPB 1,000 units/hr TITR [facility] 20 mls/hr Administration Protocol 1,000 UNITS/HR Levetiracetam 500 mg 01/21/19 22:00 01/26/19 11:10 Keppra Injection - IVPB 500 mg BID [facility] Administration Impression 1. PRACHI 2. cardiac arrest 3. hx chf 4. hx htn 5. resp failure requiring intubation 6. hypernatremia Plan - cont clinimix - will need free water once feeds started - monitor sodium - pt remains NPO - vent support - PRACHI likely from ATN - cont supportive care
[2019-01-26] MEDS: AMINO ACIDS 4.25%/D5W 1,000 ML IV SCH ×3 (14:36→15:40)
--- NOTE | 2019-01-26 15:52 | PN ---
Physical Exam: SUBJECTIVE: Patient seen and examined, s/p trach/peg, non verbal, non responsive, unable to assess for ROS. OBJECTIVE: Vital Signs Period Temp Pulse Resp BP Sys/Estrada Pulse Ox Last 24 Hr 98.4 F-100.8 F 68-92 14-23 127-156/61-84 100 Intake & Output 01/23/19 01/24/19 01/25/19 01/26/19 23:59 23:59 23:59 23:59 Intake Total 2200 3000 846 100 Output Total 550 350 Balance 1650 3000 496 100 General: unresponsive, neck: s/p trach Chest: limited exam, poor effort, decreased breath sounds HEENT: Pupil sluggish, minimally reactive CVS:S1S2 regular Abdomen:soft, obese, pos bowel sounds, no voluntary or involuntary guarding or rigidity, pos PEG tube Extremites: trace pedal edema Neuro: intubated sedated, pupil sluggish, no withdrawal to pain, babinski non reactive, DTR 2+ UE, 1+ LE Laboratory Results - last 24 hr 01/25/19 01/26/19 01/26/19 17:28 06:55 06:55 WBC 10.3 H RBC 3.25 L Hgb 9.9 L Hct 29.6 L D MCV 91.1 MCH 30.5 MCHC 33.5 RDW 15.1 Plt Count 353 D MPV 8.8 PTT (Actin FS) Sodium 149 H Potassium 4.4 Chloride 116 H Carbon Dioxide 26 Anion Gap 8 BUN 53.1 H Creatinine 2.7 H Est GFR (CKD-EPI)AfAm 27.23 Est GFR (CKD-EPI)NonAf 23.50 POC Glucometer 110 Random Glucose 106 Calcium 8.9 Total Bilirubin 0.4 AST 77 H ALT 81 H Alkaline Phosphatase 91 Total Protein 6.4 Albumin 2.0 L 01/26/19 13:55 WBC RBC Hgb Hct MCV MCH MCHC RDW Plt Count MPV PTT (Actin FS) 61.2 H Sodium Potassium Chloride Carbon Dioxide Anion Gap BUN Creatinine Est GFR (CKD-EPI)AfAm Est GFR (CKD-EPI)NonAf POC Glucometer Random Glucose Calcium Total Bilirubin AST ALT Alkaline Phosphatase Total Protein Albumin Active Medications Generic Name Dose Route Start Last Admin Trade Name Freq PRN Reason Stop Dose Admin Acetaminophen 1,000 mg 01/23/19 08:01 01/26/19 06:12 Ofirmev Injection - IVPB 1,000 mg Q6H PRN Administration FEVER Artificial Tears 1 applic 01/21/19 22:00 01/25/19 21:59 Artificial Tears Ointment - OU 1 applic HS [facility] Administration Artificial Tears 1 drop 01/21/19 22:00 01/26/19 11:10 Artificial Tears OU 1 drop BID [facility] Administration Chlorhexidine Gluconate 15 ml 01/21/19 22:00 01/26/19 11:10 Peridex - MM 15 ml BID [facility] Administration Heparin Sodium (Porcine) 1,000 unit 01/25/19 23:21 Heparin - IVPUSH PRN PRN Heparin Heparin Sodium (Porcine) 5,000 unit 01/25/19 23:21 Heparin - IVPUSH PRN PRN Heparin Hydralazine HCl 10 mg 01/21/19 19:17 Apresoline Injection - IVPUSH Q6H PRN HYPERTENSION Heparin Sodium/Dextrose 25,000 units in 500 mls @ 20 mls/hr 01/25/19 23:30 00:24 Heparin Infusion - IVPB 1,000 units/hr TITR [facility] 20 mls/hr Administration Protocol 1,000 UNITS/HR Levetiracetam 500 mg 01/26/19 22:00 Keppra - PO BID [facility] [place] Home Medications Medication Instructions Recorded Aspirin 81 mg PO DAILY 01/13/19 Atorvastatin Ca [Lipitor] 40 mg PO DAILY 01/13/19 Carvedilol [Coreg -] 25 mg PO BID 01/13/19 Losartan/Hydrochlorothiazide 1 each PO DAILY 01/13/19 [Losartan-Hctz 100-25 mg Tab] Mirabegron [Myrbetriq] 25 mg PO DAILY 01/13/19 Telmisartan/Hydrochlorothiazid 1 tab PO DAILY 01/13/19 [Telmisartan-Hctz 80-25 mg Tab] Microbiology 01/23/19 16:04 Blood - Peripheral Venous Blood Culture - Preliminary NO GROWTH OBTAINED AFTER 48 HOURS, INCUBATION TO CONTINUE FOR 3 DAYS. 01/23/19 15:55 Blood - Peripheral Venous Blood Culture - Preliminary NO GROWTH OBTAINED AFTER 48 HOURS, INCUBATION TO CONTINUE FOR 3 DAYS. 01/23/19 13:25 Sputum - Endotrachea Suction/Ventilator Gram Stain - Final 01/23/19 13:25 Sputum - Endotrachea Suction/Ventilator Sputum Culture - Final Klebsiella Pneumoniae 01/19/19 13:00 Blood - Peripheral Venous Blood Culture - Final NO GROWTH AFTER 5 DAYS INCUBATION 01/19/19 12:51 Blood - Peripheral Venous Blood Culture - Final NO GROWTH AFTER 5 DAYS INCUBATION 01/23/19 13:25 Urine For Antigen Detection Legionella Antigen - Final 01/23/19 13:25 Urine For Antigen Detection Streptococcus pneumoniae Antigen (M - Final 01/14/19 16:00 Blood - Peripheral Venous Blood Culture - Final NO GROWTH AFTER 5 DAYS INCUBATION 01/14/19 14:30 Blood - Peripheral Venous Blood Culture - Final NO GROWTH AFTER 5 DAYS INCUBATION 01/14/19 14:30 Sputum - Endotrachea Suction/Ventilator Gram Stain - Final 01/14/19 14:30 Sputum - Endotrachea Suction/Ventilator Sputum Culture - Final Klebsiella Pneumoniae Stenotrophomon.(X.)Maltophilia 01/12/19 20:30 Blood - Peripheral Venous Blood Culture - Final Strep Agalactiae Group B Staphylococcus Haemolyticus Enterococcus Faecalis 01/12/19 20:30 Blood - Peripheral Venous Blood Culture - Final Staphylococcus Haemolyticus 01/13/19 09:00 Urine For Antigen Detection Legionella Antigen - Final 01/13/19 09:00 Urine For Antigen Detection Streptococcus pneumoniae Antigen (M - Final 01/13/19 04:50 Urine - Urine Clean Catch Urine Culture - Final NO GROWTH OBTAINED ASSESSMENT/PLAN: 68 yom with PMHx of HTN, HLD, cardiomyopathy, ?ischemia with WMA (improved EF on 2D echo in 2018), suspected CAD (transferred for cath from [facility] in 2016, ? results), CVA with residual slurred speech, admitted with cardiac arrest. 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 Discussed with Dr. Medeiros, PEG ok to use. Nutrition input noted, start nepro per recs. D/c OG tube. Vent management per pulmonary. Off sedation, unchanged mental status, Neurology input noted. s/p Hypothermia protocol. ID/renal/cardiology input noted. Persistent fevers, ?central. Plan for IR guided diagnostic thoracentesis. Change keppra to PO. Heparin drip for DVT. Hold coreg per cardiology recs. resume as hemodynamics tolerate. Monitor for anoxic brain injury. Renal input noted. No obstructive concerns on CT A/P. Continue Chambers. Overall prognosis poor. Plan for LTACh when arrangements made. Visit type - Emergency Visit Emergency Visit: Yes ED Registration Date: 01/12/19 Care time: The patient presented to the Emergency Department on the above date and was hospitalized for further evaluation of their emergent condition. - New Patient This patient is new to me today: No - Critical Care Critical Care patient: No - Discharge Referral Referred to [facility] Med P.C.: No
[2019-01-26] MEDS: MINERAL OIL/PETROLATUM,WHITE 3.5 GM TUBE OU SCH (21:48)
[2019-01-26] MEDS: levETIRAcetam 500 MG TABLET (FP) PO SCH (21:48)
[2019-01-27] MEDS: ACETAMINOPHEN 1000 MG/100 ML VIAL (NON FORMULARY) IVPB PRN (06:51)
[2019-01-27 08:12] LABS: BASO % 0.5 % (0-2.0); EOS % 1.8 % (0-4.5); HEMATOCRIT 28.7 % (35.4-49); HEMOGLOBIN 9.6 GM/dL (11.7-16.9); LYMPH % 7.3 % (8-40); MCH 30.6 pg (25.7-33.7); MCHC 33.4 g/dl (32.0-35.9); MEAN CELL VOLUME 91.4 fl (80-96); MEAN PLT VOLUME 8.8 fl (7.5-11.1); MONO % 10.6 % (3.8-10.2); NEUT % 79.8 % (42.8-82.8); PLATELET COUNT 356 K/MM3 (134-434); RBC 3.13 M/mm3 (4.00-5.60); RDW 15.4 % (11.9-15.9); WHITE BLOOD COUNT 10.7 K/mm3 (4.0-10.0)
[2019-01-27 08:34] LABS: BILIRUBIN,TOTAL 0.3 mg/dL (0.2-1); BLOOD UREA NITROGEN 51.8 mg/dL (7-18); CREATININE 2.4 mg/dL (0.55-1.3); MAGNESIUM 2.4 mg/dL (1.8-2.4); PHOSPHOROUS 3.2 mg/dL (2.5-4.9); POTASSIUM 3.6 mmol/L (3.5-5.1); TOT PROT 6.2 g/dl (6.4-8.2)
[2019-01-27] MEDS ORDERED: PT OWN MED DRAWER 7, Y5N ONE ×2 (10:58→21:50)
[2019-01-27] MEDS: levETIRAcetam 500 MG TABLET (FP) PO SCH ×2 (11:07→21:52)
[2019-01-27] MEDS: ARTIFICIAL TEARS (POLYVINYL ALCOHOL) OPTH DROPS OU SCH ×2 (11:08→21:52)
[2019-01-27] MEDS: CHLORHEXIDINE GLUCONATE 0.12% 15ML CUP MM SCH ×2 (11:08→21:52)
--- NOTE | 2019-01-27 11:08 | PN ---
Progress Note (short form) - Note Progress Note: PULMONARY Vented, unresponsive. Fevers persist. Vital Signs Period Temp Pulse Resp BP Sys/Estrada Pulse Ox Last 24 Hr 98.4 F-101.3 F 68-88 16-20 128-151/71-84 99 Gen: vented, unresponsive Heart: RRR Lung: decreased breath sounds at the bases Abd: soft, nontender Ext: no edema CBC, BMP 01/27/19 07:15 01/27/19 07:15 Active Medications Acetaminophen (Ofirmev Injection -) 1,000 mg IVPB Q6H PRN PRN Reason: FEVER Last Admin: 01/27/19 06:51 Dose: 1,000 mg Artificial Tears (Artificial Tears Ointment -) 1 applic OU HS [facility] Last Admin: 01/26/19 21:48 Dose: 1 applic Artificial Tears (Artificial Tears) 1 drop OU BID [facility] Last Admin: 01/26/19 21:49 Dose: 1 drop Chlorhexidine Gluconate (Peridex -) 15 ml MM BID [facility] Last Admin: 01/26/19 21:48 Dose: 15 ml Heparin Sodium (Porcine) (Heparin -) 1,000 unit IVPUSH PRN PRN PRN Reason: Heparin Heparin Sodium (Porcine) (Heparin -) 5,000 unit IVPUSH PRN PRN PRN Reason: Heparin Last Admin: 01/27/19 11:02 Dose: 5,000 unit Hydralazine HCl (Apresoline Injection -) 10 mg IVPUSH Q6H PRN PRN Reason: HYPERTENSION Heparin Sodium/Dextrose (Heparin Infusion -) 25,000 units in 500 mls @ 20 mls/ hr IVPB TITR [facility]; Protocol Last Titration: 01/27/19 11:03 Dose: 1,150 units/hr, 23 mls/hr Levetiracetam (Keppra -) 500 mg PO BID [facility] Last Admin: 01/26/19 21:48 Dose: 500 mg A/P S/P Cardiopulmonary Arrest Ventricular Fibrillation Anoxic Brain Injury CAD/+Troponins/Acute NSTEMI LV Systolic Dysfunction Pneumonia/Lung Abscess Lactic Acidosis resolved Acute Kidney Injury Elevated LFTs likely Ischemic Injury HTN Hyperlipidemia Extensive DVT - continue anticoagulation - antibiotics per ID - monitor urine output, creatinine - not a candidate for weaning at this time due to mental status - continue discussions regarding goals of care, advanced directives - DVT prophylaxis - poor overall prognosis for meaningful recovery
--- NOTE | 2019-01-27 12:53 | PN ---
Progress Note (short form) - Note Progress Note: s: unresponsive, on vent Current Medications Generic Name Dose Route Start Last Admin Trade Name Freq PRN Reason Stop Dose Admin Acetaminophen 1,000 mg 01/23/19 08:01 01/27/19 06:51 Ofirmev Injection - IVPB 1,000 mg Q6H PRN Administration FEVER Artificial Tears 1 applic 01/21/19 22:00 01/26/19 21:48 Artificial Tears Ointment - OU 1 applic HS [facility] Administration Artificial Tears 1 drop 01/21/19 22:00 01/27/19 11:08 Artificial Tears OU 1 drop BID [facility] Administration Chlorhexidine Gluconate 15 ml 01/21/19 22:00 01/27/19 11:08 Peridex - MM 15 ml BID [facility] Administration Heparin Sodium (Porcine) 1,000 unit 01/25/19 23:21 Heparin - IVPUSH PRN PRN Heparin Heparin Sodium (Porcine) 5,000 unit 01/25/19 23:21 01/27/19 11:02 Heparin - IVPUSH 5,000 unit PRN PRN Administration Heparin Hydralazine HCl 10 mg 01/21/19 19:17 Apresoline Injection - IVPUSH Q6H PRN HYPERTENSION Heparin Sodium/Dextrose 25,000 units in 500 mls @ 20 mls/hr 01/25/19 23:30 11:03 Heparin Infusion - IVPB 1,150 units/hr TITR [facility] 23 mls/hr Titration Protocol 1,000 UNITS/HR Levetiracetam 500 mg 01/26/19 22:00 01/27/19 11:07 Keppra - PO 500 mg BID [facility] Administration Vital Signs Period Temp Pulse Resp BP Sys/Estrada Pulse Ox Last 24 Hr 98.4 F-101.3 F 68-88 16-20 119-151/45-84 99 HENT: trach, vent Cardiovascular: Yes: Regular Rate and Rhythm Respiratory: Yes: Other (coarse breath sounds b /l) Gastrointestinal: Yes: Soft Edema: No no jaundice, diaphoresis not agitated CBC, BMP 01/27/19 07:15 01/27/19 07:15 Assessment/Plan echo 01/20: severe global LV hypo EF 25-30%. nl RV. mild LAE. mod MR. nl RVSP. cath 07/2015: lhc: normal cors; rhc: mild phtn, pvri mod elevated, pcw/lvedp nl. ECG 01/12: NSR, LVH with nonsp ST-Ts ? sec to LVH--not signif changed vs 2016 prior ECG 01/13: no signif change, prolonged QT (similar to 2016) IMP/PLAN: VF arrest:in setting of gram + bacteremia and septic shock, anoxic encephalopathy -EF only mild-mod decreased on prior echo 1 yr ago, currently severe/global 25- 30%. -? arrest triggered by bacteremia (2 of 2 initial cultures positive)/sepsis -holding bb given low BPs -doubt acute ischemic etiology given normal cors 3 yrs ago--if makes meaningful recover will need repeat isch eval - s/p trach, PEG NSTEMI: -trop peaked at 32 -normal cors 2016 -suspect sec to sepsis vs prolonged hypotension from recurrent VF arrest (with contribution from mult electrical defibs) -aspirin daily -hold BB SEPTIC SHOCK, gram pos bacteremia: -abx per ID -echo no vegetation seen -bp stable -lung abscess - per ID, pulm Prolonged QT: -? related to CMP/LVH--was close to 500 on prior ecg 2016 -aggressive repletion of K/Mag (08/03) -avoid QT prolonging meds Congestive heart failure, nonischemic CMP -EF severely reduced at time of initial dx 2015--improved signif with med management -present EF severely reduced again, likely in setting sepsis, post arrest PRACHI: -sec to ATN, renal following PAF, DVT - cont heparin gtt
--- NOTE | 2019-01-27 14:30 | PN ---
Progress Note (short form) - Note Progress Note: fevers trending down now on gt feeds Vital Signs Period Temp Pulse Resp BP Sys/Estrada Pulse Ox Last 24 Hr 98.4 F-101.3 F 68-88 16-20 119-151/45-84 99 cor-rrr lungs decreased bs at bases abd soft,nt+GT ext no edema CBC, BMP 01/27/19 07:15 01/27/19 07:15 Microbiology 01/23/19 16:04 Blood - Peripheral Venous Blood Culture - Preliminary NO GROWTH OBTAINED AFTER 72 HOURS, INCUBATION TO CONTINUE FOR 2 DAYS. 01/23/19 15:55 Blood - Peripheral Venous Blood Culture - Preliminary NO GROWTH OBTAINED AFTER 72 HOURS, INCUBATION TO CONTINUE FOR 2 DAYS. 01/23/19 13:25 Sputum - Endotrachea Suction/Ventilator Gram Stain - Final 01/23/19 13:25 Sputum - Endotrachea Suction/Ventilator Sputum Culture - Final Klebsiella Pneumoniae 01/19/19 13:00 Blood - Peripheral Venous Blood Culture - Final NO GROWTH AFTER 5 DAYS INCUBATION 01/19/19 12:51 Blood - Peripheral Venous Blood Culture - Final NO GROWTH AFTER 5 DAYS INCUBATION 01/23/19 13:25 Urine For Antigen Detection Legionella Antigen - Final 01/23/19 13:25 Urine For Antigen Detection Streptococcus pneumoniae Antigen (M - Final 01/14/19 16:00 Blood - Peripheral Venous Blood Culture - Final NO GROWTH AFTER 5 DAYS INCUBATION 01/14/19 14:30 Blood - Peripheral Venous Blood Culture - Final NO GROWTH AFTER 5 DAYS INCUBATION 01/14/19 14:30 Sputum - Endotrachea Suction/Ventilator Gram Stain - Final 01/14/19 14:30 Sputum - Endotrachea Suction/Ventilator Sputum Culture - Final Klebsiella Pneumoniae Stenotrophomon.(X.)Maltophilia 01/12/19 20:30 Blood - Peripheral Venous Blood Culture - Final Strep Agalactiae Group B Staphylococcus Haemolyticus Enterococcus Faecalis 01/12/19 20:30 Blood - Peripheral Venous Blood Culture - Final Staphylococcus Haemolyticus 01/13/19 09:00 Urine For Antigen Detection Legionella Antigen - Final 01/13/19 09:00 Urine For Antigen Detection Streptococcus pneumoniae Antigen (M - Final 01/13/19 04:50 Urine - Urine Clean Catch Urine Culture - Final NO GROWTH OBTAINED a/p persistent fevers- on a/c for dvt without improvement in fever curve will get sonogram to r/o effusion/empyema if chest sonogram is not helpful, would get chest ct to er-evaluate the retrocardiac area d/w pulmonary s/p cardiac arrest with anoxia raffi- improved family at bedside Problem List - Problems (1) Cardiac arrest with successful resuscitation Code(s): I46.9 - CARDIAC ARREST, CAUSE UNSPECIFIED (2) Brain anoxic injury Code(s): G93.1 - ANOXIC BRAIN DAMAGE, NOT ELSEWHERE CLASSIFIED (3) Sepsis Code(s): A41.9 - SEPSIS, UNSPECIFIED ORGANISM (4) Shock liver Code(s): K72.00 - ACUTE AND SUBACUTE HEPATIC FAILURE WITHOUT COMA
--- NOTE | 2019-01-27 16:31 | PN ---
Teaching Attending Note Name of Resident: Nadir Mark ATTENDING PHYSICIAN STATEMENT I saw and evaluated the patient. I reviewed the resident's note and discussed the case with the resident. I agree with the resident's findings and plan as documented with exceptions below. SUBJECTIVE: patient seen and examined. unresponsive. OBJECTIVE: Vital Signs Period Temp Pulse Resp BP Sys/Estrada Pulse Ox Last 24 Hr 99.2 F-101.3 F 68-88 14-20 119-151/45-79 99 Intake & Output 01/24/19 01/25/19 01/26/19 01/27/19 23:59 23:59 23:59 23:59 Intake Total 3000 146 508 4799 Output Total 350 Balance 3000 389 225 3397 General: unresponsive, neck: s/p trach Chest: limited exam, poor effort, decreased breath sounds HEENT: Pupil sluggish, minimally reactive CVS:S1S2 regular Abdomen:soft, obese, pos bowel sounds, no voluntary or involuntary guarding or rigidity, pos PEG tube Extremites: trace pedal edema Neuro: intubated sedated, pupil sluggish, no withdrawal to pain, babinski non reactive, DTR 2+ UE, 1+ LE Home Medications Medication Instructions Recorded Aspirin 81 mg PO DAILY 01/13/19 Atorvastatin Ca [Lipitor] 40 mg PO DAILY 01/13/19 Carvedilol [Coreg -] 25 mg PO BID 01/13/19 Losartan/Hydrochlorothiazide 1 each PO DAILY 01/13/19 [Losartan-Hctz 100-25 mg Tab] Mirabegron [Myrbetriq] 25 mg PO DAILY 01/13/19 Telmisartan/Hydrochlorothiazid 1 tab PO DAILY 01/13/19 [Telmisartan-Hctz 80-25 mg Tab] Active Medications Acetaminophen (Ofirmev Injection -) 1,000 mg IVPB Q6H PRN PRN Reason: FEVER Last Admin: 01/27/19 06:51 Dose: 1,000 mg Artificial Tears (Artificial Tears Ointment -) 1 applic OU HS [facility] Last Admin: 01/26/19 21:48 Dose: 1 applic Artificial Tears (Artificial Tears) 1 drop OU BID [facility] Last Admin: 01/27/19 11:08 Dose: 1 drop Chlorhexidine Gluconate (Peridex -) 15 ml MM BID [facility] Last Admin: 01/27/19 11:08 Dose: 15 ml Heparin Sodium (Porcine) (Heparin -) 1,000 unit IVPUSH PRN PRN PRN Reason: Heparin Heparin Sodium (Porcine) (Heparin -) 5,000 unit IVPUSH PRN PRN PRN Reason: Heparin Last Admin: 01/27/19 11:02 Dose: 5,000 unit Hydralazine HCl (Apresoline Injection -) 10 mg IVPUSH Q6H PRN PRN Reason: HYPERTENSION Heparin Sodium/Dextrose (Heparin Infusion -) 25,000 units in 500 mls @ 20 mls/ hr IVPB TITR [facility]; Protocol Last Titration: 01/27/19 11:03 Dose: 1,150 units/hr, 23 mls/hr Levetiracetam (Keppra -) 500 mg PO BID [facility] Last Admin: 01/27/19 11:07 Dose: 500 mg ASSESSMENT AND PLAN: 68 yom with PMHx of HTN, HLD, cardiomyopathy, ?ischemia with WMA (improved EF on 2D echo in 2018), suspected CAD (transferred for cath from [facility] in 2015, ? results), CVA with residual slurred speech, admitted with cardiac arrest. 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 Tolerating feeds well. Vent management per pulmonary. Off sedation, unchanged mental status, Neurology input noted. persistent fevers, ID input noted. Chest US. Possible thoracocentesis based on clinical course. s/p Hypothermia protocol. ID/renal/cardiology input noted. Persistent fevers, ?central. Continue keppra. Heparin drip for DVT. Hold coreg per cardiology recs. Resume as hemodynamics tolerate. Monitor for anoxic brain injury. Renal input noted. No obstructive concerns on CT A/P. Continue Chambers. Overall prognosis poor. Plan for LTACh when arrangements made, once clinically improved.
--- NOTE | 2019-01-27 17:55 | PN ---
Progress Note, Physician History of Present Illness: Pt seen and examined at bedside. He was started on tube feeds and is tolerating. - Current Medication List Current Medications: Active Medications Acetaminophen (Ofirmev Injection -) 1,000 mg IVPB Q6H PRN PRN Reason: FEVER Last Admin: 01/27/19 06:51 Dose: 1,000 mg Artificial Tears (Artificial Tears Ointment -) 1 applic OU HS [facility] Last Admin: 01/26/19 21:48 Dose: 1 applic Artificial Tears (Artificial Tears) 1 drop OU BID [facility] Last Admin: 01/27/19 11:08 Dose: 1 drop Chlorhexidine Gluconate (Peridex -) 15 ml MM BID [facility] Last Admin: 01/27/19 11:08 Dose: 15 ml Heparin Sodium (Porcine) (Heparin -) 1,000 unit IVPUSH PRN PRN PRN Reason: Heparin Heparin Sodium (Porcine) (Heparin -) 5,000 unit IVPUSH PRN PRN PRN Reason: Heparin Last Admin: 01/27/19 11:02 Dose: 5,000 unit Hydralazine HCl (Apresoline Injection -) 10 mg IVPUSH Q6H PRN PRN Reason: HYPERTENSION Heparin Sodium/Dextrose (Heparin Infusion -) 25,000 units in 500 mls @ 20 mls/ hr IVPB TITR [facility]; Protocol Last Titration: 01/27/19 11:03 Dose: 1,150 units/hr, 23 mls/hr Levetiracetam (Keppra -) 500 mg PO BID [facility] Last Admin: 01/27/19 11:07 Dose: 500 mg - Objective Vital Signs: Vital Signs Temperature 99.2 F 01/27/19 14:53 Pulse Rate 83 01/27/19 14:53 Respiratory Rate 16 01/27/19 15:34 Blood Pressure 119/45 L 01/27/19 11:00 O2 Sat by Pulse Oximetry (%) 99 01/27/19 08:00 Constitutional: Yes: Calm Eyes: Yes: Conjunctiva Clear HENT: Yes: Atraumatic Neck: Yes: Other (trache) Cardiovascular: Yes: S1, S2 Respiratory: Yes: Intubated, Mechanically Ventilated Gastrointestinal: Yes: Soft, Other (peg) Genitourinary: Yes: WNL Musculoskeletal: Yes: WNL Edema: No Neurological: Yes: Lethargy Labs: CBC, BMP 01/27/19 07:15 01/27/19 07:15 INR, PTT INR 1.08 (0.83-1.09) 01/13/19 05:15 Problem List - Problems (1) PRACHI (acute kidney injury) Code(s): N17.9 - ACUTE KIDNEY FAILURE, UNSPECIFIED (2) CHF (congestive heart failure) Code(s): I50.9 - HEART FAILURE, UNSPECIFIED (3) HTN (hypertension) Code(s): I10 - ESSENTIAL (PRIMARY) HYPERTENSION Assessment/Plan Current Medications Generic Name Dose Route Start Last Admin Trade Name Freq PRN Reason Stop Dose Admin Acetaminophen 1,000 mg 01/23/19 08:01 01/27/19 06:51 Ofirmev Injection - IVPB 1,000 mg Q6H PRN Administration FEVER Artificial Tears 1 applic 01/21/19 22:00 01/26/19 21:48 Artificial Tears Ointment - OU 1 applic HS [facility] Administration Artificial Tears 1 drop 01/21/19 22:00 01/27/19 11:08 Artificial Tears OU 1 drop BID [facility] Administration Chlorhexidine Gluconate 15 ml 01/21/19 22:00 01/27/19 11:08 Peridex - MM 15 ml BID [facility] Administration Heparin Sodium (Porcine) 1,000 unit 01/25/19 23:21 Heparin - IVPUSH PRN PRN Heparin Heparin Sodium (Porcine) 5,000 unit 01/25/19 23:21 01/27/19 11:02 Heparin - IVPUSH 5,000 unit PRN PRN Administration Heparin Hydralazine HCl 10 mg 01/21/19 19:17 Apresoline Injection - IVPUSH Q6H PRN HYPERTENSION Heparin Sodium/Dextrose 25,000 units in 500 mls @ 20 mls/hr 01/25/19 23:30 11:03 Heparin Infusion - IVPB 1,150 units/hr TITR [facility] 23 mls/hr Titration Protocol 1,000 UNITS/HR Levetiracetam 500 mg 01/26/19 22:00 01/27/19 11:07 Keppra - PO 500 mg BID [facility] Administration Impression 1. PRACHI 2. cardiac arrest 3. hx chf 4. hx htn 5. resp failure requiring intubation 6. hypernatremia Plan - pt now on feeds - cont with free water - monitor sodium - fluids stopped - vent support - PRACHI likely from ATN - cont supportive care - renal function is improving
--- NOTE | 2019-01-27 21:30 | PN ---
Progress Note (short form) - Note Progress Note: HPI: Pt remains unresponsive to exam. ROS limited due to clinical condition. PEG intact with feeds. NGT removed yesterday. Vital Signs Period Temp Pulse Resp BP Sys/Estrada Pulse Ox Last 24 Hr 99.1 F-101.3 F 72-88 14-20 119-151/45-74 99 PE: Gen: Remains unresponsive even to painful stimuli. No acute distress HEENT: No pupillary reflex noted. MMM no secretions noted at time of exam Neck: Tracheostomy site sutured in place without any secretions around stoma LUNGS: Diminished breath sounds b/l at based, but upper lobes CTA anteriorly. AC mode of vent without overbreathing RR 14, TV 500, SpO2 30% CARD: RRR without any murmurs appreciated ABD: Hypoactive BS, PEG site intact without any drainage noted. EXT: Upper extremity dependent edema noted in hands, No edema of LE b/l. SKIN: No skin breakdown seen. Sacrum not examined today Active Medications Acetaminophen (Ofirmev Injection -) 1,000 mg IVPB Q6H PRN PRN Reason: FEVER Last Admin: 01/27/19 06:51 Dose: 1,000 mg Apixaban (Eliquis -) 5 mg PEG BID [facility] Artificial Tears (Artificial Tears Ointment -) 1 applic OU HS [facility] Last Admin: 01/26/19 21:48 Dose: 1 applic Artificial Tears (Artificial Tears) 1 drop OU BID [facility] Last Admin: 01/27/19 11:08 Dose: 1 drop Chlorhexidine Gluconate (Peridex -) 15 ml MM BID [facility] Last Admin: 01/27/19 11:08 Dose: 15 ml Hydralazine HCl (Apresoline Injection -) 10 mg IVPUSH Q6H PRN PRN Reason: HYPERTENSION Levetiracetam (Keppra -) 500 mg PO BID [facility] Last Admin: 01/27/19 11:07 Dose: 500 mg A/P S/p cardiac arrest S/p septic shock secondary to bacteremia Anoxic brain injury Extensive DVT Fevers with suspicion of central fevers PRACHI 2/2 to ATN Hypernatremia Extensive DVT --Fevers likely central, but will make due diligence to r/o all sources of infection --Will order Noncontrast CT chest to r/o abscess formation including involvement of retrocardiac space --Pt with extensive DVT noted --Will transition from Heparin gtt to Eliquis 5mg BID GT --Appreciate all consultative recommendations --Increase free water through PEG for hypernatremia and ATN --Continue Keppra 500mg BID for seizure ppx --Pt s/p tracheostomy site and PEG placement FEN: Fluids: D/c and encourage more FW intake per PEG Electrolyte abnormalities: HyperNa; FWD 4.2L to Na goal of 142 today Nutrition: Nepro goal 60cc/hr with 55cc/hr FW flush PPX: DVT - Heparin gtt and transition to Eliquis tonight Dispo: D/c planning; finishing septic workup Case discussed with Dr. Iram Mark, DO - IM PGY-3
[2019-01-27] MEDS: MINERAL OIL/PETROLATUM,WHITE 3.5 GM TUBE OU SCH (21:52)
[2019-01-27] MEDS ORDERED: APIXABAN 5 MG TABLET PEG SCH (22:00)
[2019-01-28] MEDS ORDERED: HEPARIN NA (PORCINE) 5,000 UNITS/ML 1ML VIAL IVPUSH PRN (08:58)
[2019-01-28 09:12] LABS: HEMATOCRIT 28.6 % (35.4-49); HEMOGLOBIN 9.4 GM/dL (11.7-16.9); MCH 30.2 pg (25.7-33.7); MCHC 32.8 g/dl (32.0-35.9); MEAN CELL VOLUME 92.1 fl (80-96); MEAN PLT VOLUME 8.2 fl (7.5-11.1); PLATELET COUNT 390 K/MM3 (134-434); RDW 15.8 % (11.9-15.9); WHITE BLOOD COUNT 9.6 K/mm3 (4.0-10.0)
[2019-01-28 09:33] LABS: BLOOD UREA NITROGEN 49.1 mg/dL (7-18); CREATININE 2.2 mg/dL (0.55-1.3); MAGNESIUM 2.6 mg/dL (1.8-2.4); POTASSIUM 3.9 mmol/L (3.5-5.1)
[2019-01-28] MEDS ORDERED: PT OWN MED DRAWER 7, Y5N ONE ×3 (10:29→15:08)
[2019-01-28] MEDS: HEPARIN INFUSION - 25,000 UNITS/500 ML INFUS.BAG IVPB SCH (10:38)
[2019-01-28] MEDS: levETIRAcetam 500 MG TABLET (FP) PO SCH ×2 (10:38→21:51)
[2019-01-28] MEDS: ARTIFICIAL TEARS (POLYVINYL ALCOHOL) OPTH DROPS OU SCH ×2 (10:41→21:50)
--- NOTE | 2019-01-28 10:57 | PN ---
Progress Note (short form) - Note Progress Note: fevers trending down Vital Signs Period Temp Pulse Resp BP Sys/Estrada Pulse Ox Last 24 Hr 99.1 F-100.2 F 74-96 14-20 119-137/45-72 98 cor-rrr lungs decresed bs at bases abd soft, +GT ext no edema CBC, BMP 01/28/19 08:45 01/28/19 08:45 Microbiology 01/23/19 16:04 Blood - Peripheral Venous Blood Culture - Preliminary NO GROWTH OBTAINED AFTER 96 HOURS, INCUBATION TO CONTINUE FOR 1 DAYS. 01/23/19 15:55 Blood - Peripheral Venous Blood Culture - Preliminary NO GROWTH OBTAINED AFTER 96 HOURS, INCUBATION TO CONTINUE FOR 1 DAYS. 01/23/19 13:25 Sputum - Endotrachea Suction/Ventilator Gram Stain - Final 01/23/19 13:25 Sputum - Endotrachea Suction/Ventilator Sputum Culture - Final Klebsiella Pneumoniae 01/19/19 13:00 Blood - Peripheral Venous Blood Culture - Final NO GROWTH AFTER 5 DAYS INCUBATION 01/19/19 12:51 Blood - Peripheral Venous Blood Culture - Final NO GROWTH AFTER 5 DAYS INCUBATION 01/23/19 13:25 Urine For Antigen Detection Legionella Antigen - Final 01/23/19 13:25 Urine For Antigen Detection Streptococcus pneumoniae Antigen (M - Final 01/14/19 16:00 Blood - Peripheral Venous Blood Culture - Final NO GROWTH AFTER 5 DAYS INCUBATION 01/14/19 14:30 Blood - Peripheral Venous Blood Culture - Final NO GROWTH AFTER 5 DAYS INCUBATION 01/14/19 14:30 Sputum - Endotrachea Suction/Ventilator Gram Stain - Final 01/14/19 14:30 Sputum - Endotrachea Suction/Ventilator Sputum Culture - Final Klebsiella Pneumoniae Stenotrophomon.(X.)Maltophilia 01/12/19 20:30 Blood - Peripheral Venous Blood Culture - Final Strep Agalactiae Group B Staphylococcus Haemolyticus Enterococcus Faecalis 01/12/19 20:30 Blood - Peripheral Venous Blood Culture - Final Staphylococcus Haemolyticus 01/13/19 09:00 Urine For Antigen Detection Legionella Antigen - Final 01/13/19 09:00 Urine For Antigen Detection Streptococcus pneumoniae Antigen (M - Final 01/13/19 04:50 Urine - Urine Clean Catch Urine Culture - Final NO GROWTH OBTAINED Current Medications Acetaminophen (Tylenol Oral Solution -) 650 mg PO Q6H PRN PRN Reason: FEVER Artificial Tears (Artificial Tears Ointment -) 1 applic OU HS [facility] Last Admin: 01/27/19 21:52 Dose: 1 applic Artificial Tears (Artificial Tears) 1 drop OU BID [facility] Last Admin: 01/28/19 10:41 Dose: 1 drop Chlorhexidine Gluconate (Peridex -) 15 ml MM BID [facility] Last Admin: 01/27/19 21:52 Dose: 15 ml Heparin Sodium (Porcine) (Heparin -) 1,000 unit IVPUSH PRN PRN PRN Reason: Heparin Heparin Sodium (Porcine) (Heparin -) 5,000 unit IVPUSH PRN PRN PRN Reason: Heparin Hydralazine HCl (Apresoline Injection -) 10 mg IVPUSH Q6H PRN PRN Reason: HYPERTENSION Heparin Sodium/Dextrose (Heparin Infusion -) 25,000 units in 500 mls @ 20 mls/ hr IVPB TITR [facility]; Protocol Last Admin: 01/28/19 10:38 Dose: 1,000 units/hr, 20 mls/hr Levetiracetam (Keppra -) 500 mg PO BID [facility] Last Admin: 01/28/19 10:38 Dose: 500 mg a/p persistent fevers-trending down, cxray appears to be improving on a/c for dvt without improvement in fever curve will get sonogram to r/o effusion/empyema if chest sonogram is not helpful, would get chest ct to er-evaluate the retrocardiac area if fevers persist d/w pulmonary s/p cardiac arrest with anoxia raffi- improved Problem List - Problems (1) Cardiac arrest with successful resuscitation Code(s): I46.9 - CARDIAC ARREST, CAUSE UNSPECIFIED (2) Brain anoxic injury Code(s): G93.1 - ANOXIC BRAIN DAMAGE, NOT ELSEWHERE CLASSIFIED (3) Sepsis Code(s): A41.9 - SEPSIS, UNSPECIFIED ORGANISM (4) Shock liver Code(s): K72.00 - ACUTE AND SUBACUTE HEPATIC FAILURE WITHOUT COMA
[2019-01-28] MEDS ORDERED: FUROSEMIDE 40 MG TABLET (FP) PO SCH (11:15)
--- NOTE | 2019-01-28 12:05 | PN ---
Progress Note, Physician Chief Complaint: no acute distress - Current Medication List Current Medications: Active Medications Acetaminophen (Tylenol Oral Solution -) 650 mg PO Q6H PRN PRN Reason: FEVER Artificial Tears (Artificial Tears Ointment -) 1 applic OU HS [facility] Last Admin: 01/27/19 21:52 Dose: 1 applic Artificial Tears (Artificial Tears) 1 drop OU BID [facility] Last Admin: 01/28/19 10:41 Dose: 1 drop Chlorhexidine Gluconate (Peridex -) 15 ml MM BID [facility] Last Admin: 01/27/19 21:52 Dose: 15 ml Heparin Sodium (Porcine) (Heparin -) 1,000 unit IVPUSH PRN PRN PRN Reason: Heparin Heparin Sodium (Porcine) (Heparin -) 5,000 unit IVPUSH PRN PRN PRN Reason: Heparin Hydralazine HCl (Apresoline Injection -) 10 mg IVPUSH Q6H PRN PRN Reason: HYPERTENSION Heparin Sodium/Dextrose (Heparin Infusion -) 25,000 units in 500 mls @ 20 mls/ hr IVPB TITR [facility]; Protocol Last Admin: 01/28/19 10:38 Dose: 1,000 units/hr, 20 mls/hr Levetiracetam (Keppra -) 500 mg PO BID [facility] Last Admin: 01/28/19 10:38 Dose: 500 mg - Objective Vital Signs: Vital Signs Temperature 99.6 F 01/28/19 07:00 Pulse Rate 96 H 01/28/19 07:00 Respiratory Rate 15 01/28/19 11:59 Blood Pressure 134/69 01/28/19 07:00 O2 Sat by Pulse Oximetry (%) 98 01/27/19 22:30 Constitutional: Yes: No Distress, Calm Eyes: Yes: Conjunctiva Clear Cardiovascular: Yes: Regular Rate and Rhythm Respiratory: Yes: Other (= breath sounds b/l; no wheezing) Gastrointestinal: Yes: Soft Edema: No Labs: CBC, BMP 01/28/19 08:45 01/28/19 08:45 INR, PTT INR 1.08 (0.83-1.09) 01/13/19 05:15 Assessment/Plan Assessment/Plan echo 01/20: severe global LV hypo EF 25-30%. nl RV. mild LAE. mod MR. nl RVSP. cath 07/2015: lhc: normal cors; rhc: mild phtn, pvri mod elevated, pcw/lvedp nl. ECG 01/12: NSR, LVH with nonsp ST-Ts ? sec to LVH--not signif changed vs 2016 prior ECG 01/13: no signif change, prolonged QT (similar to 2016) IMP/PLAN: VF arrest:in setting of gram + bacteremia and septic shock, anoxic encephalopathy -EF only mild-mod decreased on prior echo 1 yr ago, currently severe/global 25- 30%. -? arrest triggered by bacteremia (2 of 2 initial cultures positive)/sepsis -holding bb given low BPs -doubt acute ischemic etiology given normal cors 3 yrs ago--if makes meaningful recover will need repeat isch eval - s/p trach, PEG NSTEMI: -trop peaked at 32 -normal cors 2016 -suspect sec to sepsis vs prolonged hypotension from recurrent VF arrest (with contribution from mult electrical defibs) -aspirin daily -hold BB SEPTIC SHOCK, gram pos bacteremia: -abx per ID -echo no vegetation seen -bp stable -lung abscess - per ID, pulm Prolonged QT: -? related to CMP/LVH--was close to 500 on prior ecg 2016 -aggressive repletion of K/Mag (08/03) -avoid QT prolonging meds Congestive heart failure, nonischemic CMP -EF severely reduced at time of initial dx 2015--improved signif with med management -present EF severely reduced again, likely in setting sepsis, post arrest PRACHI: -sec to ATN, renal following PAF, DVT - cont heparin gtt
--- NOTE | 2019-01-28 12:11 | PN ---
Progress Note, Physician History of Present Illness: pulmonary no change,unresponsive on vent support,ac mode - Current Medication List Current Medications: Active Medications Acetaminophen (Tylenol Oral Solution -) 650 mg PO Q6H PRN PRN Reason: FEVER Artificial Tears (Artificial Tears Ointment -) 1 applic OU HS [facility] Last Admin: 01/27/19 21:52 Dose: 1 applic Artificial Tears (Artificial Tears) 1 drop OU BID [facility] Last Admin: 01/28/19 10:41 Dose: 1 drop Chlorhexidine Gluconate (Peridex -) 15 ml MM BID [facility] Last Admin: 01/27/19 21:52 Dose: 15 ml Heparin Sodium (Porcine) (Heparin -) 1,000 unit IVPUSH PRN PRN PRN Reason: Heparin Heparin Sodium (Porcine) (Heparin -) 5,000 unit IVPUSH PRN PRN PRN Reason: Heparin Hydralazine HCl (Apresoline Injection -) 10 mg IVPUSH Q6H PRN PRN Reason: HYPERTENSION Heparin Sodium/Dextrose (Heparin Infusion -) 25,000 units in 500 mls @ 20 mls/ hr IVPB TITR [facility]; Protocol Last Admin: 01/28/19 10:38 Dose: 1,000 units/hr, 20 mls/hr Levetiracetam (Keppra -) 500 mg PO BID [facility] Last Admin: 01/28/19 10:38 Dose: 500 mg - Objective Vital Signs: Vital Signs Temperature 99.6 F 01/28/19 07:00 Pulse Rate 96 H 01/28/19 07:00 Respiratory Rate 15 01/28/19 11:59 Blood Pressure 134/69 01/28/19 07:00 O2 Sat by Pulse Oximetry (%) 98 01/27/19 22:30 Constitutional: Yes: Well Nourished, Other (unresponsive) Eyes: Yes: WNL HENT: Yes: WNL Neck: Yes: Supple (trach) Cardiovascular: Yes: Regular Rate and Rhythm, S1, S2 Respiratory: Yes: Rhonchi (scattered radha rhonchi) Gastrointestinal: Yes: Normal Bowel Sounds, Soft Extremities: Yes: WNL Edema: Yes Labs: CBC, BMP 01/28/19 08:45 01/28/19 08:45 INR, PTT INR 1.08 (0.83-1.09) 01/13/19 05:15 Problem List - Problems (1) PRACHI (acute kidney injury) Code(s): N17.9 - ACUTE KIDNEY FAILURE, UNSPECIFIED (2) Brain anoxic injury Code(s): G93.1 - ANOXIC BRAIN DAMAGE, NOT ELSEWHERE CLASSIFIED (3) Cardiac arrest with successful resuscitation Code(s): I46.9 - CARDIAC ARREST, CAUSE UNSPECIFIED (4) Sepsis Code(s): A41.9 - SEPSIS, UNSPECIFIED ORGANISM (5) CHF (congestive heart failure) Code(s): I50.9 - HEART FAILURE, UNSPECIFIED (6) HTN (hypertension) Code(s): I10 - ESSENTIAL (PRIMARY) HYPERTENSION (7) Tobacco abuse Code(s): Z72.0 - TOBACCO USE (8) History of sudden cardiac arrest Code(s): Z86.74 - PERSONAL HISTORY OF SUDDEN CARDIAC ARREST (9) Chronic respiratory failure Code(s): J96.10 - CHRONIC RESPIRATORY FAILURE, UNSP W HYPOXIA OR HYPERCAPNIA Assessment/Plan ASSESSMENT AND PLAN: S/P Cardiopulmonary Arrest [facility] Ventricular Fibrillation Anoxic Brain Injury CAD/+Troponins/Acute NSTEMI LV Systolic Dysfunction Lactic Acidosis Acute Kidney Injury Elevated LFTs likely Ischemic Injury HTN Hyperlipidemia Extensive DVT - AC - monitor urine output, creatinine - not a candidate for weaning at this time due to mental status - continue discussions regarding goals of care, advanced directives - DVT prophylaxis - poor overall prognosis for meaningful recovery DR FORBES
--- NOTE | 2019-01-28 14:02 | PN ---
Teaching Attending Note Name of Resident: Nadir Mark ATTENDING PHYSICIAN STATEMENT I saw and evaluated the patient. I reviewed the resident's note and discussed the case with the resident. I agree with the resident's findings and plan as documented with exceptions below. SUBJECTIVE: Patient seen and examined. unresponsive. OBJECTIVE: Vital Signs Period Temp Pulse Resp BP Sys/Estrada Pulse Ox Last 24 Hr 99.1 F-100.2 F 74-96 14-20 119-147/58-72 98-99 Intake & Output 01/25/19 01/26/19 01/27/19 01/28/19 23:59 23:59 23:59 23:59 Intake Total 977 994 8139 0 Output Total 350 Balance 926 476 0657 0 General: unresponsive, neck: s/p trach Chest: limited exam, poor effort, decreased breath sounds HEENT: Pupil sluggish, minimally reactive CVS:S1S2 regular Abdomen:soft, obese, pos bowel sounds, no voluntary or involuntary guarding or rigidity, pos PEG tube Extremites: trace pedal edema Neuro: intubated sedated, pupil sluggish, no withdrawal to pain, babinski non reactive, DTR 2+ UE, 1+ LE Home Medications Medication Instructions Recorded Aspirin 81 mg PO DAILY 01/13/19 Atorvastatin Ca [Lipitor] 40 mg PO DAILY 01/13/19 Carvedilol [Coreg -] 25 mg PO BID 01/13/19 Losartan/Hydrochlorothiazide 1 each PO DAILY 01/13/19 [Losartan-Hctz 100-25 mg Tab] Mirabegron [Myrbetriq] 25 mg PO DAILY 01/13/19 Telmisartan/Hydrochlorothiazid 1 tab PO DAILY 01/13/19 [Telmisartan-Hctz 80-25 mg Tab] Active Medications Acetaminophen (Tylenol Oral Solution -) 650 mg PO Q6H PRN PRN Reason: FEVER Artificial Tears (Artificial Tears Ointment -) 1 applic OU HS [facility] Last Admin: 01/27/19 21:52 Dose: 1 applic Artificial Tears (Artificial Tears) 1 drop OU BID [facility] Last Admin: 01/28/19 10:41 Dose: 1 drop Chlorhexidine Gluconate (Peridex -) 15 ml MM BID [facility] Last Admin: 01/27/19 21:52 Dose: 15 ml Heparin Sodium (Porcine) (Heparin -) 1,000 unit IVPUSH PRN PRN PRN Reason: Heparin Heparin Sodium (Porcine) (Heparin -) 5,000 unit IVPUSH PRN PRN PRN Reason: Heparin Hydralazine HCl (Apresoline Injection -) 10 mg IVPUSH Q6H PRN PRN Reason: HYPERTENSION Heparin Sodium/Dextrose (Heparin Infusion -) 25,000 units in 500 mls @ 20 mls/ hr IVPB TITR [facility]; Protocol Last Admin: 01/28/19 10:38 Dose: 1,000 units/hr, 20 mls/hr Levetiracetam (Keppra -) 500 mg PO BID [facility] Last Admin: 01/28/19 10:38 Dose: 500 mg CXR with improvement ASSESSMENT AND PLAN: 68 yom with PMHx of HTN, HLD, cardiomyopathy, ?ischemia with WMA (improved EF on 2D echo in 2018), suspected CAD (transferred for cath from [facility] in 2016, ? results), CVA with residual slurred speech, admitted with cardiac arrest. -Cardiac arrest -Shock, ?Cardiogenic from NSTEMI/Vfib, vs septic shock/?RLL aspiration PNA -Suspected asphyxiation -Polymicrobial bacteremia, ?contaminant -NSTEMI, ACS vs from CPR -PRACHI, suspect from hypoperfusion/shock -Abnormal LFTs, suspect from hypoperfusion/shock -Left common femoral vein/Sephanous Vein DVT -Persistent fevers -Right sided pleural effusion -Bilateral anterior 3-7 rib fractures, likely from CPR -Hypernatremia -Hyperchloremia -?Anoxic brain injury -Suspected myoclonus -Hypodensities on CT head, likely old CVA -HLD -h/o HTN Plan: s/p Trach/peg. Tolerating feeds well. Vent management per pulmonary. Off sedation, unchanged mental status, Neurology input noted. persistent fevers, CXr improved. Chest US. ID input noted. Possible thoracocentesis based on clinical course. s/p Hypothermia protocol. ID/renal/cardiology input noted. Persistent fevers, ?central. Continue keppra. Heparin drip for DVT. Hold coreg per cardiology recs. Resume as hemodynamics tolerate. Monitor for anoxic brain injury. Renal input noted. No obstructive concerns on CT A/P. Continue Chambers. Increase free water via PEG. Monitor Na levels. Overall prognosis poor. Plan for [facility]TA[facility] when arrangements made, once clinically improved.
[2019-01-28] MEDS: CHLORHEXIDINE GLUCONATE 0.12% 15ML CUP MM SCH ×2 (14:41→21:51)
[2019-01-28] MEDS: ACETAMINOPHEN 650 MG/20.3 ML ORAL SOLUTION (CUPS) PO PRN ×2 (15:09→21:51)
--- NOTE | 2019-01-28 15:16 | PN ---
Progress Note, Physician History of Present Illness: Pt seen and examined at bedside. He remains lethargic. - Current Medication List Current Medications: Active Medications Acetaminophen (Tylenol Oral Solution -) 650 mg PO Q6H PRN PRN Reason: FEVER Last Admin: 01/28/19 15:09 Dose: 650 mg Artificial Tears (Artificial Tears Ointment -) 1 applic OU HS [facility] Last Admin: 01/27/19 21:52 Dose: 1 applic Artificial Tears (Artificial Tears) 1 drop OU BID [facility] Last Admin: 01/28/19 10:41 Dose: 1 drop Chlorhexidine Gluconate (Peridex -) 15 ml MM BID [facility] Last Admin: 01/28/19 14:41 Dose: 15 ml Heparin Sodium (Porcine) (Heparin -) 1,000 unit IVPUSH PRN PRN PRN Reason: Heparin Heparin Sodium (Porcine) (Heparin -) 5,000 unit IVPUSH PRN PRN PRN Reason: Heparin Hydralazine HCl (Apresoline Injection -) 10 mg IVPUSH Q6H PRN PRN Reason: HYPERTENSION Heparin Sodium/Dextrose (Heparin Infusion -) 25,000 units in 500 mls @ 20 mls/ hr IVPB TITR [facility]; Protocol Last Admin: 01/28/19 10:38 Dose: 1,000 units/hr, 20 mls/hr Levetiracetam (Keppra -) 500 mg PO BID [facility] Last Admin: 01/28/19 10:38 Dose: 500 mg - Objective Vital Signs: Vital Signs Temperature 99.2 F 01/28/19 14:50 Pulse Rate 87 01/28/19 14:50 Respiratory Rate 18 01/28/19 14:50 Blood Pressure 127/69 01/28/19 14:50 O2 Sat by Pulse Oximetry (%) 99 01/28/19 09:00 Constitutional: Yes: Calm Eyes: Yes: Conjunctiva Clear HENT: Yes: Atraumatic Neck: Yes: Other (trache) Cardiovascular: Yes: S1, S2 Respiratory: Yes: Mechanically Ventilated Gastrointestinal: Yes: Soft, Other (peg) Genitourinary: Yes: Chambers Present Musculoskeletal: Yes: Muscle Weakness Edema: No Neurological: Yes: Lethargy Labs: CBC, BMP 01/28/19 08:45 01/28/19 08:45 INR, PTT INR 1.08 (0.83-1.09) 01/13/19 05:15 Problem List - Problems (1) PRACHI (acute kidney injury) Code(s): N17.9 - ACUTE KIDNEY FAILURE, UNSPECIFIED (2) CHF (congestive heart failure) Code(s): I50.9 - HEART FAILURE, UNSPECIFIED (3) HTN (hypertension) Code(s): I10 - ESSENTIAL (PRIMARY) HYPERTENSION Assessment/Plan Current Medications Generic Name Dose Route Start Last Admin Trade Name Freq PRN Reason Stop Dose Admin Acetaminophen 650 mg 01/28/19 10:19 01/28/19 15:09 Tylenol Oral Solution - PO 650 mg Q6H PRN Administration FEVER Artificial Tears 1 applic 01/21/19 22:00 01/27/19 21:52 Artificial Tears Ointment - OU 1 applic HS [facility] Administration Artificial Tears 1 drop 01/21/19 22:00 01/28/19 10:41 Artificial Tears OU 1 drop BID [facility] Administration Chlorhexidine Gluconate 15 ml 01/21/19 22:00 01/28/19 14:41 Peridex - MM 15 ml BID [facility] Administration Heparin Sodium (Porcine) 1,000 unit 01/28/19 08:58 Heparin - IVPUSH PRN PRN Heparin Heparin Sodium (Porcine) 5,000 unit 01/28/19 08:58 Heparin - IVPUSH PRN PRN Heparin Hydralazine HCl 10 mg 01/21/19 19:17 Apresoline Injection - IVPUSH Q6H PRN HYPERTENSION Heparin Sodium/Dextrose 25,000 units in 500 mls @ 20 mls/hr 01/28/19 09:00 10:38 Heparin Infusion - IVPB 1,000 units/hr TITR [facility] 20 mls/hr Administration Protocol 1,000 UNITS/HR Levetiracetam 500 mg 01/26/19 22:00 01/28/19 10:38 Keppra - PO 500 mg BID [facility] Administration Impression 1. PRACHI 2. cardiac arrest 3. hx chf 4. hx htn 5. resp failure requiring intubation 6. hypernatremia Plan - increase free water with feeds - flushes added - renal function is improving - vent support - PRACHI likely from ATN - cont supportive care - renal function is improving
--- NOTE | 2019-01-28 17:14 | PN ---
Progress Note (short form) - Note Progress Note: HPI: Pt remains unresponsive to exam. ROS limited due to clinical condition. PEG intact with feeds. Vital Signs Temperature 99.2 F 01/28/19 14:50 Pulse Rate 87 01/28/19 14:50 Respiratory Rate 21 H 01/28/19 16:18 Blood Pressure 127/69 01/28/19 14:50 O2 Sat by Pulse Oximetry (%) 99 01/28/19 09:00 PE: Gen: Remains unresponsive even to painful stimuli. No acute distress HEENT: No pupillary reflex noted. MMM no secretions noted at time of exam Neck: Tracheostomy site without any secretions LUNGS: Improved breath sounds b/l at bases. AC mode of vent without overbreathing RR 14, TV 500, SpO2 30% (unchanged) CARD: RRR without any murmurs ABD: Hypoactive BS, PEG site intact without any drainage noted. Tolerating feeds running at bedside EXT: Upper extremity dependent edema noted in hands, No edema of LE b/l. SKIN: No skin breakdown seen. Sacrum not examined today CBC, BMP 01/28/19 08:45 01/28/19 08:45 Active Medications Acetaminophen (Tylenol Oral Solution -) 650 mg PO Q6H PRN PRN Reason: FEVER Last Admin: 01/28/19 15:09 Dose: 650 mg Artificial Tears (Artificial Tears Ointment -) 1 applic OU HS [facility] Last Admin: 01/27/19 21:52 Dose: 1 applic Artificial Tears (Artificial Tears) 1 drop OU BID [facility] Last Admin: 01/28/19 10:41 Dose: 1 drop Chlorhexidine Gluconate (Peridex -) 15 ml MM BID [facility] Last Admin: 01/28/19 14:41 Dose: 15 ml Heparin Sodium (Porcine) (Heparin -) 1,000 unit IVPUSH PRN PRN PRN Reason: Heparin Heparin Sodium (Porcine) (Heparin -) 5,000 unit IVPUSH PRN PRN PRN Reason: Heparin Hydralazine HCl (Apresoline Injection -) 10 mg IVPUSH Q6H PRN PRN Reason: HYPERTENSION Heparin Sodium/Dextrose (Heparin Infusion -) 25,000 units in 500 mls @ 20 mls/ hr IVPB TITR [facility]; Protocol Last Admin: 01/28/19 10:38 Dose: 1,000 units/hr, 20 mls/hr Levetiracetam (Keppra -) 500 mg PO BID [facility] Last Admin: 01/28/19 10:38 Dose: 500 mg A/P S/p cardiac arrest S/p septic shock secondary to bacteremia Anoxic brain injury B/L rib fractures 2/2 to CPR Extensive DVT Fevers with suspicion of central fevers PRACHI 2/2 to ATN Hypernatremia Extensive DVT --Fevers likely central, but will make due diligence to r/o all sources of infection --Will order Noncontrast CT chest to r/o abscess formation including involvement of retrocardiac space --Pt with extensive DVT noted --Return to heparin gtt --Chest US shows small pleural effusion L --Appreciate all consultative recommendations --Free water flush on feeding equipment malfunctioned so patient was not receiving full amount. Pump fixed and patient switched to alternative feeding for increased FW --Continue Keppra 500mg BID for seizure ppx --Pt s/p tracheostomy site and PEG placement FEN: Fluids: encourage more FW intake per PEG Electrolyte abnormalities: HyperNa; FWD 4.2L to Na goal of 142 today Nutrition: Jevity 1.5 35cc/hr adv by 10cc q4h to goal 55cc/hr with 40cc/hr free water flushes PPX: DVT - Heparin gtt Dispo: D/c planning to LTAC; finishing septic workup Case discussed with Dr. Iram Mark, DO - IM PGY-3
[2019-01-28] MEDS: HEPARIN NA (PORCINE) 5,000 UNITS/ML 1ML VIAL IVPUSH PRN (17:46)
[2019-01-28] MEDS: MINERAL OIL/PETROLATUM,WHITE 3.5 GM TUBE OU SCH (21:50)
[2019-01-29] MEDS: HEPARIN NA (PORCINE) 5,000 UNITS/ML 1ML VIAL IVPUSH PRN (00:49)
[2019-01-29] MEDS: HEPARIN INFUSION - 25,000 UNITS/500 ML INFUS.BAG IVPB SCH (07:00)
[2019-01-29] MEDS: ACETAMINOPHEN 650 MG/20.3 ML ORAL SOLUTION (CUPS) PO PRN ×2 (07:01→18:58)
[2019-01-29] MEDS: CHLORHEXIDINE GLUCONATE 0.12% 15ML CUP MM SCH ×2 (10:16→22:08)
[2019-01-29] MEDS: levETIRAcetam 500 MG TABLET (FP) PO SCH ×2 (10:16→22:08)
[2019-01-29] MEDS: ARTIFICIAL TEARS (POLYVINYL ALCOHOL) OPTH DROPS OU SCH ×2 (10:17→22:09)
--- NOTE | 2019-01-29 10:47 | PN ---
Physical Exam: SUBJECTIVE: Patient seen and examined, unresponsive. OBJECTIVE: Vital Signs Period Temp Pulse Resp BP Sys/Estrada Pulse Ox Last 24 Hr 99.1 F-101 F 66-91 14-21 110-153/60-74 98-100 Intake & Output 01/26/19 01/27/19 01/28/19 01/29/19 23:59 23:59 23:59 23:59 Intake Total 966 4776 2211 2240 Balance 966 4776 2211 2240 General: unresponsive, neck: s/p trach Chest: limited exam, poor effort, decreased breath sounds HEENT: Pupil sluggish, minimally reactive CVS:S1S2 regular Abdomen:soft, obese, pos bowel sounds, no voluntary or involuntary guarding or rigidity, pos PEG tube Extremites: trace pedal edema Neuro: intubated sedated, pupil sluggish, no withdrawal to pain, babinski non reactive, DTR 2+ UE, 1+ LE Laboratory Results - last 24 hr 01/28/19 01/28/19 16:00 23:15 PTT (Actin FS) 32.1 25.4 Active Medications Generic Name Dose Route Start Last Admin Trade Name Freq PRN Reason Stop Dose Admin Acetaminophen 650 mg 01/28/19 10:19 01/29/19 07:01 Tylenol Oral Solution - PO 650 mg Q6H PRN Administration FEVER Artificial Tears 1 applic 01/21/19 22:00 01/28/19 21:50 Artificial Tears Ointment - OU 1 applic HS [facility] Administration Artificial Tears 1 drop 01/21/19 22:00 01/29/19 10:17 Artificial Tears OU 1 drop BID [facility] Administration Chlorhexidine Gluconate 15 ml 01/21/19 22:00 01/29/19 10:16 Peridex - MM 15 ml BID [facility] Administration Heparin Sodium (Porcine) 1,000 unit 01/28/19 08:58 Heparin - IVPUSH PRN PRN Heparin Heparin Sodium (Porcine) 5,000 unit 01/28/19 08:58 01/29/19 00:49 Heparin - IVPUSH 5,000 unit PRN PRN Administration Heparin Hydralazine HCl 10 mg 01/21/19 19:17 Apresoline Injection - IVPUSH Q6H PRN HYPERTENSION Heparin Sodium/Dextrose 25,000 units in 500 mls @ 20 mls/hr 01/28/19 09:00 07:00 Heparin Infusion - IVPB 1,300 units/hr TITR [facility] 26 mls/hr Administration Protocol 1,000 UNITS/HR Levetiracetam 500 mg 01/26/19 22:00 01/29/19 10:16 Keppra - PO 500 mg BID [facility] Administration Warfarin Sodium 5 mg 01/29/19 18:00 Coumadin - PO DAILY@1800 [facility] Microbiology 01/23/19 16:04 Blood - Peripheral Venous Blood Culture - Final NO GROWTH AFTER 5 DAYS INCUBATION 01/23/19 15:55 Blood - Peripheral Venous Blood Culture - Final NO GROWTH AFTER 5 DAYS INCUBATION 01/23/19 13:25 Sputum - Endotrachea Suction/Ventilator Gram Stain - Final 01/23/19 13:25 Sputum - Endotrachea Suction/Ventilator Sputum Culture - Final Klebsiella Pneumoniae 01/19/19 13:00 Blood - Peripheral Venous Blood Culture - Final NO GROWTH AFTER 5 DAYS INCUBATION 01/19/19 12:51 Blood - Peripheral Venous Blood Culture - Final NO GROWTH AFTER 5 DAYS INCUBATION 01/23/19 13:25 Urine For Antigen Detection Legionella Antigen - Final 01/23/19 13:25 Urine For Antigen Detection Streptococcus pneumoniae Antigen (M - Final 01/14/19 16:00 Blood - Peripheral Venous Blood Culture - Final NO GROWTH AFTER 5 DAYS INCUBATION 01/14/19 14:30 Blood - Peripheral Venous Blood Culture - Final NO GROWTH AFTER 5 DAYS INCUBATION 01/14/19 14:30 Sputum - Endotrachea Suction/Ventilator Gram Stain - Final 01/14/19 14:30 Sputum - Endotrachea Suction/Ventilator Sputum Culture - Final Klebsiella Pneumoniae Stenotrophomon.(X.)Maltophilia 01/12/19 20:30 Blood - Peripheral Venous Blood Culture - Final Strep Agalactiae Group B Staphylococcus Haemolyticus Enterococcus Faecalis 01/12/19 20:30 Blood - Peripheral Venous Blood Culture - Final Staphylococcus Haemolyticus 01/13/19 09:00 Urine For Antigen Detection Legionella Antigen - Final 01/13/19 09:00 Urine For Antigen Detection Streptococcus pneumoniae Antigen (M - Final 01/13/19 04:50 Urine - Urine Clean Catch Urine Culture - Final NO GROWTH OBTAINED ASSESSMENT/PLAN: 68 yom with PMHx of HTN, HLD, cardiomyopathy, ?ischemia with WMA (improved EF on 2D echo in 2018), suspected CAD (transferred for cath from [facility] in 2016, ? results), CVA with residual slurred speech, admitted with cardiac arrest. -Cardiac arrest -Shock, ?Cardiogenic from NSTEMI/Vfib, vs septic shock/?RLL aspiration PNA -Suspected asphyxiation -Polymicrobial bacteremia, ?contaminant -NSTEMI, ACS vs from CPR -PRACHI, suspect from hypoperfusion/shock -Abnormal LFTs, suspect from hypoperfusion/shock -Left common femoral vein/Sephanous Vein DVT -Persistent fevers -Right sided pleural effusion -Bilateral anterior 3-7 rib fractures, likely from CPR -Hypernatremia -Hyperchloremia -?Anoxic brain injury -Suspected myoclonus -Hypodensities on CT head, likely old CVA -HLD -h/o HTN Plan: s/p Trach/peg. Tolerating feeds well. Vent management per pulmonary. Off sedation, unchanged mental status, Neurology input noted. fevers improved. ?central Fevers. Chest US with minimal left pleural effusion. No plans for thoracocentesis for now. ID input noted. Heparin drip, start coumadin 5 mg daily. s/p Hypothermia protocol in ICU. ID/renal/cardiology input noted. Continue keppra. Hold coreg per cardiology recs. Resume as hemodynamics tolerate. Monitor for anoxic brain injury. Renal input noted. No obstructive concerns on CT A/P. Continue Chambers. continue free water via PEG. Monitor Na levels. Renal function continues to improve. Overall prognosis poor. Plan for Ad[facility] when INR therapeutic if no new concerns. Discussed with case management. Visit type - Emergency Visit Emergency Visit: Yes ED Registration Date: 01/12/19 Care time: The patient presented to the Emergency Department on the above date and was hospitalized for further evaluation of their emergent condition. - New Patient This patient is new to me today: No - Critical Care Critical Care patient: No - Discharge Referral Referred to [facility] Med [facility] No
--- NOTE | 2019-01-29 11:30 | PN ---
Progress Note (short form) - Note Progress Note: s: unresponsive, on vent Current Medications Generic Name Dose Route Start Last Admin Trade Name Freq PRN Reason Stop Dose Admin Acetaminophen 650 mg 01/28/19 10:19 01/29/19 07:01 Tylenol Oral Solution - PO 650 mg Q6H PRN Administration FEVER Artificial Tears 1 applic 01/21/19 22:00 01/28/19 21:50 Artificial Tears Ointment - OU 1 applic [facility] Administration Artificial Tears 1 drop 01/21/19 22:00 01/29/19 10:17 Artificial Tears OU 1 drop BID [facility] Administration Chlorhexidine Gluconate 15 ml 01/21/19 22:00 01/29/19 10:16 Peridex - MM 15 ml BID [facility] Administration Heparin Sodium (Porcine) 1,000 unit 01/28/19 08:58 Heparin - IVPUSH PRN PRN Heparin Heparin Sodium (Porcine) 5,000 unit 01/28/19 08:58 01/29/19 00:49 Heparin - IVPUSH 5,000 unit PRN PRN Administration Heparin Hydralazine HCl 10 mg 01/21/19 19:17 Apresoline Injection - IVPUSH Q6H PRN HYPERTENSION Heparin Sodium/Dextrose 25,000 units in 500 mls @ 20 mls/hr 01/28/19 09:00 07:00 Heparin Infusion - IVPB 1,300 units/hr TITR [facility] 26 mls/hr Administration Protocol 1,000 UNITS/HR Levetiracetam 500 mg 01/26/19 22:00 01/29/19 10:16 Keppra - PO 500 mg BID [facility] Administration Warfarin Sodium 5 mg 01/29/19 18:00 Coumadin - PO DAILY@1800 [facility] Vital Signs Period Temp Pulse Resp BP Sys/Estrada Pulse Ox Last 24 Hr 99.1 F-101 F 66-87 15-21 110-153/60-74 98-100 HENT: trach, vent Cardiovascular: Yes: Regular Rate and Rhythm Respiratory: Yes: Other (coarse breath sounds b /l) Gastrointestinal: Yes: Soft Edema: No no jaundice, diaphoresis not agitated CBC, BMP 01/28/19 08:45 01/28/19 08:45 Assessment/Plan echo 01/20: severe global LV hypo EF 25-30%. nl RV. mild LAE. mod MR. nl RVSP. cath 07/2015: lhc: normal cors; rhc: mild phtn, pvri mod elevated, pcw/lvedp nl. ECG 01/12: NSR, LVH with nonsp ST-Ts ? sec to LVH--not signif changed vs 2016 prior ECG 01/13: no signif change, prolonged QT (similar to 2016) IMP/PLAN: VF arrest:in setting of gram + bacteremia and septic shock, anoxic encephalopathy -EF only mild-mod decreased on prior echo 1 yr ago, currently severe/global 25- 30%. -? arrest triggered by bacteremia (2 of 2 initial cultures positive)/sepsis -holding bb given low BPs -doubt acute ischemic etiology given normal cors 3 yrs ago--if makes meaningful recover will need repeat isch eval - s/p trach, PEG NSTEMI: -trop peaked at 32 -normal cors 2016 -suspect sec to sepsis vs prolonged hypotension from recurrent VF arrest (with contribution from mult electrical defibs) -on AC -hold BB SEPTIC SHOCK, gram pos bacteremia: -abx per ID -echo no vegetation seen -bp stable -lung abscess - per ID, pulm Prolonged QT: -? related to CMP/LVH--was close to 500 on prior ecg 2016 -aggressive repletion of K/Mag (08/03) -avoid QT prolonging meds Congestive heart failure, nonischemic CMP -EF severely reduced at time of initial dx 2015--improved signif with med management -present EF severely reduced again, likely in setting sepsis, post arrest PRACHI: -sec to ATN, renal following PAF, DVT - cont AC
[2019-01-29 12:43] LABS: BASO % 0.7 % (0-2.0); EOS % 2.7 % (0-4.5); HEMOGLOBIN 9.4 GM/dL (11.7-16.9); LYMPH % 7.5 % (8-40); MCH 29.8 pg (25.7-33.7); MCHC 32.4 g/dl (32.0-35.9); MEAN CELL VOLUME 92.1 fl (80-96); MEAN PLT VOLUME 8.7 fl (7.5-11.1); MONO % 7.6 % (3.8-10.2); NEUT % 81.5 % (42.8-82.8); PLATELET COUNT 361 K/MM3 (134-434); RBC 3.15 M/mm3 (4.00-5.60); RDW 15.3 % (11.9-15.9); WHITE BLOOD COUNT 11.9 K/mm3 (4.0-10.0)
--- NOTE | 2019-01-29 13:01 | PN ---
Progress Note (short form) - Note Progress Note: PULMONARY Vented, unresponsive. Fevers persist. Vital Signs Period Temp Pulse Resp BP Sys/Estrada Pulse Ox Last 24 Hr 99.1 F-101 F 66-87 15-21 110-153/60-74 98-100 Gen: vented, unresponsive Heart: RRR Lung: decreased breath sounds at the bases Abd: soft, nontender Ext: no edema CBC, BMP 01/29/19 11:45 Active Medications Acetaminophen (Tylenol Oral Solution -) 650 mg PO Q6H PRN PRN Reason: FEVER Last Admin: 01/29/19 07:01 Dose: 650 mg Artificial Tears (Artificial Tears Ointment -) 1 applic OU HS [facility] Last Admin: 01/28/19 21:50 Dose: 1 applic Artificial Tears (Artificial Tears) 1 drop OU BID [facility] Last Admin: 01/29/19 10:17 Dose: 1 drop Chlorhexidine Gluconate (Peridex -) 15 ml MM BID [facility] Last Admin: 01/29/19 10:16 Dose: 15 ml Heparin Sodium (Porcine) (Heparin -) 1,000 unit IVPUSH PRN PRN PRN Reason: Heparin Heparin Sodium (Porcine) (Heparin -) 5,000 unit IVPUSH PRN PRN PRN Reason: Heparin Last Admin: 01/29/19 00:49 Dose: 5,000 unit Hydralazine HCl (Apresoline Injection -) 10 mg IVPUSH Q6H PRN PRN Reason: HYPERTENSION Heparin Sodium/Dextrose (Heparin Infusion -) 25,000 units in 500 mls @ 20 mls/ hr IVPB TITR [facility]; Protocol Last Admin: 01/29/19 07:00 Dose: 1,300 units/hr, 26 mls/hr Levetiracetam (Keppra -) 500 mg PO BID [facility] Last Admin: 01/29/19 10:16 Dose: 500 mg Warfarin Sodium (Coumadin -) 5 mg PO DAILY@1800 [facility] A/P S/P Cardiopulmonary Arrest Ventricular Fibrillation Anoxic Brain Injury CAD/+Troponins/Acute NSTEMI LV Systolic Dysfunction Fevers - ?central Lactic Acidosis resolved Acute Kidney Injury Elevated LFTs likely Ischemic Injury HTN Hyperlipidemia Extensive DVT - continue anticoagulation - monitoring off antibiotics - monitor urine output, creatinine - not a candidate for weaning at this time due to mental status - continue discussions regarding goals of care, advanced directives - DVT prophylaxis - poor overall prognosis for meaningful recovery
[2019-01-29 13:03] LABS: INR 1.23 (0.83-1.09); PROTHROMBIN TIME (PATIENT) 14.6 SEC (9.7-13.0)
[2019-01-29 13:06] LABS: ACTIVATED PTT 71.6 SECONDS (25.2-36.5)
[2019-01-29 13:24] LABS: BLOOD UREA NITROGEN 49.1 mg/dL (7-18); CREATININE 1.8 mg/dL (0.55-1.3); POTASSIUM 3.4 mmol/L (3.5-5.1)
[2019-01-29] MEDS ORDERED: WARFARIN NA 5 MG TABLET (UD) PO SCH (18:00)
--- NOTE | 2019-01-29 18:15 | PN ---
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 PRACHI 2. cardiac arrest 3. hx chf 4. hx htn 5. resp failure requiring intubation 6. hypernatremia Current Medications Acetaminophen (Tylenol Oral Solution -) 650 mg PO Q6H PRN PRN Reason: FEVER Last Admin: 01/29/19 07:01 Dose: 650 mg Artificial Tears (Artificial Tears Ointment -) 1 applic OU HS [facility]S [facility] 234 BEDS AT [facility] Last Admin: 01/28/19 21:50 Dose: 1 applic Artificial Tears (Artificial Tears) 1 drop OU BID [facility] Last Admin: 01/29/19 10:17 Dose: 1 drop Chlorhexidine Gluconate (Peridex -) 15 ml MM BID [facility]S INCLUDE 234 BEDS AT [facility] Last Admin: 01/29/19 10:16 Dose: 15 ml Heparin Sodium (Porcine) (Heparin -) 1,000 unit IVPUSH PRN PRN PRN Reason: Heparin Heparin Sodium (Porcine) (Heparin -) 5,000 unit IVPUSH PRN PRN PRN Reason: Heparin Last Admin: 01/29/19 00:49 Dose: 5,000 unit Hydralazine HCl (Apresoline Injection -) 10 mg IVPUSH Q6H PRN PRN Reason: HYPERTENSION Heparin Sodium/Dextrose (Heparin Infusion -) 25,000 units in 500 mls @ 20 mls/ hr IVPB TITR COUNTS INCLUDE 234 BEDS AT THE [facility]; Protocol Last Admin: 01/29/19 07:00 Dose: 1,300 units/hr, 26 mls/hr Levetiracetam (Keppra -) 500 mg PO BID [facility]CLUDE 234 BEDS AT [facility] Last Admin: 01/29/19 10:16 Dose: 500 mg Warfarin Sodium (Coumadin -) 5 mg PO DAILY@1800 COUNTS INCLUDE 234 BEDS AT [facility] Last Vital Signs Temp Pulse Resp BP Pulse Ox 99.5 F 82 18 118/72 98 01/29/19 15:44 01/29/19 15:02 01/29/19 16:53 01/29/19 15:02 01/29/19 10:00 CBC, BMP 01/29/19 11:45 01/29/19 11:45 IMP- hypernatremia hypokalemia prachi improving Plan- free water replacement k replacement
[2019-01-29] MEDS: MINERAL OIL/PETROLATUM,WHITE 3.5 GM TUBE OU SCH (22:09)
[2019-01-30 09:31] LABS: BASO % 0.9 % (0-2.0); EOS % 3.6 % (0-4.5); HEMATOCRIT 28.8 % (35.4-49); HEMOGLOBIN 9.7 GM/dL (11.7-16.9); LYMPH % 12.5 % (8-40); MCH 30.5 pg (25.7-33.7); MCHC 33.5 g/dl (32.0-35.9); MEAN CELL VOLUME 90.9 fl (80-96); MEAN PLT VOLUME 8.9 fl (7.5-11.1); MONO % 8.1 % (3.8-10.2); NEUT % 74.9 % (42.8-82.8); PLATELET COUNT 326 K/MM3 (134-434); RBC 3.17 M/mm3 (4.00-5.60); RDW 15.3 % (11.9-15.9); WHITE BLOOD COUNT 8.6 K/mm3 (4.0-10.0)
[2019-01-30 09:45] LABS: INR 1.2 (0.83-1.09); PROTHROMBIN TIME (PATIENT) 14.2 SEC (9.7-13.0)
[2019-01-30 09:48] LABS: ACTIVATED PTT 56.8 SECONDS (25.2-36.5)
[2019-01-30 10:14] LABS: ALBUMIN 1.9 g/dl (3.4-5.0); BILIRUBIN,TOTAL 0.3 mg/dL (0.2-1); BLOOD UREA NITROGEN 44.1 mg/dL (7-18); CALCIUM 9.2 mg/dL (8.5-10.1); CREATININE 1.7 mg/dL (0.55-1.3); MAGNESIUM 2.1 mg/dL (1.8-2.4); POTASSIUM 3.6 mmol/L (3.5-5.1); TOT PROT 6.2 g/dl (6.4-8.2)
[2019-01-30] MEDS: ARTIFICIAL TEARS (POLYVINYL ALCOHOL) OPTH DROPS OU SCH ×2 (10:58→23:09)
[2019-01-30] MEDS: levETIRAcetam 500 MG TABLET (FP) PO SCH ×2 (10:58→23:09)
[2019-01-30] MEDS: CHLORHEXIDINE GLUCONATE 0.12% 15ML CUP MM SCH ×3 (10:59→23:48)
--- NOTE | 2019-01-30 11:20 | PN ---
Progress Note (short form) - Note Progress Note: s: unresponsive, on vent Current Medications Generic Name Dose Route Start Last Admin Trade Name Freq PRN Reason Stop Dose Admin Acetaminophen 650 mg 01/28/19 10:19 01/29/19 18:58 Tylenol Oral Solution - PO 650 mg Q6H PRN Administration FEVER Artificial Tears 1 applic 01/21/19 22:00 01/29/19 22:09 Artificial Tears Ointment - OU 1 applic HS [facility] Administration Artificial Tears 1 drop 01/21/19 22:00 01/30/19 10:58 Artificial Tears OU 1 drop BID [facility] Administration Chlorhexidine Gluconate 15 ml 01/21/19 22:00 01/30/19 10:59 Peridex - MM 15 ml BID [facility] Administration Heparin Sodium (Porcine) 1,000 unit 01/28/19 08:58 Heparin - IVPUSH PRN PRN Heparin Heparin Sodium (Porcine) 5,000 unit 01/28/19 08:58 01/29/19 00:49 Heparin - IVPUSH 5,000 unit PRN PRN Administration Heparin Hydralazine HCl 10 mg 01/21/19 19:17 Apresoline Injection - IVPUSH Q6H PRN HYPERTENSION Heparin Sodium/Dextrose 25,000 units in 500 mls @ 20 mls/hr 01/28/19 09:00 07:00 Heparin Infusion - IVPB 1,300 units/hr TITR [facility] 26 mls/hr Administration Protocol 1,000 UNITS/HR Levetiracetam 500 mg 01/26/19 22:00 01/30/19 10:58 Keppra - PO 500 mg BID [facility] Administration Warfarin Sodium 5 mg 01/29/19 18:00 01/29/19 18:25 Coumadin - PO 5 mg DAILY@1800 [facility] Administration Vital Signs Period Temp Pulse Resp BP Sys/Estrada Pulse Ox Last 24 Hr 98.8 F-101.1 F 66-84 14-21 103-137/56-72 HENT: trach, vent Cardiovascular: Yes: Regular Rate and Rhythm Respiratory: Yes: Other (coarse breath sounds b /l) Gastrointestinal: Yes: Soft Edema: No no jaundice, diaphoresis not agitated CBC, BMP 01/30/19 08:34 01/30/19 08:34 Assessment/Plan echo 01/20: severe global LV hypo EF 25-30%. nl RV. mild LAE. mod MR. nl RVSP. cath 07/2015: lhc: normal cors; rhc: mild phtn, pvri mod elevated, pcw/lvedp nl. ECG 01/12: NSR, LVH with nonsp ST-Ts ? sec to LVH--not signif changed vs 2016 prior ECG 01/13: no signif change, prolonged QT (similar to 2016) IMP/PLAN: VF arrest:in setting of gram + bacteremia and septic shock, anoxic encephalopathy -EF only mild-mod decreased on prior echo 1 yr ago, currently severe/global 25- 30%. -? arrest triggered by bacteremia (2 of 2 initial cultures positive)/sepsis -holding bb given low BPs -doubt acute ischemic etiology given normal cors 3 yrs ago--if makes meaningful recover will need repeat isch eval - s/p trach, PEG NSTEMI: -trop peaked at 32 -normal cors 2016 -suspect sec to sepsis vs prolonged hypotension from recurrent VF arrest (with contribution from mult electrical defibs) -on AC -hold BB SEPTIC SHOCK, gram pos bacteremia: -improved with abx Prolonged QT: -? related to CMP/LVH--was close to 500 on prior ecg 2016 -aggressive repletion of K/Mag (08/03) -avoid QT prolonging meds Congestive heart failure, nonischemic CMP -EF severely reduced at time of initial dx 2015--improved signif with med management -present EF severely reduced again, likely in setting sepsis, post arrest PRACHI: -sec to ATN, renal following PAF, DVT - cont AC
--- NOTE | 2019-01-30 11:42 | PN ---
Physical Exam: SUBJECTIVE: Patient seen and examined, unresponsive. OBJECTIVE: Vital Signs Period Temp Pulse Resp BP Sys/Estrada Pulse Ox Last 24 Hr 98.8 F-101.1 F 66-84 14-21 103-137/56-72 Intake & Output 01/27/19 01/28/19 01/29/19 01/30/19 23:59 23:59 23:59 23:59 Intake Total 4776 2211 5212 2887 Balance 4776 2211 5212 2887 General: unresponsive, neck: s/p trach Chest: limited exam, poor effort, decreased breath sounds HEENT: Pupil sluggish, minimally reactive CVS:S1S2 regular Abdomen:soft, obese, pos bowel sounds, no voluntary or involuntary guarding or rigidity, pos PEG tube Extremites: trace pedal edema Neuro: pupil sluggish, no withdrawal to pain, babinski non reactive, DTR 2+ UE, 1+ LE Laboratory Results - last 24 hr 01/29/19 01/29/19 01/29/19 11:45 11:45 11:45 WBC 11.9 H RBC 3.15 L Hgb 9.4 L Hct 29.0 L MCV 92.1 MCH 29.8 MCHC 32.4 RDW 15.3 Plt Count 361 MPV 8.7 Absolute Neuts (auto) 9.7 H Neutrophils % 81.5 Lymphocytes % 7.5 L Monocytes % 7.6 Eosinophils % 2.7 Basophils % 0.7 Nucleated RBC % 0 PT with INR 14.60 H INR 1.23 H PTT (Actin FS) 71.6 H Sodium 152 H Potassium 3.4 L Chloride 118 H Carbon Dioxide 26 Anion Gap 8 BUN 49.1 H Creatinine 1.8 H Est GFR (CKD-EPI)AfAm 44.46 Est GFR (CKD-EPI)NonAf 38.36 Random Glucose 124 H Calcium 9.0 Phosphorus Magnesium Total Bilirubin AST ALT Alkaline Phosphatase Total Protein Albumin 01/30/19 01/30/19 01/30/19 08:34 08:34 08:34 WBC 8.6 RBC 3.17 L Hgb 9.7 L Hct 28.8 L MCV 90.9 MCH 30.5 MCHC 33.5 RDW 15.3 Plt Count 326 MPV 8.9 Absolute Neuts (auto) 6.5 Neutrophils % 74.9 Lymphocytes % 12.5 D Monocytes % 8.1 Eosinophils % 3.6 Basophils % 0.9 Nucleated RBC % 0 PT with INR 14.20 H INR 1.20 H PTT (Actin FS) 56.8 H Sodium 149 H Potassium 3.6 Chloride 113 H Carbon Dioxide 28 Anion Gap 8 BUN 44.1 H Creatinine 1.7 H Est GFR (CKD-EPI)AfAm 47.65 Est GFR (CKD-EPI)NonAf 41.11 Random Glucose 116 H Calcium 9.2 Phosphorus 4.0 Magnesium 2.1 Total Bilirubin 0.3 AST 57 H ALT 104 H Alkaline Phosphatase 119 H Total Protein 6.2 L Albumin 1.9 L Active Medications Generic Name Dose Route Start Last Admin Trade Name Freq PRN Reason Stop Dose Admin Acetaminophen 650 mg 01/28/19 10:19 01/29/19 18:58 Tylenol Oral Solution - PO 650 mg Q6H PRN Administration FEVER Artificial Tears 1 applic 01/21/19 22:00 01/29/19 22:09 Artificial Tears Ointment - OU 1 applic HS [facility] Administration Artificial Tears 1 drop 01/21/19 22:00 01/30/19 10:58 Artificial Tears OU 1 drop BID [facility] Administration Chlorhexidine Gluconate 15 ml 01/21/19 22:00 01/30/19 10:59 Peridex - MM 15 ml BID [facility] Administration Heparin Sodium (Porcine) 1,000 unit 01/28/19 08:58 Heparin - IVPUSH PRN PRN Heparin Heparin Sodium (Porcine) 5,000 unit 01/28/19 08:58 01/29/19 00:49 Heparin - IVPUSH 5,000 unit PRN PRN Administration Heparin Hydralazine HCl 10 mg 01/21/19 19:17 Apresoline Injection - IVPUSH Q6H PRN HYPERTENSION Heparin Sodium/Dextrose 25,000 units in 500 mls @ 20 mls/hr 01/28/19 09:00 07:00 Heparin Infusion - IVPB 1,300 units/hr TITR [facility] 26 mls/hr Administration Protocol 1,000 UNITS/HR Levetiracetam 500 mg 01/26/19 22:00 01/30/19 10:58 Keppra - PO 500 mg BID [facility] Administration Warfarin Sodium 5 mg 01/29/19 18:00 01/29/19 18:25 Coumadin - PO 5 mg DAILY@1800 [facility] Administration ASSESSMENT/PLAN: 68 yom with PMHx of HTN, HLD, cardiomyopathy, ?ischemia with WMA (improved EF on 2D echo in 2018), suspected CAD (transferred for cath from [facility] in 2016, ? results), CVA with residual slurred speech, admitted with cardiac arrest. -Cardiac arrest -Shock, ?Cardiogenic from NSTEMI/Vfib, vs septic shock/?RLL aspiration PNA -Suspected asphyxiation -Polymicrobial bacteremia, ?contaminant -NSTEMI, ACS vs from CPR -PRACHI, suspect from hypoperfusion/shock -Abnormal LFTs, suspect from hypoperfusion/shock -Left common femoral vein/Sephanous Vein DVT -Persistent fevers -Right sided pleural effusion -Bilateral anterior 3-7 rib fractures, likely from CPR -Hypernatremia -Hyperchloremia -?Anoxic brain injury -Suspected myoclonus -Hypodensities on CT head, likely old CVA -HLD -h/o HTN Plan: s/p Trach/peg. Tolerating feeds well. Vent management per pulmonary. Off sedation, unchanged mental status, Neurology input noted. Perisistent fevers, ?central Fevers. Chest US with minimal left pleural effusion. No plans for thoracocentesis for now. ID input noted. Heparin drip, coumadin started, 7.5 mg today. Will transition to eliquis if renal function improved. s/p Hypothermia protocol in ICU. ID/renal/cardiology input noted. Continue keppra. Hold coreg per cardiology recs. Resume as hemodynamics tolerate. Monitor for anoxic brain injury. Renal input noted. No obstructive concerns on CT A/P. Continue Chambers. continue free water via PEG. Monitor Na levels. Renal function continues to improve. Overall prognosis poor. Plan for Adira when INR therapeutic if no new concerns. Discussed with nursing. Visit type - Emergency Visit Emergency Visit: Yes ED Registration Date: 01/12/19 Care time: The patient presented to the Emergency Department on the above date and was hospitalized for further evaluation of their emergent condition. - New Patient This patient is new to me today: No - Critical Care Critical Care patient: No - Discharge Referral Referred to [facility] No
[2019-01-30] MEDS: ACETAMINOPHEN 650 MG/20.3 ML ORAL SOLUTION (CUPS) PO PRN ×2 (11:48→18:28)
[2019-01-30] MEDS: HEPARIN INFUSION - 25,000 UNITS/500 ML INFUS.BAG IVPB SCH ×2 (11:50→22:00)
--- NOTE | 2019-01-30 12:19 | PN ---
Progress Note (short form) - Note Progress Note: PULMONARY Vented, unresponsive. Still with intermittent fevers. Vital Signs Period Temp Pulse Resp BP Sys/Estrada Pulse Ox Last 24 Hr 98.8 F-101.1 F 66-84 14-20 103-137/56-72 Gen: vented, unresponsive Heart: RRR Lung: decreased breath sounds at the bases Abd: soft, nontender Ext: no edema CBC, BMP 01/30/19 08:34 01/30/19 08:34 Active Medications Acetaminophen (Tylenol Oral Solution -) 650 mg PO Q6H PRN PRN Reason: FEVER Last Admin: 01/30/19 11:48 Dose: 650 mg Artificial Tears (Artificial Tears Ointment -) 1 applic OU HS [facility] Last Admin: 01/29/19 22:09 Dose: 1 applic Artificial Tears (Artificial Tears) 1 drop OU BID [facility] Last Admin: 01/30/19 10:58 Dose: 1 drop Chlorhexidine Gluconate (Peridex -) 15 ml MM BID [facility] Last Admin: 01/30/19 10:59 Dose: 15 ml Heparin Sodium (Porcine) (Heparin -) 1,000 unit IVPUSH PRN PRN PRN Reason: Heparin Heparin Sodium (Porcine) (Heparin -) 5,000 unit IVPUSH PRN PRN PRN Reason: Heparin Last Admin: 01/29/19 00:49 Dose: 5,000 unit Hydralazine HCl (Apresoline Injection -) 10 mg IVPUSH Q6H PRN PRN Reason: HYPERTENSION Heparin Sodium/Dextrose (Heparin Infusion -) 25,000 units in 500 mls @ 20 mls/ hr IVPB TITR [facility]; Protocol Last Admin: 01/30/19 11:50 Dose: 1,300 units/hr, 26 mls/hr Levetiracetam (Keppra -) 500 mg PO BID [facility] Last Admin: 01/30/19 10:58 Dose: 500 mg Warfarin Sodium (Coumadin -) 7.5 mg PO DAILY@1800 [facility] A/P S/P Cardiopulmonary Arrest Ventricular Fibrillation Anoxic Brain Injury CAD/+Troponins/Acute NSTEMI LV Systolic Dysfunction Fevers - ?central Lactic Acidosis resolved Acute Kidney Injury Elevated LFTs likely Ischemic Injury HTN Hyperlipidemia Extensive DVT - continue anticoagulation - monitoring off antibiotics - monitor urine output, creatinine - not a candidate for weaning at this time due to mental status - continue discussions regarding goals of care, advanced directives - DVT prophylaxis - poor overall prognosis for meaningful recovery
[2019-01-30] MEDS ORDERED: WARFARIN NA 7.5 MG TABLET (FP) PO SCH (18:00)
--- NOTE | 2019-01-30 21:34 | PN ---
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 PRACHI 2. cardiac arrest 3. hx chf 4. hx htn 5. resp failure requiring intubation 6. hypernatremia Current Medications Acetaminophen (Tylenol Oral Solution -) 650 mg PO Q6H PRN PRN Reason: FEVER Last Admin: 01/30/19 18:28 Dose: 650 mg Artificial Tears (Artificial Tears Ointment -) 1 applic OU HS [facility] Last Admin: 01/29/19 22:09 Dose: 1 applic Artificial Tears (Artificial Tears) 1 drop OU BID [facility] Last Admin: 01/30/19 10:58 Dose: 1 drop Chlorhexidine Gluconate (Peridex -) 15 ml MM BID [facility] Last Admin: 01/30/19 10:59 Dose: 15 ml Heparin Sodium (Porcine) (Heparin -) 1,000 unit IVPUSH PRN PRN PRN Reason: Heparin Heparin Sodium (Porcine) (Heparin -) 5,000 unit IVPUSH PRN PRN PRN Reason: Heparin Last Admin: 01/29/19 00:49 Dose: 5,000 unit Hydralazine HCl (Apresoline Injection -) 10 mg IVPUSH Q6H PRN PRN Reason: HYPERTENSION Heparin Sodium/Dextrose (Heparin Infusion -) 25,000 units in 500 mls @ 20 mls/ hr IVPB TITR [facility]; Protocol Last Admin: 01/30/19 11:50 Dose: 1,300 units/hr, 26 mls/hr Levetiracetam (Keppra -) 500 mg PO BID [facility] Last Admin: 01/30/19 10:58 Dose: 500 mg Warfarin Sodium (Coumadin -) 7.5 mg PO DAILY@1800 [facility] Last Admin: 01/30/19 18:02 Dose: 7.5 mg Last Vital Signs Temp Pulse Resp BP Pulse Ox 98.8 F 67 18 118/61 98 01/30/19 20:48 01/30/19 20:48 01/30/19 20:48 01/30/19 20:48 01/30/19 10:30 Lungs clear Heart reg Abd soft nontender Ext no edema CBC, BMP 01/30/19 08:34 01/30/19 08:34 CBC, BMP 01/29/19 11:45 01/29/19 11:45 IMP- hypernatremia hypokalemia prachi improving Plan- free water replacement k replacement
[2019-01-30] MEDS ORDERED: PT OWN MED DRAWER 7, Y5N ONE (23:04)
[2019-01-30] MEDS: MINERAL OIL/PETROLATUM,WHITE 3.5 GM TUBE OU SCH (23:08)
[2019-01-31 08:03] LABS: HEMATOCRIT 30.2 % (35.4-49); HEMOGLOBIN 9.9 GM/dL (11.7-16.9); MCH 30.1 pg (25.7-33.7); MCHC 32.9 g/dl (32.0-35.9); MEAN CELL VOLUME 91.6 fl (80-96); MEAN PLT VOLUME 9.1 fl (7.5-11.1); PLATELET COUNT 293 K/MM3 (134-434); RDW 15.1 % (11.9-15.9); WHITE BLOOD COUNT 8.5 K/mm3 (4.0-10.0)
[2019-01-31 08:32] LABS: BLOOD UREA NITROGEN 45.4 mg/dL (7-18); CREATININE 1.7 mg/dL (0.55-1.3); POTASSIUM 3.6 mmol/L (3.5-5.1)
[2019-01-31] MEDS: ACETAMINOPHEN 650 MG/20.3 ML ORAL SOLUTION (CUPS) PO PRN ×2 (08:45→18:56)
[2019-01-31 09:04] LABS: INR 1.24 (0.83-1.09); PROTHROMBIN TIME (PATIENT) 14.7 SEC (9.7-13.0)
[2019-01-31 09:06] LABS: ACTIVATED PTT 48.4 SECONDS (25.2-36.5)
[2019-01-31] MEDS ORDERED: PT OWN MED DRAWER 7, Y5N ONE ×2 (10:13→12:36)
--- NOTE | 2019-01-31 10:53 | PN ---
Progress Note (short form) - Note Progress Note: s: unresponsive, on vent Current Medications Generic Name Dose Route Start Last Admin Trade Name Freq PRN Reason Stop Dose Admin Acetaminophen 650 mg 01/28/19 10:19 01/31/19 08:45 Tylenol Oral Solution - PO 650 mg Q6H PRN Administration FEVER Apixaban 2.5 mg 01/31/19 10:00 Eliquis - GT BID [facility] Artificial Tears 1 applic 01/21/19 22:00 01/30/19 23:08 Artificial Tears Ointment - OU 1 applic HS [facility] Administration Artificial Tears 1 drop 01/21/19 22:00 01/30/19 23:09 Artificial Tears OU 1 drop BID [facility] Administration Chlorhexidine Gluconate 15 ml 01/21/19 22:00 01/30/19 23:48 Peridex - MM 15 ml BID [facility] Administration Hydralazine HCl 10 mg 01/21/19 19:17 Apresoline Injection - IVPUSH Q6H PRN HYPERTENSION Levetiracetam 500 mg 01/26/19 22:00 01/30/19 23:09 Keppra - PO 500 mg BID [facility] Administration Vital Signs Period Temp Pulse Resp BP Sys/Estrada Pulse Ox Last 24 Hr 98.8 F-101.1 F 67-77 14-18 103-123/51-77 99-100 HENT: trach, vent Cardiovascular: Yes: Regular Rate and Rhythm Respiratory: Yes: Other (coarse breath sounds b /l) Gastrointestinal: Yes: Soft Edema: No no jaundice, diaphoresis not agitated CBC, BMP 01/31/19 07:25 01/31/19 07:25 Assessment/Plan echo 01/20: severe global LV hypo EF 25-30%. nl RV. mild LAE. mod MR. nl RVSP. cath 07/2015: lhc: normal cors; rhc: mild phtn, pvri mod elevated, pcw/lvedp nl. ECG 01/12: NSR, LVH with nonsp ST-Ts ? sec to LVH--not signif changed vs 2016 prior ECG 01/13: no signif change, prolonged QT (similar to 2016) IMP/PLAN: VF arrest:in setting of gram + bacteremia and septic shock, anoxic encephalopathy -EF only mild-mod decreased on prior echo 1 yr ago, currently severe/global 25- 30%. -? arrest triggered by bacteremia (2 of 2 initial cultures positive)/sepsis -holding bb given low BPs -doubt acute ischemic etiology given normal cors 3 yrs ago--if makes meaningful recover will need repeat isch eval - s/p trach, PEG NSTEMI: -trop peaked at 32 -normal cors 2016 -suspect sec to sepsis vs prolonged hypotension from recurrent VF arrest (with contribution from mult electrical defibs) -on AC -hold BB SEPTIC SHOCK, gram pos bacteremia: -improved with abx Prolonged QT: -? related to CMP/LVH--was close to 500 on prior ecg 2016 -aggressive repletion of K/Mag (08/03) -avoid QT prolonging meds Congestive heart failure, nonischemic CMP -EF severely reduced at time of initial dx 2015--improved signif with med management -present EF severely reduced again, likely in setting sepsis, post arrest PRACHI: -sec to ATN, renal following PAF, DVT - cont AC
--- NOTE | 2019-01-31 11:28 | PN ---
Progress Note (short form) - Note Progress Note: Vented, Minimally responsive. Left lateral upward gaze. Intake & Output 01/28/19 01/29/19 01/30/19 01/31/19 23:59 23:59 23:59 23:59 Intake Total 2211 5212 6479 312 Balance 2211 5212 6479 312 Last Vital Signs Temp Pulse Resp BP Pulse Ox 101.1 F H 77 17 123/65 99 01/31/19 08:53 01/31/19 08:53 01/31/19 08:53 01/31/19 08:53 01/31/19 09:00 Active Medications Acetaminophen (Tylenol Oral Solution -) 650 mg PO Q6H PRN PRN Reason: FEVER Last Admin: 01/31/19 08:45 Dose: 650 mg Apixaban (Eliquis -) 2.5 mg GT BID [facility] Artificial Tears (Artificial Tears Ointment -) 1 applic OU HS [facility] Last Admin: 01/30/19 23:08 Dose: 1 applic Artificial Tears (Artificial Tears) 1 drop OU BID [facility] Last Admin: 01/30/19 23:09 Dose: 1 drop Chlorhexidine Gluconate (Peridex -) 15 ml MM BID [facility] Last Admin: 01/30/19 23:48 Dose: 15 ml Hydralazine HCl (Apresoline Injection -) 10 mg IVPUSH Q6H PRN PRN Reason: HYPERTENSION Levetiracetam (Keppra -) 500 mg PO BID [facility] Last Admin: 01/30/19 23:09 Dose: 500 mg Gen: vented, minimally responsive Heart: RRR Lung: decreased breath sounds at the bases Abd: soft, nontender Ext: no edema Laboratory Results - last 24 hr 01/31/19 01/31/19 01/31/19 07:25 07:25 07:35 WBC 8.5 RBC 3.30 L Hgb 9.9 L Hct 30.2 L MCV 91.6 MCH 30.1 MCHC 32.9 RDW 15.1 Plt Count 293 MPV 9.1 PT with INR 14.70 H INR 1.24 H PTT (Actin FS) 48.4 H Sodium 143 Potassium 3.6 Chloride 108 H Carbon Dioxide 28 Anion Gap 7 L BUN 45.4 H Creatinine 1.7 H Est GFR (CKD-EPI)AfAm 47.65 Est GFR (CKD-EPI)NonAf 41.11 Random Glucose 102 Calcium 9.0 A/P S/P Cardiopulmonary Arrest Ventricular Fibrillation Anoxic Brain Injury CAD/+Troponins/Acute NSTEMI LV Systolic Dysfunction Fevers - ?central Lactic Acidosis resolved Acute Kidney Injury Elevated LFTs likely Ischemic Injury HTN Hyperlipidemia Extensive DVT - continue anticoagulation with Eliquis - monitoring off antibiotics - monitor urine output, creatinine - not a candidate for weaning at this time due to poor mental status - continue discussions regarding goals of care, advanced directives - DVT prophylaxis - poor overall prognosis for meaningful recovery Dr Menjivar
[2019-01-31] MEDS: levETIRAcetam 500 MG TABLET (FP) PO SCH ×2 (11:31→21:47)
[2019-01-31] MEDS: CHLORHEXIDINE GLUCONATE 0.12% 15ML CUP MM SCH ×2 (11:31→21:49)
[2019-01-31] MEDS: APIXABAN 2.5 MG TABLET GT SCH ×2 (11:32→21:47)
[2019-01-31] MEDS: ARTIFICIAL TEARS (POLYVINYL ALCOHOL) OPTH DROPS OU SCH ×2 (11:32→21:47)
--- NOTE | 2019-01-31 11:48 | PN ---
Teaching Attending Note Name of Resident: Nadir Mark ATTENDING PHYSICIAN STATEMENT I saw and evaluated the patient. I reviewed the resident's note and discussed the case with the resident. I agree with the resident's findings and plan as documented with exceptions below. SUBJECTIVE: Patient seen and examined. unresponsive. OBJECTIVE: Vital Signs Period Temp Pulse Resp BP Sys/Estrada Pulse Ox Last 24 Hr 98.8 F-101.1 F 67-77 14-18 103-123/51-77 99-100 Intake & Output 01/28/19 01/29/19 01/30/19 01/31/19 23:59 23:59 23:59 23:59 Intake Total 2211 5212 6479 312 Balance 2211 5212 6479 312 General: unresponsive, neck: s/p trach Chest: limited exam, poor effort, decreased breath sounds HEENT: Pupil sluggish, minimally reactive CVS:S1S2 regular Abdomen:soft, obese, pos bowel sounds, no voluntary or involuntary guarding or rigidity, pos PEG tube Extremites: trace pedal edema Neuro: pupil sluggish, no withdrawal to pain, babinski non reactive, DTR 2+ UE, 1+ LE Active Medications Acetaminophen (Tylenol Oral Solution -) 650 mg PO Q6H PRN PRN Reason: FEVER Last Admin: 01/31/19 08:45 Dose: 650 mg Apixaban (Eliquis -) 2.5 mg GT BID [facility] Last Admin: 01/31/19 11:32 Dose: 2.5 mg Artificial Tears (Artificial Tears Ointment -) 1 applic OU HS [facility] Last Admin: 01/30/19 23:08 Dose: 1 applic Artificial Tears (Artificial Tears) 1 drop OU BID [facility] Last Admin: 01/31/19 11:32 Dose: 1 drop Chlorhexidine Gluconate (Peridex -) 15 ml MM BID [facility] Last Admin: 01/31/19 11:31 Dose: 15 ml Hydralazine HCl (Apresoline Injection -) 10 mg IVPUSH Q6H PRN PRN Reason: HYPERTENSION Levetiracetam (Keppra -) 500 mg PO BID [facility] Last Admin: 01/31/19 11:31 Dose: 500 mg Laboratory Results - last 24 hr 01/31/19 01/31/19 01/31/19 07:25 07:25 07:35 WBC 8.5 RBC 3.30 L Hgb 9.9 L Hct 30.2 L MCV 91.6 MCH 30.1 MCHC 32.9 RDW 15.1 Plt Count 293 MPV 9.1 PT with INR 14.70 H INR 1.24 H PTT (Actin FS) 48.4 H Sodium 143 Potassium 3.6 Chloride 108 H Carbon Dioxide 28 Anion Gap 7 L BUN 45.4 H Creatinine 1.7 H Est GFR (CKD-EPI)AfAm 47.65 Est GFR (CKD-EPI)NonAf 41.11 Random Glucose 102 Calcium 9.0 Microbiology 01/23/19 16:04 Blood - Peripheral Venous Blood Culture - Final NO GROWTH AFTER 5 DAYS INCUBATION 01/23/19 15:55 Blood - Peripheral Venous Blood Culture - Final NO GROWTH AFTER 5 DAYS INCUBATION 01/23/19 13:25 Sputum - Endotrachea Suction/Ventilator Gram Stain - Final 01/23/19 13:25 Sputum - Endotrachea Suction/Ventilator Sputum Culture - Final Klebsiella Pneumoniae 01/19/19 13:00 Blood - Peripheral Venous Blood Culture - Final NO GROWTH AFTER 5 DAYS INCUBATION 01/19/19 12:51 Blood - Peripheral Venous Blood Culture - Final NO GROWTH AFTER 5 DAYS INCUBATION 01/23/19 13:25 Urine For Antigen Detection Legionella Antigen - Final 01/23/19 13:25 Urine For Antigen Detection Streptococcus pneumoniae Antigen (M - Final 01/14/19 16:00 Blood - Peripheral Venous Blood Culture - Final NO GROWTH AFTER 5 DAYS INCUBATION 01/14/19 14:30 Blood - Peripheral Venous Blood Culture - Final NO GROWTH AFTER 5 DAYS INCUBATION 01/14/19 14:30 Sputum - Endotrachea Suction/Ventilator Gram Stain - Final 01/14/19 14:30 Sputum - Endotrachea Suction/Ventilator Sputum Culture - Final Klebsiella Pneumoniae Stenotrophomon.(X.)Maltophilia 01/12/19 20:30 Blood - Peripheral Venous Blood Culture - Final Strep Agalactiae Group B Staphylococcus Haemolyticus Enterococcus Faecalis 01/12/19 20:30 Blood - Peripheral Venous Blood Culture - Final Staphylococcus Haemolyticus 01/13/19 09:00 Urine For Antigen Detection Legionella Antigen - Final 01/13/19 09:00 Urine For Antigen Detection Streptococcus pneumoniae Antigen (M - Final 01/13/19 04:50 Urine - Urine Clean Catch Urine Culture - Final NO GROWTH OBTAINED ASSESSMENT AND PLAN: 68 yom with PMHx of HTN, HLD, cardiomyopathy, ?ischemia with WMA (improved EF on 2D echo in 2018), suspected CAD (transferred for cath from [facility] in 2016, ? results), CVA with residual slurred speech, admitted with cardiac arrest. -Cardiac arrest -Shock, ?Cardiogenic from NSTEMI/Vfib, vs septic shock/?RLL aspiration PNA -Suspected asphyxiation -Polymicrobial bacteremia, ?contaminant -NSTEMI, ACS vs from CPR -PRACHI, suspect from hypoperfusion/shock -Abnormal LFTs, suspect from hypoperfusion/shock -Left common femoral vein/Sephanous Vein DVT -Persistent fevers -Right frontal lobe cerebral edema, r/o acute vs subacute CVA -Right sided pleural effusion -Bilateral anterior 3-7 rib fractures, likely from CPR -Hypernatremia -Hyperchloremia -?Anoxic brain injury -Suspected myoclonus -Hypodensities on CT head, likely old CVA -HLD -h/o HTN Plan: s/p Trach/peg. Tolerating feeds well. Vent management per pulmonary. Off sedation, unchanged mental status, Neurology input noted. CT brain from 01/[address] Spencer for additional recs. Perisistent fevers, discussed with Dr. Rodriguez. US chest with minimal left pleural effusion. Check CT chest. Monitor off abx. Discussed with renal, will dc heparin drip and change to eliquis renal dosing. s/p Hypothermia protocol in ICU. ID/renal/cardiology input noted. Continue keppra. Hold coreg per cardiology recs. Resume as hemodynamics tolerate. Monitor for anoxic brain injury. Renal input noted. No obstructive concerns on CT A/P. Continue Chambers. Na/renal function improved. Decreased free water via PEG. monitor chemistry. Overall prognosis poor. Plan for [facility] when medical issues improve. Discussed with nursing and social work Care co-ordinated with ID/nephrology.
--- NOTE | 2019-01-31 13:19 | PN ---
Progress Note, Physician History of Present Illness: Pt seen and examined at bedside. No great change in status. - Current Medication List Current Medications: Active Medications Acetaminophen (Tylenol Oral Solution -) 650 mg PO Q6H PRN PRN Reason: FEVER Last Admin: 01/31/19 08:45 Dose: 650 mg Apixaban (Eliquis -) 2.5 mg GT BID [facility] Last Admin: 01/31/19 11:32 Dose: 2.5 mg Artificial Tears (Artificial Tears Ointment -) 1 applic OU HS [facility] Last Admin: 01/30/19 23:08 Dose: 1 applic Artificial Tears (Artificial Tears) 1 drop OU BID [facility] Last Admin: 01/31/19 11:32 Dose: 1 drop Chlorhexidine Gluconate (Peridex -) 15 ml MM BID [facility] Last Admin: 01/31/19 11:31 Dose: 15 ml Hydralazine HCl (Apresoline Injection -) 10 mg IVPUSH Q6H PRN PRN Reason: HYPERTENSION Levetiracetam (Keppra -) 500 mg PO BID [facility] Last Admin: 01/31/19 11:31 Dose: 500 mg - Objective Vital Signs: Vital Signs Temperature 101.1 F H 01/31/19 08:53 Pulse Rate 77 01/31/19 08:53 Respiratory Rate 16 01/31/19 11:42 Blood Pressure 123/65 01/31/19 08:53 O2 Sat by Pulse Oximetry (%) 99 01/31/19 09:00 Constitutional: Yes: Calm Eyes: Yes: Conjunctiva Clear HENT: Yes: Atraumatic Neck: Yes: Other (trache) Cardiovascular: Yes: S1, S2 Respiratory: Yes: Mechanically Ventilated Gastrointestinal: Yes: Soft, Other (peg) Genitourinary: Yes: Chambers Present Musculoskeletal: Yes: Muscle Weakness Edema: No Neurological: Yes: Lethargy Labs: CBC, BMP 01/31/19 07:25 01/31/19 07:25 INR, PTT INR 1.24 (0.83-1.09) H 01/31/19 07:35 Problem List - Problems (1) PRACHI (acute kidney injury) Code(s): N17.9 - ACUTE KIDNEY FAILURE, UNSPECIFIED (2) CHF (congestive heart failure) Code(s): I50.9 - HEART FAILURE, UNSPECIFIED (3) HTN (hypertension) Code(s): I10 - ESSENTIAL (PRIMARY) HYPERTENSION Assessment/Plan Current Medications Generic Name Dose Route Start Last Admin Trade Name Freq PRN Reason Stop Dose Admin Acetaminophen 650 mg 01/28/19 10:19 01/31/19 08:45 Tylenol Oral Solution - PO 650 mg Q6H PRN Administration FEVER Apixaban 2.5 mg 01/31/19 10:00 01/31/19 11:32 Eliquis - GT 2.5 mg BID [facility] Administration Artificial Tears 1 applic 01/21/19 22:00 01/30/19 23:08 Artificial Tears Ointment - OU 1 applic HS [facility] Administration Artificial Tears 1 drop 01/21/19 22:00 01/31/19 11:32 Artificial Tears OU 1 drop BID [facility] Administration Chlorhexidine Gluconate 15 ml 01/21/19 22:00 01/31/19 11:31 Peridex - MM 15 ml BID [facility] Administration Hydralazine HCl 10 mg 01/21/19 19:17 Apresoline Injection - IVPUSH Q6H PRN HYPERTENSION Levetiracetam 500 mg 01/26/19 22:00 01/31/19 11:31 Keppra - PO 500 mg BID [facility] Administration Impression 1. PRACHI 2. cardiac arrest 3. hx chf 4. hx htn 5. resp failure requiring intubation 6. hypernatremia Plan - sodium improving - renal function is improving - repeat labs in am - discussed with medical team - vent support - PRACHI likely from ATN - cont supportive care
--- NOTE | 2019-01-31 13:20 | PN ---
Progress Note (short form) - Note Progress Note: HPI: Pt remains unresponsive to exam. ROS limited due to clinical condition. PEG intact with feeds. Vital Signs Temperature 99.2 F 01/28/19 14:50 Pulse Rate 87 01/28/19 14:50 Respiratory Rate 21 H 01/28/19 16:18 Blood Pressure 127/69 01/28/19 14:50 O2 Sat by Pulse Oximetry (%) 99 01/28/19 09:00 PE: Gen: Remains unresponsive even to painful stimuli. No acute distress HEENT: Minimal pupillary reflex. MMM no secretions noted at time of exam Neck: Tracheostomy site without any secretions, no gag reflex LUNGS: Diminished breath sounds b/l at bases. AC mode of vent without overbreathing RR 14, TV 500, SpO2 30% (unchanged) CARD: RRR without any murmurs ABD: Hypoactive BS, PEG site intact without any drainage noted. Tolerating feeds running at bedside EXT: No edema of peripheral limbs SKIN: No skin breakdown seen. Sacrum not examined today CBC, BMP 01/31/19 07:25 01/31/19 07:25 Active Medications Acetaminophen (Tylenol Oral Solution -) 650 mg PO Q6H PRN PRN Reason: FEVER Last Admin: 01/31/19 08:45 Dose: 650 mg Apixaban (Eliquis -) 2.5 mg GT BID [facility] Last Admin: 01/31/19 11:32 Dose: 2.5 mg Artificial Tears (Artificial Tears Ointment -) 1 applic OU HS [facility] Last Admin: 01/30/19 23:08 Dose: 1 applic Artificial Tears (Artificial Tears) 1 drop OU BID [facility] Last Admin: 01/31/19 11:32 Dose: 1 drop Chlorhexidine Gluconate (Peridex -) 15 ml MM BID [facility] Last Admin: 01/31/19 11:31 Dose: 15 ml Hydralazine HCl (Apresoline Injection -) 10 mg IVPUSH Q6H PRN PRN Reason: HYPERTENSION Levetiracetam (Keppra -) 500 mg PO BID [facility] Last Admin: 01/31/19 11:31 Dose: 500 mg A/P S/p cardiac arrest S/p septic shock secondary to bacteremia Anoxic brain injury B/L rib fractures 2/2 to CPR Extensive DVT Fevers with suspicion of central fevers PRACHI 2/2 to ATN Hypernatremia Extensive DVT --CT Chest noncontrast for final r/o of any abscess --Likely central fevers at this point in conjunction with DVT --Discussed with nephrology as patient's GFR has increased with resolution of ATN --Can start renally dosed Eliquis 2.5mg BID PO --D/C heparin gtt and warfarin --Appreciate all consultative recommendations --Will discuss with Neurology about findings on most recent Head CT noncontrast --Continue Keppra 500mg BID for seizure ppx to continue --Pt s/p tracheostomy site and PEG placement FEN: Fluids: GT only Electrolyte abnormalities: Hypernatremia improving now with FW at goal Nutrition: Nepro 25cc/hr increase 20cc q4hr to goal 55cc. Free water flush 75cc/hr PPX: DVT - Eliquis 2.5mg GT BID Dispo: D/c planning to [facility]; finishing septic workup Case discussed with Dr. Iram Mark, DO - IM PGY-3
--- NOTE | 2019-01-31 14:07 | PN ---
Progress Note (short form) - Note Progress Note: fevers persist hemodynamically stable wbc is normal +BM Vital Signs Period Temp Pulse Resp BP Sys/Estrada Pulse Ox Last 24 Hr 98.8 F-101.1 F 67-77 14-18 103-123/57-77 99-100 trach to vent cor-rrr lulngs decreased bs at bases abd soft,nt +GT ext no edema no nguyen CBC, BMP 01/31/19 07:25 01/31/19 07:25 Microbiology 01/23/19 16:04 Blood - Peripheral Venous Blood Culture - Final NO GROWTH AFTER 5 DAYS INCUBATION 01/23/19 15:55 Blood - Peripheral Venous Blood Culture - Final NO GROWTH AFTER 5 DAYS INCUBATION 01/23/19 13:25 Sputum - Endotrachea Suction/Ventilator Gram Stain - Final 01/23/19 13:25 Sputum - Endotrachea Suction/Ventilator Sputum Culture - Final Klebsiella Pneumoniae 01/19/19 13:00 Blood - Peripheral Venous Blood Culture - Final NO GROWTH AFTER 5 DAYS INCUBATION 01/19/19 12:51 Blood - Peripheral Venous Blood Culture - Final NO GROWTH AFTER 5 DAYS INCUBATION 01/23/19 13:25 Urine For Antigen Detection Legionella Antigen - Final 01/23/19 13:25 Urine For Antigen Detection Streptococcus pneumoniae Antigen (M - Final 01/14/19 16:00 Blood - Peripheral Venous Blood Culture - Final NO GROWTH AFTER 5 DAYS INCUBATION 01/14/19 14:30 Blood - Peripheral Venous Blood Culture - Final NO GROWTH AFTER 5 DAYS INCUBATION 01/14/19 14:30 Sputum - Endotrachea Suction/Ventilator Gram Stain - Final 01/14/19 14:30 Sputum - Endotrachea Suction/Ventilator Sputum Culture - Final Klebsiella Pneumoniae Stenotrophomon.(X.)Maltophilia 01/12/19 20:30 Blood - Peripheral Venous Blood Culture - Final Strep Agalactiae Group B Staphylococcus Haemolyticus Enterococcus Faecalis 01/12/19 20:30 Blood - Peripheral Venous Blood Culture - Final Staphylococcus Haemolyticus 01/13/19 09:00 Urine For Antigen Detection Legionella Antigen - Final 01/13/19 09:00 Urine For Antigen Detection Streptococcus pneumoniae Antigen (M - Final 01/13/19 04:50 Urine - Urine Clean Catch Urine Culture - Final NO GROWTH OBTAINED a/p persistent fevers-repeat chest ct to r/o retrocardiac process on a/c for dvt without improvement in fever curve continue off antibiotics ?central fevers s/p cardiac arrest with anoxia raffi- improved d/w mother at bedside Problem List - Problems (1) Cardiac arrest with successful resuscitation Code(s): I46.9 - CARDIAC ARREST, CAUSE UNSPECIFIED (2) Brain anoxic injury Code(s): G93.1 - ANOXIC BRAIN DAMAGE, NOT ELSEWHERE CLASSIFIED (3) Sepsis Code(s): A41.9 - SEPSIS, UNSPECIFIED ORGANISM (4) Shock liver Code(s): K72.00 - ACUTE AND SUBACUTE HEPATIC FAILURE WITHOUT COMA
[2019-01-31] MEDS: MINERAL OIL/PETROLATUM,WHITE 3.5 GM TUBE OU SCH (21:47)
[2019-02-01 08:34] LABS: HEMATOCRIT 33.8 % (35.4-49); HEMOGLOBIN 11.4 GM/dL (11.7-16.9); MCH 30.6 pg (25.7-33.7); MCHC 33.7 g/dl (32.0-35.9); MEAN CELL VOLUME 90.8 fl (80-96); MEAN PLT VOLUME 9.5 fl (7.5-11.1); PLATELET COUNT 276 K/MM3 (134-434); RBC 3.72 M/mm3 (4.00-5.60); RDW 15.3 % (11.9-15.9); WHITE BLOOD COUNT 10.2 K/mm3 (4.0-10.0)
--- NOTE | 2019-02-01 09:46 | PN ---
Teaching Attending Note Name of Resident: Nadir Mark ATTENDING PHYSICIAN STATEMENT I saw and evaluated the patient. I reviewed the resident's note and discussed the case with the resident. I agree with the resident's findings and plan as documented with exceptions below. SUBJECTIVE: Patient seen and examined. unreponsive. OBJECTIVE: Vital Signs Period Temp Pulse Resp BP Sys/Estrada Pulse Ox Last 24 Hr 98.5 F-100 F 71-97 14-21 106-135/53-75 Intake & Output 01/29/19 01/30/19 01/31/19 02/01/19 23:59 23:59 23:59 23:59 Intake Total 5212 6479 3314 1640 Balance 5212 6479 3314 1640 General: unresponsive, neck: s/p trach Chest: limited exam, poor effort, decreased breath sounds HEENT: Pupil sluggish, minimally reactive CVS:S1S2 regular Abdomen:soft, obese, pos bowel sounds, no voluntary or involuntary guarding or rigidity, pos PEG tube Extremites: trace pedal edema Neuro: pupil sluggish, no withdrawal to pain, babinski non reactive, DTR 2+ UE, 1+ LE Home Medications Medication Instructions Recorded Aspirin 81 mg PO DAILY 01/13/19 Atorvastatin Ca [Lipitor] 40 mg PO DAILY 01/13/19 Carvedilol [Coreg -] 25 mg PO BID 01/13/19 Losartan/Hydrochlorothiazide 1 each PO DAILY 01/13/19 [Losartan-Hctz 100-25 mg Tab] Mirabegron [Myrbetriq] 25 mg PO DAILY 01/13/19 Telmisartan/Hydrochlorothiazid 1 tab PO DAILY 01/13/19 [Telmisartan-Hctz 80-25 mg Tab] Active Medications Acetaminophen (Tylenol Oral Solution -) 650 mg PO Q6H PRN PRN Reason: FEVER Last Admin: 01/31/19 18:56 Dose: 650 mg Apixaban (Eliquis -) 2.5 mg GT BID [facility] Last Admin: 01/31/19 21:47 Dose: 2.5 mg Artificial Tears (Artificial Tears Ointment -) 1 applic OU HS [facility] Last Admin: 01/31/19 21:47 Dose: 1 applic Artificial Tears (Artificial Tears) 1 drop OU BID [facility] Last Admin: 01/31/19 21:47 Dose: 1 drop Chlorhexidine Gluconate (Peridex -) 15 ml MM BID [facility] Last Admin: 01/31/19 21:49 Dose: 15 ml Hydralazine HCl (Apresoline Injection -) 10 mg IVPUSH Q6H PRN PRN Reason: HYPERTENSION Levetiracetam (Keppra -) 500 mg PO BID [facility] Last Admin: 01/31/19 21:47 Dose: 500 mg Laboratory Results - last 24 hr 02/01/19 07:36 WBC 10.2 H RBC 3.72 L Hgb 11.4 L Hct 33.8 L MCV 90.8 MCH 30.6 MCHC 33.7 RDW 15.3 Plt Count 276 MPV 9.5 ASSESSMENT AND PLAN: 68 yom with PMHx of HTN, HLD, cardiomyopathy, ?ischemia with WMA (improved EF on 2D echo in 2018), suspected CAD (transferred for cath from [facility] in 2015, ? results), CVA with residual slurred speech, admitted with cardiac arrest. -Cardiac arrest -Shock, ?Cardiogenic from NSTEMI/Vfib, vs septic shock/?RLL aspiration PNA -Suspected asphyxiation -Polymicrobial bacteremia, ?contaminant -NSTEMI, ACS vs from CPR -PRACHI, suspect from hypoperfusion/shock -Abnormal LFTs, suspect from hypoperfusion/shock -Left common femoral vein/Sephanous Vein DVT -Persistent fevers, ?central vs DVT vs ongoing aspiration -Right frontal lobe cerebral edema, r/o acute vs subacute CVA -Right sided pleural effusion -Bilateral anterior 3-7 rib fractures, likely from CPR -Hypernatremia -Hyperchloremia -?Anoxic brain injury -Suspected myoclonus -Hypodensities on CT head, likely old CVA -HLD -h/o HTN Plan: s/p Trach/peg. Tolerating feeds well. Vent management per pulmonary. Off sedation, unchanged mental status, Neurology input noted. CT brain from 01/22 results noted. Per neurology, patient with anoxic brain injury and vegetative state. Awaiting neurology input to address if additional testing/imaging of benefit at this stage. Perisistent fevers, US chest/CT chest neg for concerning effusion. Eliquis started. Discussed with cardiology, rec xarelto or eliquis 5 mg BID, await renal input s/p Hypothermia protocol in ICU. ID/renal/cardiology input noted. Continue keppra. Hold coreg per cardiology recs. Resume as hemodynamics tolerate. Renal input noted. No obstructive concerns on CT A/P. Continue Chambers. Na/renal function improved. Decreased free water via PEG. monitor chemistry. Overall prognosis poor. Accepted to [facility]. May benefit from LTAC, discussed with social work, will follow up. Discussed with nursing
--- NOTE | 2019-02-01 10:08 | PN ---
Progress Note (short form) - Note Progress Note: Vented, Minimally responsive. Persistent left lateral upward gaze. CT Chest reviewed: small pleural effusions with associated atelectasis. No pathology that would explain fever. Intake & Output 01/29/19 01/30/19 01/31/19 02/01/19 23:59 23:59 23:59 23:59 Intake Total 5212 6479 3314 1640 Balance 5212 6479 3314 1640 Last Vital Signs Temp Pulse Resp BP Pulse Ox 99.3 F 81 18 135/75 99 02/01/19 06:00 02/01/19 06:00 02/01/19 08:24 02/01/19 06:00 01/31/19 09:00 Active Medications Acetaminophen (Tylenol Oral Solution -) 650 mg PO Q6H PRN PRN Reason: FEVER Last Admin: 01/31/19 18:56 Dose: 650 mg Apixaban (Eliquis -) 5 mg GT BID [facility] Artificial Tears (Artificial Tears Ointment -) 1 applic OU HS [facility] Last Admin: 01/31/19 21:47 Dose: 1 applic Artificial Tears (Artificial Tears) 1 drop OU BID [facility] Last Admin: 01/31/19 21:47 Dose: 1 drop Chlorhexidine Gluconate (Peridex -) 15 ml MM BID [facility] Last Admin: 01/31/19 21:49 Dose: 15 ml Hydralazine HCl (Apresoline Injection -) 10 mg IVPUSH Q6H PRN PRN Reason: HYPERTENSION Levetiracetam (Keppra -) 500 mg PO BID [facility] Last Admin: 01/31/19 21:47 Dose: 500 mg Gen: vented, minimally responsive Heart: RRR Lung: decreased breath sounds at the bases Abd: soft, nontender Ext: no edema Laboratory Results - last 24 hr 02/01/19 07:36 WBC 10.2 H RBC 3.72 L Hgb 11.4 L Hct 33.8 L MCV 90.8 MCH 30.6 MCHC 33.7 RDW 15.3 Plt Count 276 MPV 9.5 A/P S/P Cardiopulmonary Arrest Ventricular Fibrillation Anoxic Brain Injury CAD/+Troponins/Acute NSTEMI LV Systolic Dysfunction Fevers - ?central Lactic Acidosis resolved Acute Kidney Injury Elevated LFTs likely Ischemic Injury HTN Hyperlipidemia Extensive DVT - Currently off ABX - continue anticoagulation with Eliquis - not a candidate for weaning at this time due to poor mental status - continue discussions regarding goals of care, advanced directives - poor overall prognosis for meaningful recovery Dr Menjivar
[2019-02-01] MEDS: ACETAMINOPHEN 650 MG/20.3 ML ORAL SOLUTION (CUPS) PO PRN (11:34)
[2019-02-01] MEDS: ARTIFICIAL TEARS (POLYVINYL ALCOHOL) OPTH DROPS OU SCH ×2 (11:35→22:56)
[2019-02-01] MEDS: CHLORHEXIDINE GLUCONATE 0.12% 15ML CUP MM SCH ×2 (11:35→22:58)
[2019-02-01] MEDS: levETIRAcetam 500 MG TABLET (FP) PO SCH ×2 (11:35→22:27)
[2019-02-01] MEDS: APIXABAN 2.5 MG TABLET GT SCH ×2 (11:35→22:27)
--- NOTE | 2019-02-01 11:59 | PN ---
Progress Note (short form) - Note Progress Note: - Note Progress Note: s: unresponsive, on vent Current Medications Acetaminophen (Tylenol Oral Solution -) 650 mg PO Q6H PRN PRN Reason: FEVER Last Admin: 02/01/19 11:34 Dose: 650 mg Apixaban (Eliquis -) 5 mg GT BID [facility] Last Admin: 02/01/19 11:35 Dose: 5 mg Artificial Tears (Artificial Tears Ointment -) 1 applic OU HS [facility] Last Admin: 01/31/19 21:47 Dose: 1 applic Artificial Tears (Artificial Tears) 1 drop OU BID [facility] Last Admin: 02/01/19 11:35 Dose: 1 drop Chlorhexidine Gluconate (Peridex -) 15 ml MM BID [facility] Last Admin: 02/01/19 11:35 Dose: 15 ml Hydralazine HCl (Apresoline Injection -) 10 mg IVPUSH Q6H PRN PRN Reason: HYPERTENSION Levetiracetam (Keppra -) 500 mg PO BID [facility] Last Admin: 02/01/19 11:35 Dose: 500 mg Vital Signs Period Temp Pulse Resp BP Sys/Estrada Pulse Ox Last 24 Hr 98.8 F-101.1 F 67-77 14-18 103-123/51-77 99-100 HENT: trach, vent Cardiovascular: Yes: Regular Rate and Rhythm Respiratory: Yes: Other (coarse breath sounds b /l) Gastrointestinal: Yes: Soft Edema: No no jaundice, diaphoresis not agitated Assessment/Plan echo 01/20: severe global LV hypo EF 25-30%. nl RV. mild LAE. mod MR. nl RVSP. cath 07/2015: lhc: normal cors; rhc: mild phtn, pvri mod elevated, pcw/lvedp nl. ECG 01/12: NSR, LVH with nonsp ST-Ts ? sec to LVH--not signif changed vs 2016 prior ECG 01/13: no signif change, prolonged QT (similar to 2016) IMP/PLAN: VF arrest:in setting of gram + bacteremia and septic shock, anoxic encephalopathy -EF only mild-mod decreased on prior echo 1 yr ago, currently severe/global 25- 30%. -? arrest triggered by bacteremia (2 of 2 initial cultures positive)/sepsis -holding bb given low BPs -doubt acute ischemic etiology given normal cors 3 yrs ago--if makes meaningful recover will need repeat isch eval - s/p trach, PEG NSTEMI: -trop peaked at 32 -normal cors 2016 -suspect sec to sepsis vs prolonged hypotension from recurrent VF arrest (with contribution from mult electrical defibs) -on AC -hold BB SEPTIC SHOCK, gram pos bacteremia: -improved with abx Prolonged QT: -? related to CMP/LVH--was close to 500 on prior ecg 2016 -aggressive repletion of K/Mag (08/03) -avoid QT prolonging meds Congestive heart failure, nonischemic CMP -EF severely reduced at time of initial dx 2016--improved signif with med management -present EF severely reduced again, likely in setting sepsis, post arrest PRACHI: -sec to ATN, renal following PAF, DVT - cont AC - now on eliquis 5 mg BID
--- NOTE | 2019-02-01 14:09 | PN ---
Progress Note, Physician History of Present Illness: Pt seen and examined at bedside. No great change overnight. He is tolerating diet. - Current Medication List Current Medications: Active Medications Acetaminophen (Tylenol Oral Solution -) 650 mg PO Q6H PRN PRN Reason: FEVER Last Admin: 02/01/19 11:34 Dose: 650 mg Apixaban (Eliquis -) 5 mg GT BID [facility] Last Admin: 02/01/19 11:35 Dose: 5 mg Artificial Tears (Artificial Tears Ointment -) 1 applic OU HS [facility] Last Admin: 01/31/19 21:47 Dose: 1 applic Artificial Tears (Artificial Tears) 1 drop OU BID [facility] Last Admin: 02/01/19 11:35 Dose: 1 drop Chlorhexidine Gluconate (Peridex -) 15 ml MM BID [facility] Last Admin: 02/01/19 11:35 Dose: 15 ml Hydralazine HCl (Apresoline Injection -) 10 mg IVPUSH Q6H PRN PRN Reason: HYPERTENSION Levetiracetam (Keppra -) 500 mg PO BID [facility] Last Admin: 02/01/19 11:35 Dose: 500 mg - Objective Vital Signs: Vital Signs Temperature 100.2 F H 02/01/19 13:29 Pulse Rate 75 02/01/19 13:29 Respiratory Rate 18 02/01/19 13:29 Blood Pressure 110/60 02/01/19 13:29 O2 Sat by Pulse Oximetry (%) 100 02/01/19 09:00 Constitutional: Yes: Calm Neck: Yes: Other (trache) Cardiovascular: Yes: S1, S2 Respiratory: Yes: Mechanically Ventilated Gastrointestinal: Yes: Other (peg) Genitourinary: Yes: Chambers Present Musculoskeletal: Yes: Muscle Weakness Edema: Yes Edema: LUE: Trace, RUE: Trace Neurological: Yes: Lethargy Labs: CBC, BMP 02/01/19 07:36 01/31/19 07:25 INR, PTT INR 1.24 (0.83-1.09) H 01/31/19 07:35 Problem List - Problems (1) PRACHI (acute kidney injury) Code(s): N17.9 - ACUTE KIDNEY FAILURE, UNSPECIFIED (2) CHF (congestive heart failure) Code(s): I50.9 - HEART FAILURE, UNSPECIFIED (3) HTN (hypertension) Code(s): I10 - ESSENTIAL (PRIMARY) HYPERTENSION Assessment/Plan Current Medications Generic Name Dose Route Start Last Admin Trade Name Freq PRN Reason Stop Dose Admin Acetaminophen 650 mg 01/28/19 10:19 02/01/19 11:34 Tylenol Oral Solution - PO 650 mg Q6H PRN Administration FEVER Apixaban 5 mg 02/01/19 10:00 02/01/19 11:35 Eliquis - GT 5 mg BID [facility] Administration Artificial Tears 1 applic 01/21/19 22:00 01/31/19 21:47 Artificial Tears Ointment - OU 1 applic HS [facility] Administration Artificial Tears 1 drop 01/21/19 22:00 02/01/19 11:35 Artificial Tears OU 1 drop BID [facility] Administration Chlorhexidine Gluconate 15 ml 01/21/19 22:00 02/01/19 11:35 Peridex - MM 15 ml BID [facility] Administration Hydralazine HCl 10 mg 01/21/19 19:17 Apresoline Injection - IVPUSH Q6H PRN HYPERTENSION Levetiracetam 500 mg 01/26/19 22:00 02/01/19 11:35 Keppra - PO 500 mg BID [facility] Administration Impression 1. PRACHI 2. cardiac arrest 3. hx chf 4. hx htn 5. resp failure requiring intubation 6. hypernatremia Plan - check bmp - sodium started to improve - cont vent support - pt tolerating feeds - PRACHI likely from [facility]N - cont supportive care
--- NOTE | 2019-02-01 15:03 | PN ---
Progress Note (short form) - Note Progress Note: flow grade fevers persist chest ct - bibasilar atelectasis and small effusions Vital Signs Period Temp Pulse Resp BP Sys/Estrada Pulse Ox Last 24 Hr 98.5 F-100.6 F 75-97 14-21 106-135/53-75 100 trach to vent cor-rrr llungs decreased bs at bases abd soft,ngt site clean ext no edema no nguyen no sacral ulcer CBC, BMP 02/01/19 07:36 01/31/19 07:25 Microbiology 01/23/19 16:04 Blood - Peripheral Venous Blood Culture - Final NO GROWTH AFTER 5 DAYS INCUBATION 01/23/19 15:55 Blood - Peripheral Venous Blood Culture - Final NO GROWTH AFTER 5 DAYS INCUBATION 01/23/19 13:25 Sputum - Endotrachea Suction/Ventilator Gram Stain - Final 01/23/19 13:25 Sputum - Endotrachea Suction/Ventilator Sputum Culture - Final Klebsiella Pneumoniae 01/19/19 13:00 Blood - Peripheral Venous Blood Culture - Final NO GROWTH AFTER 5 DAYS INCUBATION 01/19/19 12:51 Blood - Peripheral Venous Blood Culture - Final NO GROWTH AFTER 5 DAYS INCUBATION 01/23/19 13:25 Urine For Antigen Detection Legionella Antigen - Final 01/23/19 13:25 Urine For Antigen Detection Streptococcus pneumoniae Antigen (M - Final 01/14/19 16:00 Blood - Peripheral Venous Blood Culture - Final NO GROWTH AFTER 5 DAYS INCUBATION 01/14/19 14:30 Blood - Peripheral Venous Blood Culture - Final NO GROWTH AFTER 5 DAYS INCUBATION 01/14/19 14:30 Sputum - Endotrachea Suction/Ventilator Gram Stain - Final 01/14/19 14:30 Sputum - Endotrachea Suction/Ventilator Sputum Culture - Final Klebsiella Pneumoniae Stenotrophomon.(X.)Maltophilia 01/12/19 20:30 Blood - Peripheral Venous Blood Culture - Final Strep Agalactiae Group B Staphylococcus Haemolyticus Enterococcus Faecalis 01/12/19 20:30 Blood - Peripheral Venous Blood Culture - Final Staphylococcus Haemolyticus 01/13/19 09:00 Urine For Antigen Detection Legionella Antigen - Final 01/13/19 09:00 Urine For Antigen Detection Streptococcus pneumoniae Antigen (M - Final 01/13/19 04:50 Urine - Urine Clean Catch Urine Culture - Final NO GROWTH OBTAINED a/p persistent fevers-suspect central with normal WBC count on a/c for dvt continue off antibiotics s/p 10 days of antibiotics for polymicrobial bacteremia of unclear source ?central fevers s/p cardiac arrest with anoxia raffi- improved d/w mother at bedside Problem List - Problems (1) Cardiac arrest with successful resuscitation Code(s): I46.9 - CARDIAC ARREST, CAUSE UNSPECIFIED (2) Brain anoxic injury Code(s): G93.1 - ANOXIC BRAIN DAMAGE, NOT ELSEWHERE CLASSIFIED (3) Sepsis Code(s): A41.9 - SEPSIS, UNSPECIFIED ORGANISM (4) Shock liver Code(s): K72.00 - ACUTE AND SUBACUTE HEPATIC FAILURE WITHOUT COMA
--- NOTE | 2019-02-01 19:34 | PN ---
Progress Note (short form) - Note Progress Note: HPI: Pt remains unresponsive to exam. ROS limited due to clinical condition. PEG intact with feeds. PE: Gen: Remains unresponsive even to painful stimuli. No acute distress HEENT: Minimal pupillary reflex. MMM no secretions noted at time of exam Neck: Tracheostomy site without any secretions, no gag reflex LUNGS: Diminished breath sounds b/l at bases. AC mode of vent without overbreathing RR 14, TV 500, SpO2 30% (unchanged) CARD: RRR without any murmurs ABD: Hypoactive BS, PEG site intact without any drainage noted. Tolerating feeds running at bedside EXT: No edema of peripheral limbs SKIN: No skin breakdown seen. Sacrum not examined today CBC, BMP 02/01/19 07:36 01/31/19 07:25 Active Medications Acetaminophen (Tylenol Oral Solution -) 650 mg PO Q6H PRN PRN Reason: FEVER Last Admin: 02/01/19 11:34 Dose: 650 mg Apixaban (Eliquis -) 5 mg GT BID [facility] Last Admin: 02/01/19 11:35 Dose: 5 mg Artificial Tears (Artificial Tears Ointment -) 1 applic OU HS [facility] Last Admin: 01/31/19 21:47 Dose: 1 applic Artificial Tears (Artificial Tears) 1 drop OU BID [facility] Last Admin: 02/01/19 11:35 Dose: 1 drop Chlorhexidine Gluconate (Peridex -) 15 ml MM BID [facility] Last Admin: 02/01/19 11:35 Dose: 15 ml Hydralazine HCl (Apresoline Injection -) 10 mg IVPUSH Q6H PRN PRN Reason: HYPERTENSION Levetiracetam (Keppra -) 500 mg PO BID [facility] Last Admin: 02/01/19 11:35 Dose: 500 mg A/P S/p cardiac arrest S/p septic shock secondary to bacteremia Anoxic brain injury B/L rib fractures 2/2 to CPR Extensive DVT Fevers with suspicion of central fevers PRACHI 2/2 to ATN Hypernatremia Extensive DVT --CT Chest noncontrast for final r/o of any abscess --Likely central fevers --Increase Eliquis to 5mg BID --Appreciate all consultative recommendations --Will discuss with Neurology about findings on most recent Head CT noncontrast --Continue Keppra 500mg BID for seizure ppx to continue --Pt s/p tracheostomy site and PEG placement FEN: Fluids: GT only Electrolyte abnormalities: Hypernatremia improving now with FW at goal Nutrition: Nepro 25cc/hr increase 20cc q4hr to goal 55cc. Free water flush 50cc/hr PPX: DVT - Eliquis 5mg GT BID Dispo: D/c planning to [facility] Case discussed with Dr. Iram Mark, DO - IM PGY-3
[2019-02-01] MEDS: MINERAL OIL/PETROLATUM,WHITE 3.5 GM TUBE OU SCH (22:56)
[2019-02-02 08:50] LABS: BILIRUBIN,TOTAL 0.3 mg/dL (0.2-1); BLOOD UREA NITROGEN 45.8 mg/dL (7-18); CALCIUM 9.2 mg/dL (8.5-10.1); CREATININE 1.3 mg/dL (0.55-1.3); POTASSIUM 4.2 mmol/L (3.5-5.1); TOT PROT 6.4 g/dl (6.4-8.2)
--- NOTE | 2019-02-02 11:10 | DS ---
Physical Exam: SUBJECTIVE: Patient seen and examined OBJECTIVE: Vital Signs Period Temp Pulse Resp BP Sys/Estrada Pulse Ox Last 24 Hr 98.2 F-100.2 F 73-76 14-20 103-124/53-65 100-100 PHYSICAL EXAM PE: Gen: Remains unresponsive even to painful stimuli. + gag, + visual threat. No acute distress HEENT: Minimal pupillary reflex. MMM no secretions noted at time of exam Neck: Tracheostomy site without any secretions, no gag reflex LUNGS: Diminished breath sounds b/l at bases. AC mode of vent without overbreathing RR 14, TV 500, SpO2 30% (unchanged) CARD: RRR without any murmurs ABD: Hypoactive BS, PEG site intact without any drainage noted. Tolerating feeds running at bedside EXT: No edema of peripheral limbs SKIN: No skin breakdown seen. Sacrum not examined today LABS Laboratory Results - last 24 hr 02/02/19 07:55 Sodium 142 Potassium 4.2 Chloride 107 Carbon Dioxide 27 Anion Gap 7 L BUN 45.8 H Creatinine 1.3 Est GFR (CKD-EPI)AfAm 65.90 Est GFR (CKD-EPI)NonAf 56.86 Random Glucose 105 Calcium 9.2 Total Bilirubin 0.3 AST 60 H ALT 81 H Alkaline Phosphatase 114 Total Protein 6.4 Albumin 2.0 L HOSPITAL COURSE: Date of Admission:01/12/19 Date of Discharge: 02/02/19 Discharge Summary Reason For Visit: CARDIAC ARREST,RESPIRATORY DISTRESS Current Active Problems PRACHI (acute kidney injury) (Acute) Brain anoxic injury (Acute) Cardiac arrest with successful resuscitation (Acute) Chronic respiratory failure (Acute) History of sudden cardiac arrest (Acute) Sepsis (Acute) Shock liver (Acute) Condition: Stable - Instructions Diet, Activity, Other Instructions: The patient was in the hospital because of a cardiac arrest. Due to the resuscitation the patient sustained nondisplaced rib fractures which is known to happen in CPR. In addition pt has a DVT which he is being treated for with blood thinners He is being discharged to a long-term care facility. Please follow with their recommendations Current medications to continue: Eliquis 5mg TWICE daily Keppra 500mg TWICE daily Hydralazine 50mg every 12 hours as needed for Hypertension only systolic pressure >160/>100; Artificial tears 1 drop both eyes twice daily DIET: Nepro 55cc/hr with 50cc of free water flush for 24h continuous feeds Referrals: Walter Ivy MD [Primary Care Provider] - Disposition: [facility] - Home Medications Comprehensive Discharge Medication List: Ambulatory Orders Acetaminophen Oral Solution [Tylenol Oral Solution -] 650 mg PO Q6H PRN soln.oral 02/02/19 Apixaban [Eliquis -] 5 mg GT BID tablet 02/02/19 Chlorhexidine Gluconate [Peridex -] 15 ml MM BID cup 02/02/19 Hydralazine HCl 50 mg GT BID PRN #15 tablet 02/02/19 Polyvinyl Alcohol [Artificial Tears] 1 drop OU BID drops 02/02/19 levETIRAcetam [Keppra -] 500 mg PO BID tablet 02/02/19 - Discharge Referral Referred to [facility] No ATTENDING PHYSICIAN STATEMENT I saw and evaluated the patient. I reviewed the resident's note and discussed the case with the resident. I agree with the resident's findings and plan as documented. SUBJECTIVE: OBJECTIVE: ASSESSMENT AND PLAN:
--- NOTE | 2019-02-02 11:32 | PN ---
Progress Note (short form) - Note Progress Note: s: unresponsive, on vent Current Medications Acetaminophen (Tylenol Oral Solution -) 650 mg PO Q6H PRN PRN Reason: FEVER Last Admin: 02/01/19 11:34 Dose: 650 mg Apixaban (Eliquis -) 5 mg GT BID [facility] Last Admin: 02/01/19 22:27 Dose: 5 mg Artificial Tears (Artificial Tears Ointment -) 1 applic OU HS [facility] Last Admin: 02/01/19 22:56 Dose: 1 applic Artificial Tears (Artificial Tears) 1 drop OU BID [facility] Last Admin: 02/01/19 22:56 Dose: 1 drop Chlorhexidine Gluconate (Peridex -) 15 ml MM BID [facility] Last Admin: 02/01/19 22:58 Dose: 15 ml Hydralazine HCl (Apresoline Injection -) 10 mg IVPUSH Q6H PRN PRN Reason: HYPERTENSION Levetiracetam (Keppra -) 500 mg PO BID [facility] Last Admin: 02/01/19 22:27 Dose: 500 mg Vital Signs Period Temp Pulse Resp BP Sys/Estrada Pulse Ox Last 24 Hr 98.2 F-100.2 F 73-76 14-20 103-124/53-65 100-100 HENT: trach, vent Cardiovascular: Yes: Regular Rate and Rhythm Respiratory: Yes: Other (coarse breath sounds b /l) Gastrointestinal: Yes: Soft Edema: No no jaundice, diaphoresis not agitated Assessment/Plan echo 01/20: severe global LV hypo EF 25-30%. nl RV. mild LAE. mod MR. nl RVSP. cath 07/2015: lhc: normal cors; rhc: mild phtn, pvri mod elevated, pcw/lvedp nl. ECG 01/12: NSR, LVH with nonsp ST-Ts ? sec to LVH--not signif changed vs 2016 prior ECG 01/13: no signif change, prolonged QT (similar to 2016) IMP/PLAN: VF arrest:in setting of gram + bacteremia and septic shock, anoxic encephalopathy -EF only mild-mod decreased on prior echo 1 yr ago, currently severe/global 25- 30%. -? arrest triggered by bacteremia (2 of 2 initial cultures positive)/sepsis -holding bb given low BPs -doubt acute ischemic etiology given normal cors 3 yrs ago--if makes meaningful recovery will need repeat isch eval - s/p trach, PEG NSTEMI: -trop peaked at 32 -normal cors 2015 -suspect sec to sepsis vs prolonged hypotension from recurrent VF arrest (with contribution from mult electrical defibs) -on AC -hold BB SEPTIC SHOCK, gram pos bacteremia: -improved with abx Prolonged QT: -? related to CMP/LVH--was close to 500 on prior ecg 2015 -aggressive repletion of K/Mag (08/03) -avoid QT prolonging meds Congestive heart failure, nonischemic CMP -EF severely reduced at time of initial dx 2015--improved signif with med management -present EF severely reduced again, likely in setting sepsis, post arrest PRACHI: -sec to ATN, renal following PAF, DVT - cont eliquis 5 mg BID
[2019-02-02 12:29] VITALS: BP 131/78; PULSE 79; TEMP 98.4
[2019-02-02] MEDS: APIXABAN 2.5 MG TABLET GT SCH (12:35)
[2019-02-02] MEDS: CHLORHEXIDINE GLUCONATE 0.12% 15ML CUP MM SCH (12:39)
[2019-02-02] MEDS: ARTIFICIAL TEARS (POLYVINYL ALCOHOL) OPTH DROPS OU SCH (12:39)
[2019-02-02] MEDS: levETIRAcetam 500 MG TABLET (FP) PO SCH (12:39)
--- NOTE | 2019-02-02 13:06 | PN ---
Progress Note, Physician History of Present Illness: pulmonary no change unresponsive on vent support,ac mode - Current Medication List Current Medications: Active Medications Acetaminophen (Tylenol Oral Solution -) 650 mg PO Q6H PRN PRN Reason: FEVER Last Admin: 02/01/19 11:34 Dose: 650 mg Apixaban (Eliquis -) 5 mg GT BID [facility] Last Admin: 02/02/19 12:35 Dose: 5 mg Artificial Tears (Artificial Tears Ointment -) 1 applic OU HS [facility] Last Admin: 02/01/19 22:56 Dose: 1 applic Artificial Tears (Artificial Tears) 1 drop OU BID [facility] Last Admin: 02/02/19 12:39 Dose: 1 drop Chlorhexidine Gluconate (Peridex -) 15 ml MM BID [facility] Last Admin: 02/02/19 12:39 Dose: 15 ml Hydralazine HCl (Apresoline Injection -) 10 mg IVPUSH Q6H PRN PRN Reason: HYPERTENSION Levetiracetam (Keppra -) 500 mg PO BID [facility] Last Admin: 02/02/19 12:39 Dose: 500 mg - Objective Vital Signs: Vital Signs Temperature 98.4 F 02/02/19 12:27 Pulse Rate 79 02/02/19 12:27 Respiratory Rate 18 02/02/19 12:27 Blood Pressure 131/78 02/02/19 12:27 O2 Sat by Pulse Oximetry (%) 100 02/02/19 08:13 Constitutional: Yes: Well Nourished, Other (unresponsive) Eyes: Yes: WNL HENT: Yes: WNL Neck: Yes: Supple (trach) Cardiovascular: Yes: Regular Rate and Rhythm, S1 Respiratory: Yes: Rhonchi (few rhonchi) Gastrointestinal: Yes: Normal Bowel Sounds, Soft Extremities: Yes: WNL Edema: Yes Labs: CBC, BMP 02/01/19 07:36 02/02/19 07:55 INR, PTT INR 1.24 (0.83-1.09) H 01/31/19 07:35 Problem List - Problems (1) PRACHI (acute kidney injury) Code(s): N17.9 - ACUTE KIDNEY FAILURE, UNSPECIFIED (2) Brain anoxic injury Code(s): G93.1 - ANOXIC BRAIN DAMAGE, NOT ELSEWHERE CLASSIFIED (3) Cardiac arrest with successful resuscitation Code(s): I46.9 - CARDIAC ARREST, CAUSE UNSPECIFIED (4) Sepsis Code(s): A41.9 - SEPSIS, UNSPECIFIED ORGANISM (5) CHF (congestive heart failure) Code(s): I50.9 - HEART FAILURE, UNSPECIFIED (6) HTN (hypertension) Code(s): I10 - ESSENTIAL (PRIMARY) HYPERTENSION (7) Tobacco abuse Code(s): Z72.0 - TOBACCO USE (8) History of sudden cardiac arrest Code(s): Z86.74 - PERSONAL HISTORY OF SUDDEN CARDIAC ARREST (9) Chronic respiratory failure Code(s): J96.10 - CHRONIC RESPIRATORY FAILURE, UNSP W HYPOXIA OR HYPERCAPNIA Assessment/Plan ASSESSMENT AND PLAN: S/P Cardiopulmonary Arrest [facility] Ventricular Fibrillation Anoxic Brain Injury CAD/+Troponins/Acute NSTEMI LV Systolic Dysfunction Lactic Acidosis Acute Kidney Injury Elevated LFTs likely Ischemic Injury HTN Hyperlipidemia Extensive DVT - AC - monitor urine output, creatinine - not a candidate for weaning at this time due to mental status - DVT prophylaxis - poor overall prognosis for meaningful recovery DR FORBES
--- NOTE | 2019-02-02 13:55 | PN ---
Progress Note, Physician History of Present Illness: Pt seen and examined at bedside. He appears comfortable. No great change in status. - Current Medication List Current Medications: Active Medications Acetaminophen (Tylenol Oral Solution -) 650 mg PO Q6H PRN PRN Reason: FEVER Last Admin: 02/01/19 11:34 Dose: 650 mg Apixaban (Eliquis -) 5 mg GT BID [facility] Last Admin: 02/02/19 12:35 Dose: 5 mg Artificial Tears (Artificial Tears Ointment -) 1 applic OU HS [facility] Last Admin: 02/01/19 22:56 Dose: 1 applic Artificial Tears (Artificial Tears) 1 drop OU BID [facility] Last Admin: 02/02/19 12:39 Dose: 1 drop Chlorhexidine Gluconate (Peridex -) 15 ml MM BID [facility] Last Admin: 02/02/19 12:39 Dose: 15 ml Hydralazine HCl (Apresoline Injection -) 10 mg IVPUSH Q6H PRN PRN Reason: HYPERTENSION Levetiracetam (Keppra -) 500 mg PO BID [facility] Last Admin: 02/02/19 12:39 Dose: 500 mg - Objective Vital Signs: Vital Signs Temperature 98.4 F 02/02/19 12:27 Pulse Rate 79 02/02/19 12:27 Respiratory Rate 18 02/02/19 12:27 Blood Pressure 131/78 02/02/19 12:27 O2 Sat by Pulse Oximetry (%) 100 02/02/19 08:13 Constitutional: Yes: Calm Eyes: Yes: Conjunctiva Clear Cardiovascular: Yes: S1, S2 Respiratory: Yes: Mechanically Ventilated Gastrointestinal: Yes: Soft Genitourinary: Yes: Incontinence Musculoskeletal: Yes: Muscle Weakness Edema: No Neurological: Yes: Lethargy Labs: CBC, BMP 02/01/19 07:36 02/02/19 07:55 INR, PTT INR 1.24 (0.83-1.09) H 01/31/19 07:35 Problem List - Problems (1) PRACHI (acute kidney injury) Code(s): N17.9 - ACUTE KIDNEY FAILURE, UNSPECIFIED (2) CHF (congestive heart failure) Code(s): I50.9 - HEART FAILURE, UNSPECIFIED (3) HTN (hypertension) Code(s): I10 - ESSENTIAL (PRIMARY) HYPERTENSION Assessment/Plan Current Medications Generic Name Dose Route Start Last Admin Trade Name Freq PRN Reason Stop Dose Admin Acetaminophen 650 mg 01/28/19 10:19 02/01/19 11:34 Tylenol Oral Solution - PO 650 mg Q6H PRN Administration FEVER Apixaban 5 mg 02/01/19 10:00 02/02/19 12:35 Eliquis - GT 5 mg BID [facility] Administration Artificial Tears 1 applic 01/21/19 22:00 02/01/19 22:56 Artificial Tears Ointment - OU 1 applic HS [facility] Administration Artificial Tears 1 drop 01/21/19 22:00 02/02/19 12:39 Artificial Tears OU 1 drop BID [facility] Administration Chlorhexidine Gluconate 15 ml 01/21/19 22:00 02/02/19 12:39 Peridex - MM 15 ml BID [facility] Administration Hydralazine HCl 10 mg 01/21/19 19:17 Apresoline Injection - IVPUSH Q6H PRN HYPERTENSION Levetiracetam 500 mg 01/26/19 22:00 02/02/19 12:39 Keppra - PO 500 mg BID [facility] Administration Impression 1. PRACHI 2. cardiac arrest 3. hx chf 4. hx htn 5. resp failure requiring intubation 6. hypernatremia Plan - sodium is improved - renal function is stabilizing - discussed with family - possible transfer to LTAC today - discussed with medical team - will need to monitor labs closely at ltac - cont vent support - pt tolerating feeds - PRACHI likely from [facility]N
--- NOTE | 2019-02-02 19:40 | PN ---
Progress Note (short form) - Note Progress Note: Seen and examined; reviewed chart. Please see resident note for all recommendations and full discussion. Personally verified all parts of history and physical exam. Being discharged to LTAC. Discussed with family. Visit type - Emergency Visit Emergency Visit: No - New Patient This patient is new to me today: No - Critical Care Critical Care patient: No
== END 2019-02-02 14:34 | disposition short-term general hospital (02) | DRG 4 ==
LOC: JER 20:07 → JERBED 23:54 → JICU 01-13 01:10 → J5S 01-21 14:48
PROVIDERS: ADMIT Internal Medicine; ATTEND Internal Medicine
PROC: 0BH17EZ Insertion of Endotracheal Airway into Trachea, Via Natural or Artificial Opening (ICD-10-PCS; principal; 2019-01-12)
PROC: 5A1955Z Respiratory Ventilation, Greater than 96 Consecutive Hours (ICD-10-PCS; 2019-01-12)
PROC: 06HN33Z Insertion of Infusion Device into Left Femoral Vein, Percutaneous Approach (ICD-10-PCS; 2019-01-12)
PROC: B51CZZA Fluoroscopy of Left Lower Extremity Veins, Guidance (ICD-10-PCS; 2019-01-12)
PROC: 05HM33Z Insertion of Infusion Device into Right Internal Jugular Vein, Percutaneous Approach (ICD-10-PCS; 2019-01-13)
PROC: B513ZZA Fluoroscopy of Right Jugular Veins, Guidance (ICD-10-PCS; 2019-01-13)
PROC: 0B113F4 Bypass Trachea to Cutaneous with Tracheostomy Device, Percutaneous Approach (ICD-10-PCS; 2019-01-20)
PROC: 0BJ08ZZ Inspection of Tracheobronchial Tree, Via Natural or Artificial Opening Endoscopic (ICD-10-PCS; 2019-01-20)
PROC: 0DH63UZ Insertion of Feeding Device into Stomach, Percutaneous Approach (ICD-10-PCS; 2019-01-24)
PROC: 3E0G76Z Introduction of Nutritional Substance into Upper GI, Via Natural or Artificial Opening (ICD-10-PCS; 2019-01-24)
DX: I46.9 Cardiac arrest, cause unspecified (principal); S22.43XA Multiple fractures of ribs, bilateral, initial encounter for closed fracture; I21.4 Non-ST elevation (NSTEMI) myocardial infarction; A40.9 Streptococcal sepsis, unspecified; R65.21 Severe sepsis with septic shock; G93.6 Cerebral edema; J69.0 Pneumonitis due to inhalation of food and vomit; K72.00 Acute and subacute hepatic failure without coma; J96.00 Acute respiratory failure, unspecified whether with hypoxia or hypercapnia; N17.0 Acute kidney failure with tubular necrosis; J98.11 Atelectasis; E87.2 Acidosis; I50.20 Unspecified systolic (congestive) heart failure; E87.0 Hyperosmolality and hypernatremia; R09.01 Asphyxia; G93.1 Anoxic brain damage, not elsewhere classified; I42.8 Other cardiomyopathies; I82.4Z2 Acute embolism and thrombosis of unspecified deep veins of left distal lower extremity; J90 Pleural effusion, not elsewhere classified; E11.9 Type 2 diabetes mellitus without complications; I44.7 Left bundle-branch block, unspecified; I44.0 Atrioventricular block, first degree; E66.8 Other obesity; Z68.33 Body mass index [BMI] 33.0-33.9, adult; I95.9 Hypotension, unspecified; R94.5 Abnormal results of liver function studies; R94.6 Abnormal results of thyroid function studies; R68.0 Hypothermia, not associated with low environmental temperature; I49.01 Ventricular fibrillation; I11.0 Hypertensive heart disease with heart failure; I25.10 Atherosclerotic heart disease of native coronary artery without angina pectoris; I45.81 Long QT syndrome; E78.5 Hyperlipidemia, unspecified; R50.9 Fever, unspecified; I48.0 Paroxysmal atrial fibrillation; Z72.0 Tobacco use; E87.8 Other disorders of electrolyte and fluid balance, not elsewhere classified; E87.6 Hypokalemia; X58.XXXA Exposure to other specified factors, initial encounter; Y92.89 Other specified places as the place of occurrence of the external cause
CPT/HCPCS: 36415; 36600; 49440; 70450-TC; 71045-TC-FY; 71250-TC; 72125-TC; 74018-TC-FY; 74176-TC; 76604-TC; 80048; 80053; 80069; 81003; 82550; 82553; 82803; 82962; 83605; 83690; 83735; 83880; 84100; 84439; 84443; 84479; 84480; 84484; 85025; 85027; 85610; 85651; 85730; 86140; 86850; 86900; 86901; 87040; 87070; 87086; 87186; 87205; 87899; 93005; 93010; 93306-TC; 93970-TC; 94002; 99285-25; G0480; J0131; J1644; J7030